=== PATIENT | female | born 1945 ===

== ENCOUNTER 2020-04-01 11:57 | Outpatient (REF) | payer MEDICARE, MEDICAID, SELFPAY ==
--- NOTE | 2020-04-01 12:18 | XR_ITS ---
EXAMINATION: XR CHEST CLINICAL INFORMATION: Weight loss, hypertension. COMPARISON: None TECHNIQUE: 2 views of the chest were obtained. FINDINGS: The lungs are well-expanded and clear. There are small calcified granulomas in the right lower lobe. The heart size and pulmonary vascularity is normal. There is mild spondylosis dorsal spine. No lytic process seen. XR/XR chest 2V IMPRESSION: Unremarkable chest exam.
[2020-04-01 12:47] LABS: MANUAL DIFF FLAG NO
[2020-04-01 12:53] LABS: Basophils Percent Auto 0.4 % (0-2); Eosinophils Absolute Auto 0.1 X10*3/uL (0.0-0.4); Eosinophils Percent Auto 1.6 % (0-4); Hematocrit 34.5 % (37-47); Hemoglobin 11.2 g/dl (12.0-16.0); Imm Gran Abs Auto 0.02 X10*3/uL (0.00-0.03); Imm Gran Pct Auto 0.3 % (0.0-0.4); Lymphocytes Absolute Auto 2.3 X10*3/uL (1.2-4.9); Lymphocytes Percent Auto 30.9 % (20-40); Mean Corpuscular HGB Conc 32.5 g/dl (31.0-35.0); Mean Corpuscular Hemoglobin 32.1 pg (27.0-33.0); Mean Corpuscular Volume 98.9 fL (80-98); Mean Platelet Volume 11.5 fL (9.4-12.3); Monocytes Absolute Auto 0.5 X10*3/uL (0.1-1.2); Monocytes Percent Auto 7.3 % (2-11); Neutrophils Absolute Auto 4.4 X10*3/uL (2.0-8.3); Neutrophils Percent Auto 59.5 % (45-73); Platelet Count 185 X10*3/uL (160-400); Red Blood Count 3.49 X10*6/uL (4.20-5.50); Red Cell Distribution Width 12.7 % (11.0-16.0); White Blood Count 7.4 X10*3/uL (4.8-10.8)
[2020-04-01 13:11] LABS: Estimated Average Glucose 103 mg/dL; Hemoglobin A1c % 5.2 %
[2020-04-01 14:15] LABS: Alanine Aminotransferase 16 U/L (0-31); Albumin Level 4.2 g/dL (3.5-5.0); Alkaline Phosphatase 74 U/L (39-117); Anion Gap 14 (12-20); Aspartate Amino Transferase 24 U/L (5-31); Bilirubin Total 0.6 mg/dL (0.0-1.0); Blood Urea Nitrogen 46 mg/dL (9-16); C Reactive Protein 0.47 mg/dL (< or = 0.50); Carbon Dioxide 28 mmol/L (22-29); Chloride 100 mmol/L (96-108); Estimated Glomerular Filt Rate 25; Glucose Random 99 mg/dL (60-115); Lipase 62 U/L (8-78); Potassium 3.5 mmol/l (3.3-5.1); Sodium 138 mmol/L (135-145); Total Protein 7.3 g/dL (6.5-8.0)
[2020-04-01 14:36] LABS: Free T4 (Free Thyroxine) 1.11 ng/dL (0.71-1.85); Thyroid Stimulating Hormone 1.34 uIU/mL (0.32-4.0)
[2020-04-01 14:53] LABS: Vitamin B12 423 pg/mL (200-900)
== END 2020-04-01 11:58 | disposition home or self-care (01) ==
LOC: HO.LAB 11:57
PROVIDERS: PCP Internal Medicine; Visit Provider Internal Medicine
DX: R63.4 Abnormal weight loss (principal); I10 Essential (primary) hypertension
CPT/HCPCS: 36415; 71046; 80053; 82607; 83036; 83690; 84439; 84443; 85025; 86140

== ENCOUNTER 2020-07-15 13:36 | Outpatient (REF) | payer MEDICARE, MEDICAID, SELFPAY ==
--- NOTE | ~2020-07-15 | MM_ITS ---
EXAMINATION: MM SCREENING DIGITAL BREAST TOMOSYNTHESIS, BILATERAL CLINICAL INFORMATION: Screening. Asymptomatic. The lifetime risk of breast cancer based on the Tyrer-Cuzick Model is 4.9%. COMPARISON: Mammography: January 24, 2018 and studies dating back to July 04, 2013 TECHNIQUE: Digital breast tomosynthesis is performed in both the craniocaudal and mediolateral oblique views along with computer-aided detection (CAD). Synthesized 2D images are generated from the tomosynthesis. FINDINGS: There are scattered areas of fibroglandular density (ACR BI-RADS breast composition Category b). There are no significant masses, abnormal calcifications, or other abnormalities. MM/MM tomosynthesis screening BI IMPRESSION: There are no significant changes from prior study. ASSESSMENT: BI-RADS 1: Negative RECOMMENDATION: Routine annual mammography screening. This patient's information was entered into a reminder system with a target due date for their next mammogram.
== END 2020-07-15 13:37 | disposition home or self-care (01) ==
LOC: HO.MAMMO 13:36
PROVIDERS: Visit Provider Internal Medicine
DX: Z12.31 Encounter for screening mammogram for malignant neoplasm of breast (principal)
CPT/HCPCS: 77063; 77067

== ENCOUNTER → 2020-08-13 10:02 | Outpatient (BNVA) | payer MEDICARE, MEDICAID, SELFPAY | PROVIDERS: PCP Internal Medicine; Visit Provider Advanced Practice Midwife | DX: Z01.419 Encounter for gynecological examination (general) (routine) without abnormal findings (principal); N95.0 Postmenopausal bleeding; N81.4 Uterovaginal prolapse, unspecified | CPT/HCPCS: 81003 ==

== ENCOUNTER 2020-10-15 14:44 | Outpatient (REF) | payer MEDICARE, MEDICAID, SELFPAY ==
--- NOTE | ~2020-10-15 | US_ITS ---
EXAMINATION: ULTRASOUND PELVIS AND TRANSVAGINAL. CLINICAL INFORMATION: Uterovaginal prolapse. COMPARISON: None TECHNIQUE: Transabdominal and transvaginal imaging of pelvis is performed. FINDINGS: The uterus is anteverted and anteflexed measuring 7.2 cm in length, 3.5 cm AP and 5.5 cm in transverse dimension. No focal lesion is seen. The right ovary is not visualized. The left ovary measures 2.9 x 1.4 x 2.0 cm and volume 4.2 mL. There is moderate amount of free fluid in the cul-de-sac. US/US pelvic and transvaginal IMPRESSION: Unremarkable uterus and left ovary. The right ovary is not visualized Moderate amount of free fluid in the cul-de-sac.
[2020-10-15 15:57] LABS: Glucose Urine UA NEG (NEG); Leukocyte Esterase Urine NEG (NEG); Nitrite Urine NEG (NEG); PH 5.5 (5.0-8.0); Specific Gravity - Urine 1.025 (1.005-1.025); Urine Blood NEG (NEG); Urine Ketones NEG (NEG); Urine Protein TRACE MG/DL (NEG-TRACE)
[2020-10-15 16:07] LABS: Appearance Urine HAZY; Color Urine YELLOW
== END 2020-10-15 14:45 | disposition home or self-care (01) ==
LOC: HO.US 14:44
PROVIDERS: Visit Provider Advanced Practice Midwife
DX: N81.4 Uterovaginal prolapse, unspecified (principal); R82.90 Unspecified abnormal findings in urine; N95.0 Postmenopausal bleeding
CPT/HCPCS: 76830; 76856; 81003

== ENCOUNTER 2020-10-23 10:23 | Outpatient (REF) | payer MEDICARE, MEDICAID, SELFPAY ==
[2020-10-23 11:27] LABS: MANUAL DIFF FLAG NO
[2020-10-23 11:42] LABS: Basophils Percent Auto 0.2 % (0-2); Eosinophils Absolute Auto 0.1 X10*3/uL (0.0-0.4); Eosinophils Percent Auto 1.3 % (0-4); Hematocrit 32.7 % (37-47); Hemoglobin 10.5 g/dl (12.0-16.0); Imm Gran Abs Auto 0.02 X10*3/uL (0.00-0.03); Imm Gran Pct Auto 0.2 % (0.0-0.4); Lymphocytes Absolute Auto 1.9 X10*3/uL (1.2-4.9); Lymphocytes Percent Auto 21.9 % (20-40); Mean Corpuscular HGB Conc 32.1 g/dl (31.0-35.0); Mean Corpuscular Hemoglobin 31.7 pg (27.0-33.0); Mean Corpuscular Volume 98.8 fL (80-98); Mean Platelet Volume 11.2 fL (9.4-12.3); Monocytes Absolute Auto 0.7 X10*3/uL (0.1-1.2); Monocytes Percent Auto 8.5 % (2-11); Neutrophils Absolute Auto 5.8 X10*3/uL (2.0-8.3); Neutrophils Percent Auto 67.9 % (45-73); Platelet Count 154 X10*3/uL (160-400); Red Blood Count 3.31 X10*6/uL (4.20-5.50); Red Cell Distribution Width 12.7 % (11.0-16.0); White Blood Count 8.6 X10*3/uL (4.8-10.8)
[2020-10-23 11:47] LABS: INTERNATIONAL NORM RATIO 1.1 (0.9-1.1); Prothrombin Time 13.3 SEC (10.8-13.0)
[2020-10-23 11:50] LABS: Partial Thromboplastin Time 30.6 SEC (24.1-38.0)
[2020-10-23 11:59] LABS: Estimated Average Glucose 100 mg/dL; Hemoglobin A1c % 5.1 %
[2020-10-23 12:04] LABS: Alanine Aminotransferase 16 U/L (0-31); Albumin Level 3.7 g/dL (3.5-5.0); Alkaline Phosphatase 75 U/L (39-117); Anion Gap 12 (12-20); Aspartate Amino Transferase 22 U/L (5-31); Blood Urea Nitrogen 29 mg/dL (9-16); C Reactive Protein 5.66 mg/dL (< or = 0.50); Calcium 9.3 mg/dL (8.4-10.2); Carbon Dioxide 27 mmol/L (22-29); Chloride 109 mmol/L (96-108); Cholesterol 161 mg/dL; Estimated Glomerular Filt Rate 50; Glucose Random 94 mg/dL (60-115); HDL Cholesterol 61 mg/dL; LDL Cholesterol Calculated 90 mg/dl; Lactate Dehydrogenase 178 U/L (122-220); Phosphorus 3.5 mg/dL (2.7-4.5); Potassium 4.7 mmol/L (3.3-5.1); Sodium 143 mmol/L (135-145); Total Protein 6.6 g/dL (6.5-8.0); Triglycerides 53 mg/dL
[2020-10-27 09:36] LABS: Calcium (PTHI) 9.1 mg/dL (8.6-10.4); PTHI 40 pg/mL (14-64)
== END 2020-10-23 10:24 | disposition home or self-care (01) ==
LOC: HO.LAB 10:23
PROVIDERS: PCP Internal Medicine; Visit Provider Internal Medicine
DX: I10 Essential (primary) hypertension (principal); E78.00 Pure hypercholesterolemia, unspecified; R73.03 Prediabetes
CPT/HCPCS: 36415; 80053; 80061; 83036; 83615; 83970; 84100; 85025; 85610; 85730; 86140

== ENCOUNTER → 2020-10-29 10:46 | Outpatient (BNVA) | payer MEDICARE, MEDICAID, SELFPAY | PROVIDERS: Visit Provider Advanced Practice Midwife | DX: Z71.2 Person consulting for explanation of examination or test findings (principal); R93.89 Abnormal findings on diagnostic imaging of other specified body structures | CPT/HCPCS: Q3014 ==

== ENCOUNTER 2021-08-19 12:03 | Outpatient (REF) | payer MEDICARE, MEDICAID, SELFPAY ==
--- NOTE | ~2021-08-19 | XR_ITS ---
EXAMINATION: XR CHEST CLINICAL INFORMATION: Fall. Left rib pain. COMPARISON: 04/01/2020 TECHNIQUE: PA and lateral views of the chest, 3 views of the left hemithorax FINDINGS: Normal symmetric lung volumes. No parenchymal consolidation. There are couple calcified granuloma within the right lower lung. No pleural effusion. No pneumothorax. Cardiomediastinal silhouette and pulmonary vascularity are within normal limits. Aorta is atherosclerotic. No acute osseous abnormalities, specifically no displaced rib fractures. XR/XR ribs LT 2V IMPRESSION: No acute pulmonary findings. Calcified granulomata, right lower lung. No displaced rib fractures.
--- NOTE | ~2021-08-19 | XR_ITS ---
EXAMINATION: XR CHEST CLINICAL INFORMATION: Fall. Left rib pain. COMPARISON: 04/01/2020 TECHNIQUE: PA and lateral views of the chest, 3 views of the left hemithorax FINDINGS: Normal symmetric lung volumes. No parenchymal consolidation. There are couple calcified granuloma within the right lower lung. No pleural effusion. No pneumothorax. Cardiomediastinal silhouette and pulmonary vascularity are within normal limits. Aorta is atherosclerotic. No acute osseous abnormalities, specifically no displaced rib fractures. XR/XR chest 2V IMPRESSION: No acute pulmonary findings. Calcified granulomata, right lower lung. No displaced rib fractures.
[2021-08-19 12:29] LABS: MANUAL DIFF FLAG NO
[2021-08-19 13:23] LABS: Basophils Percent Auto 0.1 % (0-2); Eosinophils Absolute Auto 0.1 X10*3/uL (0.0-0.4); Eosinophils Percent Auto 1.5 % (0-4); Hematocrit 33.4 % (37.0-47.0); Hemoglobin 10.5 g/dl (12.0-16.0); Imm Gran Abs Auto 0.04 X10*3/uL (0.00-0.03); Imm Gran Pct Auto 0.5 % (0.0-0.4); Lymphocytes Absolute Auto 1.5 X10*3/uL (1.2-4.9); Lymphocytes Percent Auto 18.3 % (20-40); Mean Corpuscular HGB Conc 31.4 g/dl (31.0-35.0); Mean Corpuscular Hemoglobin 30.9 pg (27.0-33.0); Mean Corpuscular Volume 98.2 fL (80.0-98.0); Mean Platelet Volume 10.9 fL (9.4-12.3); Monocytes Absolute Auto 0.6 X10*3/uL (0.1-1.2); Neutrophils Absolute Auto 5.7 x10*3/uL (2.0-8.3); Neutrophils Percent Auto 71.6 % (45-73); Platelet Count 194 X10*3/uL (160-400); Red Cell Distribution Width 13.2 % (11.0-16.0); White Blood Count 7.9 X10*3/uL (4.8-10.8)
[2021-08-19 13:29] LABS: Estimated Average Glucose 105 mg/dL; Hemoglobin A1c % 5.3 %
[2021-08-19 13:50] LABS: Alanine Aminotransferase 11 U/L (0-31); Albumin Level 3.7 g/dL (3.5-5.0); Alkaline Phosphatase 80 U/L (39-117); Anion Gap 13 (12-20); Aspartate Amino Transferase 22 U/L (5-31); Bilirubin Total 0.5 mg/dL (0.0-1.0); Blood Urea Nitrogen 40 mg/dL (9-16); C Reactive Protein 4.19 mg/dL (< or = 0.50); Calcium 9.2 mg/dL (8.4-10.2); Carbon Dioxide 24 mmol/L (22-29); Chloride 110 mmol/L (96-108); Cholesterol 189 mg/dL; Estimated Glomerular Filt Rate 33; Glucose Random 116 mg/dL (60-115); Potassium 3.9 mmol/L (3.3-5.1); Sodium 143 mmol/L (135-145); Total Protein 6.9 g/dL (6.5-8.0)
[2021-08-19 13:52] LABS: Appearance Urine HAZY; Color Urine YELLOW; Glucose Urine UA NEG (NEG); Leukocyte Esterase Urine 1+ (NEG); Nitrite Urine POS (NEG); Specific Gravity - Urine 1.025 (1.005-1.025); Urine Blood TRACE (NEG); Urine Ketones NEG (NEG); Urine Protein 2+ MG/DL (NEG-TRACE)
[2021-08-19 14:12] LABS: Creatinine Urine 117.72 mg/dL
[2021-08-19 14:15] LABS: Thyroid Stimulating Hormone 3.03 uIU/mL (0.32-4.0)
[2021-08-19 14:36] LABS: Squamous Epithelial Cell Urine 4+ /LPF
[2021-08-19 14:37] LABS: Bacteria Urine 4+ /LPF
== END 2021-08-19 12:04 | disposition home or self-care (01) ==
LOC: HO.LAB 12:03
PROVIDERS: PCP Internal Medicine; Visit Provider Internal Medicine
DX: R60.0 Localized edema (principal); I10 Essential (primary) hypertension; E11.9 Type 2 diabetes mellitus without complications; R07.81 Pleurodynia; W19.XXXD Unspecified fall, subsequent encounter
CPT/HCPCS: 36415; 71046; 71100; 80053; 81001; 81003; 82043; 82465; 83036; 84443; 85025; 86140

== ENCOUNTER 2021-11-22 14:39 | Emergency (ER) | payer MEDICARE, MEDICAID, SELFPAY ==
[2021-11-22 14:54] VITALS: BP 129/64; PULSE 83; RESP 18; TEMP 36.7; O2SAT 99; BMI 30.2
== END 2021-11-22 20:46 | disposition left against medical advice (07) ==
PROVIDERS: Emergency Provider Emergency Medicine; PCP Internal Medicine
DX: R21 Rash and other nonspecific skin eruption (principal); R11.2 Nausea with vomiting, unspecified
CPT/HCPCS: 99281

== ENCOUNTER 2021-11-23 20:00 | Inpatient (IN) | payer OTHER, SELFPAY ==
--- NOTE | ~2021-11-23 | US_ITS ---
EXAMINATION: US RETROPERITONEAL LIMITED (RENAL ONLY) CLINICAL INFORMATION: Acute kidney injury. Rule out obstruction. COMPARISON: CT 12/03/2019 TECHNIQUE: Real-time imaging of the kidneys. FINDINGS: RIGHT KIDNEY: 9.6 x 4.4 x 5.0 cm (SAG x AP x TRV). The kidney is normal in size, contour, and echogenicity. Renal cortical thickness is normal. No focal parenchymal lesions or hydronephrosis. Nonobstructing 3 mm echogenic, shadowing calculus in the right mid kidney. LEFT KIDNEY: 9.7 x 4.7 x 4.6 cm (SAG x AP x TRV). The kidney is normal in size, contour, and echogenicity. Renal cortical thickness is normal. No hydronephrosis. 2.3 cm anechoic cyst of the upper pole the right kidney. 3 mm echogenic nonobstructing mid renal calculus. US/US renal BI IMPRESSION: No hydronephrosis. Bilateral nonobstructing renal calculi.
[2021-11-23 20:10] VITALS: BP 108/52; PULSE 78; RESP 16; TEMP 36.2; O2SAT 98; BMI 27.1
[2021-11-23 22:16] LABS: COVID-19 Test Negative (Negative)
[2021-11-23 22:20] LABS: Alanine Aminotransferase 19 U/L (0-31); Albumin Level 4.1 g/dL (3.5-5.0); Alkaline Phosphatase 82 U/L (39-117); Anion Gap 19 (12-20); Aspartate Amino Transferase 29 U/L (5-31); Bilirubin Direct 0.3 mg/dL (0.0-0.5); Bilirubin Total 0.7 mg/dL (0.0-1.0); Blood Urea Nitrogen 59 mg/dL (9-16); Carbon Dioxide 26 mmol/L (22-29); Chloride 95 mmol/L (96-108); Creatinine Clr Calc Pharmacy 10.7; Estimated Glomerular Filt Rate 10; Glucose Random 120 mg/dL (60-115); Lipase 168 U/L (8-78); Potassium 4.5 mmol/L (3.3-5.1); Sodium 135 mmol/L (135-145); Total Protein 7.8 g/dL (6.5-8.0)
[2021-11-23 22:36] VITALS: BP 168/69; PULSE 66; RESP 16; TEMP 36.7; O2SAT 100
--- NOTE | 2021-11-23 23:06 | ED_ITS ---
HPI - Nausea/Vomiting/Diarrhea General Chief complaint: Nausea/Vomiting/Diarrhea Stated complaint: shingles, vomitting, dizziness Time Seen by Provider: 11/23/21 22:52 Source: patient Mode of arrival: ambulatory Limitations: no limitations History of Present Illness HPI Narrative: Patient comes to the emergency room complaining of nausea and vomiting. Patient states that yesterday she was diagnosed with shingles, she was started on valacyclovir. Patient states that since she has been taking the medication, she has been nauseous and vomiting, no abdominal pain other than the superficial pain in the abdomen from the shingles rash. Denies diarrhea, no fever or chills. Related Data Home Medications Medication Instructions Recorded Confirmed No Known Home Meds 08/13/20 08/13/20 Allergies Allergy/AdvReac Type Severity Reaction Status Date / Time penicillin V Allergy Unknown hives, Rash Verified 10/29/20 10:47 Penicillins [PENICILLINS] Allergy Unknown RASH Verified 10/29/20 10:47 Review of Systems Review of Systems: Constitutional : No Weight loss, No Fever, No Chills, No Night Sweats, No Fatigue, No Malaise ENT/Mouth : No Hearing loss, No Ear Pain, No Nasal Congestion, No Sinus Pain, No Hoarseness, No sore throat, No Rhinorrhea, No Swallowing Difficulty Eyes: No Eye Pain, No Swelling, No Redness, No Foreign Body, No Discharge, No Vision Changes Cardiovascular : No Chest Pain, No SOB, No Dyspnea on Exertion, No Orthopnea, No Edema, No Palpitations Respiratory : No Cough, No Sputum, No Wheezing, No Smoke Exposure, No Dyspnea Gastrointestinal : Complaining of nausea vomiting, No Diarrhea, No Constipa tion, No abdominal Pain, No Hematochezia, No Melena Genitourinary : no irregular bleeding, No Dysuria, No Urinary Frequency, No Hematuria, No Urinary Incontinence, No Urgency, No Flank Pain, No Urinary Flow Changes, No Hesitancy Musculoskeletal : No joint pain, No Myalgias, No Joint Swelling Skin : Shingles rash on the left side of the abdomen Neuro : No Weakness, No Numbness, No Paresthesias, No Loss of Consciousness, No Dizziness, No Headache Psych : No Anxiety/Panic, No Depression, No SI/HI/AH/VH, No Social Issues, Heme/Lymph: No Bruising, No Bleeding,No Lymphadenopathy Endocrine : No Polyuria, No Polydipsia, No Temperature Intolerance [facility] Past Medical History Medical History Abnormal urine odor Arthritis Diabetes mellitus HTN (hypertension) Uterine prolapse Surgical History History of loop electrical excision procedure (LEEP) Hx of appendectomy Family History Family History Sister Breast cancer Mother Vaginal cancer Social History Social History Alcohol intake: never Patient Tobacco Use Status: Never used Tobacco Use of substances other than those prescribed or required for medical reasons: No Advance Directives: No Advance Directives Information Provided: No Gender identity: Female Physical Exam 2 Vital Signs: Vital Signs: Last Vital Signs Temp 98.1 F 11/23/21 22:36 Pulse 66 11/23/21 22:36 Resp 16 11/23/21 22:36 BP 168/69 H 11/23/21 22:36 Pulse Ox 100 11/23/21 22:36 O2 Del Method 11/23/21 22:36 BMI result Body Mass Index 27.1 Const: Other: Appearance: Alert. Oriented X3. No acute distress. Well-appearing Eyes: Pupils equal, round and reactive to light. ENT: Pharynx normal. Neck: Normal inspection. Neck supple. No lymph nodes noted. No crepitus CVS: Normal heart rate and rhythm. Pulses normal. Normal S1 and S2 Respiratory: No respiratory distress. Breath sounds normal. No Wheezing. No rales Abdomen: Soft , patient has shingles rash on the left side of the abdomen, vesicles present Skin: Skin warm and dry. Normal skin color. Normal skin turgor. Extremities: No lower extremity edema. No Lacerations. No Rash Neuro: Oriented X 3. No motor deficit. No sensory deficit. Moving all extremities. No slurred speech. CN 2 through 12 grossly intact Psych: calm, cooperative, normal affect Course Course Course Narrative: Patient states that the reason she came to the emergency room is because she would like to have some nausea medication before she takes her valacyclovir. However, I discussed with the patient that her creatinine is quite elevated. This is likely secondary to valacyclovir and vomiting. We will give patient IV fluids, Zofran. Patient states that she does not want to stay in the hospital but she is willing to get IV treatment in the ED. I discussed the medication with pharmacy, valacyclovir can cause renal failure. Recommendations for patients with a GFR less than 20, which is a case of the patient, famciclovir 250 mg Q 24 hours Patient received 2 L of IV fluids, renal function improved from 4.46 to 3.65. However, this is a big jump in creatinine from patient's baseline. Patient grudgingly accepted to stay to be admitted. I discussed the patient with Dr. Child, patient being admitted. MDM - Nausea/Vomiting/Diarrhea Lab Data Result diagrams: 11/23/21 23:33 11/24/21 02:42 Labs: Lab Results 11/23/21 11/23/21 11/23/21 Range/Units 21:54 21:54 23:33 WBC 6.7 (4.8-10.8) X10*3/uL RBC 3.69 L (4.20-5.50) X10*6/uL Hgb 11.4 L (12.0-16.0) g/dl Hct 35.1 L (37.0-47.0) % MCV 95.1 (80.0-98.0) fL MCH 30.9 (27.0-33.0) pg MCHC 32.5 (31.0-35.0) g/dl RDW 12.8 (11.0-16.0) % Plt Count 145 L D (160-400) X10*3/uL MPV 10.7 (9.4-12.3) fL Immature Gran % (Auto) 0.1 (0.0-0.4) % Neut % (Auto) 59.7 (45-73) % Lymph % (Auto) 26.1 (20-40) % [place] % (Auto) 13.1 H (2-11) % Eos % (Auto) 0.9 (0-4) % Baso % (Auto) 0.1 (0-2) % Lymph # (Auto) 1.8 (1.2-4.9) X10*3/uL [place] # (Auto) 0.9 (0.1-1.2) X10*3/uL Eos # (Auto) 0.1 (0.0-0.4) X10*3/uL Baso # (Auto) 0.0 (0.0-0.2) X10*3/uL Abs Immat Gran (auto) 0.01 (0.00-0.03) X10*3/uL Absolute Neuts (auto) 4.0 (2.0-8.3) x10*3/uL Absolute Nucleated RBC 0.000 (0.0-0.012) X10*3/uL Nucleated RBC % (auto) 0.0 (0.0-0.2) /100WBC Sodium 135 (135-145) mmol/L Potassium 4.5 (3.3-5.1) mmol/L Chloride 95 L (96-108) mmol/L Carbon Dioxide 26 (22-29) mmol/L Anion Gap 19 (12-20) BUN 59 H (9-16) mg/dL Creatinine 4.46 H* (0.5-1.4) mg/dL Estim Creat Clear Calc 10.7 Estimated GFR 10 Random Glucose 120 H (60-115) mg/dL Calcium 9.0 (8.4-10.2) mg/dL Total Bilirubin 0.7 (0.0-1.0) mg/dL Direct Bilirubin 0.3 (0.0-0.5) mg/dL AST 29 (5-31) U/L ALT 19 (0-31) U/L Alkaline Phosphatase 82 (39-117) U/L Total Protein 7.8 (6.5-8.0) g/dL Albumin 4.1 (3.5-5.0) g/dL Lipase 168 H (8-78) U/L COVID-19 (JÚNIOR) Negative (Negative) COVID-19 Clin Com See Note 11/24/21 Range/Units 02:42 WBC (4.8-10.8) X10*3/uL RBC (4.20-5.50) X10*6/uL Hgb (12.0-16.0) g/dl Hct (37.0-47.0) % MCV (80.0-98.0) fL MCH (27.0-33.0) pg MCHC (31.0-35.0) g/dl RDW (11.0-16.0) % Plt Count (160-400) X10*3/uL MPV (9.4-12.3) fL Immature Gran % (Auto) (0.0-0.4) % Neut % (Auto) (45-73) % Lymph % (Auto) (20-40) % [place] % (Auto) (2-11) % Eos % (Auto) (0-4) % Baso % (Auto) (0-2) % Lymph # (Auto) (1.2-4.9) X10*3/uL [place] # (Auto) (0.1-1.2) X10*3/uL Eos # (Auto) (0.0-0.4) X10*3/uL Baso # (Auto) (0.0-0.2) X10*3/uL Abs Immat Gran (auto) (0.00-0.03) X10*3/uL Absolute Neuts (auto) (2.0-8.3) x10*3/uL Absolute Nucleated RBC (0.0-0.012) X10*3/uL Nucleated RBC % (auto) (0.0-0.2) /100WBC Sodium 136 (135-145) mmol/L Potassium 4.1 (3.3-5.1) mmol/L Chloride 102 (96-108) mmol/L Carbon Dioxide 23 (22-29) mmol/L Anion Gap 15 (12-20) BUN 57 H (9-16) mg/dL Creatinine 3.65 H (0.5-1.4) mg/dL Estim Creat Clear Calc 13.1 Estimated GFR 12 Random Glucose 90 (60-115) mg/dL Calcium 8.3 L D (8.4-10.2) mg/dL Total Bilirubin 0.6 (0.0-1.0) mg/dL Direct Bilirubin (0.0-0.5) mg/dL AST 21 (5-31) U/L ALT 13 (0-31) U/L Alkaline Phosphatase 68 (39-117) U/L Total Protein 6.4 L (6.5-8.0) g/dL Albumin 3.5 (3.5-5.0) g/dL Lipase (8-78) U/L COVID-19 (JÚNIOR) (Negative) COVID-19 Clin Com Discharge Plan Discharge Clinical Impression: Acute renal failure, Shingles Patient Disposition: Still a Patient Prescriptions: No Action No Known Home Meds
[2021-11-23] MEDS: 0.9 % Sodium Chloride 1,000 ML 999 ML IVCONT ×2 (23:35→23:59)
[2021-11-23] MEDS: ondansetron HCL 4 MG/2 ML VIAL IVPUSH (23:35)
[2021-11-23 23:43] LABS: Basophils Percent Auto 0.1 % (0-2); Eosinophils Absolute Auto 0.1 X10*3/uL (0.0-0.4); Eosinophils Percent Auto 0.9 % (0-4); Hematocrit 35.1 % (37.0-47.0); Hemoglobin 11.4 g/dl (12.0-16.0); Imm Gran Abs Auto 0.01 X10*3/uL (0.00-0.03); Imm Gran Pct Auto 0.1 % (0.0-0.4); Lymphocytes Absolute Auto 1.8 X10*3/uL (1.2-4.9); Lymphocytes Percent Auto 26.1 % (20-40); Mean Corpuscular HGB Conc 32.5 g/dl (31.0-35.0); Mean Corpuscular Hemoglobin 30.9 pg (27.0-33.0); Mean Corpuscular Volume 95.1 fL (80.0-98.0); Mean Platelet Volume 10.7 fL (9.4-12.3); Monocytes Absolute Auto 0.9 X10*3/uL (0.1-1.2); Monocytes Percent Auto 13.1 % (2-11); Neutrophils Percent Auto 59.7 % (45-73); Platelet Count 145 X10*3/uL (160-400); Red Blood Count 3.69 X10*6/uL (4.20-5.50); Red Cell Distribution Width 12.8 % (11.0-16.0); White Blood Count 6.7 X10*3/uL (4.8-10.8)
[2021-11-24 00:22] LABS: MANUAL DIFF FLAG NO
[2021-11-24 03:14] LABS: Alanine Aminotransferase 13 U/L (0-31); Albumin Level 3.5 g/dL (3.5-5.0); Alkaline Phosphatase 68 U/L (39-117); Anion Gap 15 (12-20); Aspartate Amino Transferase 21 U/L (5-31); Bilirubin Total 0.6 mg/dL (0.0-1.0); Blood Urea Nitrogen 57 mg/dL (9-16); Calcium 8.3 mg/dL (8.4-10.2); Carbon Dioxide 23 mmol/L (22-29); Chloride 102 mmol/L (96-108); Creatinine Clr Calc Pharmacy 13.1; Estimated Glomerular Filt Rate 12; Glucose Random 90 mg/dL (60-115); Potassium 4.1 mmol/L (3.3-5.1); Sodium 136 mmol/L (135-145); Total Protein 6.4 g/dL (6.5-8.0)
[2021-11-24 05:00] VITALS: BP 177/67; PULSE 68; RESP 18; O2SAT 98
--- NOTE | 2021-11-24 07:15 | PC.NURSE ---
Report received from ANNALISA Maldonado. Patient is resting on stretcher and reports comfort. Daughter at bedside. Patient is being admitted, has shingles, and is on precautions at this time. Respirations regular and even. Will continue to monitor.
[2021-11-24 07:24] VITALS: BP 158/74; PULSE 80; RESP 16; O2SAT 97
[2021-11-24 08:01] LABS: Appearance Urine HAZY; Color Urine YELLOW; Glucose Urine UA NEG (NEG); Leukocyte Esterase Urine 1+ (NEG); Nitrite Urine POS (NEG); UACC Culture Trigger YES; Urine Blood TRACE (NEG); Urine Ketones NEG (NEG); Urine Protein 1+ MG/DL (NEG-TRACE)
[2021-11-24 08:08] LABS: Bacteria Urine 4+ /LPF
[2021-11-24 08:09] LABS: Squamous Epithelial Cell Urine 1+ /LPF
[2021-11-24 08:11] LABS: RBC Urine 0 /HPF (0)
[2021-11-24 08:48] LABS: Hematocrit 33.8 % (37.0-47.0); Hemoglobin 11.2 g/dl (12.0-16.0); Mean Corpuscular HGB Conc 33.1 g/dl (31.0-35.0); Mean Corpuscular Hemoglobin 31.5 pg (27.0-33.0); Mean Corpuscular Volume 94.9 fL (80.0-98.0); Mean Platelet Volume 11.7 fL (9.4-12.3); Platelet Count 108 X10*3/uL (160-400); Red Blood Count 3.56 X10*6/uL (4.20-5.50); Red Cell Distribution Width 12.8 % (11.0-16.0)
[2021-11-24 08:55] VITALS: BP 199/82; PULSE 72; RESP 16; O2SAT 99
--- NOTE | 2021-11-24 08:58 | P.HPHOSP_ITS ---
History of Present Illness Date of Service: 11/24/21 Chief Complaint: Rash, nausea/vomiting This is a 76 year old Emirati speaking female (Daughter is bedside and pt prefers daughter to interpret) with a PMH of HTN, CAD (no stenting), DM (diet controlled), Arthritis who presents to the hospital with a several day history of intractable nausea and vomiting. She reports no diarrhea, no fevers, no chills. She reports that she was diagnosed with shingles the day before admission and was prescribed valacyclovir (per ED provider notes, pt does not know name of medicine). She reports taking only 1 dose but due to her persistent nausea/vomiting her daughter decided to bring her to the ED. Upon arrival to the ED, a typical shingles rash was noted on the mid abdomen going to the back. She was noted to have acute kidney injury with a serum creatnine of 4.46. She was given 2L IVF with some improvement in her SCr (3.65). A renal ultrasound has been ordered which shows non-obstructing stones bilaterally. She will now be admitted for further work up and treatment. Review of Systems Review of Systems: negative except HPI [facility] Medical History Abnormal urine odor Arthritis Diabetes mellitus HTN (hypertension) Uterine prolapse Family History Sister Breast cancer Mother Vaginal cancer Surgical History History of loop electrical excision procedure (LEEP) Hx of appendectomy Social History Alcohol intake: never Patient Tobacco Use Status: Never used Tobacco Use of substances other than those prescribed or required for medical reasons: No Advance Directives: No Advance Directives Information Provided: No Gender identity: Female Meds Allergies Allergy/AdvReac Type Severity Reaction Status Date / Time penicillin V Allergy Unknown hives, Rash Verified 10/29/20 10:47 Penicillins [PENICILLINS] Allergy Unknown RASH Verified 10/29/20 10:47 Home Medications Medication Instructions Recorded Confirmed Last Taken Type losartan 100 mg tablet 1 tab PO DAILY 11/24/21 11/24/21 11/23/21 History tramadol 50 mg tablet 1 tab PO QID 11/24/21 11/24/21 11/23/21 History Physical Exam Vital Signs and Narrative: Vital Signs: Last Vital Signs Temp 98.1 F 11/23/21 22:36 Pulse 80 11/24/21 07:24 Resp 16 11/24/21 07:24 BP 158/74 H 11/24/21 07:24 Pulse Ox 97 11/24/21 07:24 O2 Del Method 11/24/21 07:24 BMI result Body Mass Index 27.1 Const: Other: Constitutional - Awake and Alert, No apparent distress Eyes - PERRLA, EOMI Cardiovascular - S1S2, RRR, No edema Respiratory - Normal lung expansion, Normal respiratory effort, No respiratory distress, CTA bilaterally Gastrointestinal - NT / ND; +BS; No rebound or guarding - No CVA tenderness Extremities - no calf tenderness bilaterally, no swelling Musculoskeletal - Normal inspection, normal ROM Skin - mid abdominal rash with blistering, some lesions have crusted over Neurological - Alert & oriented x3, No focal deficit Psychological - Appropriate affect Results Labs CBC and Chem 7: 11/24/21 08:42 11/24/21 08:42 Labs: Laboratory Results - last 24 hr 11/23/21 11/23/21 11/23/21 21:54 21:54 23:33 MCV 95.1 MCH 30.9 MCHC 32.5 RDW 12.8 Plt Count 145 L D MPV 10.7 Immature Gran % (Auto) 0.1 Neut % (Auto) 59.7 Lymph % (Auto) 26.1 [place] % (Auto) 13.1 H Eos % (Auto) 0.9 Baso % (Auto) 0.1 Lymph # (Auto) 1.8 [place] # (Auto) 0.9 Eos # (Auto) 0.1 Baso # (Auto) 0.0 Abs Immat Gran (auto) 0.01 Absolute Neuts (auto) 4.0 Absolute Nucleated RBC 0.000 Nucleated RBC % (auto) 0.0 Anion Gap 19 Estim Creat Clear Calc 10.7 Estimated GFR 10 Random Glucose 120 H Calcium 9.0 Total Bilirubin 0.7 Direct Bilirubin 0.3 AST 29 ALT 19 Alkaline Phosphatase 82 Total Protein 7.8 Albumin 4.1 Lipase 168 H Urine Color Urine Appearance Urine pH Ur Specific [place] Urine Protein Urine Glucose (UA) Urine Ketones Urine Blood Urine Nitrite Ur Leukocyte Esterase Urine RBC Urine WBC Ur Squamous Epith Cells Urine Bacteria Granular Casts Urine Yeast COVID-19 (JÚNIOR) Negative COVID-19 Clin Com See Note 11/24/21 11/24/21 11/24/21 02:42 07:51 08:42 MCV 94.9 MCH 31.5 MCHC 33.1 RDW 12.8 Plt Count 108 L D MPV 11.7 Immature Gran % (Auto) Neut % (Auto) Lymph % (Auto) [place] % (Auto) Eos % (Auto) Baso % (Auto) Lymph # (Auto) [place] # (Auto) Eos # (Auto) Baso # (Auto) Abs Immat Gran (auto) Absolute Neuts (auto) Absolute Nucleated RBC 0.000 Nucleated RBC % (auto) 0.0 Anion Gap 15 Estim Creat Clear Calc 13.1 Estimated GFR 12 Random Glucose 90 Calcium 8.3 L D Total Bilirubin 0.6 Direct Bilirubin AST 21 ALT 13 Alkaline Phosphatase 68 Total Protein 6.4 L Albumin 3.5 Lipase Urine Color YELLOW Urine Appearance HAZY Urine pH 6.0 Ur Specific [place] 1.020 Urine Protein 1+ H Urine Glucose (UA) NEG Urine Ketones NEG Urine Blood TRACE Urine Nitrite POS H Ur Leukocyte Esterase 1+ H Urine RBC 0 Urine WBC 10-14 H Ur Squamous Epith Cells 1+ Urine Bacteria 4+ Granular Casts 1-4 Urine Yeast 1+ COVID-19 (JÚNIOR) COVID-19 Clin Com Assessment and Plan (1) Acute renal failure: Status: Acute (2) Shingles: Status: Acute Plan This is a 76 year old Emirati speaking female (Daughter is bedside and pt prefers daughter to interpret) with a PMH of HTN, CAD (no stenting), DM (diet controlled), Arthritis who presents with a several day history of nausea/vomiting and a recent diagnosis (less than 72 hours) of shingles. She will be admitted for further work up and treatment. 1. Acute Kidney Injury Likely pre-renal from intractable nausea and vomiting [place] improving with IVF, will continue IVF zak h/h 2. Acute Shingles onset, per history, less than 72 hours to d/w pharmacy re: dosing given her MARKY; possibly acyclovir 800mg TID airborne/contact precautions 3. Thrombocytopenia mild trend hold heparin inlight of dropping platelets -- will use mechanical device for DVT pptx 4. HTN uncontrolled on losartan 100mg at home -- will start norvasc 5mg as an alternative due to MARKY 5. DM diet controlled ADA diet ordered Full Code DVT pptx, mechanical due to thrombocytopenia Quality Stroke Does the patient have a stroke diagnosis?: No VTE Prior VTE?: No VTE Risk Level:: Medical - moderate - high VTE Device Contraindication: Treatment Not Indicated VTE Drug Contraindication: N/A - Med Ordered
[2021-11-24 09:11] LABS: Anion Gap 20 (12-20); Blood Urea Nitrogen 53 mg/dL (9-16); Calcium 8.6 mg/dL (8.4-10.2); Carbon Dioxide 17 mmol/L (22-29); Chloride 104 mmol/L (96-108); Creatinine Clr Calc Pharmacy 15.4; Estimated Glomerular Filt Rate 15; Glucose Random 85 mg/dL (60-115); Potassium 4.6 mmol/L (3.3-5.1); Sodium 136 mmol/L (135-145)
[2021-11-24] MEDS: Heparin Sodium,Porcine 5,000 UNIT/ML VIAL 5000 UNIT SUBCUT (09:41)
--- NOTE | 2021-11-24 10:18 | PC.NURSE ---
Patient resting comfortably on stretcher. Patient is alert and oriented. Respirations regular and even. Administered heparin as ordered. Daughter remains at bedside. Patient sat upright on edge of bed and independently ate breakfast. Will continue to monitor.
[2021-11-24] MEDS: amLODIPine Besylate 5 MG TABLET PO ×2 (10:29→20:09)
[2021-11-24] MEDS: Lactated Ringers 1,000 ML 100 ML IVCONT ×2 (11:59→22:07)
--- NOTE | 2021-11-24 12:00 | PC.NURSE ---
ivf started per order float nurse
[2021-11-24] MEDS: cefTRIAXone sodium 1 GM in 0.9 % Sodium Chloride 50 ML IV (13:21)
[2021-11-24 16:00] VITALS: BP 183/73; PULSE 83; RESP 16; TEMP 36.1; O2SAT 98
--- NOTE | 2021-11-24 16:37 | PC.NURSE ---
PATIENT WAS ASSISTED TO BEDSIDE COMMODE ,PATIENT VOID LARGE AMOUNT OF URINE .
[2021-11-24] MEDS: oxyCODONE HCl Immed Release 5 MG TABLET PO (17:12)
--- NOTE | 2021-11-24 18:38 | PC.NURSE ---
patient was assisted to bed side commode ,voided large amount ,patient refused supper .
[2021-11-24 19:31] VITALS: BP 191/99; PULSE 73; RESP 18; TEMP 36.2; O2SAT 100
--- NOTE | 2021-11-24 20:12 | PC.NURSE ---
bp 191/99, Dr Child notified, amlodipine 5 mg one time dose ordered and administered.
--- NOTE | 2021-11-24 22:36 | PC.NURSE ---
patient has shingles rash, dry, not weeping. contact precautions initiated.
[2021-11-24 23:57] VITALS: BP 197/110; PULSE 86; RESP 18; TEMP 37.1; O2SAT 96
[2021-11-25 04:30] VITALS: BP 182/88
[2021-11-25 06:55] LABS: Hematocrit 35.8 % (37.0-47.0); Hemoglobin 11.9 g/dl (12.0-16.0); Mean Corpuscular HGB Conc 33.2 g/dl (31.0-35.0); Mean Corpuscular Hemoglobin 31.2 pg (27.0-33.0); Platelet Count 152 X10*3/uL (160-400); Red Blood Count 3.81 X10*6/uL (4.20-5.50); Red Cell Distribution Width 12.5 % (11.0-16.0)
[2021-11-25 07:19] LABS: Anion Gap 13 (12-20); Blood Urea Nitrogen 33 mg/dL (9-16); Calcium 8.9 mg/dL (8.4-10.2); Carbon Dioxide 28 mmol/L (22-29); Chloride 101 mmol/L (96-108); Creatinine Clr Calc Pharmacy 31.7; Estimated Glomerular Filt Rate 34; Glucose Random 71 mg/dL (60-115); Potassium 3.9 mmol/L (3.3-5.1); Sodium 138 mmol/L (135-145)
[2021-11-25 07:22] VITALS: BP 210/88; PULSE 78; RESP 18; TEMP 37.2; O2SAT 99
[2021-11-25] MEDS: Lactated Ringers 1,000 ML 100 ML IVCONT (08:12)
[2021-11-25] MEDS: amLODIPine Besylate 5 MG TABLET PO ×2 (08:18→12:06)
--- NOTE | 2021-11-25 11:17 | HO.PM.IMPN ---
Subjective Subjective Date of Service: 11/25/21 Interval History: Complaining of decreased appetite, weakness, headache, denies pain at site of rash, no acute events overnight, no episodes of nausea vomiting or diarrhea. Review of Systems Review of Systems: Yes all other systems are reviewed and are negative Physical Exam Vital Signs: Vital Signs: Last Vital Signs Temp 98.9 F 11/25/21 07:22 Pulse 78 11/25/21 07:22 Resp 18 11/25/21 07:22 BP 210/88 H 11/25/21 07:22 Pulse Ox 99 11/25/21 07:22 O2 Del Method 11/25/21 07:22 BMI result Body Mass Index 27.1 Const: Other: Constitutional - A wake and Alert, No apparent distress Neck no JVD Cardi ovascular -? S1S2, RRR, No edema Res piratory - No resp iratory distress, CTA bilaterally Ga strointestinal -?l eft-sided abdomina l rash ending at m idline,hyperemic r ah with blistering , +BS, nontender, No rebound or gua rding Extremities - no calf tenderne ss bilaterally, no swelling Musculos keletal - Normal i nspection, normal ROM Skin - anterio r abdominal rash e nding at midline e xtending to back a s above Neurologic al -? Alert & orie nted x3, No focal deficit Psychologi yusef - Appropriate affect Objective Data Active Medications Acetaminophen (Acetaminophen 325 Mg Tablet) 650 mg PO Q6H PRN PRN Reason: Pain, Mild (Pain Scale 1-3) Acyclovir (Acyclovir 800 Mg Tablet) 800 mg PO TID [facility] Last Admin: 11/25/21 08:18 Dose: 800 mg Documented By: WILFREDO Amlodipine Besylate (Amlodipine Besylate 5 Mg Tablet) 5 mg PO DAILY [facility]; Protocol Last Admin: 11/25/21 08:18 Dose: 5 mg Documented By: WILFREDO Calamine (Calamine/Zinc Oxide Lotion 177 Ml Bottle) 1 appl TOPICAL QID PRN; Protocol PRN Reason: abdominal wall rash Ondansetron HCl (Ondansetron Hcl 4 Mg/2 Ml Vial) 4 mg IVPUSH Q8H PRN PRN Reason: Nausea and Vomiting Oxycodone HCl (Oxycodone Hcl Immed Release 5 Mg Tablet) 5 mg PO Q6H PRN PRN Reason: Pain, Severe (Pain Scale 7-10) Last Admin: 11/24/21 17:12 Dose: 5 mg Documented By: PRIYANKA Sodium Chloride (0.9 % Sodium Chloride Flush 3 Ml Syringe) 3 ml IVFLUSH QSHIFT [facility] Last Admin: 11/25/21 08:19 Dose: Not Given Documented By: WILFREDO Non-Admin Reason: IV Running Labs CBC & Chem 7: 11/25/21 06:03 11/25/21 06:03 Labs: Laboratory Results - last 24 hr 11/25/21 11/25/21 06:03 06:03 MCV 94.0 MCH 31.2 MCHC 33.2 RDW 12.5 Plt Count 152 L D MPV 11.0 Absolute Nucleated RBC 0.000 Nucleated RBC % (auto) 0.0 Anion Gap 13 Estim Creat Clear Calc 31.7 Estimated GFR 34 Random Glucose 71 Calcium 8.9 Microbiology Microbiology Results: Microbiology 11/24/21 Unknown Urine Culture - Final Urine clean catch - Urine dewitt top Assessment and Plan (1) Acute renal failure: Status: Acute (2) Shingles: Status: Acute Plan 76 year old French speaking female (Daughter is bedside and pt prefers daughter to interpret) with a PMH of HTN, CAD (no stenting), DM (diet controlled), Arthritis who presents with a several day history of nausea/vomiting and a recent diagnosis (less than 72 hours) of shingles. She will be admitted for further work up and treatment. 1. Acute Kidney Injury Creatinine improved significantly from 4.46-1.5 this morning Likely pre-renal from intractable nausea and vomiting Encourage by mouth fluid DC IV, losartan at hold, will resume since noted to have high blood pressure 2. Acute Shingles onset, per history, less than 72 hours, continue acyclovir 800 t.i.d., continue contact and droplet precaution Apply calamine lotion DC IV ceftriaxone 3. Thrombocytopenia mild, platelet count 152, no acute bleeding noted 4. HTN uncontrolled, will increase dose of Norvasc to 10 mg and follow BP blood pressure remains elevated will resume losartan 5. DM Blood sugars stable, diet controlled, continue ADA diet Full Code DVT pptx, mechanical due to thrombocytopenia Will need continued inpatient hospitalization due to acute kidney injury, headache and uncontrolled blood pressure. Quality Stroke Does the patient have a stroke diagnosis?: No VTE Prior VTE?: No VTE Risk Level:: Medical - moderate - high VTE Device Contraindication: Treatment Not Indicated VTE Drug Contraindication: N/A - Med Ordered
[2021-11-25 11:27] VITALS: BP 221/90; PULSE 78; RESP 19; TEMP 36.2; O2SAT 100
--- NOTE | 2021-11-25 13:35 | MHC.CM.PN ---
IMM addressed with daughterKrysten. IMM addendum completed. Form mailed to Krysten via certified mail; copy filed in chart. Pt's daughter, Krysten, reports patient lives with her sister, Sabrina and two grandchildren. 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 Krysten reports patient has HCP, copy requested. Pt is not Covid Vax'd. Daughter, Krysten, will transport. D/C Plan: Home resume services
[2021-11-25 16:26] VITALS: BP 172/74; PULSE 77; RESP 18; TEMP 36.6; O2SAT 100
[2021-11-25] MEDS: oxyCODONE HCl Immed Release 5 MG TABLET PO (17:20)
[2021-11-25 19:24] VITALS: BP 180/79; PULSE 68; RESP 18; TEMP 36.2; O2SAT 99
[2021-11-25 23:42] VITALS: BP 179/79; PULSE 72; RESP 18; TEMP 36.8; O2SAT 98
[2021-11-25] MEDS: 0.9 % Sodium Chloride Flush 3 ML SYRINGE IVFLUSH (23:48)
[2021-11-26 07:59] LABS: Glucose, Whole Blood 87 mg/dL (60-115)
[2021-11-26 10:08] VITALS: BP 139/68; PULSE 80; RESP 18; TEMP 36.1; O2SAT 99
[2021-11-26] MEDS: 0.9 % Sodium Chloride Flush 3 ML SYRINGE IVFLUSH (10:10)
[2021-11-26] MEDS: amLODIPine Besylate 10 MG TABLET PO (10:10)
[2021-11-26 11:03] LABS: Anion Gap 14 (12-20); Blood Urea Nitrogen 31 mg/dL (9-16); Calcium 8.9 mg/dL (8.4-10.2); Carbon Dioxide 27 mmol/L (22-29); Chloride 101 mmol/L (96-108); Creatinine Clr Calc Pharmacy 36.2; Estimated Glomerular Filt Rate 39; Glucose Random 105 mg/dL (60-115); Lipase 107 U/L (8-78); Potassium 4.4 mmol/L (3.3-5.1); Sodium 138 mmol/L (135-145)
[2021-11-26 11:40] LABS: Glucose, Whole Blood 101 mg/dL (60-115)
--- NOTE | 2021-11-26 12:47 | PM.DS ---
DS: Providers Provider Date of Service: 11/26/21 Date of admission: 11/24/21 08:55 Primary care physician: Unknown Physician DS: Diagnosis Discharge Diagnosis (1) Acute renal failure: Status: Acute (2) Shingles: Status: Acute DS: Summary Hospital Course Hospital Course: Chief Complaint: Rash, nausea/vomiting 76 year old [place]de[place] speaking female (Daughter is bedside and pt prefers daughter to interpret) with a PMH of HTN, CAD (no stenting), DM (diet controlled), Arthritis who presents to the hospital with a several day history of intractable nausea and vomiting. She reports no diarrhea, no fevers, no chills. She reports that she was diagnosed with shingles the day before admission and was prescribed valacyclovir (per ED provider notes, pt does not know name of medicine). She reports taking only 1 dose but due to her persistent nausea/vomiting her daughter decided to bring her to the ED. Upon arrival to the ED, a typical shingles rash was noted on the mid abdomen going to the back. She was noted to have acute kidney injury with a serum creatnine of 4.46. She was given 2L IVF with some improvement in her SCr (3.65). A renal ultrasound has been ordered which shows non-obstructing stones bilaterally. She will now be admitted for further work up and treatment. Hospital course 76 year old [place] speaking female (Daughter is bedside and pt prefers daughter to interpret) with a PMH of HTN, CAD (no stenting), DM (diet controlled), Arthritis who presents with a several day history of nausea/vomiting and a recent diagnosis (less than 72 hours) of shingles admitted with following issues. 1. Acute Kidney Injury, likely pre renal from intractable nausea and vomiting patient treated aggressively with IV fluid Creatinine normalized from 4.46-1.3, patient having no further bouts of nausea vomiting, she is now being discharged home with recommendation to resume her losartan and to drink plenty of fluids while taking acyclovir 2. Acute Shingles patient was given valcyclovir which she could not tolerate as outpatient due to nausea and vomiting, patient treated with acyclovir renally dose which she is tolerating well since renal function is improved she is being discharged home on acyclovir 800 mg 5 times per day for 4 more days she is recommended to use calamine lotion to the rash, patient has tramadol for pain control 3. Thrombocytopenia mild, platelet count 152, no acute bleeding noted, recommend outpatient CBC follow-up in next 1-2 week 4. HTN since losartan was on hold patient treated with Norvasc 10 mg, now renal function has improved therefore recommend to resume home medication 5. DM recommend to continue ADA diet Time Spent with Patient Time attestation: Total time spent providing and/or coordinating discharge services: Discharge coordination time: Greater than 30 minutes Quality: Safe Use of Opioids Does Pt have an Active Cancer Diagnosis on the Problem List?: No Quality: Stroke Does the patient have a stroke diagnosis?: No Physical Exam Vital Signs: Vital Signs: Last Vital Signs Temp 96.9 F 11/26/21 10:08 Pulse 80 11/26/21 10:08 Resp 18 11/26/21 10:08 BP 139/68 11/26/21 10:08 Pulse Ox 99 11/26/21 10:08 O2 Del Method 11/26/21 10:08 BMI result Body Mass Index 27.1 Const: Other: Constitutional - Awake and Alert, No?apparent distress Neck no JVD Cardiovascular -? S1S2,?RRR, No edema Respiratory - No respiratory distress,CTA bilaterally Gastrointestinal -?left-sided abdominal rash ending at midline,hyperemic rah with blistering?, +BS, non tender,?No rebound or guarding Extremities- no calf tenderness bilaterally, no?swelling Musculoskeletal - Normal inspection, normal ROM Skin - anterior abdominal rash ending at midline extending to back as above Neurological -? Alert & oriented x3, No focal deficit Psychological - Appropriate affect DS: Data Data Completed and Pending Labs on day of discharge: Laboratory Results - last 24 hr 11/26/21 11/26/21 11/26/21 07:46 10:35 11:27 Sodium 138 Potassium 4.4 Chloride 101 Carbon Dioxide 27 Anion Gap 14 BUN 31 H Creatinine 1.32 Estim Creat Clear Calc 36.2 Estimated GFR 39 POC Glucose 87 101 Random Glucose 105 Calcium 8.9 Lipase 107 H Discharge Plan Discharge Patient Disposition: Home, Self-Care Discharge Diagnosis: Acute renal failure Acute shingles Thrombocytopenia Referrals: Physician,Unknown J [Primary Care Provider] - 1 Week Discharge Medications: New acyclovir 800 mg tablet 800 mg PO 5XD Qty: 20 0RF Rx Instructions: Take for 4 more days Continued tramadol 50 mg tablet 1 tab PO QID losartan 100 mg tablet 1 tab PO DAILY Discharge Orders: Discharge Order (Routine); Ordered 11/26/21 Ordered By: Christine Ramey Diet: Diabetic diet Activity on Discharge: As tolerated Stand Alone Forms: Patient Portal Discharge page Care Plan Goals: Acute renal failure resolved/take acyclovir 1 tablet 5 times per day for 4 more days for herpes zoster,, continue blood pressure medication and diabetic diet use tramadol only as needed since it can also contribute to nausea and vomiting, apply calamine lotion to rash, drink plenty of fluids Health Concerns: Diabetes mellitus diet controlled Plan of Treatment: Follow-up with primary care physician in 1 week Assessment: As per discharge summary
[2021-11-26 13:03] LABS: Anion Gap 16 (12-20); Blood Urea Nitrogen 30 mg/dL (9-16); Carbon Dioxide 26 mmol/L (22-29); Chloride 101 mmol/L (96-108); Creatinine Clr Calc Pharmacy 35.4; Estimated Glomerular Filt Rate 38; Glucose Random 102 mg/dL (60-115); Potassium 4.1 mmol/L (3.3-5.1); Sodium 139 mmol/L (135-145)
--- NOTE | 2021-11-26 13:08 | MHC.CM.PN ---
DISCHARGE HOME WITH RESUMPTION OF [employer] FAMILY IS IN ROOM TO PROVIDE TRANSPORT HOME
== END 2021-11-26 15:30 | disposition home or self-care (01) | DRG 684 ==
LOC: HO.ED 11-24 03:41 → HO.EDOVER 11-24 09:14 → HO.S3 11-24 18:16
PROVIDERS: Admitting Provider Family Medicine; Emergency Provider Emergency Medicine; PCP Internal Medicine; Visit Provider Hospitalist
DX: N17.9 Acute kidney failure, unspecified (principal); E11.9 Type 2 diabetes mellitus without complications; D69.6 Thrombocytopenia, unspecified; R11.2 Nausea with vomiting, unspecified; T37.5X5A Adverse effect of antiviral drugs, initial encounter; I10 Essential (primary) hypertension; B02.9 Zoster without complications; I25.10 Atherosclerotic heart disease of native coronary artery without angina pectoris; M19.90 Unspecified osteoarthritis, unspecified site; Z20.822 Contact with and (suspected) exposure to COVID-19; Z88.0 Allergy status to penicillin; Z79.899 Other long term (current) drug therapy
CPT/HCPCS: 36415; 76775; 80048; 80053; 81001; 81003; 82248; 82947; 83690; 85025; 85027; 87086; 87635; 96361; 96374; 99285; J0696; J2405

== ENCOUNTER 2021-12-13 14:06 | Outpatient (REF) | payer OTHER, SELFPAY ==
[2021-12-13 16:07] LABS: Anion Gap 17 (12-20); Blood Urea Nitrogen 33 mg/dL (9-16); Calcium 8.7 mg/dL (8.4-10.2); Carbon Dioxide 22 mmol/L (22-29); Chloride 108 mmol/L (96-108); Estimated Glomerular Filt Rate 25; Glucose Random 173 mg/dL (60-115); Potassium 4.3 mmol/L (3.3-5.1); Sodium 143 mmol/L (135-145)
== END 2021-12-13 14:07 | disposition home or self-care (01) ==
LOC: HO.LAB 14:06
PROVIDERS: PCP Internal Medicine; Visit Provider Internal Medicine
DX: N17.9 Acute kidney failure, unspecified (principal)
CPT/HCPCS: 36415; 80048

== ENCOUNTER 2021-12-20 14:54 | Outpatient (REF) | payer OTHER, SELFPAY ==
[2021-12-20 15:30] LABS: Estimated Average Glucose 100 mg/dL; Hemoglobin A1c % 5.1 %
[2021-12-20 15:41] LABS: Anion Gap 15 (12-20); Blood Urea Nitrogen 27 mg/dL (9-16); Calcium 9.2 mg/dL (8.4-10.2); Carbon Dioxide 27 mmol/L (22-29); Chloride 106 mmol/L (96-108); Estimated Glomerular Filt Rate 24; Glucose Random 149 mg/dL (60-115); Potassium 4.5 mmol/L (3.3-5.1); Sodium 143 mmol/L (135-145)
== END 2021-12-20 14:55 | disposition home or self-care (01) ==
LOC: HO.LAB 14:54
PROVIDERS: PCP Internal Medicine; Visit Provider Internal Medicine
DX: I12.9 Hypertensive chronic kidney disease with stage 1 through stage 4 chronic kidney disease, or unspecified chronic kidney disease (principal); N18.9 Chronic kidney disease, unspecified; E11.22 Type 2 diabetes mellitus with diabetic chronic kidney disease
CPT/HCPCS: 36415; 80048; 83036

== ENCOUNTER 2021-12-21 14:01 | Outpatient (REF) | payer OTHER, SELFPAY ==
[2021-12-21 14:34] LABS: Appearance Urine Turbid; Color Urine Yellow; Glucose Urine UA Negative (Negative); Leukocyte Esterase Urine Moderate (2+) (Negative); Nitrite Urine Positive (Negative); PH 5.5 (5.0-8.0); Specific Gravity - Urine >= 1.030 (1.005-1.025); Urine Blood Trace (Negative); Urine Ketones Trace mg/dL (Negative); Urine Protein 100 (2+) mg/dL (Neg-Trace)
[2021-12-21 14:47] LABS: UACC Culture Trigger YES
[2021-12-21 14:49] LABS: Bacteria Urine 2+ (None Seen); Hyaline Casts Urine 0-2 /LPF (0-2); RBC Urine 0-2 /HPF (0-2); Squamous Epithelial Cell Urine >20 /HPF (0-2)
== END 2021-12-21 14:02 | disposition home or self-care (01) ==
LOC: HO.LNP 14:01
PROVIDERS: Visit Provider Internal Medicine
DX: I12.9 Hypertensive chronic kidney disease with stage 1 through stage 4 chronic kidney disease, or unspecified chronic kidney disease (principal); N18.9 Chronic kidney disease, unspecified; E11.22 Type 2 diabetes mellitus with diabetic chronic kidney disease
CPT/HCPCS: 81001; 87086

== ENCOUNTER 2022-08-19 08:57 | Outpatient (REF) | payer OTHER, SELFPAY ==
[2022-08-19 09:15] LABS: MANUAL DIFF FLAG NO
[2022-08-19 09:47] LABS: Basophils Percent Auto 0.4 % (0-2); Eosinophils Absolute Auto 0.1 X10*3/uL (0.0-0.4); Eosinophils Percent Auto 1.6 % (0-4); Hematocrit 32.8 % (37.0-47.0); Hemoglobin 10.5 g/dl (12.0-16.0); Imm Gran Abs Auto 0.01 X10*3/uL (0.00-0.03); Imm Gran Pct Auto 0.2 % (0.0-0.4); Lymphocytes Absolute Auto 1.6 X10*3/uL (1.2-4.9); Lymphocytes Percent Auto 28.1 % (20-40); Mean Corpuscular Hemoglobin 31.1 pg (27.0-33.0); Mean Platelet Volume 11.1 fL (9.4-12.3); Monocytes Absolute Auto 0.5 X10*3/uL (0.1-1.2); Monocytes Percent Auto 8.1 % (2-11); Neutrophils Absolute Auto 3.5 x10*3/uL (2.0-8.3); Neutrophils Percent Auto 61.6 % (45-73); Platelet Count 158 X10*3/uL (160-400); Red Blood Count 3.38 X10*6/uL (4.20-5.50); Red Cell Distribution Width 12.7 % (11.0-16.0); White Blood Count 5.7 X10*3/uL (4.8-10.8)
[2022-08-19 10:51] LABS: Uric Acid 5.9 mg/dL (2.4-5.7)
[2022-08-23 23:19] LABS: Prot Elec - Alpha1 0.3 g/dL (0.2-0.3); Prot Elec - Alpha2 0.9 g/dL (0.5-0.9); Prot Elec - Beta 1 0.4 g/dL (0.4-0.6); Prot Elec - Beta 2 0.5 g/dL (0.2-0.5); Prot Elec - Gamma 1.3 g/dL (0.8-1.7); Prot Elec - Total Protein 7.4 g/dL (6.1-8.1)
== END 2022-08-19 08:58 | disposition home or self-care (01) ==
LOC: HO.LAB 08:57
PROVIDERS: PCP Internal Medicine; Visit Provider Internal Medicine Hypertension Specialist
DX: N18.30 Chronic kidney disease, stage 3 unspecified (principal)
CPT/HCPCS: 36415; 84165; 84550; 85025

== ENCOUNTER 2022-08-22 15:34 | Outpatient (REF) | payer OTHER, SELFPAY ==
[2022-09-04 12:47] LABS: Anion Gap 11 (12-20); Blood Urea Nitrogen 34 mg/dL (9-16); Carbon Dioxide 28 mmol/L (22-29); Chloride 107 mmol/L (96-108); Estimated Glomerular Filt Rate 35; Potassium 4.4 mmol/L (3.3-5.1); Sodium 142 mmol/L (135-145)
== END 2022-08-22 15:35 | disposition home or self-care (01) ==
LOC: HO.LAB 15:34
PROVIDERS: PCP Internal Medicine; Visit Provider Internal Medicine Hypertension Specialist
DX: N18.30 Chronic kidney disease, stage 3 unspecified (principal)
CPT/HCPCS: 36415; 80051; 82310; 82565; 84520

== ENCOUNTER 2022-08-23 | Outpatient (REF) | payer OTHER, SELFPAY ==
[2022-08-23 13:59] LABS: Appearance Urine Turbid; Color Urine Yellow; Glucose Urine UA Negative (Negative); Leukocyte Esterase Urine Moderate (2+) (Negative); Nitrite Urine Positive (Negative); Specific Gravity - Urine 1.015 (1.005-1.025); UMIC TRIGGER UA YES; Urine Blood Negative (Negative); Urine Ketones Negative (Negative); Urine Protein 100 (2+) mg/dL (Neg-Trace)
[2022-08-23 14:02] LABS: Bacteria Urine 4+ (None Seen); Hyaline Casts Urine 0-2 /LPF (0-2); RBC Urine 0-2 /HPF (0-2); Squamous Epithelial Cell Urine >20 /HPF (0-2); WBC Urine >50 /HPF (0-5)
[2022-08-23 14:51] LABS: Creatinine Urine 66.68 mg/dL; Protein/Creatinine Ratio, Ur 0.94 (<0.2); Total Protein Urine Random 63 mg/dL (<12)
== END 2022-08-23 00:01 | disposition home or self-care (01) ==
LOC: HO.LNP
PROVIDERS: Visit Provider Internal Medicine Hypertension Specialist
DX: N18.32 Chronic kidney disease, stage 3b (principal)
CPT/HCPCS: 36415; 81001; 84156

== ENCOUNTER 2022-10-31 14:02 | Outpatient (REF) | payer OTHER, SELFPAY ==
--- NOTE | ~2022-10-31 | XR_ITS ---
EXAMINATION: XR CHEST CLINICAL INFORMATION: Weight loss, hypertension COMPARISON: 08/19/2021 TECHNIQUE: 2 views of the chest were obtained. FINDINGS: The lungs are well-inflated. There is no gross pneumothorax. Heart size is normal. Degenerative changes in the thoracic spine. No pleural effusion. No focal consolidation to suggest pneumonia. Mild rightward curvature of the thoracic spine. Surgical clips right upper quadrant. Stable right lower lung nodules are characteristic of calcified granulomata. XR/XR chest 2V IMPRESSION: No new focal consolidation to suggest pneumonia.
[2022-10-31 14:36] LABS: MANUAL DIFF FLAG NO
[2022-10-31 15:36] LABS: Basophils Percent Auto 0.5 % (0-2); Eosinophils Percent Auto 0.4 % (0-4); Hematocrit 31.2 % (37.0-47.0); Hemoglobin 10.3 g/dl (12.0-16.0); Imm Gran Abs Auto 0.01 X10*3/uL (0.00-0.03); Imm Gran Pct Auto 0.2 % (0.0-0.4); Lymphocytes Absolute Auto 1.5 X10*3/uL (1.2-4.9); Lymphocytes Percent Auto 26.6 % (20-40); Mean Platelet Volume 11.5 fL (9.4-12.3); Monocytes Absolute Auto 0.4 X10*3/uL (0.1-1.2); Monocytes Percent Auto 6.5 % (2-11); Neutrophils Absolute Auto 3.6 x10*3/uL (2.0-8.3); Neutrophils Percent Auto 65.8 % (45-73); Platelet Count 163 X10*3/uL (160-400); Red Blood Count 3.32 X10*6/uL (4.20-5.50); Red Cell Distribution Width 13.4 % (11.0-16.0); White Blood Count 5.5 X10*3/uL (4.8-10.8)
[2022-10-31 16:13] LABS: Alanine Aminotransferase 392 U/L (0-31); Albumin Level 3.8 g/dL (3.5-5.0); Alkaline Phosphatase 635 U/L (39-117); Anion Gap 13 (12-20); Aspartate Amino Transferase 340 U/L (5-31); Blood Urea Nitrogen 36 mg/dL (9-16); C Reactive Protein 1.05 mg/dL (< or = 0.50); Calcium 9.9 mg/dL (8.4-10.2); Carbon Dioxide 20 mmol/L (22-29); Chloride 112 mmol/L (96-108); Estimated Glomerular Filt Rate 28; Glucose Random 216 mg/dL (60-115); Iron 78 mcg/dL (30-160); Lipase 51 U/L (8-78); Percent Iron Saturation 42 % (15-50); Potassium 4.2 mmol/L (3.3-5.1); Sodium 141 mmol/L (135-145); Total Iron Binding Capacity 186 mcg/dL (228-428); Unsaturated Iron Binding 108 ug/dL
== END 2022-10-31 14:03 | disposition home or self-care (01) ==
LOC: HO.LAB 14:02
PROVIDERS: PCP Internal Medicine; Visit Provider Internal Medicine
DX: R63.4 Abnormal weight loss (principal); I12.9 Hypertensive chronic kidney disease with stage 1 through stage 4 chronic kidney disease, or unspecified chronic kidney disease; N18.9 Chronic kidney disease, unspecified; M85.80 Other specified disorders of bone density and structure, unspecified site
CPT/HCPCS: 36415; 71046; 80053; 83540; 83690; 85025; 86140

== ENCOUNTER 2022-11-03 10:16 | Outpatient (REF) | payer OTHER, SELFPAY ==
--- NOTE | ~2022-11-03 | US_ITS ---
EXAMINATION: US ABDOMEN COMPLETE CLINICAL INFORMATION: Elevated liver transaminase test, weight loss. COMPARISON: Renal ultrasound 11/24/2021 and 03/24/2014. CT abdomen and pelvis 12/03/2019. TECHNIQUE: Real-time imaging of the abdominal viscera. FINDINGS: PANCREAS: Atrophic with dilated duct up to 4 mm. Parenchymal calcifications. Possible cystic lesion in the tail measuring 0.9 x 1.0 x 0.7 cm. ABDOMINAL AORTA: The proximal, mid, and distal segments are normal in caliber. Atherosclerotic changes. INFERIOR VENA CAVA: Visualized portions are normal. LIVER: The liver is normal in size. The liver contour is normal. Parenchymal echogenicity is normal. No focal hepatic lesion. Dilated intrahepatic ducts. GALLBLADDER: Surgically absent. COMMON BILE DUCT: Dilated in caliber measuring 1.5 cm in diameter. RIGHT KIDNEY: No hydronephrosis. No renal calculi or focal parenchymal lesions. The kidney measures 10.1 cm in maximum dimension. LEFT KIDNEY: Upper pole cyst measures 2.3 x 2.2 x 2.0 cm. No hydronephrosis. The kidney measures 8.9 cm in maximum dimension. 3 mm upper pole nonobstructing calculus. 3 mm midpole nonobstructing calculus. 3 mm lower pole nonobstructing calculus. SPLEEN: The spleen measures 7.6 cm in maximum dimension. FREE FLUID: None. US/US abdomen complete IMPRESSION: Intrahepatic and extrahepatic biliary ductal dilatation. Advise correlation with biliary enzymes. Features suggestive of chronic pancreatitis. Pancreatic parenchymal calcifications. Dilatation and tortuosity of the main pancreatic duct. Possible cystic pancreatic lesion measuring 0.9 x 1.0 x 0.9 cm. The above findings should be further characterized with MRI/MRCP. Left renal cyst. No suspicious features. Nonobstructing left renal calculi. No hydronephrosis.
== END 2022-11-03 10:17 | disposition home or self-care (01) ==
LOC: HO.HMGCX 10:16
PROVIDERS: PCP Internal Medicine; Visit Provider Internal Medicine
DX: R74.01 Elevation of levels of liver transaminase levels (principal)
CPT/HCPCS: 76700

== ENCOUNTER 2022-11-05 20:07 | Inpatient (IN) | payer OTHER, SELFPAY ==
[2022-11-05 20:09] VITALS: BP 114/80; PULSE 73; RESP 18; TEMP 36.3; O2SAT 99; BMI 21.5
--- NOTE | 2022-11-05 20:11 | ED.GENADULT ---
HPI - General Adult General Chief complaint: Abdominal Pain Stated complaint: Vomiting Time Seen by Provider: 11/05/22 21:42 Related Data Home Medications Medication Instructions Recorded Confirmed losartan 100 mg tablet 1 tab PO DAILY 11/24/21 11/06/22 tramadol 50 mg tablet 1 tab PO QID 11/24/21 11/06/22 amlodipine 2.5 mg tablet 2.5 mg PO DAILY 11/06/22 11/06/22 Allergies Allergy/AdvReac Type Severity Reaction Status Date / Time penicillin V Allergy Unknown hives, Rash Verified 11/24/21 18:51 Penicillins [PENICILLINS] Allergy Unknown RASH Verified 11/24/21 18:51 [facility] Past Medical History Medical History Abnormal urine odor Arthritis Diabetes mellitus HTN (hypertension) Uterine prolapse Surgical History History of loop electrical excision procedure (LEEP) Hx of appendectomy Family History Family History Sister Breast cancer Mother Vaginal cancer Social History Social History Household Members: Family Housing: Apartment Do you presently have visiting nurse or other home services: Yes Alcohol intake: never Patient Tobacco Use Status: Never used Tobacco service: No Current occupational status: retired Gender identity: Female Physical Exam ED Vital Signs: BMI result Body Mass Index 21.5 Course Course Course Narrative: RME performed by Angie Rooney PA-C. Patient is a 77 year old assigned female at presenting to the emergency department with abdominal pain. Labs ordered. Patient placed back in the waiting room pending room availability and results. Patient admitted by Dr. Bloom who created, completed, and signed his own note - please refer to his note. Medications Administered Generic Name Dose Route Start Last Admin Trade Name Freq PRN Reason Stop Dose Admin Amlodipine Besylate 5 mg 11/08/22 09:00 11/08/22 08:59 Amlodipine Besylate 5 Mg Tablet PO 5 mg DAILY DELMA Administration Protocol Ceftriaxone Sodium 1 gm/ 50 mls @ 100 mls/hr 11/06/22 23:00 11/08/22 23:52 Sodium Chloride IV Infused Q24H DELMA Infusion Losartan Potassium 100 mg 11/08/22 09:15 11/08/22 10:10 Losartan Potassium 50 Mg Tablet PO 100 mg DAILY DELMA Administration Protocol Sodium Chloride 3 ml 11/06/22 08:00 11/08/22 20:24 0.9 % Sodium Chloride Flush 3 Ml Syringe IVFLUSH 3 ml QSHIFT DELMA Administration Tramadol HCl 50 mg 11/08/22 13:00 11/08/22 21:26 Tramadol Hcl 50 Mg Tablet PO 50 mg QID DELMA Administration Discontinued Medications Generic Name Dose Route Start Last Admin Trade Name Chika PRN Reason Stop Dose Admin Amlodipine Besylate 2.5 mg 11/06/22 09:00 11/07/22 09:21 Amlodipine Besylate 2.5 Mg Tablet PO 2.5 mg DAILY DELMA Administration Protocol Gadobutrol 7.5 ml 11/07/22 17:11 11/07/22 17:12 Gadobutrol 7.5 Ml Vial IVPUSH 11/07/22 17:12 6 ml ONCE ONE Administration Heparin Sodium (Porcine) 5,000 unit 11/06/22 01:00 11/07/22 01:25 Heparin Sodium,Porcine 5,000 Unit/Ml Vial SUBCUT Not Given Q8H DELMA Sodium Chloride 1,000 mls @ 999 mls/hr 11/05/22 21:49 11/06/22 00:01 Ns IV 11/05/22 22:49 Infused .Q1H1M ONE Infusion Sodium Chloride 1,000 mls @ 999 mls/hr 11/05/22 21:54 11/06/22 00:02 Ns IV 11/05/22 22:54 Infused .Q1H1M ONE Infusion Ceftriaxone Sodium 1 gm/ 50 mls @ 100 mls/hr 11/05/22 21:54 11/05/22 23:33 Sodium Chloride IV 11/05/22 22:23 Infused ONCE ONE Infusion Lactated Ringer's 1,000 mls @ 100 mls/hr 11/06/22 01:00 11/07/22 08:46 Lr IVCONT Infused .Q10H DELMA Infusion Medical Decision Making Lab Data 11/09/22 05:04 11/09/22 05:04 Labs: Lab Results 11/05/22 11/05/22 11/05/22 Range/Units 20:38 20:38 20:48 WBC 5.4 (4.8-10.8) X10*3/uL RBC 2.75 L (4.20-5.50) X10*6/uL Hgb 8.6 L (12.0-16.0) g/dl Hct 26.2 L (37.0-47.0) % MCV 95.3 (80.0-98.0) fL MCH 31.3 (27.0-33.0) pg MCHC 32.8 (31.0-35.0) g/dl RDW 13.6 (11.0-16.0) % Plt Count 167 (160-400) X10*3/uL MPV 11.0 (9.4-12.3) fL Immature Gran % (Auto) 0.2 (0.0-0.4) % Neut % (Auto) 55.6 (45-73) % Lymph % (Auto) 31.9 (20-40) % Ritchie % (Auto) 10.2 (2-11) % Eos % (Auto) 1.5 (0-4) % Baso % (Auto) 0.6 (0-2) % Lymph # (Auto) 1.7 (1.2-4.9) X10*3/uL Ritchie # (Auto) 0.6 (0.1-1.2) X10*3/uL Eos # (Auto) 0.1 (0.0-0.4) X10*3/uL Baso # (Auto) 0.0 (0.0-0.2) X10*3/uL Abs Immat Gran (auto) 0.01 (0.00-0.03) X10*3/uL Absolute Neuts (auto) 3.0 (2.0-8.3) x10*3/uL Absolute Nucleated RBC 0.000 (0.0-0.012) X10*3/uL Nucleated RBC % (auto) 0.0 (0.0-0.2) /100WBC Sodium 141 (135-145) mmol/L Potassium 4.2 (3.3-5.1) mmol/L Chloride 108 (96-108) mmol/L Carbon Dioxide 18 L (22-29) mmol/L Anion Gap 19 (12-20) BUN 51 H (9-16) mg/dL Creatinine 4.25 H* (0.5-1.4) mg/dL Estim Creat Clear Calc 10.3 Estimated GFR 10 Random Glucose 230 H (60-115) mg/dL Lactic Acid (0.5-2.0) mmol/L Calcium 8.9 D (8.4-10.2) mg/dL Magnesium 1.6 (1.6-2.6) mg/dL Total Bilirubin 1.2 H (0.0-1.0) mg/dL AST 143 H (5-31) U/L ALT 252 H (0-31) U/L Alkaline Phosphatase 633 H (39-117) U/L Total Protein 6.5 (6.5-8.0) g/dL Albumin 3.4 L (3.5-5.0) g/dL Urine Color Dark Yellow Urine Appearance Turbid Urine pH 5.5 (5.0-9.0) Ur Specific Peacham 1.020 (1.005-1.025) Urine Protein 100 (2+) H (Neg-Trace) mg/dL Urine Glucose (UA) Negative (Negative) mg/dL Urine Ketones Trace (Negative) mg/dL Urine Blood Trace H (Negative) Urine Nitrite Negative (Negative) Ur Leukocyte Esterase Large (3+) H (Negative) Urine RBC 0-2 (0-2) /HPF Urine WBC >50 H (0-5) /HPF Ur Squamous Epith Cells 11-20 (0-2) /HPF Urine Bacteria 4+ (None Seen) Hyaline Casts 0-2 (0-2) /LPF 11/05/22 Range/Units 22:10 WBC (4.8-10.8) X10*3/uL RBC (4.20-5.50) X10*6/uL Hgb (12.0-16.0) g/dl Hct (37.0-47.0) % MCV (80.0-98.0) fL MCH (27.0-33.0) pg MCHC (31.0-35.0) g/dl RDW (11.0-16.0) % Plt Count (160-400) X10*3/uL MPV (9.4-12.3) fL Immature Gran % (Auto) (0.0-0.4) % Neut % (Auto) (45-73) % Lymph % (Auto) (20-40) % Ritchie % (Auto) (2-11) % Eos % (Auto) (0-4) % Baso % (Auto) (0-2) % Lymph # (Auto) (1.2-4.9) X10*3/uL Ritchie # (Auto) (0.1-1.2) X10*3/uL Eos # (Auto) (0.0-0.4) X10*3/uL Baso # (Auto) (0.0-0.2) X10*3/uL Abs Immat Gran (auto) (0.00-0.03) X10*3/uL Absolute Neuts (auto) (2.0-8.3) x10*3/uL Absolute Nucleated RBC (0.0-0.012) X10*3/uL Nucleated RBC % (auto) (0.0-0.2) /100WBC Sodium (135-145) mmol/L Potassium (3.3-5.1) mmol/L Chloride (96-108) mmol/L Carbon Dioxide (22-29) mmol/L Anion Gap (12-20) BUN (9-16) mg/dL Creatinine (0.5-1.4) mg/dL Estim Creat Clear Calc Estimated GFR Random Glucose (60-115) mg/dL Lactic Acid 1.0 (0.5-2.0) mmol/L Calcium (8.4-10.2) mg/dL Magnesium (1.6-2.6) mg/dL Total Bilirubin (0.0-1.0) mg/dL AST (5-31) U/L ALT (0-31) U/L Alkaline Phosphatase (39-117) U/L Total Protein (6.5-8.0) g/dL Albumin (3.5-5.0) g/dL Urine Color Urine Appearance Urine pH (5.0-9.0) Ur Specific Peacham (1.005-1.025) Urine Protein (Neg-Trace) mg/dL Urine Glucose (UA) (Negative) mg/dL Urine Ketones (Negative) mg/dL Urine Blood (Negative) Urine Nitrite (Negative) Ur Leukocyte Esterase (Negative) Urine RBC (0-2) /HPF Urine WBC (0-5) /HPF Ur Squamous Epith Cells (0-2) /HPF Urine Bacteria (None Seen) Hyaline Casts (0-2) /LPF Discharge Plan Discharge Clinical Impression: Transaminitis, Acute on chronic kidney failure, Intractable vomiting, Dehydration Patient Disposition: Admitted As Inpatient Interventions: Admission Worksheet (ED) Last Done: 11/06/22 01:41 Discharge Date/Time: 11/06/22 02:09
--- NOTE | 2022-11-05 21:50 | ED.GENADULT ---
HPI - General Adult General Chief complaint: Abdominal Pain Stated complaint: Vomiting Time Seen by Provider: 11/05/22 21:42 Source: patient, family (Daughter) and translator and interpreter Mode of arrival: ambulatory Limitations: no limitations History of Present Illness HPI narrative: 77-year-old female with past medical history HTN, CAD, DM, came in for several days of intractable nausea and vomiting reports no diarrhea, no fever, no chills, patient usually complain of upper abdominal pain for the past 2-3 weeks, daughter also reported that patient has been losing weight gradually over the past 2 years. No recent travel, no sick contacts. Last bowel movement was yesterday and was normal, passing flatus, past surgical history significant for cholecystectomy. Related Data Home Medications Medication Instructions Recorded Confirmed losartan 100 mg tablet 1 tab PO DAILY 11/24/21 11/24/21 tramadol 50 mg tablet 1 tab PO QID 11/24/21 11/24/21 Previous Rx's Medication Instructions Recorded acyclovir 800 mg tablet 800 mg PO 5XD #20 tabs 11/26/21 Allergies Allergy/AdvReac Type Severity Reaction Status Date / Time penicillin V Allergy Unknown hives, Rash Verified 11/24/21 18:51 Penicillins [PENICILLINS] Allergy Unknown RASH Verified 11/24/21 18:51 Review of Systems Review of Systems: All other systems are reviewed and are negative Constitutional: Reports as per HPI and Reports no additional constitutional complaints Eyes: Reports as per HPI and Reports no additional eye complaints Reports system reviewed and no additional complaints, except as documented Cardiovascular: Reports as per HPI and Reports no additional cardiovascular complaints Respiratory: Reports as per HPI and Reports no additional respiratory complaints Gastrointestinal: Reports as per HPI and Reports no additional gastrointestinal complaints Genitourinary: Reports no additional female genitourinary complaints Musculoskeletal: Reports no additional musculoskeletal complaints Skin/Breast: Reports system reviewed and no additional complaints, except as docu Psychiatric: Reports no additional psychiatric complaints Endocrine: Reports no additional endocrine complaints Hematologic/Lymphatic: Reports no additional hematologic/lymphatic complaints Allergic/Immunologic: Reports no additional allergic/immunologic complaints Reports system reviewed and no additional complaints, except as documented and Reports Abnormal speech present [facility] Past Medical History Medical History Abnormal urine odor Arthritis Diabetes mellitus HTN (hypertension) Uterine prolapse Surgical History History of loop electrical excision procedure (LEEP) Hx of appendectomy Family History Family History Sister Breast cancer Mother Vaginal cancer Social History Social History Household Members: Family Housing: House Do you presently have visiting nurse or other home services: Yes ([employer]) Alcohol intake: never Patient Tobacco Use Status: Never used Tobacco Smoked in Last 30 Days: No Use of substances other than those prescribed or required for medical reasons: No Advance Directives: No Advance Directives Information Provided: No service: No Current occupational status: retired Gender identity: Female Physical Exam ED Vital Signs: Vital Signs - 24 hr 11/05/22 20:09 11/05/22 22:14 Temperature 97.3 F 98.5 F Pulse Rate 73 68 Respiratory Rate 18 16 Blood Pressure 114/80 157/47 H Pulse Oximetry 99 100 Oxygen Delivery Method Room Air Room Air BMI result Body Mass Index 21.5 Vital signs have been reviewed as appeared to be correct. Blood pressure normal. Heart rate normal. Respiration rate normal. Temperature normal. Oxygen saturation normal. Appearance: Alert. Oriented X3. No acute distress. Head: Normal external exam. Normocephalic. Atraumatic. No [place] signs noted. No raccoon eyes noted Eyes: PERRLA. EOMI. Conjunctiva and sclera normal. Eyelids normal. ENT: TM's Normal. Pharynx normal. Uvula midline. Dry mucous membranes. No trismus noted. No drooling noted. No muffled voice noted. Neck: Normal inspection. Neck supple. FROM. No adenopathy. Thyroid Normal. No meningeal signs. No neck mass noted. CVS: Normal heart rate and rhythm. Heart sound normal. No murmurs noted. Pulses normal throughout. Respiratory: No respiratory distress. Painless inspiration. Breath sounds normal. No wheezes/rales/rhonchi noted. Chest nontender. No accessory muscle usage noted or decreased air movement noted. Abdomen: Soft and nontender. Bowel sounds normal in all 4 quadrants. No distention noted. No organomegaly noted. No visible injury noted. Back: No CVA tenderness. Full range of motion noted. Skin: Skin warm and dry. Normal skin color. Normal skin turgor. No rashes/lesions/lacerations noted. Extremities: No lower extremity edema. Extremities exhibit normal range of motion. Extremities nontender. Neuro: Oriented X 3. Cranial nerve exam: II-XII are grossly intact No motor deficit. No sensory deficit. Reflexes normal. Course Course Course Narrative: Acute on chronic renal failure, dehydration, intractable vomiting, UTI with no SIRS. IV hydration, antibiotic. No septic shock or severe sepsis. Transaminitis with intra/extrahepatic biliary duct dilatation consider inpatient MRCP Medications Administered Discontinued Medications Generic Name Dose Route Start Last Admin Trade Name Freq PRN Reason Stop Dose Admin Sodium Chloride 1,000 mls @ 999 mls/hr 11/05/22 21:49 11/06/22 00:01 Ns IV 11/05/22 22:49 Infused .Q1H1M ONE Infusion Sodium Chloride 1,000 mls @ 999 mls/hr 11/05/22 21:54 11/06/22 00:02 Ns IV 11/05/22 22:54 Infused .Q1H1M ONE Infusion Ceftriaxone Sodium 1 gm/ 50 mls @ 100 mls/hr 11/05/22 21:54 11/05/22 23:33 Sodium Chloride IV 11/05/22 22:23 Infused ONCE ONE Infusion Medical Decision Making Differential Diagnosis Differential Diagnoses: The differential diagnosis associated with the presentation includes (Intractable vomiting, SBO, renal failure, electrolyte abnormalities, dehydration, UTI, anemia.) Admission/Observation Consideration of admission/observation: Escalation of care including admission/observation considered Consult Healthcare Provider Management of the patient was discussed with: Hospitalist (Dr. Ramachandran) Lab Data MDM Lab Attestation statement: I reviewed the patient's lab results. 11/05/22 20:38 11/05/22 20:38 Labs: Lab Results 11/05/22 11/05/22 11/05/22 Range/Units 20:38 20:38 20:48 WBC 5.4 (4.8-10.8) X10*3/uL RBC 2.75 L (4.20-5.50) X10*6/uL Hgb 8.6 L (12.0-16.0) g/dl Hct 26.2 L (37.0-47.0) % MCV 95.3 (80.0-98.0) fL MCH 31.3 (27.0-33.0) pg MCHC 32.8 (31.0-35.0) g/dl RDW 13.6 (11.0-16.0) % Plt Count 167 (160-400) X10*3/uL MPV 11.0 (9.4-12.3) fL Immature Gran % (Auto) 0.2 (0.0-0.4) % Neut % (Auto) 55.6 (45-73) % Lymph % (Auto) 31.9 (20-40) % [place] % (Auto) 10.2 (2-11) % Eos % (Auto) 1.5 (0-4) % Baso % (Auto) 0.6 (0-2) % Lymph # (Auto) 1.7 (1.2-4.9) X10*3/uL [place] # (Auto) 0.6 (0.1-1.2) X10*3/uL Eos # (Auto) 0.1 (0.0-0.4) X10*3/uL Baso # (Auto) 0.0 (0.0-0.2) X10*3/uL Abs Immat Gran (auto) 0.01 (0.00-0.03) X10*3/uL Absolute Neuts (auto) 3.0 (2.0-8.3) x10*3/uL Absolute Nucleated RBC 0.000 (0.0-0.012) X10*3/uL Nucleated RBC % (auto) 0.0 (0.0-0.2) /100WBC Sodium 141 (135-145) mmol/L Potassium 4.2 (3.3-5.1) mmol/L Chloride 108 (96-108) mmol/L Carbon Dioxide 18 L (22-29) mmol/L Anion Gap 19 (12-20) BUN 51 H (9-16) mg/dL Creatinine 4.25 H* (0.5-1.4) mg/dL Estim Creat Clear Calc 10.3 Estimated GFR 10 Random Glucose 230 H (60-115) mg/dL Lactic Acid (0.5-2.0) mmol/L Calcium 8.9 D (8.4-10.2) mg/dL Magnesium 1.6 (1.6-2.6) mg/dL Total Bilirubin 1.2 H (0.0-1.0) mg/dL AST 143 H (5-31) U/L ALT 252 H (0-31) U/L Alkaline Phosphatase 633 H (39-117) U/L Total Protein 6.5 (6.5-8.0) g/dL Albumin 3.4 L (3.5-5.0) g/dL Urine Color Dark Yellow Urine Appearance Turbid Urine pH 5.5 (5.0-9.0) Ur Specific [place] 1.020 (1.005-1.025) Urine Protein 100 (2+) H (Neg-Trace) mg/dL Urine Glucose (UA) Negative (Negative) mg/dL Urine Ketones Trace (Negative) mg/dL Urine Blood Trace H (Negative) Urine Nitrite Negative (Negative) Ur Leukocyte Esterase Large (3+) H (Negative) Urine RBC 0-2 (0-2) /HPF Urine WBC >50 H (0-5) /HPF Ur Squamous Epith Cells 11-20 (0-2) /HPF Urine Bacteria 4+ (None Seen) Hyaline Casts 0-2 (0-2) /LPF 11/05/22 Range/Units 22:10 WBC (4.8-10.8) X10*3/uL RBC (4.20-5.50) X10*6/uL Hgb (12.0-16.0) g/dl Hct (37.0-47.0) % MCV (80.0-98.0) fL MCH (27.0-33.0) pg MCHC (31.0-35.0) g/dl RDW (11.0-16.0) % Plt Count (160-400) X10*3/uL MPV (9.4-12.3) fL Immature Gran % (Auto) (0.0-0.4) % Neut % (Auto) (45-73) % Lymph % (Auto) (20-40) % [place] % (Auto) (2-11) % Eos % (Auto) (0-4) % Baso % (Auto) (0-2) % Lymph # (Auto) (1.2-4.9) X10*3/uL [place] # (Auto) (0.1-1.2) X10*3/uL Eos # (Auto) (0.0-0.4) X10*3/uL Baso # (Auto) (0.0-0.2) X10*3/uL Abs Immat Gran (auto) (0.00-0.03) X10*3/uL Absolute Neuts (auto) (2.0-8.3) x10*3/uL Absolute Nucleated RBC (0.0-0.012) X10*3/uL Nucleated RBC % (auto) (0.0-0.2) /100WBC Sodium (135-145) mmol/L Potassium (3.3-5.1) mmol/L Chloride (96-108) mmol/L Carbon Dioxide (22-29) mmol/L Anion Gap (12-20) BUN (9-16) mg/dL Creatinine (0.5-1.4) mg/dL Estim Creat Clear Calc Estimated GFR Random Glucose (60-115) mg/dL Lactic Acid 1.0 (0.5-2.0) mmol/L Calcium (8.4-10.2) mg/dL Magnesium (1.6-2.6) mg/dL Total Bilirubin (0.0-1.0) mg/dL AST (5-31) U/L ALT (0-31) U/L Alkaline Phosphatase (39-117) U/L Total Protein (6.5-8.0) g/dL Albumin (3.5-5.0) g/dL Urine Color Urine Appearance Urine pH (5.0-9.0) Ur Specific [place] (1.005-1.025) Urine Protein (Neg-Trace) mg/dL Urine Glucose (UA) (Negative) mg/dL Urine Ketones (Negative) mg/dL Urine Blood (Negative) Urine Nitrite (Negative) Ur Leukocyte Esterase (Negative) Urine RBC (0-2) /HPF Urine WBC (0-5) /HPF Ur Squamous Epith Cells (0-2) /HPF Urine Bacteria (None Seen) Hyaline Casts (0-2) /LPF Independent Interpretation I performed an independent interpretation of an: CT Scan (Abdomen and pelvis: No acute intra-abdominal pathology.) Radiology Impression Discussion of test interpretation with radiology: I have reviewed the radiologist's reading. Discharge Plan Discharge Clinical Impression: Transaminitis, Acute on chronic kidney failure, Intractable vomiting, Dehydration Patient Disposition: Admitted As Inpatient Prescriptions: No Action tramadol 50 mg tablet 1 tab PO QID losartan 100 mg tablet 1 tab PO DAILY acyclovir 800 mg tablet 800 mg PO 5XD Qty: 20 0RF Rx Instructions: Take for 4 more days
[2022-11-05 22:14] VITALS: BP 157/47; PULSE 68; RESP 16; TEMP 36.9; O2SAT 100
--- NOTE | 2022-11-06 00:58 | PM.IMHP ---
History of Present Illness Date of Service: 11/06/22 Chief Complaint: Nausea vomiting 77-year-old female with past medical history of hypertension brought in by her daughter for nausea vomiting decreased p.o. intake and weakness. Patient has also been complaining to her daughter about epigastric abdominal pain but otherwise she denies any chest pain, no shortness of breath, no cough, currently has no abdominal pain, reports urinary frequency otherwise no dysuria or urgency, no lower extremity edema. Daughter states that patient has had on of nausea vomiting for the past 2 years but the past 2 days has had constant nonstop vomiting that concerned her as well as poor oral intake and weakness. On arrival to the ED patient found to be hemodynamically stable with no significant abnormal vitals Labs are significant for WBC count of 5.4, hemoglobin of 8.6, hematocrit 26.2 which is lower than her baseline of around 10.5, creatinine of 4.25 from a recent drop of 1.77 about 4 days ago, AST of 143, ALT of 252 which have improved from recent blood draw on 10/31, UA positive for leukocyte Estrace, WBC, and bacteria Patient started on IV fluids, IV antibiotics and will be admitted for further management Review of Systems Review of Systems: Yes all other systems are reviewed and are negative [facility] Medical History Abnormal urine odor Arthritis Diabetes mellitus HTN (hypertension) Uterine prolapse Family History Sister Breast cancer Mother Vaginal cancer Surgical History History of loop electrical excision procedure (LEEP) Hx of appendectomy Social History Household Members: Family Housing: House Do you presently have visiting nurse or other home services: Yes ([employer]) Alcohol intake: never Patient Tobacco Use Status: Never used Tobacco Smoked in Last 30 Days: No Use of substances other than those prescribed or required for medical reasons: No Advance Directives: No Advance Directives Information Provided: No service: No Current occupational status: retired Gender identity: Female Meds Allergies Allergy/AdvReac Type Severity Reaction Status Date / Time penicillin V Allergy Unknown hives, Rash Verified 11/24/21 18:51 Penicillins [PENICILLINS] Allergy Unknown RASH Verified 11/24/21 18:51 Home Medications Medication Instructions Recorded Confirmed Last Taken Type losartan 100 mg tablet 1 tab PO DAILY 11/24/21 11/06/22 11/05/22 History tramadol 50 mg tablet 1 tab PO QID 11/24/21 11/06/22 11/05/22 History Physical Exam Vital Signs and Narrative: Vital Signs: Last Vital Signs Temp 98.5 F 11/05/22 22:14 Pulse 68 11/05/22 22:14 Resp 16 11/05/22 22:14 BP 157/47 H 11/05/22 22:14 Pulse Ox 100 11/05/22 22:14 O2 Del Method Room Air 11/05/22 22:14 BMI result Body Mass Index 21.5 Const: Other: Cachectic appearing General: cooperative and no acute distress Orientation/consciousness: patient oriented x3 Eyes: General: appearance normal, both eyes and all related structures Pupils: Equal, round and reactive pupils present Resp: Effort & Inspection: normal respiratory effort Auscultation: clear to auscultation bilaterally Cardio: Rate: regular rate Rhythm: regular rhythm GI: Other: Abdomen is soft nontender, no rebound or guarding, no right upper quadrant abdominal tenderness Palpation (GI): Soft to palpation Auscultation: normal bowel sounds Skin: General skin exam: no rashes or lesions noted Neuro: General: patient oriented x3 Cranial nerves: Yes Equal, round and reactive pupils present Cognition (Neuro): normal cognition Extrem: General: Yes normal to inspection and Yes no pedal edema Results Labs 11/05/22 20:38 11/05/22 20:38 Labs: Laboratory Results - last 24 hr 11/05/22 11/05/22 11/05/22 20:38 20:38 20:48 MCV 95.3 MCH 31.3 MCHC 32.8 RDW 13.6 Plt Count 167 MPV 11.0 Immature Gran % (Auto) 0.2 Neut % (Auto) 55.6 Lymph % (Auto) 31.9 [place] % (Auto) 10.2 Eos % (Auto) 1.5 Baso % (Auto) 0.6 Lymph # (Auto) 1.7 [place] # (Auto) 0.6 Eos # (Auto) 0.1 Baso # (Auto) 0.0 Abs Immat Gran (auto) 0.01 Absolute Neuts (auto) 3.0 Absolute Nucleated RBC 0.000 Nucleated RBC % (auto) 0.0 Anion Gap 19 Estim Creat Clear Calc 10.3 Estimated GFR 10 Random Glucose 230 H Lactic Acid Calcium 8.9 D Magnesium 1.6 Total Bilirubin 1.2 H AST 143 H ALT 252 H Alkaline Phosphatase 633 H Total Protein 6.5 Albumin 3.4 L Urine Color Dark Yellow Urine Appearance Turbid Urine pH 5.[address] [place] 1.020 Urine Protein 100 (2+) H Urine Glucose (UA) Negative Urine Ketones Trace Urine Blood Trace H Urine Nitrite Negative Ur Leukocyte Esterase Large (3+) H Urine RBC 0-2 Urine WBC >50 H Ur Squamous Epith Cells 11-20 Urine Bacteria 4+ Hyaline Casts 0-2 11/05/22 22:10 MCV MCH MCHC RDW Plt Count MPV Immature Gran % (Auto) Neut % (Auto) Lymph % (Auto) [place] % (Auto) Eos % (Auto) Baso % (Auto) Lymph # (Auto) [place] # (Auto) Eos # (Auto) Baso # (Auto) Abs Immat Gran (auto) Absolute Neuts (auto) Absolute Nucleated RBC Nucleated RBC % (auto) Anion Gap Estim Creat Clear Calc Estimated GFR Random Glucose Lactic Acid 1.0 Calcium Magnesium Total Bilirubin AST ALT Alkaline Phosphatase Total Protein Albumin Urine Color Urine Appearance Urine pH Ur Specific [place] Urine Protein Urine Glucose (UA) Urine Ketones Urine Blood Urine Nitrite Ur Leukocyte Esterase Urine RBC Urine WBC Ur Squamous Epith Cells Urine Bacteria Hyaline Casts Imaging Radiologist's Impressions: Impressions Abdomen/Pelvis CT 11/05/22 22:49 IMPRESSION: 1. Small focus of gas in the urinary bladder, which could be due to recent catheterization. In the proper clinical setting, this could also be secondary to cystitis. 2. Intrahepatic and extrahepatic biliary ductal dilatation, which may be physiologic in the setting of prior cholecystectomy. Correlation with LFTs is recommended. 3. No acute bowel abnormality. Colonic diverticulosis without diverticulitis. Assessment and Plan (1) Acute on chronic kidney failure: Status: Acute (2) Transaminitis: Status: Acute (3) Nausea & vomiting: Status: Acute (4) Acute UTI: Status: Acute (5) Acute on chronic anemia: Status: Acute Plan This is a 77-year-old female past medical history of hypertension brought in by her daughter for weakness, nausea vomiting # acute on chronic kidney failure -likely secondary to dehydration, due to the vomiting - treat with IV fluids - follow BMP # transaminitis - improving - unclear etiology patient has a history of cholecystectomy - abdominal pelvic CT shows intrahepatic and extrahepatic biliary ductal dilatation which may be physiological but given her elevated LFTs will obtain abdominal pelvic ultrasound - no right upper quadrant abdominal tenderness - follow LFTs # acute UTI - positive UA, will treat with IV antibiotics, follow cultures # nausea vomiting -possibly secondary to gastritis versus MARKY - antiemetics - IV fluids # acute on chronic anemia - hemoglobin dropped from 10.3-8 today - no evidence of GI bleed -will obtain stool occult, ferritin, folic acid and B12 levels - follow CBC # hypertension - elevated - resume antihypertensive DVT prophylaxis: Heparin subQ Given patient's need for management of acute kidney failure patient will require minimum 2 nights inpatient hospital stay for further management and monitoring Time Spent With Patient Time: Total time managing care of this patient today ____ minutes. Quality Stroke Does the patient have a stroke diagnosis?: No VTE Prior VTE?: No VTE Risk Level:: Medical - moderate - high VTE Device Contraindication: Treatment Not Indicated VTE Drug Contraindication: N/A - Med Ordered
[2022-11-06 02:07] LABS: Ferritin 974 ng/mL (10-250)
[2022-11-06 02:20] LABS: Folate 8.9 ng/mL (> or = 4.0); Vitamin B12 648 pg/mL (200-900)
[2022-11-06 02:36] VITALS: BMI 22.0
[2022-11-06 03:18] VITALS: BP 164/58; PULSE 85; RESP 14; TEMP 36.2; O2SAT 97
[2022-11-06 07:15] LABS: MANUAL DIFF FLAG NO
[2022-11-06 07:26] LABS: Basophils Percent Auto 0.4 % (0-2); Eosinophils Absolute Auto 0.1 X10*3/uL (0.0-0.4); Eosinophils Percent Auto 1.4 % (0-4); Hematocrit 26.1 % (37.0-47.0); Hemoglobin 8.5 g/dl (12.0-16.0); Imm Gran Abs Auto 0.01 X10*3/uL (0.00-0.03); Imm Gran Pct Auto 0.2 % (0.0-0.4); Lymphocytes Absolute Auto 1.4 X10*3/uL (1.2-4.9); Lymphocytes Percent Auto 27.7 % (20-40); Mean Corpuscular HGB Conc 32.6 g/dl (31.0-35.0); Mean Corpuscular Hemoglobin 31.6 pg (27.0-33.0); Mean Platelet Volume 12.1 fL (9.4-12.3); Monocytes Absolute Auto 0.5 X10*3/uL (0.1-1.2); Monocytes Percent Auto 10.1 % (2-11); Neutrophils Absolute Auto 3.1 x10*3/uL (2.0-8.3); Neutrophils Percent Auto 60.2 % (45-73); Platelet Count 151 X10*3/uL (160-400); Red Blood Count 2.69 X10*6/uL (4.20-5.50); Red Cell Distribution Width 13.2 % (11.0-16.0); White Blood Count 5.2 X10*3/uL (4.8-10.8)
--- NOTE | 2022-11-06 07:27 | PHA.MEDREC ---
Pharmacy Consult ? Medication Reconciliation Pharmacy has reviewed the medication reconciliation done by RN. Added amlodipine as patient has very recent claim and blood pressure is high at baseline.
[2022-11-06 07:31] VITALS: BP 164/70; PULSE 76; RESP 16; TEMP 36.6; O2SAT 98
[2022-11-06 08:02] LABS: Anion Gap 14 (12-20); Blood Urea Nitrogen 43 mg/dL (9-16); Calcium 8.4 mg/dL (8.4-10.2); Carbon Dioxide 17 mmol/L (22-29); Chloride 113 mmol/L (96-108); Creatinine Clr Calc Pharmacy 15.1; Estimated Glomerular Filt Rate 16; Glucose Random 149 mg/dL (60-115); Potassium 3.4 mmol/L (3.3-5.1); Sodium 141 mmol/L (135-145)
[2022-11-06 08:06] LABS: Alanine Aminotransferase 257 U/L (0-31); Albumin Level 3.3 g/dL (3.5-5.0); Alkaline Phosphatase 641 U/L (39-117); Aspartate Amino Transferase 220 U/L (5-31); Bilirubin Direct 0.9 mg/dL (0.0-0.5); Bilirubin Total 1.7 mg/dL (0.0-1.0); Total Protein 6.1 g/dL (6.5-8.0)
--- NOTE | 2022-11-06 10:20 | HO.PM.IMPN ---
Subjective Subjective Date of Service: 11/06/22 Interval History: Nausea vomiting,marky,uti Review of Systems Patient says nausea vomiting seems to be improving Abdominal pain also improving, denies any right upper quadrant pain Physical Exam Vital Signs: Vital Signs: Last Vital Signs Temp 97.8 F 11/06/22 07:31 Pulse 76 11/06/22 07:31 Resp 16 11/06/22 07:31 BP 164/70 H 11/06/22 07:31 Pulse Ox 98 11/06/22 07:31 O2 Del Method Room Air 11/06/22 07:31 BMI result Body Mass Index 22.0 Appearance: Alert.? Oriented X3.? not in distress.? cvs: rrr, [id number] . res: clear to auscultation ,no rhonchii or wheezing abd: no rebound or guarding ,nt, bs present. ext pulses present , no cyanosis. neuro: axo3 , nonfocal. Objective Data Active Medications Amlodipine Besylate (Amlodipine Besylate 2.5 Mg Tablet) 2.5 mg PO DAILY [facility]; Protocol Last Admin: 11/06/22 08:48 Dose: 2.5 mg Documented By: MERCY Docusate Sodium (Docusate Sodium 100 Mg Capsule) 100 mg PO DAILY PRN PRN Reason: Constipation Heparin Sodium (Porcine) (Heparin Sodium,Porcine 5,000 Unit/Ml Vial) 5,000 unit SUBCUT Q8H [facility] Last Admin: 11/06/22 08:48 Dose: 5,000 unit Documented By: MERCY Lactated Ringer's (Lr) 1,000 mls @ 100 mls/hr IVCONT .Q10H [facility] Last Admin: 11/06/22 02:43 Dose: 100 mls/hr Documented By: HASMUKH Ceftriaxone Sodium 1 gm/ (Sodium Chloride) 50 mls @ 100 mls/hr IV Q24H [facility] Ondansetron HCl (Ondansetron Hcl 4 Mg/2 Ml Vial) 4 mg IVPUSH Q8H PRN PRN Reason: Nausea and Vomiting Sodium Chloride (0.9 % Sodium Chloride Flush 3 Ml Syringe) 3 ml IVFLUSH QSHIFT [facility] Last Admin: 11/06/22 09:55 Dose: Not Given Documented By: MERCY Non-Admin Reason: IV Running Labs 11/06/22 06:02 11/06/22 06:02 Labs: Laboratory Results - last 24 hr 11/05/22 11/05/22 11/05/22 20:38 20:38 20:48 MCV 95.3 MCH 31.3 MCHC 32.8 RDW 13.6 Plt Count 167 MPV 11.0 Immature Gran % (Auto) 0.2 Neut % (Auto) 55.6 Lymph % (Auto) 31.9 [place] % (Auto) 10.2 Eos % (Auto) 1.5 Baso % (Auto) 0.6 Lymph # (Auto) 1.7 [place] # (Auto) 0.6 Eos # (Auto) 0.1 Baso # (Auto) 0.0 Abs Immat Gran (auto) 0.01 Absolute Neuts (auto) 3.0 Absolute Nucleated RBC 0.000 Nucleated RBC % (auto) 0.0 Anion Gap 19 Estim Creat Clear Calc 10.3 Estimated GFR 10 Random Glucose 230 H Lactic Acid Calcium 8.9 D Magnesium 1.6 Ferritin Total Bilirubin 1.2 H Direct Bilirubin AST 143 H ALT 252 H Alkaline Phosphatase 633 H Total Protein 6.5 Albumin 3.4 L Vitamin B12 Folate Urine Color Dark Yellow Urine Appearance Turbid Urine pH 5.5 Ur Specific [place] 1.020 Urine Protein 100 (2+) H Urine Glucose (UA) Negative Urine Ketones Trace Urine Blood Trace H Urine Nitrite Negative Ur Leukocyte Esterase Large (3+) H Urine RBC 0-2 Urine WBC >50 H Ur Squamous Epith Cells 11-20 Urine Bacteria 4+ Hyaline Casts 0-2 11/05/22 11/06/22 11/06/22 22:10 01:26 01:26 MCV MCH MCHC RDW Plt Count MPV Immature Gran % (Auto) Neut % (Auto) Lymph % (Auto) [place] % (Auto) Eos % (Auto) Baso % (Auto) Lymph # (Auto) [place] # (Auto) Eos # (Auto) Baso # (Auto) Abs Immat Gran (auto) Absolute Neuts (auto) Absolute Nucleated RBC Nucleated RBC % (auto) Anion Gap Estim Creat Clear Calc Estimated GFR Random Glucose Lactic Acid 1.0 Calcium Magnesium Ferritin 974 H Total Bilirubin 1.7 H Direct Bilirubin 0.9 H AST 220 H ALT 257 H Alkaline Phosphatase 641 H Total Protein 6.1 L Albumin 3.3 L Vitamin B12 648 Folate 8.9 Urine Color Urine Appearance Urine pH Ur Specific [place] Urine Protein Urine Glucose (UA) Urine Ketones Urine Blood Urine Nitrite Ur Leukocyte Esterase Urine RBC Urine WBC Ur Squamous Epith Cells Urine Bacteria Hyaline Casts 11/06/22 11/06/22 06:02 06:02 MCV 97.0 MCH 31.6 MCHC 32.6 RDW 13.2 Plt Count 151 L MPV 12.1 Immature Gran % (Auto) 0.2 Neut % (Auto) 60.2 Lymph % (Auto) 27.7 [place] % (Auto) 10.1 Eos % (Auto) 1.4 Baso % (Auto) 0.4 Lymph # (Auto) 1.4 [place] # (Auto) 0.5 Eos # (Auto) 0.1 Baso # (Auto) 0.0 Abs Immat Gran (auto) 0.01 Absolute Neuts (auto) 3.1 Absolute Nucleated RBC 0.000 Nucleated RBC % (auto) 0.0 Anion Gap 14 Estim Creat Clear Calc 15.1 Estimated GFR 16 Random Glucose 149 H Lactic Acid Calcium 8.4 Magnesium Ferritin Total Bilirubin Direct Bilirubin AST ALT Alkaline Phosphatase Total Protein Albumin Vitamin B12 Folate Urine Color Urine Appearance Urine pH Ur Specific [place] Urine Protein Urine Glucose (UA) Urine Ketones Urine Blood Urine Nitrite Ur Leukocyte Esterase Urine RBC Urine WBC Ur Squamous Epith Cells Urine Bacteria Hyaline Casts Assessment and Plan (1) Acute on chronic anemia: Status: Acute (2) Acute UTI: Status: Acute (3) Nausea & vomiting: Status: Acute (4) Transaminitis: Status: Acute (5) Acute on chronic kidney failure: Status: Acute Plan ?77-year-old female past medical history of hypertension brought in by her daughter for weakness, nausea vomiting acute on chronic kidney failure-likely secondary to dehydration, due to the vomiting improving,her cr flacutates alll over the place (around 1.5---3) - treat with IV fluids, follow BMP transaminitis- slightly trending up - unclear etiology patient has a history of cholecystectomy - abdominal pelvic CT shows intrahepatic and extrahepatic biliary ductal dilatation which may be physiological but given her elevated LFTs will obtain abdominal pelvic ultrasound - no right upper quadrant abdominal tenderness - follow LFTs,added heaptitis profile. Gi eval. acute UTI- positive UA, will treat with IV antibiotics, follow cultures nausea vomiting-possibly secondary to gastritis versus MARKY - antiemetics, IV fluids acute on chronic anemia( macrocytic) - hemoglobin dropped from 10.3-8.6-8.5. - no evidence of GI bleed Iron profile, folic acid and B12 levels reviewed-pattern seems aocd. fobt, moniter h/h hypertension - elevated added back amlodipine ,Hold KAT/ARB due to marky DVT prophylaxis:? Heparin subQ Given patient's need for management of acute kidney failure patient will require minimum 2 nights inpatient hospital stay for further management and monitoring Time Spent With Patient Time: Total time managing care of this patient today ____ minutes. Quality Stroke Does the patient have a stroke diagnosis?: No VTE Prior VTE?: No VTE Risk Level:: Medical - moderate - high VTE Device Contraindication: Treatment Not Indicated VTE Drug Contraindication: N/A - Med Ordered
[2022-11-06 15:26] VITALS: BP 163/63; PULSE 64; RESP 18; TEMP 36.8; O2SAT 100
--- NOTE | 2022-11-06 16:24 | MHC.CM.PN ---
11/06 IMM PT LIVES WITH SISTER AND HAS DAILY [employer]NAGER [employer] SERVICES (D[employer]). DCP [facility] FAM TO TRANSPORT
[2022-11-06 19:43] VITALS: BP 130/70; PULSE 66; RESP 20; TEMP 35.9; O2SAT 100
[2022-11-06 20:00] VITALS: BP 130/70; PULSE 68; RESP 20; TEMP 35.9; O2SAT 98
[2022-11-07 03:34] VITALS: BP 145/67; PULSE 67; RESP 18; TEMP 36.5; O2SAT 100
[2022-11-07 03:55] LABS: HBS Num1 0.18 mIU/mL (0-7.99); HBc Num1 0.11 S/CO (0.00-0.79); HBsAGNum1 0.35 S/CO (0.00-0.99); Hepatitis A Antibody IgM 0.29 Index (0-0.79); Hepatitis B Core Antibody Nonreactive (Nonreactive); Hepatitis B Surface Antigen Negative (Negative); ~HepC Num1 0.11 S/CO (0.00-0.79); ~Hepatitis A Antibody IgM Nonreactive (Nonreactive); ~Hepatitis B Surface Antibody NONREACTIVE (Nonreactive); ~Hepatitis C Antibody Nonreactive (Nonreactive)
[2022-11-07 07:56] VITALS: BP 126/68; PULSE 60; RESP 16; TEMP 36.6; O2SAT 96
--- NOTE | 2022-11-07 09:57 | MHC.CM.PN ---
PER MD, PT WILL NOT BE DISCHARGED TODAY DCP REMAINS [facility] WITH RESUMPTION OF [employer]ATH[employer]ER
--- NOTE | 2022-11-07 12:33 | HO.PM.IMPN ---
Subjective Subjective Date of Service: 11/07/22 Interval History: elevated Lft's,uti Review of Systems seems nausea/vomiting improved denies abd pain Physical Exam Vital Signs: Vital Signs: Last Vital Signs Temp 97.8 F 11/07/22 07:56 Pulse 60 11/07/22 07:56 Resp 16 11/07/22 07:56 BP 126/68 11/07/22 07:56 Pulse Ox 96 11/07/22 07:56 O2 Del Method Room Air 11/07/22 07:56 BMI result Body Mass Index 22.0 Appearance: Alert.? Oriented X3.? not in distress.? cvs: rrr, [id number] . res: clear to auscultation ,no rhonchii or wheezing abd: no rebound or guarding ,nt, bs present. ext pulses present , no cyanosis. neuro: axo3 , nonfocal. Objective Data Active Medications Amlodipine Besylate (Amlodipine Besylate 2.5 Mg Tablet) 2.5 mg PO DAILY [facility]; Protocol Last Admin: 11/07/22 09:21 Dose: 2.5 mg Documented By: MICHAEL Docusate Sodium (Docusate Sodium 100 Mg Capsule) 100 mg PO DAILY PRN PRN Reason: Constipation Ceftriaxone Sodium 1 gm/ (Sodium Chloride) 50 mls @ 100 mls/hr IV Q24H [facility] Last Infusion: 11/06/22 22:51 Dose: 0 mls/hr Documented By: SHUBHAM Ondansetron HCl (Ondansetron Hcl 4 Mg/2 Ml Vial) 4 mg IVPUSH Q8H PRN PRN Reason: Nausea and Vomiting Sodium Chloride (0.9 % Sodium Chloride Flush 3 Ml Syringe) 3 ml IVFLUSH QSHIFT [facility] Last Admin: 11/07/22 07:09 Dose: Not Given Documented By: MICHAEL Non-Admin Reason: IV Running Labs 11/07/22 09:34 11/07/22 07:36 Labs: Laboratory Results - last 24 hr 11/06/22 11/06/22 11/07/22 01:26 13:30 07:36 Anion Gap 14 Estim Creat Clear Calc 33.1 Estimated GFR 39 Random Glucose 145 H Calcium 8.6 Total Bilirubin 2.7 H Direct Bilirubin 1.6 H AST 324 H ALT 303 H Alkaline Phosphatase 691 H Total Protein 5.9 L Albumin 3.0 L Stool Occult Blood NEGATIVE Hepatitis A IgM Ab Nonreactive Hep Bs Antigen Negative Hep Bs Antibody NONREACTIVE Hep B Core Total Ab Nonreactive Hepatitis C Ab (EIA) Nonreactive Microbiology Microbiology Results: Microbiology 11/05/22 22:35 Blood Culture - Preliminary Blood - Venous No growth after 24 hours. 11/05/22 22:35 Blood Culture - Preliminary Blood - Venous No growth after 24 hours. 11/05/22 Unknown Urine Culture - Final Urine clean catch - Urine dewitt top Assessment and Plan (1) Acute UTI: Status: Acute (2) Transaminitis: Status: Acute (3) Pancreatic lesion: Status: Acute Plan 77-year-old female past medical history of hypertension brought in by her daughter for weakness, nausea vomiting ?acute on chronic kidney failure-likely secondary to dehydration, due to the vomiting improving,her cr flacutates alll over the place (around 1.5---3) - treat with IV fluids, follow BMP ?transaminitis- trending up - unclear etiology patient has a history of cholecystectomy - abdominal pelvic CT shows intrahepatic and extrahepatic biliary ductal dilatation which may be physiological but given her elevated LFTs will obtain abdominal pelvic ultrasound - no right upper quadrant abdominal tenderness hepatitis profile negative, ct abd-intrahepatic/extrahepatic duct dilation ,pancreatic lesion on us d/w Gi -added mri,moniter lft's ?acute UTI- positive UA, will treat with IV antibiotics, follow cultures ?nausea vomiting-possibly secondary to gastritis versus MARKY - antiemetics, IV fluids ?acute on chronic anemia( macrocytic) - hemoglobin dropped from 10.3-8.6-8.5-10.1 - no evidence of GI bleed Iron profile, folic acid and B12 levels reviewed-pattern seems aocd. fobt, moniter h/h hypertension - elevated added back amlodipine ,Hold KAT/ARB due to marky DVT prophylaxis:? Heparin subQ Given patient's need, uti -need iv antibiotics ,cultures pending, elevated lfts and pancreatic lesion- monitoring lft's monitering and workup Time Spent With Patient Time: Total time managing care of this patient today ____ minutes. Quality Stroke Does the patient have a stroke diagnosis?: No VTE Prior VTE?: No VTE Risk Level:: Medical - moderate - high VTE Device Contraindication: Treatment Not Indicated VTE Drug Contraindication: N/A - Med Ordered
[2022-11-07 15:49] VITALS: PULSE 72; RESP 18; TEMP 36.6; O2SAT 100
[2022-11-07 16:02] VITALS: BP 172/68; PULSE 72; RESP 18; TEMP 36.6; O2SAT 100
--- NOTE | 2022-11-07 19:41 | PM.EVENT ---
Event Note Date of Service: 11/07/22 Event Note: GI Consult-Full note dictated History via patient with her daughter, Sandip, as maintenance service supervisor, and from the EMR. Imp: Elevated LFT's with component of possible biliary obstruction. Diff dx: CBD stone, Ampullary tumor, Pancreatic tumor, Biliary tumor. Primary liver disease seems less likely. Rec: Await reading of MRCP. Potential ERCP later in the week. F/U labs for the AM. D/W patient and her daughter in detail and they are comfortable with this plan.Thanks. Time Spent With Patient Time: Total time managing care of this patient today ____ minutes.
[2022-11-07 19:48] VITALS: PULSE 70; RESP 18; TEMP 36.4; O2SAT 100
[2022-11-08] VITALS (7 sets, daily range): BP systolic 130–178; BP diastolic 60–82; PULSE 66–74; RESP 16–19; TEMP 36.1–36.4; O2SAT 95–100
--- NOTE | 2022-11-08 09:04 | HO.PM.IMPN ---
Subjective Subjective Date of Service: 11/08/22 Interval History: Follow-up on abdominal pain. Interval history: Reports no pain. LFTs are still rising Physical Exam Vital Signs: Vital Signs: Last Vital Signs Temp 97 F 11/08/22 07:02 Pulse 66 11/08/22 07:02 Resp 16 11/08/22 07:02 BP 158/82 H 11/08/22 07:02 Pulse Ox 100 11/08/22 07:02 O2 Del Method Room Air 11/08/22 07:02 BMI result Body Mass Index 22.0 Objective Data Active Medications Amlodipine Besylate (Amlodipine Besylate 5 Mg Tablet) 5 mg PO DAILY [facility]; Protocol Last Admin: 11/08/22 08:59 Dose: 5 mg Documented By: MICHAEL Docusate Sodium (Docusate Sodium 100 Mg Capsule) 100 mg PO DAILY PRN PRN Reason: Constipation Ceftriaxone Sodium 1 gm/ (Sodium Chloride) 50 mls @ 100 mls/hr IV Q24H [facility] Last Infusion: 11/08/22 00:03 Dose: 0 mls/hr Documented By: CRUZ Ondansetron HCl (Ondansetron Hcl 4 Mg/2 Ml Vial) 4 mg IVPUSH Q8H PRN PRN Reason: Nausea and Vomiting Sodium Chloride (0.9 % Sodium Chloride Flush 3 Ml Syringe) 3 ml IVFLUSH QSHIFT [facility] Last Admin: 11/08/22 08:59 Dose: 3 ml Documented By: MICHAEL Labs 11/08/22 05:35 11/08/22 05:35 Labs: Laboratory Results - last 24 hr 11/08/22 11/08/22 11/08/22 05:35 05:35 05:35 MCV 93.5 MCH 31.6 MCHC 33.9 RDW 13.6 Plt Count 164 MPV 10.9 Absolute Nucleated RBC 0.020 H Nucleated RBC % (auto) 0.4 H PT 13.3 H INR 1.2 H Anion Gap 15 Estim Creat Clear Calc 40.1 Estimated GFR 49 Random Glucose 126 H Calcium 8.3 L Total Bilirubin 4.3 H Direct Bilirubin 2.8 H AST 436 H ALT 363 H Alkaline Phosphatase 684 H Total Protein 5.8 L Albumin 3.0 L Microbiology Microbiology Results: Microbiology 11/05/22 22:35 Blood Culture - Preliminary Blood - Venous No growth after 48 hours. 11/05/22 22:35 Blood Culture - Preliminary Blood - Venous No growth after 48 hours. Assessment and Plan (1) Acute UTI: Status: Acute (2) Transaminitis: Status: Acute (3) Pancreatic lesion: Status: Acute Plan 77-year-old female past medical history of hypertension brought in by her daughter for weakness, nausea vomiting and noted to have obstructive jaundice pattern, MARKY Abd pain, n/v elevated LFTs, jaundice, cocern of obstuctive, LFTS trending up, N/V, pain resolved.. MRCP result pending, might need ERCP depending on MRCP finding MARKY--pre renal in nature, resolved with IVF UTI--negative culture, treat no more baljit 3 days w/ Abx A, will treat with IV antibiotics, follow cultures Mild acute on chronic anemia--stable H/H hypertension--on Losaratan and Norvasc at home, Losartan has been on hold d/t renal failure--restart DVT prophylaxis:?compression device d/t anemia need for inpt: Abd pain, obstructive jaundice and might need ERCP Time Spent With Patient Time: Total time managing care of this patient today ____ minutes. Quality Stroke Does the patient have a stroke diagnosis?: No VTE Prior VTE?: No VTE Risk Level:: Medical - moderate - high VTE Device Contraindication: Treatment Not Indicated VTE Drug Contraindication: N/A - Med Ordered
--- NOTE | 2022-11-08 15:52 | PM.EVENT ---
Event Note Date of Service: 11/08/22 Event Note: GI-Course noted re: results of the MRI and the rising LFT's most c/w obstructive jaundice due to pancreatic head lesion. Will plan for an ERCP on 11/10, and will check a CA 19-9 along with a F/U CBC to make sure she doesn't need a transfusion before the procedure. I will advance her diet for today and tomorrow, and then make her NPO after 11/10 for the procedure. Thanks. Time Spent With Patient Time: Total time managing care of this patient today ____ minutes.
--- NOTE | 2022-11-08 16:00 | MHC.SHP ---
Pre-Procedural Eval Section A Date of Service: 11/10/22 The patient is an INPATIENT: Yes The History & Physical has been completed within 30 days and I have reviewed it.: Yes Section B Chief Complaint: MARKY, UTI Allergies: Allergies Allergy/AdvReac Type Severity Reaction Status Date / Time penicillin V Allergy Unknown hives, Rash Verified 11/24/21 18:51 Penicillins [PENICILLINS] Allergy Unknown RASH Verified 11/24/21 18:51 Plan I have reviewed the history and physical and performed a pertinent physical examination on my patient. No changes have occurred unless specified. Time Spent With Patient Time: Total time managing care of this patient today ____ minutes.
[2022-11-09 04:00] VITALS: BP 156/72; PULSE 65; RESP 16; TEMP 36.3; O2SAT 100
[2022-11-09 07:04] VITALS: BP 152/70; PULSE 66; RESP 16; TEMP 36; O2SAT 100
--- NOTE | 2022-11-09 08:24 | HO.PM.IMPN ---
Subjective Subjective Date of Service: 11/09/22 Interval History: Follow-up on abdominal pain. Interval history: reports no pain, MRCP showed cystic mass Physical Exam Vital Signs: Vital Signs: Last Vital Signs Temp 96.8 F 11/09/22 07:04 Pulse 66 11/09/22 07:04 Resp 16 11/09/22 07:04 BP 152/70 H 11/09/22 07:04 Pulse Ox 100 11/09/22 07:04 O2 Del Method Room Air 11/09/22 07:04 BMI result Body Mass Index 22.0 Const: Other: General: AO X 3, no acute distress Resp: CTA bilateral CVS: S1,S2,RRR GI: +BS, NT, no distention Skin: No rash Neuro: motor grossly intact Psych: appropriate affect Objective Data Active Medications Amlodipine Besylate (Amlodipine Besylate 5 Mg Tablet) 5 mg PO DAILY [facility]; Protocol Last Admin: 11/08/22 08:59 Dose: 5 mg Documented By: MICHAEL Docusate Sodium (Docusate Sodium 100 Mg Capsule) 100 mg PO DAILY PRN PRN Reason: Constipation Ceftriaxone Sodium 1 gm/ (Sodium Chloride) 50 mls @ 100 mls/hr IV Q24H [facility] Last Infusion: 11/08/22 23:52 Dose: 0 mls/hr Documented By: VIOLET Losartan Potassium (Losartan Potassium 50 Mg Tablet) 100 mg PO DAILY [facility]; Protocol Last Admin: 11/08/22 10:10 Dose: 100 mg Documented By: MICHAEL Ondansetron HCl (Ondansetron Hcl 4 Mg/2 Ml Vial) 4 mg IVPUSH Q8H PRN PRN Reason: Nausea and Vomiting Sodium Chloride (0.9 % Sodium Chloride Flush 3 Ml Syringe) 3 ml IVFLUSH QSHIFT [facility] Last Admin: 11/08/22 20:24 Dose: 3 ml Documented By: VIOLET Tramadol HCl (Tramadol Hcl 50 Mg Tablet) 50 mg PO QID [facility] Last Admin: 11/08/22 21:26 Dose: 50 mg Documented By: VIOLET Labs 11/09/22 05:04 11/09/22 05:04 Labs: Laboratory Results - last 24 hr 11/09/22 11/09/22 05:04 05:04 MCV 95.6 MCH 31.1 MCHC 32.5 RDW 13.9 Plt Count 151 L MPV 11.3 Immature Gran % (Auto) 0.3 Neut % (Auto) 57.8 Lymph % (Auto) 27.5 [place] % (Auto) 12.8 H Eos % (Auto) 1.3 Baso % (Auto) 0.3 Lymph # (Auto) 1.6 [place] # (Auto) 0.8 Eos # (Auto) 0.1 Baso # (Auto) 0.0 Abs Immat Gran (auto) 0.02 Absolute Neuts (auto) 3.4 Absolute Nucleated RBC 0.000 Nucleated RBC % (auto) 0.0 Anion Gap 15 Estim Creat Clear Calc 25.2 Estimated GFR 29 Fasting Glucose 138 H Calcium 8.9 D Total Bilirubin 5.0 H Direct Bilirubin 3.5 H AST 432 H ALT 409 H Alkaline Phosphatase 677 H Total Protein 6.2 L Albumin 3.2 L Assessment and Plan (1) Acute UTI: Status: Acute (2) Transaminitis: Status: Acute (3) Pancreatic lesion: Status: Acute Plan 77-year-old female past medical history of hypertension brought in by her daughter for weakness, nausea vomiting and noted to have obstructive jaundice pattern, MARKY Abd pain, n/v elevated LFTs, jaundice, 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 MARKY--pre renal in nature, resolved with IVF UTI--negative culture, treat no more baljit 3 days w/ Abx A, will treat with IV antibiotics, follow cultures Mild acute on chronic anemia--stable H/H hypertension--on Losaratan and Norvasc at home, Losartan has been on hold d/t, but restarted 11/08 DVT prophylaxis:?compression device d/t anemia need for inpt: Abd pain, obstructive jaundice, pancreatic mass and need ro ERCP. Will discuss with daughter Time Spent With Patient Time: Total time managing care of this patient today ____ minutes. Quality Stroke Does the patient have a stroke diagnosis?: No VTE Prior VTE?: No VTE Risk Level:: Medical - moderate - high VTE Device Contraindication: Treatment Not Indicated VTE Drug Contraindication: N/A - Med Ordered
--- NOTE | 2022-11-09 11:42 | MHC.CM.PN ---
EMR REVIEWED AND PER MD ROUNDS, PT NOT MEDICALLY CLEARED FOR DC ( BIOPSY, ECRP 11/10, PANCREATIC MASS/JAUNDICE) CM WILL CONTINUE TO FOLLOW FOR DC NEEDS/PLAN.
[2022-11-09 15:27] VITALS: BP 138/80; PULSE 88; RESP 16; TEMP 36.3; O2SAT 100
--- NOTE | 2022-11-09 18:46 | PM.EVENT ---
Event Note Date of Service: 11/09/22 Event Note: Course noted. Daughter Krysten is present at the bedside. Results of MRI and the continued rising LFT's D/W the patient and her daughter, Krysten. Krysten was able to interpret. Patient eating a little. Denies pain nor vomiting. 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 The plan is to proceed with an ERCP on 11/10 in the afternoon for an attempt at biliary stent placement and to obtain biopsies or brushings. Reviewed procedure in detail re: risks of bleeding, cholangitis, pancreatitis, and perforation. Consent obtained from patient and her daughter. They are comfortable with this plan. Thanks Time Spent With Patient Time: Total time managing care of this patient today ____ minutes.
[2022-11-09 19:33] VITALS: BP 137/83; PULSE 72; RESP 16; TEMP 36.5; O2SAT 99
[2022-11-10] VITALS (10 sets, daily range): BP systolic 148–182; BP diastolic 54–79; PULSE 68–83; RESP 16–18; TEMP 36–36.8; O2SAT 98–100
[2022-11-10 06:03] LABS: Hemoglobin 8.6 g/dl (12.0-16.0); Mean Corpuscular HGB Conc 33.1 g/dl (31.0-35.0); Mean Corpuscular Hemoglobin 31.4 pg (27.0-33.0); Mean Corpuscular Volume 94.9 fL (80.0-98.0); Mean Platelet Volume 11.4 fL (9.4-12.3); Platelet Count 145 X10*3/uL (160-400); Red Blood Count 2.74 X10*6/uL (4.20-5.50); Red Cell Distribution Width 13.6 % (11.0-16.0); White Blood Count 5.5 X10*3/uL (4.8-10.8)
[2022-11-10 06:35] LABS: Alanine Aminotransferase 412 U/L (0-31); Albumin Level 3.1 g/dL (3.5-5.0); Alkaline Phosphatase 715 U/L (39-117); Aspartate Amino Transferase 400 U/L (5-31); Bilirubin Direct 4.2 mg/dL (0.0-0.5); Bilirubin Total 5.6 mg/dL (0.0-1.0); Total Protein 5.8 g/dL (6.5-8.0)
[2022-11-10 06:42] LABS: Blood Urea Nitrogen 27 mg/dL (9-16); Calcium 8.9 mg/dL (8.4-10.2); Carbon Dioxide 24 mmol/L (22-29); Chloride 107 mmol/L (96-108); Estimated Glomerular Filt Rate 26; Glucose Random 182 mg/dL (60-115); Potassium 3.9 mmol/L (3.3-5.1); Sodium 138 mmol/L (135-145)
[2022-11-10 06:48] LABS: Anion Gap 11 (12-20)
--- NOTE | 2022-11-10 08:10 | HO.PM.IMPN ---
Subjective Subjective Date of Service: 11/10/22 Interval History: Follow-up on abdominal pain. Interval history: has nausea, no pain Physical Exam Vital Signs: Vital Signs: Last Vital Signs Temp 98.2 F 11/10/22 07:17 Pulse 72 11/10/22 07:17 Resp 16 11/10/22 07:17 BP 176/79 H 11/10/22 07:35 Pulse Ox 99 11/10/22 07:17 O2 Del Method Room Air 11/10/22 07:17 BMI result Body Mass Index 22.0 Const: Other: General: AO X 3, no acute distress Resp: CTA bilateral CVS: S1,S2,RRR GI: +BS, NT, no distention Skin: No rash Neuro: motor grossly intact Psych: appropriate affect Objective Data Active Medications Amlodipine Besylate (Amlodipine Besylate 5 Mg Tablet) 5 mg PO DAILY [facility]; Protocol Last Admin: 11/09/22 09:12 Dose: 5 mg Documented By: MAYTE Docusate Sodium (Docusate Sodium 100 Mg Capsule) 100 mg PO DAILY PRN PRN Reason: Constipation Ceftriaxone Sodium 1 gm/ (Sodium Chloride) 50 mls @ 100 mls/hr IV Q24H [facility] Last Infusion: 11/10/22 00:04 Dose: 0 mls/hr Documented By: VIOLET Indomethacin (Indomethacin 50 Mg Supp.Rect) 100 mg MS ONCE ONE Stop: 11/10/22 15:01 Losartan Potassium (Losartan Potassium 50 Mg Tablet) 100 mg PO DAILY [facility]; Protocol Last Admin: 11/09/22 09:11 Dose: 100 mg Documented By: MAYTE Ondansetron HCl (Ondansetron Hcl 4 Mg/2 Ml Vial) 4 mg IVPUSH Q8H PRN PRN Reason: Nausea and Vomiting Sodium Chloride (0.9 % Sodium Chloride Flush 3 Ml Syringe) 3 ml IVFLUSH QSHIFT [facility] Last Admin: 11/09/22 22:15 Dose: 3 ml Documented By: VIOLET Tramadol HCl (Tramadol Hcl 50 Mg Tablet) 50 mg PO QID [facility] Last Admin: 11/09/22 22:12 Dose: 50 mg Documented By: VIOLET Labs 11/10/22 05:21 11/10/22 05:21 Labs: Laboratory Results - last 24 hr 11/10/22 11/10/22 11/10/22 05:21 05:21 05:21 MCV 94.9 MCH 31.4 MCHC 33.1 RDW 13.6 Plt Count 145 L MPV 11.4 Absolute Nucleated RBC 0.000 Nucleated RBC % (auto) 0.0 Anion Gap 11 L Estim Creat Clear Calc 23.0 Estimated GFR 26 Random Glucose 182 H Calcium 8.9 Total Bilirubin 5.6 H Direct Bilirubin 4.2 H AST 400 H ALT 412 H Alkaline Phosphatase 715 H Total Protein 5.8 L Albumin 3.1 L Assessment and Plan (1) Acute UTI: Status: Acute (2) Transaminitis: Status: Acute (3) Pancreatic lesion: Status: Acute Plan 77-year-old female past medical history of hypertension brought in by her daughter for weakness, nausea vomiting and noted to have obstructive jaundice pattern, MARKY Abd pain, n/v elevated LFTs, jaundice, 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 MARKY--pre renal in nature, resolved with IVF UTI--negative culture, treated with ceftrixone Mild acute on chronic anemia--stable H/H hypertension--on Losaratan and Norvasc at home, Losartan has been on hold d/t, but restarted 11/08 DVT prophylaxis:?compression device d/t anemia need for inpt: Abd pain, obstructive jaundice, pancreatic mass and need ro ERCP. discussed with daughter in person Time Spent With Patient Time: Total time managing care of this patient today ____ minutes. Quality Stroke Does the patient have a stroke diagnosis?: No VTE Prior VTE?: No VTE Risk Level:: Medical - moderate - high VTE Device Contraindication: Treatment Not Indicated VTE Drug Contraindication: N/A - Med Ordered
--- NOTE | 2022-11-10 14:54 | PC.NURSE ---
per report from floor pt a&ox3. Pt confused to date. Ox in the hospital . could not name [facility]. Pt concerned and adamant that she wanted purse. communication occured with church warden. Purse and daughter brought to preop. Dtr. Jean-Paulmisty Cathi [phone] will sign consents for pt. Dtr states she will keep purse with her and wait with it in her room.
--- NOTE | 2022-11-10 15:16 | PC.NURSE ---
Purse taken from floor room per patient request/concerns for its safety.. Given to daughter Rosanna, who will hold it in waiting room. Patient alert and oriented to self & time only, short term memory very poor, repeats self & requires reorientation to procedure & situation often. DTR attests to history of dementia. DTR signed consent forms at bedside with providers.
--- NOTE | 2022-11-10 15:50 | HO.ANESPROP2 ---
HPI - Anesthesia Eval Consult details Narrative: 77 F for ercp LBBB, unchanged from prior EKG in 2019 [facility] Active Problems Active Problems: All Active Problems (Updated 11/07/22 @ 13:02 by Jaiden Muller MD) Pancreatic lesion (Acute) Acute on chronic anemia (Acute) Acute UTI (Acute) Nausea & vomiting (Acute) Transaminitis (Acute) Acute on chronic kidney failure (Acute) Intractable vomiting (Acute) Dehydration (Acute) Shingles (Acute) Increased endometrial stripe thickness (Acute) Encounter to discuss test results (Acute) Abnormal urine odor (Acute) Uterine prolapse (Acute) Postmenopausal bleeding (Acute) Encounter for annual routine gynecological examination (Acute) Past Medical History Medical History Abnormal urine odor Arthritis Diabetes mellitus HTN (hypertension) Uterine prolapse Family History Family History Sister Breast cancer Mother Vaginal cancer Family history of problems with anesthesia: No Surgical History Surgical History History of loop electrical excision procedure (LEEP) Hx of appendectomy History of Problems with Anesthesia: No Social History Social History Household Members: Family Housing: Apartment Do you presently have visiting nurse or other home services: Yes Alcohol intake: never Patient Tobacco Use Status: Never used Tobacco service: No Current occupational status: retired Gender identity: Female Meds Allergies Allergy/AdvReac Type Severity Reaction Status Date / Time penicillin V Allergy Unknown hives, Rash Verified 11/24/21 18:51 Penicillins [PENICILLINS] Allergy Unknown RASH Verified 11/24/21 18:51 Active Medications: Current Medications Amlodipine Besylate (Amlodipine Besylate 10 Mg Tablet) 10 mg PO DAILY DELMA; Protocol Last Admin: 11/10/22 09:11 Dose: 10 mg Docusate Sodium (Docusate Sodium 100 Mg Capsule) 100 mg PO DAILY PRN PRN Reason: Constipation Ceftriaxone Sodium 1 gm/ (Sodium Chloride) 50 mls @ 100 mls/hr IV Q24H DELMA Last Infusion: 11/10/22 00:04 Dose: Infused Losartan Potassium (Losartan Potassium 50 Mg Tablet) 100 mg PO DAILY DELMA; Protocol Last Admin: 11/10/22 09:11 Dose: 100 mg Ondansetron HCl (Ondansetron Hcl 4 Mg/2 Ml Vial) 4 mg IVPUSH Q8H PRN PRN Reason: Nausea and Vomiting Sodium Chloride (0.9 % Sodium Chloride Flush 3 Ml Syringe) 3 ml IVFLUSH QSHIFT [facility] Last Admin: 11/10/22 15:46 Dose: Not Given Tramadol HCl (Tramadol Hcl 50 Mg Tablet) 50 mg PO QID [facility] Last Admin: 11/10/22 14:01 Dose: Not Given Home Medications Medication Instructions Recorded Confirmed Last Taken Type losartan 100 mg tablet 1 tab PO DAILY 11/24/21 11/06/22 11/05/22 History tramadol 50 mg tablet 1 tab PO QID 11/24/21 11/06/22 11/05/22 History amlodipine 2.5 mg tablet 2.5 mg PO DAILY 11/06/22 11/06/22 Unknown History Exam Exam Date and Time: November 10, 2022 1550 Height,Weight and Vital Signs: Height 5 ft 5 in Weight 132 lb 4.438 oz Last Vital Signs Temp 97.8 F 11/10/22 13:56 Pulse 78 11/10/22 13:56 Resp 18 11/10/22 13:56 BP 152/66 H 11/10/22 13:56 Pulse Ox 100 11/10/22 13:56 O2 Del Method Room Air 11/10/22 13:56 Pertinent Lab Results Pertinent Lab Results: Laboratory Tests 11/05/22 11/05/22 11/05/22 20:38 20:38 20:48 WBC 5.4 RBC 2.75 L Hgb 8.6 L Hct 26.2 L MCV 95.3 MCH 31.3 MCHC 32.8 RDW 13.6 Plt Count 167 MPV 11.0 Immature Gran % (Auto) 0.2 Neut % (Auto) 55.6 Lymph % (Auto) 31.9 Lee % (Auto) 10.2 Eos % (Auto) 1.5 Baso % (Auto) 0.6 Lymph # (Auto) 1.7 Lee # (Auto) 0.6 Eos # (Auto) 0.1 Baso # (Auto) 0.0 Abs Immat Gran (auto) 0.01 Absolute Neuts (auto) 3.0 Absolute Nucleated RBC 0.000 Nucleated RBC % (auto) 0.0 PT INR Sodium 141 Potassium 4.2 Chloride 108 Carbon Dioxide 18 L Anion Gap 19 BUN 51 H Creatinine 4.25 H* Estim Creat Clear Calc 10.3 Estimated GFR 10 POC Glucose Random Glucose 230 H Fasting Glucose Lactic Acid Calcium 8.9 D Magnesium 1.6 Ferritin Total Bilirubin 1.2 H Direct Bilirubin AST 143 H ALT 252 H Alkaline Phosphatase 633 H Total Protein 6.5 Albumin 3.4 L Vitamin B12 Folate Urine Color Dark Yellow Urine Appearance Turbid Urine pH 5.5 Ur Specific [place] 1.020 Urine Protein 100 (2+) H Urine Glucose (UA) Negative Urine Ketones Trace Urine Blood Trace H Urine Nitrite Negative Ur Leukocyte Esterase Large (3+) H Urine RBC 0-2 Urine WBC >50 H Ur Squamous Epith Cells 11-20 Urine Bacteria 4+ Hyaline Casts 0-2 Stool Occult Blood Hepatitis A IgM Ab Hep Bs Antigen Hep Bs Antibody Hep B Core Total Ab Hepatitis C Ab (EIA) 11/05/22 11/06/22 11/06/22 22:10 01:26 01:26 WBC RBC Hgb Hct MCV MCH MCHC RDW Plt Count MPV Immature Gran % (Auto) Neut % (Auto) Lymph % (Auto) Lee % (Auto) Eos % (Auto) Baso % (Auto) Lymph # (Auto) Lee # (Auto) Eos # (Auto) Baso # (Auto) Abs Immat Gran (auto) Absolute Neuts (auto) Absolute Nucleated RBC Nucleated RBC % (auto) PT INR Sodium Potassium Chloride Carbon Dioxide Anion Gap BUN Creatinine Estim Creat Clear Calc Estimated GFR POC Glucose Random Glucose Fasting Glucose Lactic Acid 1.0 Calcium Magnesium Ferritin 974 H Total Bilirubin 1.7 H Direct Bilirubin 0.9 H AST 220 H ALT 257 H Alkaline Phosphatase 641 H Total Protein 6.1 L Albumin 3.3 L Vitamin B12 648 Folate 8.9 Urine Color Urine Appearance Urine pH Ur Specific [place] Urine Protein Urine Glucose (UA) Urine Ketones Urine Blood Urine Nitrite Ur Leukocyte Esterase Urine RBC Urine WBC Ur Squamous Epith Cells Urine Bacteria Hyaline Casts Stool Occult Blood Hepatitis A IgM Ab Hep Bs Antigen Hep Bs Antibody Hep B Core Total Ab Hepatitis C Ab (EIA) 11/06/22 11/06/22 11/06/22 01:26 06:02 06:02 WBC 5.2 RBC 2.69 L Hgb 8.5 L Hct 26.1 L MCV 97.0 MCH 31.6 MCHC 32.6 RDW 13.2 Plt Count 151 L MPV 12.1 Immature Gran % (Auto) 0.2 Neut % (Auto) 60.2 Lymph % (Auto) 27.7 Lee % (Auto) 10.1 Eos % (Auto) 1.4 Baso % (Auto) 0.4 Lymph # (Auto) 1.4 Lee # (Auto) 0.5 Eos # (Auto) 0.1 Baso # (Auto) 0.0 Abs Immat Gran (auto) 0.01 Absolute Neuts (auto) 3.1 Absolute Nucleated RBC 0.000 Nucleated RBC % (auto) 0.0 PT INR Sodium 141 Potassium 3.4 Chloride 113 H Carbon Dioxide 17 L Anion Gap 14 BUN 43 H Creatinine 2.88 H Estim Creat Clear Calc 15.1 Estimated GFR 16 POC Glucose Random Glucose 149 H Fasting Glucose Lactic Acid Calcium 8.4 Magnesium Ferritin Total Bilirubin Direct Bilirubin AST ALT Alkaline Phosphatase Total Protein Albumin Vitamin B12 Folate Urine Color Urine Appearance Urine pH Ur Specific [place] Urine Protein Urine Glucose (UA) Urine Ketones Urine Blood Urine Nitrite Ur Leukocyte Esterase Urine RBC Urine WBC Ur Squamous Epith Cells Urine Bacteria Hyaline Casts Stool Occult Blood Hepatitis A IgM Ab Nonreactive Hep Bs Antigen Negative Hep Bs Antibody NONREACTIVE Hep B Core Total Ab Nonreactive Hepatitis C Ab (EIA) Nonreactive 11/06/22 11/07/22 11/07/22 13:30 07:36 09:34 WBC RBC Hgb 10.1 L Hct 29.6 L MCV MCH MCHC RDW Plt Count MPV Immature Gran % (Auto) Neut % (Auto) Lymph % (Auto) Lee % (Auto) Eos % (Auto) Baso % (Auto) Lymph # (Auto) Lee # (Auto) Eos # (Auto) Baso # (Auto) Abs Immat Gran (auto) Absolute Neuts (auto) Absolute Nucleated RBC Nucleated RBC % (auto) PT INR Sodium 143 Potassium 3.4 Chloride 111 H Carbon Dioxide 21 L Anion Gap 14 BUN 29 H Creatinine 1.32 Estim Creat Clear Calc 33.1 Estimated GFR 39 POC Glucose Random Glucose 145 H Fasting Glucose Lactic Acid Calcium 8.6 Magnesium Ferritin Total Bilirubin 2.7 H Direct Bilirubin 1.6 H AST 324 H ALT 303 H Alkaline Phosphatase 691 H Total Protein 5.9 L Albumin 3.0 L Vitamin B12 Folate Urine Color Urine Appearance Urine pH Ur Specific [place] Urine Protein Urine Glucose (UA) Urine Ketones Urine Blood Urine Nitrite Ur Leukocyte Esterase Urine RBC Urine WBC Ur Squamous Epith Cells Urine Bacteria Hyaline Casts Stool Occult Blood NEGATIVE Hepatitis A IgM Ab Hep Bs Antigen Hep Bs Antibody Hep B Core Total Ab Hepatitis C Ab (EIA) 11/08/22 11/08/22 11/08/22 05:35 05:35 05:35 WBC 5.1 RBC 2.75 L Hgb 8.7 L Hct 25.7 L MCV 93.5 MCH 31.6 MCHC 33.9 RDW 13.6 Plt Count 164 MPV 10.9 Immature Gran % (Auto) Neut % (Auto) Lymph % (Auto) Lee % (Auto) Eos % (Auto) Baso % (Auto) Lymph # (Auto) Lee # (Auto) Eos # (Auto) Baso # (Auto) Abs Immat Gran (auto) Absolute Neuts (auto) Absolute Nucleated RBC 0.020 H Nucleated RBC % (auto) 0.4 H PT 13.3 H INR 1.2 H Sodium 140 Potassium 3.3 Chloride 109 H Carbon Dioxide 19 L Anion Gap 15 BUN 25 H Creatinine 1.09 Estim Creat Clear Calc 40.1 Estimated GFR 49 POC Glucose Random Glucose 126 H Fasting Glucose Lactic Acid Calcium 8.3 L Magnesium Ferritin Total Bilirubin 4.3 H Direct Bilirubin 2.8 H AST 436 H ALT 363 H Alkaline Phosphatase 684 H Total Protein 5.8 L Albumin 3.0 L Vitamin B12 Folate Urine Color Urine Appearance Urine pH Ur Specific [place] Urine Protein Urine Glucose (UA) Urine Ketones Urine Blood Urine Nitrite Ur Leukocyte Esterase Urine RBC Urine WBC Ur Squamous Epith Cells Urine Bacteria Hyaline Casts Stool Occult Blood Hepatitis A IgM Ab Hep Bs Antigen Hep Bs Antibody Hep B Core Total Ab Hepatitis C Ab (EIA) 11/09/22 11/09/22 11/10/22 05:04 05:04 05:21 WBC 6.0 5.5 RBC 2.96 L 2.74 L Hgb 9.2 L 8.6 L Hct 28.3 L 26.0 L MCV 95.6 94.9 MCH 31.1 31.4 MCHC 32.5 33.1 RDW 13.9 13.6 Plt Count 151 L 145 L MPV 11.3 11.4 Immature Gran % (Auto) 0.3 Neut % (Auto) 57.8 Lymph % (Auto) 27.5 Lee % (Auto) 12.8 H Eos % (Auto) 1.3 Baso % (Auto) 0.3 Lymph # (Auto) 1.6 Lee # (Auto) 0.8 Eos # (Auto) 0.1 Baso # (Auto) 0.0 Abs Immat Gran (auto) 0.02 Absolute Neuts (auto) 3.4 Absolute Nucleated RBC 0.000 0.000 Nucleated RBC % (auto) 0.0 0.0 PT INR Sodium 138 Potassium 3.2 L Chloride 107 Carbon Dioxide 19 L Anion Gap 15 BUN 27 H Creatinine 1.73 H Estim Creat Clear Calc 25.2 Estimated GFR 29 POC Glucose Random Glucose Fasting Glucose 138 H Lactic Acid Calcium 8.9 D Magnesium Ferritin Total Bilirubin 5.0 H Direct Bilirubin 3.5 H AST 432 H ALT 409 H Alkaline Phosphatase 677 H Total Protein 6.2 L Albumin 3.2 L Vitamin B12 Folate Urine Color Urine Appearance Urine pH Ur Specific [place] Urine Protein Urine Glucose (UA) Urine Ketones Urine Blood Urine Nitrite Ur Leukocyte Esterase Urine RBC Urine WBC Ur Squamous Epith Cells Urine Bacteria Hyaline Casts Stool Occult Blood Hepatitis A IgM Ab Hep Bs Antigen Hep Bs Antibody Hep B Core Total Ab Hepatitis C Ab (EIA) 11/10/22 11/10/22 11/10/22 05:21 05:21 14:20 WBC RBC Hgb Hct MCV MCH MCHC RDW Plt Count MPV Immature Gran % (Auto) Neut % (Auto) Lymph % (Auto) Lee % (Auto) Eos % (Auto) Baso % (Auto) Lymph # (Auto) Lee # (Auto) Eos # (Auto) Baso # (Auto) Abs Immat Gran (auto) Absolute Neuts (auto) Absolute Nucleated RBC Nucleated RBC % (auto) PT INR Sodium 138 Potassium 3.9 D Chloride 107 Carbon Dioxide 24 Anion Gap 11 L BUN 27 H Creatinine 1.90 H Estim Creat Clear Calc 23.0 Estimated GFR 26 POC Glucose 137 H Random Glucose 182 H Fasting Glucose Lactic Acid Calcium 8.9 Magnesium Ferritin Total Bilirubin 5.6 H Direct Bilirubin 4.2 H AST 400 H ALT 412 H Alkaline Phosphatase 715 H Total Protein 5.8 L Albumin 3.1 L Vitamin B12 Folate Urine Color Urine Appearance Urine pH Ur Specific [place] Urine Protein Urine Glucose (UA) Urine Ketones Urine Blood Urine Nitrite Ur Leukocyte Esterase Urine RBC Urine WBC Ur Squamous Epith Cells Urine Bacteria Hyaline Casts Stool Occult Blood Hepatitis A IgM Ab Hep Bs Antigen Hep Bs Antibody Hep B Core Total Ab Hepatitis C Ab (EIA) Airway Mallampati Class: II TM Dist: >3cm Neck ROM: Full Loose/Missing/Broken Teeth: Yes Assessment and Plan Assessment Anesthesia Assessment: Anesthesia Plan Discussed and Chart Reviewed Final Anesthetic Review Family History of Problems with Anesthesia: No History of Problems with Anesthesia: No NPO: Yes ASA Class: III Final Preanesthetic Review: No Changes in Pt Med Stat, Meds/Allgs Chart Reviewed, Consent Obtained/Reviewed and Anes Risks/Benef Reviewed Patient Risk: Intermediate Procedure Risk: Low Anesthetic Plan Anesthetic Plan: GA Disposition: Standard PACU
--- NOTE | 2022-11-10 18:06 | PM.OP ---
Brief Operative Note Date of Service: 11/10/22 Pre-op diagnosis: Obstructive jaundice, Pancreatic head mass Post-op diagnosis: other (Same) Procedure: ERCP with sphincterotomy Surgeon: Quique Melara Anesthesia: GETA Was an [employer] used for this Procedure?: No Estimated blood loss (mL): 0 Pathology: none sent Condition: stable Disposition: PACU
--- NOTE | 2022-11-10 18:08 | PM.EVENT ---
Event Note Date of Service: 11/10/22 Event Note: [id number] note dictated Findings: 1. Erosive duodenitis into the 2nd/3rd portions of the duodenum 2. Somewhat bulging, edematous, and friable major ampulla, but without discrete mass 3. Papillary orifice visualized, but no bile seen. This was cannulated with straight and angled guide wires but unable to advance into either the CBD nor PD. I did not inject contrast. 4. Performed an approx 8mm sphincterotomy with the triple lumen sphincterotome, but still unable to advance the wire into either CBD nor PD Imp: Obstruction of the CBD and PD by pancreatic head mass. Plan: Observe overnight and advance diet in AM if stable. Recheck labs in AM. Start oral PPI and continue as an outpatient. Avoid all aspirin, other blood thinners, and NSAIDs for at least 1 week. If stable in AM may then be able to discharge and then arrange for outpatient referral to [facility] or other tertiary center for another attempt at ERCP. I did review the case with Dr. Hunter Kumar at [facility] GI and he will arrange for an outpatient ERCP next week, assuming she is stable and goes home tomorrow. I did review all of this in detail with the patient's family and they are agreeable with this plan as well. 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 Thanks. Time Spent With Patient Time: Total time managing care of this patient today ____ minutes.
[2022-11-11 04:00] VITALS: BP 146/67; PULSE 71; RESP 16; TEMP 36.5; O2SAT 99
[2022-11-11 05:36] LABS: MANUAL DIFF FLAG NO
[2022-11-11 05:41] LABS: Hematocrit 24.8 % (37.0-47.0); Hemoglobin 8.4 g/dl (12.0-16.0); Imm Gran Abs Auto 0.02 X10*3/uL (0.00-0.03); Imm Gran Pct Auto 0.4 % (0.0-0.4); Lymphocytes Absolute Auto 0.6 X10*3/uL (1.2-4.9); Mean Corpuscular HGB Conc 33.9 g/dl (31.0-35.0); Mean Corpuscular Hemoglobin 31.7 pg (27.0-33.0); Mean Corpuscular Volume 93.6 fL (80.0-98.0); Mean Platelet Volume 11.7 fL (9.4-12.3); Monocytes Absolute Auto 0.2 X10*3/uL (0.1-1.2); Monocytes Percent Auto 4.4 % (2-11); Neutrophils Absolute Auto 4.2 x10*3/uL (2.0-8.3); Neutrophils Percent Auto 84.2 % (45-73); Platelet Count 146 X10*3/uL (160-400); Red Blood Count 2.65 X10*6/uL (4.20-5.50); Red Cell Distribution Width 13.8 % (11.0-16.0)
[2022-11-11 06:05] LABS: Alanine Aminotransferase 353 U/L (0-31); Alkaline Phosphatase 640 U/L (39-117); Anion Gap 15 (12-20); Aspartate Amino Transferase 267 U/L (5-31); Bilirubin Direct 2.9 mg/dL (0.0-0.5); Blood Urea Nitrogen 29 mg/dL (9-16); Calcium 8.8 mg/dL (8.4-10.2); Carbon Dioxide 20 mmol/L (22-29); Chloride 108 mmol/L (96-108); Creatinine Clr Calc Pharmacy 26.2; Estimated Glomerular Filt Rate 30; Glucose Fasting 160 mg/dL (60-99); Potassium 3.5 mmol/L (3.3-5.1); Sodium 139 mmol/L (135-145); Total Protein 5.6 g/dL (6.5-8.0)
[2022-11-11 08:00] VITALS: BP 158/69; PULSE 74; RESP 16; TEMP 36.7; O2SAT 100
--- NOTE | 2022-11-11 08:13 | P.DS_ITS ---
DS: Providers Provider Date of Service: 11/11/22 Date of admission: 11/06/22 00:52 Primary care physician: Mor Marin MD Consults: 11/07/22 09:41 Consult to Gastroenterology Routine Consulting Provider: [facility] G[facility]ology [facility] Reason for consultation: Elevated liver function , pancreatic lesion Has provider been notified: No DS: Diagnosis Discharge Diagnosis (1) Acute UTI: Status: Acute (2) Transaminitis: Status: Acute (3) Pancreatic lesion: Status: Acute DS: Summary Hospital Course Hospital Course: [facility] Complaint: Nausea vomiting 77-year-old female with past medical history of hypertension brought in by her daughter for nausea vomiting decreased p.o. intake and weakness.? Patient has also been complaining to her daughter about epigastric abdominal pain but otherwise she denies any chest pain, no shortness of breath, no cough, currently has no abdominal pain, reports urinary frequency otherwise no dysuria or urgency, no lower extremity edema.? Daughter states that patient has had on of nausea vomiting for the past 2 years but the past 2 days has had constant nonstop vomiting that concerned her as well as poor oral intake and weakness.? On arrival to the ED patient found to be hemodynamically stable with no significant abnormal vitals Labs are significant for WBC count of 5.4, hemoglobin of 8.6, hematocrit 26.2 which is lower than her baseline of around 10.5, creatinine of 4.25 from a recent drop of 1.77 about 4 days ago, AST of 143, ALT of 252 which have improved from recent blood draw on 10/31, UA positive for leukocyte Estrace, WBC, and bacteria Patient started on IV fluids, IV antibiotics and will be admitted for further management Hospital course: Patient presented with n/v, decrease PO intake, weakness and abdominal pain. Work up in ED reveaed anemia Hemoglobin of 8.6, hematocrit of 26, renal failure with creatinine of 4.25, LFTS were elevated with as above. CT of of abdomen and pelvis showed Intrahepatic and extrahepatic biliary ductal dilatation,? 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 She underwent ERCP on 11/10/[address] Melara with the following finding and recommendation: Findings: 1. Erosive duodenitis into the 2nd/3rd portions of the duodenum 2. Somewhat bulging, edematous, and friable major ampulla, but without discrete mass 3. Papillary orifice visualized, but no bile seen. This was cannulated with straight and angled guide wires but unable to advance into either the CBD nor P D. I did not inject contrast. 4. Performed an approx 8mm sphincterotomy with the triple lumen sphincterotome, but still unable to advance the wire into either CBD nor PD Imp: Obstruction of the CBD and PD by pancreatic head mass. Plan: Start Oral PPI. Avoid all aspirin, other blood thinners, and NSAIDs for at least 1 week. If stable in AM may then be able to discharge and then arrange for outpatient referral to [facility] or other tertiary center for another attempt at ERCP. I did review the case with Dr. Hunter Kumar at [facility] GI and he will arrange for an outpatient ERCP next week, assuming she is stable and goes home tomorrow. I did review all of this in detail with the patient's family and they are agreeable with this plan as well. 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 MARKY--pre renal in nature, she presented with Creatine of 4.25 on 11/29, then improved to 1.09 on 11/08 but then deanna back up to 1.69 on 11/10 and now down to 1.67. She has CKD probaby 3 with variable Creatine level over time but baseline around 1.6. Holding Losartan as maybe contributing to worsening renal failure UTI--negative culture, treated with ceftrixone x 5 days. Mild acute on chronic anemia--she has baseline chronic anemia, She presented with hemoglobin of 8.6 and is presently 8.4, she probably has chronic gi bleeding from duodenitis as seen on ERCP, starting PPI hypertension--on Losartan and Norvasc at home. Stoping Losartan due to renal failure, increased Norvasc to 10 mg daily Time Spent with Patient Time attestation: Total time managing care of this patient today ____ minutes. Discharge coordination time: Greater than 30 minutes Quality: Safe Use of Opioids Does Pt have an Active Cancer Diagnosis on the Problem List?: No Quality: Stroke Does the patient have a stroke diagnosis?: No Physical Exam Vital Signs: Vital Signs: Last Vital Signs Temp 98.1 F 11/11/22 08:00 Pulse 74 11/11/22 08:00 Resp 16 11/11/22 08:00 BP 158/69 H 11/11/22 08:00 Pulse Ox 100 11/11/22 08:00 O2 Del Method Room Air 11/11/22 08:00 O2 Flow Rate 4 11/10/22 17:56 BMI result Body Mass Index 22.0 Const: Other: General: AO X 3, no acute distress Resp: CTA bilateral CVS: S1,S2,RRR GI: +BS, NT, no distention Skin: No rash Neuro: motor grossly intact Psych: appropriate affect DS: Data Data Completed and Pending Labs on day of discharge: Laboratory Results - last 24 hr 11/10/22 11/11/22 11/11/22 14:20 05:04 05:04 WBC 5.0 RBC 2.65 L Hgb 8.4 L Hct 24.8 L MCV 93.6 MCH 31.7 MCHC 33.9 RDW 13.8 Plt Count 146 L MPV 11.7 Immature Gran % (Auto) 0.4 Neut % (Auto) 84.2 H Lymph % (Auto) 11.0 L [place] % (Auto) 4.4 Eos % (Auto) 0.0 Baso % (Auto) 0.0 Lymph # (Auto) 0.6 L [place] # (Auto) 0.2 Eos # (Auto) 0.0 Baso # (Auto) 0.0 Abs Immat Gran (auto) 0.02 Absolute Neuts (auto) 4.2 Absolute Nucleated RBC 0.000 Nucleated RBC % (auto) 0.0 Sodium 139 Potassium 3.5 Chloride 108 Carbon Dioxide 20 L Anion Gap 15 BUN 29 H Creatinine 1.67 H Estim Creat Clear Calc 26.2 Estimated GFR 30 POC Glucose 137 H Fasting Glucose 160 H Calcium 8.8 Total Bilirubin 4.0 H Direct Bilirubin 2.9 H AST 267 H ALT 353 H Alkaline Phosphatase 640 H Total Protein 5.6 L Albumin 3.0 L Discharge Plan Discharge Anticipated Discharge Date/Time: 11/11/22 08:10 Patient Disposition: Home, Self-Care Discharge Diagnosis: pancreatic mass, duodenitis, anemia, abd pain, n/v Referrals: Mor Marin MD [Primary Care Provider] - 1 Week Discharge Medications: Continued tramadol 50 mg tablet 1 tab PO QID losartan 100 mg tablet 1 tab PO DAILY amlodipine 2.5 mg tablet 2.5 mg PO DAILY Diet: Advance to usual diet Activity on Discharge: As tolerated Stand Alone Forms: Patient Portal Discharge page Care Plan Goals: Full work up for pancreatic mass, recovery from anemia Health Concerns: pancreatic mass Plan of Treatment: Will need to follow up with GI at [facility] for reattempt at ERCP Assessment: as above
[2022-11-11 08:59] LABS: Carbohydrate Antigen 19-9 481 U/mL (<34)
--- NOTE | 2022-11-11 09:46 | HO.POSTANES ---
Post Anesthesia Evaluation Post Anesthesia Evaluation Date of Service: 11/11/22 Vital Signs: Vital Signs Temp Pulse Resp BP Pulse Ox O2 Del Method 11/11/22 08:00 98.1 F 74 16 158/69 H 100 Room Air 11/11/22 04:00 97.7 F 71 16 146/67 H 99 Room Air Anesthesia: General Endotracheal-GETA Mental Status: Awake Pain Control: Satisfactory Nausea/Vomiting: None Hydration: Adequate Anesthesia-Related Issues: No Anes. Related Issues
--- NOTE | 2022-11-11 11:07 | MHC.CM.PN ---
DP: [facility] DELIVERED PT HAS BEEN MEDICALLY CLEARED FOR DC HOME, NO SERVICES. DAUGHTER WILL TRANSPORT HOME.
[2022-11-11 11:14] VITALS: BP 121/56; PULSE 63
== END 2022-11-11 12:19 | disposition home or self-care (01) | DRG 445 ==
LOC: HO.ED 11-06 00:28 → HO.EDOVER 11-06 01:01 → HO.S3 11-06 01:11
PROVIDERS: Internal Medicine; Admitting Provider Internal Medicine; Emergency Provider Emergency Medicine; PCP Internal Medicine; Visit Provider Internal Medicine
PROC: 0F798ZZ Dilation of Common Bile Duct, Via Natural or Artificial Opening Endoscopic (ICD-10-PCS; CPT 43260; principal; 2022-11-10 15:00)
DX: K83.1 Obstruction of bile duct (principal); N17.9 Acute kidney failure, unspecified; N39.0 Urinary tract infection, site not specified; E86.0 Dehydration; K86.9 Disease of pancreas, unspecified; I25.10 Atherosclerotic heart disease of native coronary artery without angina pectoris; K29.80 Duodenitis without bleeding; E11.9 Type 2 diabetes mellitus without complications; D53.9 Nutritional anemia, unspecified; Z88.0 Allergy status to penicillin; Z79.899 Other long term (current) drug therapy
CPT/HCPCS: 36415; 74176; 74183; 80048; 80053; 80076; 81001; 81003; 82272; 82607; 82728; 82746; 82947; 83605; 83735; 85014; 85018; 85025; 85027; 85610; 86301; 86704; 86706; 86709; 86803; 87040; 87086; 87340; 93005; 99285; A9585; C1769; J0696; J1100; J1610; J1643; J2405; J3010; Q9967

== ENCOUNTER → 2022-11-06 00:52 | Outpatient (BNV) | payer OTHER, SELFPAY | PROVIDERS: Admitting Provider Internal Medicine; Emergency Provider Emergency Medicine; PCP Internal Medicine; Visit Provider Internal Medicine | DX: N39.0 Urinary tract infection, site not specified (principal); R74.01 Elevation of levels of liver transaminase levels; K86.9 Disease of pancreas, unspecified | CPT/HCPCS: 99223; 99232; 99239; 99499 ==

== ENCOUNTER 2022-11-22 11:37 | Outpatient (REF) | payer OTHER, SELFPAY ==
[2022-11-22 13:06] LABS: MANUAL DIFF FLAG NO
[2022-11-22 13:11] LABS: Basophils Percent Auto 0.3 % (0-2); Eosinophils Percent Auto 0.3 % (0-4); Hematocrit 26.7 % (37.0-47.0); Hemoglobin 8.4 g/dl (12.0-16.0); Imm Gran Abs Auto 0.03 X10*3/uL (0.00-0.03); Imm Gran Pct Auto 0.5 % (0.0-0.4); Immature Retic Fraction 7.2 % (3.0-15.9); Lymphocytes Absolute Auto 1.6 X10*3/uL (1.2-4.9); Lymphocytes Percent Auto 25.2 % (20-40); Mean Corpuscular HGB Conc 31.5 g/dl (31.0-35.0); Mean Corpuscular Hemoglobin 31.5 pg (27.0-33.0); Mean Platelet Volume 11.8 fL (9.4-12.3); Monocytes Absolute Auto 0.4 X10*3/uL (0.1-1.2); Monocytes Percent Auto 5.5 % (2-11); Neutrophils Absolute Auto 4.4 x10*3/uL (2.0-8.3); Neutrophils Percent Auto 68.2 % (45-73); Platelet Count 185 X10*3/uL (160-400); Red Blood Count 2.67 X10*6/uL (4.20-5.50); Red Cell Distribution Width 14.8 % (11.0-16.0); Retic HGB Equivalent 36.4 pg (30.0-35.0); Reticulocyte Percent 1.2 % (0.5-1.8); Reticulocytes Absolute 0.033 X10*6/uL (0.026-0.095); White Blood Count 6.4 X10*3/uL (4.8-10.8)
[2022-11-22 13:39] LABS: Estimated Average Glucose 120 mg/dL; Hemoglobin A1c % 5.8 %
[2022-11-22 18:26] LABS: Alanine Aminotransferase 109 U/L (0-31); Albumin Level 3.1 g/dL (3.5-5.0); Alkaline Phosphatase 538 U/L (39-117); Anion Gap 15 (12-20); Aspartate Amino Transferase 32 U/L (5-31); Bilirubin Total 2.7 mg/dL (0.0-1.0); Blood Urea Nitrogen 20 mg/dL (9-16); Calcium 8.7 mg/dL (8.4-10.2); Carbon Dioxide 22 mmol/L (22-29); Chloride 106 mmol/L (96-108); Estimated Glomerular Filt Rate 44; Glucose Random 283 mg/dL (60-115); Iron 68 mcg/dL (30-160); Percent Iron Saturation 46 % (15-50); Potassium 3.6 mmol/L (3.3-5.1); Sodium 139 mmol/L (135-145); Total Iron Binding Capacity 148 mcg/dL (228-428); Total Protein 6.3 g/dL (6.5-8.0); Unsaturated Iron Binding 80 ug/dL
== END 2022-11-22 11:38 | disposition home or self-care (01) ==
LOC: HO.10HDL 11:37
PROVIDERS: Visit Provider Internal Medicine
DX: D64.9 Anemia, unspecified (principal); I10 Essential (primary) hypertension; E11.9 Type 2 diabetes mellitus without complications; M19.90 Unspecified osteoarthritis, unspecified site; R79.89 Other specified abnormal findings of blood chemistry
CPT/HCPCS: 36415; 80053; 83036; 83540; 85025; 85045

== ENCOUNTER 2022-11-23 17:20 | Outpatient (REF) | payer OTHER, SELFPAY | END 2022-11-23 17:21 | disposition home or self-care (01) | LOC: HO.LAB 17:20 | PROVIDERS: PCP Internal Medicine; Visit Provider Internal Medicine | DX: Z13.89 Encounter for screening for other disorder (principal) ==

== ENCOUNTER 2022-11-24 09:42 | Outpatient (REF) | payer OTHER, SELFPAY | END 2022-11-24 09:43 | disposition home or self-care (01) | LOC: HO.MDS 09:42 | PROVIDERS: Visit Provider Internal Medicine | DX: D64.9 Anemia, unspecified (principal); N18.9 Chronic kidney disease, unspecified | CPT/HCPCS: 36430; 86850; 86900; 86901; 86923; P9016 ==

== ENCOUNTER 2022-11-29 10:36 | Outpatient (REF) | payer OTHER, SELFPAY ==
[2022-11-29 13:19] LABS: MANUAL DIFF FLAG NO
[2022-11-29 13:27] LABS: Basophils Percent Auto 0.6 % (0-2); Eosinophils Absolute Auto 0.1 X10*3/uL (0.0-0.4); Eosinophils Percent Auto 1.1 % (0-4); Hematocrit 36.4 % (37.0-47.0); Hemoglobin 11.9 g/dl (12.0-16.0); Imm Gran Abs Auto 0.01 X10*3/uL (0.00-0.03); Imm Gran Pct Auto 0.2 % (0.0-0.4); Lymphocytes Absolute Auto 2.5 X10*3/uL (1.2-4.9); Lymphocytes Percent Auto 37.5 % (20-40); Mean Corpuscular HGB Conc 32.7 g/dl (31.0-35.0); Mean Corpuscular Hemoglobin 31.1 pg (27.0-33.0); Mean Platelet Volume 11.7 fL (9.4-12.3); Monocytes Absolute Auto 0.6 X10*3/uL (0.1-1.2); Monocytes Percent Auto 9.3 % (2-11); Neutrophils Absolute Auto 3.4 x10*3/uL (2.0-8.3); Neutrophils Percent Auto 51.3 % (45-73); Platelet Count 161 X10*3/uL (160-400); Red Blood Count 3.83 X10*6/uL (4.20-5.50); Red Cell Distribution Width 15.4 % (11.0-16.0); White Blood Count 6.5 X10*3/uL (4.8-10.8)
[2022-11-29 14:09] LABS: Alanine Aminotransferase 39 U/L (0-31); Albumin Level 3.4 g/dL (3.5-5.0); Alkaline Phosphatase 383 U/L (39-117); Anion Gap 11 (12-20); Aspartate Amino Transferase 29 U/L (5-31); Bilirubin Total 2.5 mg/dL (0.0-1.0); Blood Urea Nitrogen 22 mg/dL (9-16); Calcium 8.8 mg/dL (8.4-10.2); Carbon Dioxide 27 mmol/L (22-29); Chloride 105 mmol/L (96-108); Estimated Glomerular Filt Rate 31; Glucose Random 141 mg/dL (60-115); Potassium 3.8 mmol/L (3.3-5.1); Sodium 139 mmol/L (135-145); Total Protein 6.7 g/dL (6.5-8.0)
[2022-12-01 09:28] LABS: Carbohydrate Antigen 19-9 525 U/mL (<34)
== END 2022-11-29 10:37 | disposition home or self-care (01) ==
LOC: HO.10HDL 10:36
PROVIDERS: Visit Provider Internal Medicine Medical Oncology
DX: C25.9 Malignant neoplasm of pancreas, unspecified (principal)
CPT/HCPCS: 36415; 80053; 85025; 86301

== ENCOUNTER 2022-12-26 14:45 | Inpatient (IN) | payer OTHER, SELFPAY ==
--- NOTE | ~2022-12-26 | US_ITS ---
EXAMINATION: US VENOUS ULTRASOUND WITH DOPPLER LOWER EXTREMITY, BILATERAL CLINICAL INFORMATION: Bilateral lower extremity COMPARISON: None available. TECHNIQUE: Ultrasound of the deep veins is performed from the hip to the calf with compression sonography and color and pulse Doppler assessment. Spectral analysis with color-flow imaging is performed. FINDINGS: RIGHT: There is normal venous compression and respiratory variation and augmented flow. The visualized common femoral vein, superficial femoral vein, profunda femoral vein, popliteal vein, and the trifurcation region shows no evidence of deep venous thrombosis. There is no significant popliteal fossa cyst. LEFT: There is normal venous compression and respiratory variation and augmented flow. The visualized common femoral vein, superficial femoral vein, profunda femoral vein, popliteal vein, and the trifurcation region shows no evidence of deep venous thrombosis. There is no significant popliteal fossa cyst. If the patient's symptoms persist, followup ultrasound in 5 days 7 days might be of value to exclude proximal propagation from a non-visualized calf vein. US/US venous duplex LE BI IMPRESSION: No DVT demonstrated in either lower extremity.
--- NOTE | ~2022-12-26 | XR_ITS ---
EXAMINATION: XR CHEST CLINICAL INFORMATION: Lower extremity edema. COMPARISON: 10/31/2022 chest radiographs. TECHNIQUE: 2 views of the chest were obtained. FINDINGS: Small calcified granulomas overlie the right anterior chest without interval change. The lungs are clear. There are no pleural effusions. The heart and mediastinal structures are unremarkable. XR/XR chest 2V IMPRESSION: No acute cardiopulmonary process.
--- NOTE | ~2022-12-26 | US_ITS ---
EXAMINATION: Renal ultrasound and renal Doppler exam CLINICAL INFORMATION: Hypertension COMPARISON: Previous MR of the abdomen and CT of the abdomen and pelvis November 2022 and abdominal ultrasound October 2022 TECHNIQUE: Doppler color and grayscale evaluation of the kidneys and renal vasculature including waveform spectral analysis FINDINGS: The kidneys are normal in contour and symmetric in size. The right kidney measures 9.1 x 4.6 x 4.4 cm and the left kidney measures 8.5 x 4.6 x 4.4 cm. No renal stone, mass or hydronephrosis. Renal cortical thickness and echogenicity is normal. There is a 2 cm simple cyst in the upper pole of the left kidney. No imaging follow-up recommended. Peak systolic velocity in the mid abdominal aorta is elevated measuring 115 cm/s and cannot be used to calculate renal artery to aorta ratio. Renal Doppler exam is significantly limited due to patient body habitus and bowel gas. The right and left renal arteries are not well visualized. Right renal artery peak systolic velocities are normal measuring 40 to 67 cm/s. Resistive indices in the interlobar renal arteries in the right kidney are elevated measuring 0.8-0.9. The right renal vein is patent. Left renal artery peak systolic velocities are normal measuring 17 2 47 cm/s. Resistive indices of the interlobar renal arteries in the left kidney are elevated measuring 0.8-0.9. The left renal vein is patent. US/US renal doppler IMPRESSION: Limited exam for evaluation of renal artery stenosis. The right and left renal arteries are not well visualized. Increased resistive indices in the interlobar renal arteries bilaterally. The kidneys are morphologically normal.
[2022-12-26 16:05] VITALS: BP 168/63; PULSE 61; RESP 18; TEMP 36; O2SAT 100; BMI 26.4
--- NOTE | 2022-12-26 16:11 | ED_ITS ---
HPI - General Adult General Chief complaint: Extremity Injury, Lower Stated complaint: swollen feet Time Seen by Provider: 12/26/22 18:37 Source: patient Limitations: no limitations History of Present Illness HPI narrative: 77-year-old female presents with lower extremity edema. Symptoms have been progressively getting worse over 2 weeks. Associated with difficulty walking getting up the stairs. She has pain and discomfort but is [id number] adjust worse with ambulation. She denies any chest pain or shortness of breath. She has had lower extremity edema in the past but never this bad. Her primary care provider recently cut her losartan in half to 50 mg daily from 100 mg. Patient denies any orthopnea, PND, MOBLEY. Related Data Home Medications Medication Instructions Recorded Confirmed tramadol 50 mg tablet 1 tab PO QID 11/24/21 11/06/22 amlodipine 2.5 mg tablet 2.5 mg PO DAILY 11/06/22 11/06/22 Previous Rx's Medication Instructions Recorded amlodipine 10 mg tablet 10 mg PO DAILY #10 tabs 11/11/22 metoprolol succinate 25 mg 25 mg PO DAILY #30 tabs 11/11/22 tablet,extended release 24 hr omeprazole 20 mg capsule,delayed 20 mg PO DAILY@0630 #30 caps 11/11/22 release Allergies Allergy/AdvReac Type Severity Reaction Status Date / Time penicillin V Allergy Unknown hives, Rash Verified 12/26/22 16:04 Penicillins [PENICILLINS] Allergy Unknown RASH Verified 11/24/21 18:51 Review of Systems Review of Systems: CONSTITUTIONAL: Denies weight loss, fever and chills. HEENT: Denies changes in vision and hearing. RESPIRATORY: Denies SOB and cough. CV: Denies palpitations no CP. GI: Denies abdominal pain, nausea, vomiting and diarrhea. : Denies dysuria and urinary frequency. MSK: Denies myalgia and joint pain. SKIN: Denies rash and pruritus. NEUROLOGICAL: Denies headache and syncope. PSYCHIATRIC: Denies recent changes in mood. Denies anxiety and depression. All other ROS are negative unless in HPI PMFSH Past Medical History Medical History Abnormal urine odor Arthritis Diabetes mellitus HTN (hypertension) Uterine prolapse Surgical History History of loop electrical excision procedure (LEEP) Hx of appendectomy Family History Family History Sister Breast cancer Mother Vaginal cancer Social History Social History Household Members: Family Housing: Apartment Do you presently have visiting nurse or other home services: Yes Alcohol intake: current Alcohol intake frequency: holidays/special occasions only Patient Tobacco Use Status: Never used Tobacco Smoked in Last 30 Days: No Use of substances other than those prescribed or required for medical reasons: No Advance Directives: No Advance Directives Information Provided: Yes service: No Current occupational status: retired Gender identity: Female Physical Exam ED Vital Signs: Vital Signs - 24 hr 12/26/22 16:05 12/26/22 18:00 Temperature 96.8 F 97.9 F Pulse Rate 61 63 Respiratory Rate 18 17 Blood Pressure 168/63 H 176/69 H Pulse Oximetry 100 100 Oxygen Delivery Method Room Air Room Air BMI result Body Mass Index 26.4 GEN: Well developed, no acute distress, alert, oriented HEENT: Normocephalic, atraumatic, normal external ears, nose appears normal, no oropharyngeal edema or exudates Eyes: Normal to appearance Neck: Supple, no lymphadenopathy Respiratory: Talks in complete sentences, no respiratory distress, clear to auscultation bilaterally Cardiovascular: Regular rate and rhythm, no murmurs rubs or gallops Abdomen: Soft, nontender, nondistended, no guarding, no rebound Back: No CVA tenderness Extremities: No clubbing cyanosis 3+ bipedal edema Neurologic: No focal neurologic deficits, cranial nerves 2-12 intact, strength is 5/5 bilaterally Skin: No rash Course Course Course Narrative: This is an RME: Additional HPI, ROS, PE not included below will be deferred to primary provider. This is a 77-year-old female, with a past medical history of pancreatic lesion, diabetes, hypertension, and ?kidney issues presenting to the emergency departm ent with increased bilateral lower leg swelling x2 weeks. She was recently decreased her losartan from 100 mg to 50 mg. lower extremities with 4+ pitting edema bilaterally. Patient has no shortness of breath or chest pain. Mildly hypertensive at 168/63, appears to be in no acute distress. Plan: Labs, EKG, chest x-ray Reevaluation(s) Reevaluation #1: the workup is complete. Patient has acute kidney injury and lower extremity edema. She has no DVT. Given the need to diurese the patient as well as monitor kidney function, patient will be admitted to the hospital. I discussed results with the patient as well as the hospitalist. Time: 20:47 Medical Decision Making Medical Decision Making MDM Narrative: 77-year-old female presents with by pedal lower extremity edema. She has 3+ bipedal edema. She has no pulmonary crackles or complaints of left heart rate CHF. I reviewed her records for an echocardiogram which I was unable to obtain any. Will get an EKG, sets renal function, consider Lasix and possible Melvin. Differential diagnosis includes CHF, peripheral vascular disease, salt indiscretion, DVT. Differential Diagnosis Differential Diagnoses: The differential diagnosis associated with the presentation includes ( See above) Admission/Observation Consideration of admission/observation: Escalation of care including admission/observation considered Lab Data MDM Lab Attestation statement: I reviewed the patient's lab results. 12/26/22 17:14 12/26/22 17:14 Labs: Lab Results 12/26/22 12/26/22 12/26/22 Range/Units 17:14 17:14 17:14 WBC 7.0 (4.8-10.8) X10*3/uL RBC 3.21 L (4.20-5.50) X10*6/uL Hgb 10.0 L (12.0-16.0) g/dl Hct 29.6 L (37.0-47.0) % MCV 92.2 (80.0-98.0) fL MCH 31.2 (27.0-33.0) pg MCHC 33.8 (31.0-35.0) g/dl RDW 14.9 (11.0-16.0) % Plt Count 133 L (160-400) X10*3/uL MPV 10.9 (9.4-12.3) fL Immature Gran % (Auto) 0.3 (0.0-0.4) % Neut % (Auto) 54.0 (45-73) % Lymph % (Auto) 37.7 (20-40) % [place] % (Auto) 6.6 (2-11) % Eos % (Auto) 1.0 (0-4) % Baso % (Auto) 0.4 (0-2) % Lymph # (Auto) 2.6 (1.2-4.9) X10*3/uL [place] # (Auto) 0.5 (0.1-1.2) X10*3/uL Eos # (Auto) 0.1 (0.0-0.4) X10*3/uL Baso # (Auto) 0.0 (0.0-0.2) X10*3/uL Abs Immat Gran (auto) 0.02 (0.00-0.03) X10*3/uL Absolute Neuts (auto) 3.8 (2.0-8.3) x10*3/uL Absolute Nucleated RBC 0.000 (0.0-0.012) X10*3/uL Nucleated RBC % (auto) 0.0 (0.0-0.2) /100WBC Sodium 138 (135-145) mmol/L Potassium 3.5 (3.3-5.1) mmol/L Chloride 112 H (96-108) mmol/L Carbon Dioxide 17 L (22-29) mmol/L Anion Gap 13 (12-20) BUN 36 H (9-16) mg/dL Creatinine 2.34 H (0.5-1.4) mg/dL Estim Creat Clear Calc 17.0 Estimated GFR 20 Random Glucose 192 H (60-115) mg/dL Calcium 7.9 L D (8.4-10.2) mg/dL Total Bilirubin 1.2 H (0.0-1.0) mg/dL Direct Bilirubin 0.7 H (0.0-0.5) mg/dL AST 26 (5-31) U/L ALT 22 (0-31) U/L Alkaline Phosphatase 139 H (39-117) U/L B-Natriuretic Peptide 626 H (<100) pg/mL Total Protein 5.6 L (6.5-8.0) g/dL Albumin 2.7 L (3.5-5.0) g/dL acute on chronic kidney disease Independent Interpretation I performed an independent interpretation of an: EKG ( sinus bradycardia heart rate 59, left bundle-branch block no significant changes from November 10, 2022), Plain X-Ray ( chest: No acute cardiopulmonary disease) and Ultrasound ( duplex lower extremity; no DVT) Radiology Impression Discussion of test interpretation with radiology: I have reviewed the radiologist's reading. Radiologist Impression: US/US venous duplex LE BI IMPRESSION: No DVT demonstrated in either lower extremity. Dictated By: Abelardo Wells MD Signed By: <Electronically signed by Abelardo Wells MD in OV> 12/26/222014 Independent Historian Clinical information obtained from an independent historian. History obtained from or confirmed by: Other ( family) Prescription Management I considered prescription management with: Other ( diuretics) Chronic Conditions Patient?s care impacted by: Hypertension Discharge Plan Discharge Clinical Impression: Lower extremity edema, MARKY (acute kidney injury) Patient Disposition: Admitted As Inpatient Prescriptions: No Action tramadol 50 mg tablet 1 tab PO QID amlodipine 2.5 mg tablet 2.5 mg PO DAILY amlodipine 10 mg Tablet 10 mg PO DAILY Qty: 10 0RF Protocol: Hold for SBP< HOLD for SBP < : 90 omeprazole 20 mg Capsule,Delayed Release(Dr/Ec) 20 mg PO DAILY@0630 Qty: 30 0RF metoprolol succinate 25 mg Tablet Extended Release 24 Hr 25 mg PO DAILY Qty: 30 0RF Protocol: Hold for SBP/HR < HOLD for SBP < : 90 HOLD for HR < : 60
--- NOTE | 2022-12-26 16:14 | ECG_ITS ---
Test Reason : edema Blood Pressure : / mmHG Vent. Rate : 059 BPM Atrial Rate : 059 BPM P-R Int : 142 ms QRS Dur : 154 ms QT Int : 498 ms P-R-T Axes : 047 007 180 degrees QTc Int : 493 ms Sinus bradycardia Left bundle branch block Abnormal ECG When compared with ECG of 10-NOV-2022 08:33, Heart rate has decreased Referred By: Dawn Duque Electronically Signed By:DAVE DAVID
[2022-12-26 17:17] LABS: MANUAL DIFF FLAG NO
[2022-12-26 17:19] LABS: Basophils Percent Auto 0.4 % (0-2); Eosinophils Absolute Auto 0.1 X10*3/uL (0.0-0.4); Hematocrit 29.6 % (37.0-47.0); Imm Gran Abs Auto 0.02 X10*3/uL (0.00-0.03); Imm Gran Pct Auto 0.3 % (0.0-0.4); Lymphocytes Absolute Auto 2.6 X10*3/uL (1.2-4.9); Lymphocytes Percent Auto 37.7 % (20-40); Mean Corpuscular HGB Conc 33.8 g/dl (31.0-35.0); Mean Corpuscular Hemoglobin 31.2 pg (27.0-33.0); Mean Corpuscular Volume 92.2 fL (80.0-98.0); Mean Platelet Volume 10.9 fL (9.4-12.3); Monocytes Absolute Auto 0.5 X10*3/uL (0.1-1.2); Monocytes Percent Auto 6.6 % (2-11); Neutrophils Absolute Auto 3.8 x10*3/uL (2.0-8.3); Platelet Count 133 X10*3/uL (160-400); Red Blood Count 3.21 X10*6/uL (4.20-5.50); Red Cell Distribution Width 14.9 % (11.0-16.0)
[2022-12-26 18:00] VITALS: BP 176/69; PULSE 63; RESP 17; TEMP 36.6; O2SAT 100
[2022-12-26 18:03] LABS: Alanine Aminotransferase 22 U/L (0-31); Albumin Level 2.7 g/dL (3.5-5.0); Alkaline Phosphatase 139 U/L (39-117); Anion Gap 13 (12-20); Aspartate Amino Transferase 26 U/L (5-31); B Type Natriuretic Peptide 626 pg/mL (<100); Bilirubin Direct 0.7 mg/dL (0.0-0.5); Bilirubin Total 1.2 mg/dL (0.0-1.0); Blood Urea Nitrogen 36 mg/dL (9-16); Calcium 7.9 mg/dL (8.4-10.2); Carbon Dioxide 17 mmol/L (22-29); Chloride 112 mmol/L (96-108); Estimated Glomerular Filt Rate 20; Glucose Random 192 mg/dL (60-115); Potassium 3.5 mmol/L (3.3-5.1); Sodium 138 mmol/L (135-145); Total Protein 5.6 g/dL (6.5-8.0)
--- NOTE | 2022-12-26 18:32 | PC.NURSE ---
this RN assumed care of patient at 1815. Pt has 4+ pitting edema in bilateral legs. Pts daughter reports pt not taking her HCTZ due to it dropping her blood pressure. This RN attempted IV, no success. ANNALISA Mcclain attempting IV at this time
[2022-12-26] MEDS: Furosemide 40 MG/4 ML VIAL IVPUSH (20:58)
--- NOTE | 2022-12-26 21:02 | PHA.MEDREC ---
Addendum entered by Humaira Ram RPh 12/28/22 14:24: Re: eyedrops per patient and daughter, brimonidine, ketorolac, and timolol eye drops are only used in left eye. orders adjusted to reflect proper home med dosing. Original Note: Pharmacy Consult ? Medication Reconciliation Pharmacy has completed the medication reconciliation. Patient's daughter reported medications. Reported patient no longer on amlopdipine, metoprolol, and dronabinol. Patient's daughter had both eye drops with her. Any Raygoza, PharmD
[2022-12-26 21:08] VITALS: BP 183/116; PULSE 60; RESP 13; TEMP 36.7; O2SAT 100
[2022-12-26 21:41] VITALS: BP 172/92; PULSE 75; RESP 15; TEMP 36.6; O2SAT 99
--- NOTE | 2022-12-26 23:17 | PC.NURSE ---
this RN and ANNALISA Mcclain both were unable to obtain IV access without ultrasound guidance. Dr. Mcneil attempted ultrasound guided IV with no success as well. NOIM Cosby attempted IV access with ultrasound, also with no success. Dr. Ramachandran aware, request for MD Mcneil to put central line in
[2022-12-27] VITALS (9 sets, daily range): BP systolic 146–194; BP diastolic 68–97; PULSE 60–97; RESP 15–20; TEMP 35.8–36.8; O2SAT 98–100
[2022-12-27] MEDS: Heparin Sodium,Porcine 5,000 UNIT/ML VIAL 5000 UNIT SUBCUT ×3 (00:42→23:27)
[2022-12-27 04:32] LABS: Appearance Urine Clear; Color Urine Straw; Glucose Urine UA Negative (Negative); Leukocyte Esterase Urine Negative (Negative); Nitrite Urine Negative (Negative); Urine Blood Negative (Negative); Urine Ketones Negative (Negative); Urine Protein Negative (Neg-Trace)
[2022-12-27 05:43] LABS: Alanine Aminotransferase 18 U/L (0-31); Albumin Level 2.6 g/dL (3.5-5.0); Alkaline Phosphatase 123 U/L (39-117); Anion Gap 13 (12-20); Aspartate Amino Transferase 23 U/L (5-31); Bilirubin Total 1.2 mg/dL (0.0-1.0); Blood Urea Nitrogen 36 mg/dL (9-16); Calcium 7.9 mg/dL (8.4-10.2); Carbon Dioxide 17 mmol/L (22-29); Chloride 113 mmol/L (96-108); Estimated Glomerular Filt Rate 26; Glucose Random 161 mg/dL (60-115); Potassium 3.5 mmol/L (3.3-5.1); Sodium 139 mmol/L (135-145); Total Protein 5.2 g/dL (6.5-8.0)
--- NOTE | 2022-12-27 06:28 | PM.IMHP ---
History of Present Illness Date of Service: 12/26/22 Chief Complaint: Leg swelling 77-year-old female with past medical history of recently diagnosed pancreatic cancer, HTN, diabetes, comes into the hospital brought in by her daughter for lower extremity edema. Lower extremity edema for past 2 weeks, non resolving, daughter states that 1 of her doctors gave her Lasix recently, and has been given her Lasix for the past 2 days with no improvement. Patient denies any shortness of breath, no orthopnea, no PND, has been eating and drinking well. No fever or chills, no cough, no sputum production, no urinary symptoms On arrival to the ED patient hemodynamically stable with no significant abnormal vitals Labs are significant for WBC count of 7.0, hemoglobin of 10.0, creatinine of 2.34 which is higher than her usual 1.6, she has a BNP of 626 with no previous for comparison, albumin of 2.6, UA negative, no increased proteins, alk-phos of 123, Venous duplex bilaterally negative and no evidence of DVT Patient received IV Lasix and will be admitted for further management Review of Systems Review of Systems: Yes all other systems are reviewed and are negative [facility] Medical History (Updated 12/27/22 @ 06:31 by Erwin Ramachandran MD) Abnormal urine odor Arthritis Diabetes mellitus HTN (hypertension) Pancreatic lesion Uterine prolapse Family History Sister Breast cancer Mother Vaginal cancer Surgical History History of loop electrical excision procedure (LEEP) Hx of appendectomy Social History Household Members: Family Housing: Apartment Do you presently have visiting nurse or other home services: Yes Alcohol intake: current Alcohol intake frequency: holidays/special occasions only Patient Tobacco Use Status: Never used Tobacco Smoked in Last 30 Days: No Use of substances other than those prescribed or required for medical reasons: No Advance Directives: No Advance Directives Information Provided: Yes Nutrition Risks: No Nutritional Risk service: No Current occupational status: retired Gender identity: Female Meds Allergies Allergy/AdvReac Type Severity Reaction Status Date / Time penicillin V Allergy Unknown hives, Rash Verified 12/26/22 16:04 Penicillins [PENICILLINS] Allergy Unknown RASH Verified 11/24/21 18:51 Active Medications: Current Medications Acetaminophen (Acetaminophen 325 Mg Tablet) 650 mg PO Q6H PRN PRN Reason: Pain, Mild (Pain Scale 1-3) Docusate Sodium (Docusate Sodium 100 Mg Capsule) 100 mg PO BID DELMA Heparin Sodium (Porcine) (Heparin Sodium,Porcine 5,000 Unit/Ml Vial) 5,000 unit SUBCUT Q12H DELMA Last Admin: 12/27/22 00:42 Dose: 5,000 unit Ondansetron HCl (Ondansetron Hcl 4 Mg/2 Ml Vial) 4 mg IVPUSH Q8H PRN PRN Reason: Nausea and Vomiting Home Medications Medication Instructions Recorded Confirmed Last Taken Type tramadol 50 mg tablet 1 tab PO QID PRN Pain 11/24/21 12/26/22 11/05/22 History brimonidine 0.2 %-timolol 0.5 % 1 drp ophthalmic (eye) BID 12/26/22 12/26/22 12/26/22 History eye drops ketorolac 0.5 % eye drops 1 drp ophthalmic (eye) TID 12/26/22 12/26/22 12/26/22 History losartan 100 mg tablet 100 mg PO DAILY 12/26/22 12/26/22 12/26/22 History pantoprazole 40 mg tablet,delayed 40 mg PO BID 12/26/22 12/26/22 12/26/22 History release Physical Exam Vital Signs and Narrative: Vital Signs: Last Vital Signs Temp 98.3 F 12/27/22 02:43 Pulse 67 12/27/22 02:43 Resp 15 12/27/22 02:43 BP 185/68 H 12/27/22 02:43 Pulse Ox 100 12/27/22 02:43 O2 Del Method Room Air 12/27/22 02:43 BMI result Body Mass Index 26.4 Const: General: cooperative and no acute distress Orientation/consciousness: patient oriented x3 Eyes: General: appearance normal, both eyes and all related structures Resp: Other: Lungs sound clear, no crackles Effort & Inspection: normal respiratory effort Auscultation: clear to auscultation bilaterally Cardio: Rate: regular rate Rhythm: regular rhythm GI: Palpation (GI): Soft to palpation Auscultation: normal bowel sounds Skin: General skin exam: no rashes or lesions noted Neuro: General: patient oriented x3 Cognition (Neuro): normal cognition Extrem: Other: 3+ pitting edema bilaterally General: Yes normal to inspection Results Labs 12/26/22 17:14 12/27/22 05:22 Labs: Laboratory Results - last 24 hr 12/26/22 12/26/22 12/26/22 17:14 17:14 17:14 MCV 92.2 MCH 31.2 MCHC 33.8 RDW 14.9 Plt Count 133 L MPV 10.9 Immature Gran % (Auto) 0.3 Neut % (Auto) 54.0 Lymph % (Auto) 37.7 [place] % (Auto) 6.6 Eos % (Auto) 1.0 Baso % (Auto) 0.4 Lymph # (Auto) 2.6 [place] # (Auto) 0.5 Eos # (Auto) 0.1 Baso # (Auto) 0.0 Abs Immat Gran (auto) 0.02 Absolute Neuts (auto) 3.8 Absolute Nucleated RBC 0.000 Nucleated RBC % (auto) 0.0 Anion Gap 13 Estim Creat Clear Calc 17.0 Estimated GFR 20 Random Glucose 192 H Calcium 7.9 L D Total Bilirubin 1.2 H Direct Bilirubin 0.7 H AST 26 ALT 22 Alkaline Phosphatase 139 H B-Natriuretic Peptide 626 H Total Protein 5.6 L Albumin 2.7 L Urine Color Urine Appearance Urine pH Ur Specific [place] Urine Protein Urine Glucose (UA) Urine Ketones Urine Blood Urine Nitrite Ur Leukocyte Esterase 12/27/22 12/27/22 04:27 05:22 MCV MCH MCHC RDW Plt Count MPV Immature Gran % (Auto) Neut % (Auto) Lymph % (Auto) [place] % (Auto) Eos % (Auto) Baso % (Auto) Lymph # (Auto) [place] # (Auto) Eos # (Auto) Baso # (Auto) Abs Immat Gran (auto) Absolute Neuts (auto) Absolute Nucleated RBC Nucleated RBC % (auto) Anion Gap 13 Estim Creat Clear Calc 21.0 Estimated GFR 26 Random Glucose 161 H Calcium 7.9 L Total Bilirubin 1.2 H Direct Bilirubin AST 23 ALT 18 Alkaline Phosphatase 123 H B-Natriuretic Peptide Total Protein 5.2 L Albumin 2.6 L Urine Color Straw Urine Appearance Clear Urine pH 6.0 Ur Specific [place] 1.010 Urine Protein Negative Urine Glucose (UA) Negative Urine Ketones Negative Urine Blood Negative Urine Nitrite Negative Ur Leukocyte Esterase Negative Imaging Radiologist's Impressions: Impressions Chest X-Ray 12/26/22 16:54 IMPRESSION: No acute cardiopulmonary process. Venous Duplex 12/26/22 19:38 IMPRESSION: No DVT demonstrated in either lower extremity. Assessment and Plan (1) Lower extremity edema: Status: Acute (2) MARKY (acute kidney injury): Status: Acute (3) Elevated brain natriuretic peptide (BNP) level: Status: Acute Plan 77-year-old female with past medical history of hypertension, diabetes, comes into the hospital lower extremity edema found to have MARKY # lower extremity edema - concerning for CHF given the elevated BNP - has no documented history of CHF, no orthopnea or PND - at this time will treat her with Lasix IV - echocardiogram - cardiology consulted - follow BMP # MARKY - possibly cardiorenal - no evidence of nephrotic syndrome, no protein in the urine - follow BMP after starting Lasix - nephrology consulted # hypertension - continue home antihypertensive DVT prophylaxis: Lovenox Given patient's need for IV Lasix as well as management of MARKY patient require minimum 2 nights inpatient hospital stay for further management and monitoring Time Spent With Patient Time: Total time managing care of this patient today ____ minutes. Quality Stroke Does the patient have a stroke diagnosis?: No VTE Prior VTE?: No VTE Risk Level:: Medical - moderate - high VTE Device Contraindication: Treatment Not Indicated VTE Drug Contraindication: N/A - Med Ordered
--- NOTE | 2022-12-27 07:00 | CA_ITS ---
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 The visually estimated ejection fraction is between 30-35%. - Wall motion abnormalities noted, probably related to LBBB. - No obvious valvular pathology seen on this study. Findings Left Ventricle Normal left ventricular cavity size. The left ventricular systolic function is moderately decreased. The visually estimated ejection fraction is between 30-35%. There is paradoxical septal motion consistent with a left bundle branch block. Evidence suggests grade I (mild) diastolic dysfunction. Wall Motion Rest Echo Findings The basal inferoseptal segment is hypokinetic. The basal inferior, mid inferior, apical septum, and mid inferoseptal segments are akinetic. Right Ventricle Normal right ventricular cavity size and systolic function. Atria Both atria are normal in size. Aortic Valve There is mild calcification of the aortic valve. There is no aortic valve stenosis. There is trace (trivial) aortic valve regurgitation. Mitral Valve The mitral valve appears normal. There is mild mitral valve regurgitation. There is no mitral valve stenosis. Pulmonic Valve The pulmonic valve is likely normal. Tricuspid Valve Normal tricuspid valve structure. There is trace tricuspid valve regurgitation. There is no evidence of pulmonary hypertension. Great Vessels The asc aorta is normal in size. Venous The inferior vena cava is normal in size and collapses greater than 50% with inspiration. Pericardium/Pleural There is a trivial pericardial effusion. Prior Study Comparison Changes noted compared to prior study dated: 11/09/2016. LVEF lower than previously reported. Recommendations, Care & Conclusions No obvious valvular pathology seen on this study. Measurements 2D Linear Measurements IVSd: 1.00 0.6-0.9/0.6-1.0 cm LVIDd: 4.10 3.9-5.3/4.2-5.9 cm LVIDd Index: 2.59 2.4-3.2/2.2-3.1 cm/m2 LVIDs: 3.50 2.0-3.6 cm LVPWd: 0.80 0.7-1.1 cm LA Diam: 2.60 2.7-3.8/3.0-4.0 cm LAIDs Index: 1.65 1.5-2.3 cm/m2 LV Mass: 141.92 67-162/88-224 g LV Mass Index: 89.82 43-95/49-115 g/m2 LVOT Diam: 1.90 3.0+(-)1.3 cm 2D Systolic Function EF 4C: 39.30 >55% Mitral Valve MV VTI: 0.25 MV Pk Sina: 1.19 MV Mn Sina: 0.65 MV Pk Grad: 6.00 MV Mn Grad: 2.00 MV Pk E: 0.42 MV PK A: 1.05 MV Decel Time: 123.00 E/A: 0.40 E'Lateral: 3.15 E'Medial: 2.18 E/E' Med: 19.30 E/E' Lat: 13.30 PHT: 36.00 MVA PHT: 6.11 MVA Continuity: 2.16 Decel Coamo: 3.41 Aortic Valve AoV Pk Sina: 1.22 AoV Mn Sina: 0.71 AoV VTI: 0.24 AoV Pk Grad: 6.00 Aov Mn Grad: 2.00 KADEN Cont.VTI: 2.23 LVOT LVOT Pk Sina: 1.07 LVOT Mn Sina: 0.57 LVOT VTI: 0.19 LVOT Pk Grad: 5.00 LVOT Mn Grad: 2.00 LVOT Diam: 1.90 LVOT Area: 2.84 Diastolic Function MV Pk E: 0.42 MV Pk A: 1.05 E/A: 0.40 E'Medial: 2.18 E/E' Med: 19.30 E' Laterial: 3.15 E/E' Lat: 13.30 Right Ventricle TAPSE (mm): 22.40 TVS' Sina: 9.36 Tricuspid Valve TR Pk Sina: 2.19 TR Pk Grad: 19.00 RA Press: 3.00 RVSP: 22.00 Great Vessels Aorta Sinus of Valsalva: 2.70 2.0-3.[address] [place]: 1.70 1.7-3.4 cm Ao Asc: 2.80 2.1-3.4 cm Updated in Other Vendor System with Status of Final Tomas Cerna MD electronically signed on 12/27/2022 4:00:32 PM with status of Final
--- NOTE | 2022-12-27 07:16 | PC.NURSE ---
Assumed care of patient at 0700. Resting quietly in bed with daughter at bed side. Pt observed ambulating to bathroom with daughters assistance. Awaiting bed assignment on IMC.
[2022-12-27] MEDS: Losartan Potassium 50 MG TABLET 100 MG PO (08:26)
[2022-12-27] MEDS: traMADoL HCL 50 MG TABLET PO (08:38)
--- NOTE | 2022-12-27 08:42 | PC.NURSE ---
pt refused colace, daughter reports pt moving bowels appropriately. A & O. Respirations even/unlabored. LSCA. +4 pitting edema in BLE w/ taut skin, painful to touch. c/o 11/14 chronic generalized pain, administered tramadol per order, effect pending.
--- NOTE | 2022-12-27 09:39 | PM.CNCAR ---
History of Present Illness History of Present Illness Date of Service: 12/27/22 Chief complaint: MARKY, CHF Narrative: This is a cardiology consultation regarding possible diff congestive heart failure. Patient has been having lower extremity swelling for the last couple of weeks and that led to the hospitalization. Denies any history of shortness of breath or chest pains or any other cardiac symptoms. In the past, she has been seen in our clinic but not in more than 5 years. Last appointment seems to be on 2018 or so. At that time, she carried a diagnosis of nonischemic cardiomyopathy and also chronic left bundle-branch block. She has not been seen in the clinic since then. Per documentation as well as discussion with daughter, it seems that the new diagnosis of pancreatic cancer but apparently patient does not know all the details. Review of Systems Review of Systems: Yes all other systems are reviewed and are negative Constitutional: Constitutional: Reports as per HPI and Reports no additional constitutional complaints Eyes: Eyes: Reports as per HPI and Denies no additional eye complaints ENT: Denies system reviewed and no additional complaints, except as documented and Reports as per HPI Cardiovascular: Cardiovascular: Reports as per HPI, Reports no additional cardiovascular complaints, Denies acrocyanosis, Denies cool extremities, Denies chest pain, Reports leg edema, Denies lightheadedness, Denies palpitations and Denies dyspnea Respiratory: Respiratory: Reports as per HPI, Denies no additional respiratory complaints and Denies dyspnea Gastrointestinal: Gastrointestinal: Reports as per HPI and Denies no additional gastrointestinal complaints Genitourinary: Genitourinary: Reports as per HPI Musculoskeletal: Musculoskeletal: Reports no additional musculoskeletal complaints and Reports as per HPI Integumentary/Breasts: Skin/Breast: Reports system reviewed and no additional complaints, except as docu Neurologic: Reports system reviewed and no additional complaints, except as documented and Reports as per HPI Psychiatric: Psychiatric: Reports no additional psychiatric complaints and Reports as per HPI Endocrine: Endocrine: Reports no additional endocrine complaints, Reports as per HPI and Denies palpitations Hematologic/Lymphatic: Hematologic/Lymphatic: Reports no additional hematologic/lymphatic complaints and Reports as per HPI Allergic/Immunologic: Allergic/Immunologic: Reports no additional allergic/immunologic complaints and Reports as per HPI [facility] Past Medical History Medical History (Updated 12/27/22 @ 09:42 by Tomas Cerna MD) Abnormal urine odor Arthritis Diabetes mellitus HTN (hypertension) Left bundle branch block Nonischemic cardiomyopathy Pancreatic lesion Uterine prolapse Family History Family History Sister Breast cancer Mother Vaginal cancer Surgical History Surgical History History of loop electrical excision procedure (LEEP) Hx of appendectomy Social History Social History Household Members: Family Housing: Apartment Do you presently have visiting nurse or other home services: Yes Alcohol intake: current Alcohol intake frequency: holidays/special occasions only Patient Tobacco Use Status: Never used Tobacco Smoked in Last 30 Days: No Use of substances other than those prescribed or required for medical reasons: No Advance Directives: No Advance Directives Information Provided: Yes Nutrition Risks: No Nutritional Risk service: No Current occupational status: retired Gender identity: Female Meds Allergies Allergy/AdvReac Type Severity Reaction Status Date / Time penicillin V Allergy Unknown hives, Rash Verified 12/26/22 16:04 Penicillins [PENICILLINS] Allergy Unknown RASH Verified 11/24/21 18:51 Active Medications: Current Medications Acetaminophen (Acetaminophen 325 Mg Tablet) 650 mg PO Q6H PRN PRN Reason: Pain, Mild (Pain Scale 1-3) Brimonidine Tartrate (Brimonidine Tartrate 0.2% Oph 5 Ml Bottle) 1 drop EYE-BOTH BID [facility] Docusate Sodium (Docusate Sodium 100 Mg Capsule) 100 mg PO BID [facility] Last Admin: 12/27/22 08:28 Dose: Not Given Heparin Sodium (Porcine) (Heparin Sodium,Porcine 5,000 Unit/Ml Vial) 5,000 unit SUBCUT Q12H [facility] Last Admin: 12/27/22 00:42 Dose: 5,000 unit Ketorolac Tromethamine (Ketorolac Tromethamine 0.5% Op 5 Ml Drops) 1 drop EYE-BOTH TID [facility] Losartan Potassium (Losartan Potassium 50 Mg Tablet) 100 mg PO DAILY [facility]; Protocol Last Admin: 12/27/22 08:26 Dose: 100 mg Omeprazole (Omeprazole 20 Mg Capsule.Dr) 20 mg PO BID@0630,1630 [facility] Ondansetron HCl (Ondansetron Hcl 4 Mg/2 Ml Vial) 4 mg IVPUSH Q8H PRN PRN Reason: Nausea and Vomiting Timolol Maleate (Timolol Maleate 0.5 % Oph Nere[place] 5 Ml Drbtl) 1 drop EYE-BOTH BID [facility] Tramadol HCl (Tramadol Hcl 50 Mg Tablet) 50 mg PO QID PRN PRN Reason: Pain, Severe (Pain Scale 7-10) Last Admin: 12/27/22 08:38 Dose: 50 mg Home Medications Medication Instructions Recorded Confirmed Last Taken Type tramadol 50 mg tablet 1 tab PO QID PRN Pain 11/24/21 12/26/22 11/05/22 History brimonidine 0.2 %-timolol 0.5 % 1 drp ophthalmic (eye) BID 12/26/22 12/26/22 12/26/22 History eye drops ketorolac 0.5 % eye drops 1 drp ophthalmic (eye) TID 12/26/22 12/26/22 12/26/22 History losartan 100 mg tablet 100 mg PO DAILY 12/26/22 12/26/22 12/26/22 History pantoprazole 40 mg tablet,delayed 40 mg PO BID 12/26/22 12/26/22 12/26/22 History release Physical Exam Vital Signs: Vital Signs: Last Vital Signs Temp 96.4 F L 12/27/22 08:39 Pulse 63 12/27/22 08:39 Resp 18 12/27/22 08:39 BP 170/97 H 12/27/22 08:39 Pulse Ox 100 12/27/22 08:39 O2 Del Method Room Air 12/27/22 08:39 BMI result Body Mass Index 26.4 Const: General: comfortable and no acute distress Orientation/consciousness: patient oriented x3 HEENT: Other: Unremarkable Head: Yes normal to inspection Neck: Neck: Yes normal visual inspection Chest: Chest palpation & inspection: normal inspection of the chest Resp: Auscultation: clear to auscultation bilaterally Cardio: Palpation: normal PMI Heart sounds: S1 normal heart sound present, S2 normal heart sound present, no gallops, no murmurs and no rubs GI: Palpation (GI): Soft to palpation Back/Spine/Pelvis: Other: unremarkable Skin: General skin exam: no rashes or lesions noted Neuro: General: patient oriented x3 Extrem: Other: 2+ swelling. General: Yes normal to inspection Psych: Mental Status: mental status grossly normal Objective Labs and Meds 12/26/22 17:14 12/27/22 05:22 Lab results: Laboratory Results - last 24 hr 12/26/22 12/26/22 12/26/22 17:14 17:14 17:14 WBC 7.0 RBC 3.21 L Hgb 10.0 L Hct 29.6 L MCV 92.2 MCH 31.2 MCHC 33.8 RDW 14.9 Plt Count 133 L MPV 10.9 Immature Gran % (Auto) 0.3 Neut % (Auto) 54.0 Lymph % (Auto) 37.7 [place] % (Auto) 6.6 Eos % (Auto) 1.0 Baso % (Auto) 0.4 Lymph # (Auto) 2.6 [place] # (Auto) 0.5 Eos # (Auto) 0.1 Baso # (Auto) 0.0 Abs Immat Gran (auto) 0.02 Absolute Neuts (auto) 3.8 Absolute Nucleated RBC 0.000 Nucleated RBC % (auto) 0.0 Sodium 138 Potassium 3.5 Chloride 112 H Carbon Dioxide 17 L Anion Gap 13 BUN 36 H Creatinine 2.34 H Estim Creat Clear Calc 17.0 Estimated GFR 20 Random Glucose 192 H Calcium 7.9 L D Total Bilirubin 1.2 H Direct Bilirubin 0.7 H AST 26 ALT 22 Alkaline Phosphatase 139 H B-Natriuretic Peptide 626 H Total Protein 5.6 L Albumin 2.7 L Urine Color Urine Appearance Urine pH Ur Specific [place] Urine Protein Urine Glucose (UA) Urine Ketones Urine Blood Urine Nitrite Ur Leukocyte Esterase 12/27/22 12/27/22 04:27 05:22 WBC RBC Hgb Hct MCV MCH MCHC RDW Plt Count MPV Immature Gran % (Auto) Neut % (Auto) Lymph % (Auto) [place] % (Auto) Eos % (Auto) Baso % (Auto) Lymph # (Auto) [place] # (Auto) Eos # (Auto) Baso # (Auto) Abs Immat Gran (auto) Absolute Neuts (auto) Absolute Nucleated RBC Nucleated RBC % (auto) Sodium 139 Potassium 3.5 Chloride 113 H Carbon Dioxide 17 L Anion Gap 13 BUN 36 H Creatinine 1.89 H Estim Creat Clear Calc 21.0 Estimated GFR 26 Random Glucose 161 H Calcium 7.9 L Total Bilirubin 1.2 H Direct Bilirubin AST 23 ALT 18 Alkaline Phosphatase 123 H B-Natriuretic Peptide Total Protein 5.2 L Albumin 2.6 L Urine Color Straw Urine Appearance Clear Urine pH 6.0 Ur Specific [place] 1.010 Urine Protein Negative Urine Glucose (UA) Negative Urine Ketones Negative Urine Blood Negative Urine Nitrite Negative Ur Leukocyte Esterase Negative ECG Interpretation: EKG with sinus bradycardia 59/Min; left bundle-branch block pattern. This is chronic. Imaging Radiologist's impression: Impressions Chest X-Ray 12/26/22 16:54 IMPRESSION: No acute cardiopulmonary process. Venous Duplex 12/26/22 19:38 IMPRESSION: No DVT demonstrated in either lower extremity. Assessment and Plan (1) Acute congestive heart failure: Status: Acute (2) Left bundle branch block: Status: Acute (3) Nonischemic cardiomyopathy: Status: Acute Plan Peripheral edema could be multifactorial. Congestive heart failures possibility. However, she also has a low albumin that could play some role. Ultrasound does not show any DVT. Chest x-ray without any acute process. Okay to try empiric diuretics but she already has elevated creatinine. Her last ejection fraction is from several years ago, 40-45%. Can repeat echocardiogram. Her blood pressure seems quite high. She is on losartan 100 mg daily but according daughter, it might have been cut back by her PCP recently. Her creatinine is a bit up and down. Possibly try amlodipine but she already has leg swelling. She also has based on bradycardia and beta-blockers may not be ideal either. Overall, difficult situation. We will follow with you. Time Spent With Patient Time: Total time managing care of this patient today ____ minutes. Procedures Date of Service Date of Service: 12/27/22
--- NOTE | 2022-12-27 09:40 | PC.NURSE ---
eye drops not administered ,daughter reports that she will administer on her own bc she does them at home.
--- NOTE | 2022-12-27 10:13 | PM.EVENT ---
Event Note Date of Service: 12/27/22 Event Note: 77-year-old female with past medical history of hypertension, diabetes, comes into the hospital lower extremity edema found to have MARKY HFrEF, possible exacerabation no hx of CHF +3 pitting LE edema bilat, neg DVT will continue IV lasix BID for now cardiology following>echo daily weights strict intake and output MARKY possibly cardiorenal no evidence of nephrotic syndrome, no protein in the urine follow BMP after starting Lasix nephrology consulted>stop losartan, start Hydralazine, check renal us for ana rosa hypertension, uncontrolled losartan stopped hydralazine 25mg TID for now DVT prophylaxis:? Lovenox Attending Dr. Lafleur Full code Given patient's need for IV Lasix as well as management of MARKY patient require minimum 2 nights inpatient hospital stay for further management and monitoring Time Spent With Patient Time: Total time managing care of this patient today ____ minutes.
--- NOTE | 2022-12-27 10:16 | MHC.CM.PN ---
Patient is here with Pancreatic CA; CM spoke with Daughter/HCP/Krysten @ [phone] and addressed IMM with her (original will be mailed certified letter to Krysten and a copy will be placed on the chart). Patient lives alone in a duplex/apartment but her Daughter is her [employer] WAREHOU[employer] MANAGER(36 hours/week)and is with her most of the time.Patient uses a cane,Home/resume said services is the goal and CM has initiated and will follow for dc planning. PCP is Dr. Marin.
--- NOTE | 2022-12-27 10:28 | PC.NURSE ---
renal ultrasound ordered, pt to remain NPO for next 6 hours
--- NOTE | 2022-12-27 10:45 | PM.CNNEP ---
History of Present Illness Reason for Consult Consult date: 12/28/22 Reason for consult: MARKY Chief Complaint Chief complaint: MARKY, CHF History of Present Illness Narrative: 77-year-old female with past medical history of recently diagnosed pancreatic cancer, HTN, diabetes, comes into the hospital brought in by her daughter for lower extremity edema.? Lower extremity edema for past 2 weeks, non resolving, daughter states that 1 of her doctors gave her Lasix recently, and has been given her Lasix for the past 2 days with no improvement.? Patient denies any shortness of breath, no orthopnea, no PND, has been eating and drinking well.? No fever or chills, no cough, no sputum production, no urinary symptoms Review of Systems Review of Systems No headache. No nausea vomiting. No abdominal pain. No shortness of breath. No cough. No dysuria urgency or hematuria. Has edema. No rash. [facility] Past Medical History Medical History (Updated 12/28/22 @ 10:45 by Tomas Cerna MD) Abnormal urine odor Arthritis Diabetes mellitus HTN (hypertension) Left bundle branch block Nonischemic cardiomyopathy Pancreatic lesion Uterine prolapse Family History Family History Sister Breast cancer Mother Vaginal cancer Surgical History Surgical History History of loop electrical excision procedure (LEEP) Hx of appendectomy Social History Social History Household Members: Family Housing: Apartment Do you presently have visiting nurse or other home services: No Alcohol intake: current Alcohol intake frequency: holidays/special occasions only Patient Tobacco Use Status: Never used Tobacco service: No Current occupational status: retired Gender identity: Female Meds Allergies Allergy/AdvReac Type Severity Reaction Status Date / Time penicillin V Allergy Unknown hives, Rash Verified 12/26/22 16:04 Penicillins [PENICILLINS] Allergy Unknown RASH Verified 11/24/21 18:51 Active Medications: Current Medications Acetaminophen (Acetaminophen 325 Mg Tablet) 650 mg PO Q6H PRN PRN Reason: Pain, Mild (Pain Scale 1-3) Brimonidine Tartrate (Brimonidine Tartrate 0.2% Oph 5 Ml Bottle) 1 drop EYE-BOTH BID [facility] Last Admin: 12/27/22 09:40 Dose: Not Given Docusate Sodium (Docusate Sodium 100 Mg Capsule) 100 mg PO BID [facility] Last Admin: 12/27/22 08:28 Dose: Not Given Heparin Sodium (Porcine) (Heparin Sodium,Porcine 5,000 Unit/Ml Vial) 5,000 unit SUBCUT Q12H [facility] Last Admin: 12/27/22 00:42 Dose: 5,000 unit Hydralazine HCl (Hydralazine Hcl 25 Mg Tablet) 25 mg PO TID [facility]; Protocol Ketorolac Tromethamine (Ketorolac Tromethamine 0.5% Op 5 Ml Drops) 1 drop EYE-BOTH TID [facility] Last Admin: 12/27/22 09:40 Dose: Not Given Omeprazole (Omeprazole 20 Mg Capsule.Dr) 20 mg PO BID@0630,1630 [facility] Ondansetron HCl (Ondansetron Hcl 4 Mg/2 Ml Vial) 4 mg IVPUSH Q8H PRN PRN Reason: Nausea and Vomiting Timolol Maleate (Timolol Maleate 0.5 % Oph Nere[place] 5 Ml Drbtl) 1 drop EYE-BOTH BID [facility] Last Admin: 12/27/22 09:40 Dose: Not Given Tramadol HCl (Tramadol Hcl 50 Mg Tablet) 50 mg PO QID PRN PRN Reason: Pain, Severe (Pain Scale 7-10) Last Admin: 12/27/22 08:38 Dose: 50 mg Home Medications Medication Instructions Recorded Confirmed Last Taken Type tramadol 50 mg tablet 1 tab PO QID PRN Pain 11/24/21 12/26/22 11/05/22 History brimonidine 0.2 %-timolol 0.5 % 1 drp ophthalmic (eye) BID 12/26/22 12/26/22 12/26/22 History eye drops ketorolac 0.5 % eye drops 1 drp ophthalmic (eye) TID 12/26/22 12/26/22 12/26/22 History losartan 100 mg tablet 100 mg PO DAILY 12/26/22 12/26/22 12/26/22 History pantoprazole 40 mg tablet,delayed 40 mg PO BID 12/26/22 12/26/22 12/26/22 History release Physical Exam Vital Signs: Last Vital Signs Temp 96.4 F L 12/27/22 08:39 Pulse 63 12/27/22 08:39 Resp 18 12/27/22 08:39 BP 170/97 H 12/27/22 08:39 Pulse Ox 100 12/27/22 08:39 O2 Del Method Room Air 12/27/22 08:39 BMI result Body Mass Index 26.4 Comfortable Neck is supple Lung: Air entry equal Heart: S1,S2, normal. No rub Abd: Soft. BS + NS : Alert.No asterexis Ext: edema + Results Lab Results 12/26/22 17:14 12/27/22 05:22 Lab results: Chemistry 12/26/22 12/27/22 17:14 05:22 Sodium 138 139 Potassium 3.5 3.5 Carbon Dioxide 17 L 17 L BUN 36 H 36 H Creatinine 2.34 H 1.89 H Calcium 7.9 L D 7.9 L Hematology 12/26/22 17:14 WBC 7.0 Hgb 10.0 L Plt Count 133 L Urinalysis 12/27/22 04:27 Urine Color Straw Urine Appearance Clear Urine pH 6.0 Ur Specific [place] 1.010 Urine Protein Negative Urine Glucose (UA) Negative Urine Ketones Negative Urine Blood Negative Urine Nitrite Negative Ur Leukocyte Esterase Negative Assessment and Plan (1) MARKY (acute kidney injury): Status: Acute Plan Marky superimposed on CKD. Marky due to hypoperfusion. Resistant hypertension. Plan Optimize blood pressure. Add hydralazine 25 mg t.i.d. or q.i.d. and titrate dose. Check renal Doppler for possible BAILEY. Continue with current dose of Lasix. Keep on low-sodium diet. Discussed with team. Time Spent With Patient Time: Total time managing care of this patient today ____ minutes. Procedures Date of Service Date of Service: 12/28/22
[2022-12-27] MEDS: hydrALAZINE HCl 25 MG TABLET PO ×3 (14:15→21:15)
[2022-12-27] MEDS: Ketorolac Tromethamine 0.5% Op 5 ML DROPS 1 DROP EYE-BOTH ×2 (17:03→21:29)
[2022-12-27] MEDS: Omeprazole 20 MG CAPSULE.DR PO (17:04)
--- NOTE | 2022-12-27 17:21 | PC.NURSE ---
report recieved from ED RN, pt up to floor. BPs consistently high, see vitals. hosptialist notified, medication admin per JUL. Pt is asymptomatic, offering no complaints. Pt saying she wants to leave AMA because she feels better, hospitalist notified and up to bedside to speak with pt and family member. Safety precautions remain in place. Call aguilar within reach. Camera in room for safety.
[2022-12-27] MEDS: timoloL maleate 0.5 % Oph Sol 5 ML DRBTL 1 DROP EYE-BOTH (21:17)
[2022-12-27] MEDS: Brimonidine Tartrate 0.2% Oph 5 ML BOTTLE 1 DROP EYE-BOTH (21:18)
[2022-12-28 03:45] VITALS: BP 160/71; PULSE 63; RESP 20; TEMP 36.1; O2SAT 100
[2022-12-28] MEDS: Omeprazole 20 MG CAPSULE.DR PO ×2 (06:17→15:53)
[2022-12-28 07:29] VITALS: BP 160/60; PULSE 62; RESP 18; TEMP 36; O2SAT 100
[2022-12-28 07:34] LABS: Anion Gap 12 (12-20); Blood Urea Nitrogen 31 mg/dL (9-16); Calcium 7.7 mg/dL (8.4-10.2); Carbon Dioxide 22 mmol/L (22-29); Chloride 110 mmol/L (96-108); Creatinine Clr Calc Pharmacy 26.4; Estimated Glomerular Filt Rate 34; Glucose Random 125 mg/dL (60-115); Potassium 3.7 mmol/L (3.3-5.1); Sodium 140 mmol/L (135-145)
[2022-12-28 07:41] LABS: B Type Natriuretic Peptide 1058 pg/mL (<100)
[2022-12-28] MEDS: Ketorolac Tromethamine 0.5% Op 5 ML DROPS 1 DROP EYE-BOTH (08:12)
[2022-12-28] MEDS: hydrALAZINE HCl 25 MG TABLET PO (08:12)
[2022-12-28] MEDS: Furosemide 40 MG/4 ML VIAL IVPUSH ×2 (08:12→17:51)
[2022-12-28] MEDS: Docusate Sodium 100 MG CAPSULE PO (08:12)
[2022-12-28] MEDS: timoloL maleate 0.5 % Oph Sol 5 ML DRBTL 1 DROP EYE-BOTH (08:12)
[2022-12-28] MEDS: traMADoL HCL 50 MG TABLET PO ×2 (08:12→14:16)
[2022-12-28] MEDS: Brimonidine Tartrate 0.2% Oph 5 ML BOTTLE 1 DROP EYE-BOTH (08:12)
--- NOTE | 2022-12-28 09:38 | P.PNIM_ITS ---
Subjective Subjective Date of Service: 12/28/22 Interval History: Follow-up CHF No shortness of breath, cough, chest pain Still with some lower extremity edema Out of bed ambulating Physical Exam Vital Signs: Vital Signs: Last Vital Signs Temp 96.8 F 12/28/22 07:29 Pulse 62 12/28/22 07:29 Resp 18 12/28/22 07:29 BP 160/60 H 12/28/22 07:29 Pulse Ox 100 12/28/22 07:29 O2 Del Method Room Air 12/28/22 07:29 BMI result Body Mass Index 26.4 Appearing in no acute distress lung sounds are clear to auscultation heart regular rate rhythm, clear S1, S2 positive bowel sounds, abdomen is soft, nontender neuro patient is alert x3, no focal deficits +2 pitting LE edema Objective Data Active Medications Acetaminophen (Acetaminophen 325 Mg Tablet) 650 mg PO Q6H PRN PRN Reason: Pain, Mild (Pain Scale 1-3) Brimonidine Tartrate (Brimonidine Tartrate 0.2% Oph 5 Ml Bottle) 1 drop EYE-ORION TH BID COUNTS INCLUDE 234 BEDS AT THE [facility] Last Admin: 12/28/22 08:12 Dose: 1 drop Documented By: MICHAEL Docusate Sodium (Docusate Sodium 100 Mg Capsule) 100 mg PO BID COUNTS INCLUDE 234 BEDS AT THE [facility] Last Admin: 12/28/22 08:12 Dose: 100 mg Documented By: MICHAEL Furosemide (Furosemide 40 Mg/4 Ml Vial) 40 mg IVPUSH BID@0900,1800 COUNTS INCLUDE 234 BEDS AT THE [facility]; Protocol Last Admin: 12/28/22 08:12 Dose: 40 mg Documented By: MICHAEL Heparin Sodium (Porcine) (Heparin Sodium,Porcine 5,000 Unit/Ml Vial) 5,000 unit SUBCUT Q12H COUNTS INCLUDE 234 BEDS AT THE [facility] Last Admin: 12/27/22 23:27 Dose: 5,000 unit Documented By: TUMASY Hydralazine HCl (Hydralazine Hcl 25 Mg Tablet) 25 mg PO QID COUNTS INCLUDE 234 BEDS AT THE [facility]; Protocol Last Admin: 12/28/22 08:12 Dose: 25 mg Documented By: MICHAEL Ketorolac Tromethamine (Ketorolac Tromethamine 0.5% Op 5 Ml Drops) 1 drop EYE- BOTH TID COUNTS INCLUDE 234 BEDS AT THE [facility] Last Admin: 12/28/22 08:12 Dose: 1 drop Documented By: MICHAEL Omeprazole (Omeprazole 20 Mg Capsule.) 20 mg PO BID@0630,1630 COUNTS INCLUDE 234 BEDS AT THE [facility] Last Admin: 12/28/22 06:17 Dose: 20 mg Documented By: DONNA Ondansetron HCl (Ondansetron Hcl 4 Mg/2 Ml Vial) 4 mg IVPUSH Q8H PRN PRN Reason: Nausea and Vomiting Timolol Maleate (Timolol Maleate 0.5 % Oph Nereida 5 Ml Drbtl) 1 drop EYE-BOTH BID COUNTS INCLUDE 234 BEDS AT THE [facility] Last Admin: 12/28/22 08:12 Dose: 1 drop Documented By: MICHAEL Tramadol HCl (Tramadol Hcl 50 Mg Tablet) 50 mg PO QID PRN PRN Reason: Pain, Severe (Pain Scale 7-10) Last Admin: 12/28/22 08:12 Dose: 50 mg Documented By: MICHAEL Labs 12/26/22 17:14 12/28/22 06:46 Labs: Laboratory Results - last 24 hr 12/28/22 12/28/22 06:46 06:46 Anion Gap 12 Estim Creat Clear Calc 26.4 Estimated GFR 34 Random Glucose 125 H Calcium 7.7 L B-Natriuretic Peptide 1058 H Assessment and Plan (1) Nonischemic cardiomyopathy: Status: Acute Plan 77-year-old female with past medical history of hypertension, diabetes, comes into the hospital lower extremity edema found to have MARKY HFrEF, possible exacerabation no hx of CHF +3 pitting LE edema bilat, neg DVT will continue IV lasix BID for now Echocardiogram with EF of 30-35% cardiology following daily weights strict intake and output MARKY Creatinine trending down possibly cardiorenal no evidence of nephrotic syndrome, no protein in the urine follow BMP after starting Lasix nephrology consulted>stop losartan, start Hydralazine, check renal us for ana rosa hypertension, uncontrolled losartan stopped hydralazine 25mg q.i.d. for now DVT prophylaxis:? Jareth Attending Dr. Lafleur Full code Continue hospitalization for treatment of acute congestive heart failure requiring IV diuretics Time Spent With Patient Time: Total time managing care of this patient today ____ minutes. Quality Stroke Does the patient have a stroke diagnosis?: No VTE Prior VTE?: No VTE Risk Level:: Medical - moderate - high VTE Device Contraindication: Treatment Not Indicated VTE Drug Contraindication: N/A - Med Ordered
--- NOTE | 2022-12-28 10:09 | P.PNCA_ITS ---
Subjective Subjective Date of Service: 12/28/22 Interval history: She states she feels just about the same as before. No new issues. She is lying down flat. Denies any shortness of breath. Leg swelling is still present. Review of Systems Review of Systems Yes all other systems are reviewed and are negative Constitutional: Reports as per HPI and Reports no additional constitutional complaints Eyes: Reports as per HPI and Denies no additional eye complaints Denies system reviewed and no additional complaints, except as documented and Reports as per HPI Cardiovascular: Reports as per HPI, Reports no additional cardiovascular complaints, Denies acrocyanosis, Denies cool extremities, Denies chest pain, Reports leg edema, Denies lightheadedness, Denies palpitations and Denies dyspnea Respiratory: Reports as per HPI, Denies no additional respiratory complaints and Denies dyspnea Gastrointestinal: Reports as per HPI and Denies no additional gastrointestinal complaints Musculoskeletal: Reports no additional musculoskeletal complaints and Reports as per HPI Skin/Breast: Reports system reviewed and no additional complaints, except as docu Reports system reviewed and no additional complaints, except as documented and Reports as per HPI Psychiatric: Reports no additional psychiatric complaints and Reports as per HPI Endocrine: Reports no additional endocrine complaints, Reports as per HPI and Denies palpitations Hematologic/Lymphatic: Reports no additional hematologic/lymphatic complaints and Reports as per HPI Allergic/Immunologic: Reports no additional allergic/immunologic complaints and Reports as per HPI Physical Exam Vital Signs: Last Vital Signs Temp 96.8 F 12/28/22 07:29 Pulse 62 12/28/22 07:29 Resp 18 12/28/22 07:29 BP 160/60 H 12/28/22 07:29 Pulse Ox 100 12/28/22 07:29 O2 Del Method Room Air 12/28/22 07:29 BMI result Body Mass Index 26.4 Const General: comfortable and no acute distress Orientation/consciousness: patient oriented x3 HEENT Other: Unremarkable Head: Yes normal to inspection Neck Neck: Yes normal visual inspection Chest Chest palpation & inspection: normal inspection of the chest Resp Auscultation: clear to auscultation bilaterally Cardio Palpation: normal PMI Heart sounds: S1 normal heart sound present, S2 normal heart sound present, no gallops, no murmurs and no rubs GI Palpation (GI): Soft to palpation Back/Spine/Pelvis Other: unremarkable Skin General skin exam: no rashes or lesions noted Neuro General: patient oriented x3 Extrem Other: 2+ swelling. General: Yes normal to inspection Psych Mental Status: mental status grossly normal Objective Labs and Meds 12/26/22 17:14 12/28/22 06:46 Lab results: Laboratory Results - last 24 hr 12/28/22 12/28/22 06:46 06:46 Sodium 140 Potassium 3.7 Chloride 110 H Carbon Dioxide 22 Anion Gap 12 BUN 31 H Creatinine 1.51 H Estim Creat Clear Calc 26.4 Estimated GFR 34 Random Glucose 125 H Calcium 7.7 L B-Natriuretic Peptide 1058 H Progress Note: A&P Assessment and plan (1) Acute on chronic systolic (congestive) heart failure: Status: Acute (2) Left bundle branch block: Status: Acute (3) Nonischemic cardiomyopathy: Status: Acute Plan Echocardiogram yesterday with LVEF of 30-35%. Wall motion abnormalities related to left bundle-branch block pattern. No significant valvular issues. LVEF slightly less than before. Her lower extremity more could be multifactorial and could be related to hypoalbuminemia. Cardiac dysfunction as above could also play a role but this has been mostly chronic. Has less likely the issue. No clear evidence of DVT either. Chest x-ray is not showing any acute process. Diuretics as tolerated is okay but not too much. Otherwise, small dose of Coreg which should also help the hypertension. As the heart rate is on the lower side, cannot give too much. Blood pressure management. Possibly hydralazine as she has renal dysfunction preventing ad equate dose of ARB and she also has lower extremity edema which could be an issue with amlodipine. Discussed with Rosa Anaya. Discussed with daughter at the bedside. Peripheral edema could be multifactorial. Congestive heart failures possibility. However, she also has a low albumin that could play some role. Ultrasound does not show any DVT. Chest x-ray without any acute process. Okay to try empiric diuretics but she already has elevated creatinine. Time Spent With Patient Time: Total time managing care of this patient today ____ minutes. Progress Note: Quality Stroke Does the patient have a stroke diagnosis?: No Procedures Date of Service Date of Service: 12/28/22
--- NOTE | 2022-12-28 10:52 | PM.PNNEP ---
Subjective Subjective Date of Service: 12/29/22 Interval history: Events noted. Blood pressure is better but still suboptimal. Creatinine is trending down. Physical Exam Vital Signs: Vital Signs: Last Vital Signs Temp 96.8 F 12/28/22 07:29 Pulse 62 12/28/22 07:29 Resp 18 12/28/22 07:29 BP 160/60 H 12/28/22 07:29 Pulse Ox 100 12/28/22 07:29 O2 Del Method Room Air 12/28/22 07:29 BMI result Body Mass Index 26.4 Comfortable Neck is supple Lung: Air entry equal Heart: S1,S2, normal. No rub Abd: Soft. BS + NS : Alert.No asterexis Ext: 2+ edema Objective Data Labs 12/26/22 17:14 12/28/22 06:46 Labs: Laboratory Results - last 24 hr 12/28/22 12/28/22 06:46 06:46 Sodium 140 Potassium 3.7 Chloride 110 H Carbon Dioxide 22 Anion Gap 12 BUN 31 H Creatinine 1.51 H Estim Creat Clear Calc 26.4 Estimated GFR 34 Random Glucose 125 H Calcium 7.7 L B-Natriuretic Peptide 1058 H Procedures Date of Service Date of Service: 12/29/22 Assessment & Plan Assessment and plan (1) MARKY (acute kidney injury): Status: Acute Plan MARKY superimposed on CKD. Restrict hypertension. Blood pressure is better controlled. We will increase hydralazine to 50 mg t.i.d. or q.i.d.. Agree with Coreg. We will hold off on KAT inhibitors and ARB Continue with current dose of Lasix and keep her on low-sodium diet Await renal Doppler. Okay to DC home in the next 24-48 hours Time Spent With Patient Time: Total time managing care of this patient today ____ minutes. Progress Note: Quality Stroke Does the patient have a stroke diagnosis?: No
[2022-12-28 10:58] VITALS: BP 140/60; PULSE 57; RESP 20; TEMP 36.2; O2SAT 100
[2022-12-28] MEDS: Heparin Sodium,Porcine 5,000 UNIT/ML VIAL 5000 UNIT SUBCUT ×2 (11:25→22:27)
[2022-12-28] MEDS: hydrALAZINE HCl 50 MG TABLET PO ×3 (11:25→20:57)
[2022-12-28 15:49] VITALS: BP 140/66; PULSE 59; RESP 18; TEMP 36.2; O2SAT 99
[2022-12-28 19:23] VITALS: BP 161/70; PULSE 61; RESP 18; TEMP 36.7; O2SAT 100
[2022-12-28] MEDS: carvediloL 3.125 MG TABLET PO (20:57)
[2022-12-28] MEDS: Brimonidine Tartrate 0.2% Oph 5 ML BOTTLE 1 DROP EYE-LEFT (20:58)
[2022-12-28] MEDS: Ketorolac Tromethamine 0.5% Op 5 ML DROPS 1 DROP EYE-LEFT (20:58)
[2022-12-28] MEDS: timoloL maleate 0.5 % Oph Sol 5 ML DRBTL 1 DROP EYE-LEFT (20:59)
[2022-12-29] VITALS: BP 174/73; PULSE 57; RESP 20; TEMP 36.1; O2SAT 100
[2022-12-29 04:00] VITALS: BP 168/68; PULSE 60; RESP 20; TEMP 36.1; O2SAT 99
[2022-12-29] MEDS: Omeprazole 20 MG CAPSULE.DR PO ×2 (06:00→16:34)
[2022-12-29 08:00] VITALS: BP 196/92; PULSE 73; RESP 18; TEMP 36.6; O2SAT 98
[2022-12-29] MEDS: carvediloL 3.125 MG TABLET PO (08:17)
[2022-12-29] MEDS: hydrALAZINE HCl 50 MG TABLET PO ×4 (08:17→21:53)
[2022-12-29] MEDS: Furosemide 40 MG/4 ML VIAL IVPUSH (09:51)
--- NOTE | 2022-12-29 10:15 | P.PNNP_ITS ---
Subjective Subjective Date of Service: 12/29/22 Interval history: Events noted. Blood pressure is better but still suboptimal. Creatinine is trending down. Physical Exam 2 Vital Signs: Vital Signs: Last Vital Signs Temp 97.8 F 12/29/22 08:00 Pulse 73 12/29/22 08:00 Resp 18 12/29/22 08:00 BP 196/92 H 12/29/22 08:00 Pulse Ox 98 12/29/22 08:00 O2 Del Method Room Air 12/29/22 08:00 BMI result Body Mass Index 26.4 Const: General: comfortable Eyes: General: appearance normal, both eyes and all related structures Resp: Auscultation: clear to auscultation bilaterally Skin: General skin exam: no rashes or lesions noted Extrem: Other: 2+ swelling. Objective Data Labs 12/26/22 17:14 12/28/22 06:46 Procedures Date of Service Date of Service: 12/29/22 Assessment & Plan Assessment and plan (1) MARKY (acute kidney injury): Status: Acute Plan MARKY superimposed on CKD. Restrict hypertension. Keep hydralazine 50 mg We will hold off on KAT inhibitors and ARB Continue with current dose of Lasix and keep her on low-sodium diet renal Doppler - report is not useful Okay to DC home in the next 24-48 hours Time Spent With Patient Time: Total time managing care of this patient today ____ minutes. Progress Note: Quality Stroke Does the patient have a stroke diagnosis?: No
[2022-12-29 11:35] VITALS: BP 137/65; PULSE 58; RESP 16; TEMP 36.5; O2SAT 98
[2022-12-29] MEDS: traMADoL HCL 50 MG TABLET PO (13:03)
[2022-12-29] MEDS: Ketorolac Tromethamine 0.5% Op 5 ML DROPS 1 DROP EYE-LEFT ×3 (13:05→21:53)
[2022-12-29] MEDS: Heparin Sodium,Porcine 5,000 UNIT/ML VIAL 5000 UNIT SUBCUT ×2 (13:05→21:52)
[2022-12-29] MEDS: Brimonidine Tartrate 0.2% Oph 5 ML BOTTLE 1 DROP EYE-LEFT (13:05)
[2022-12-29] MEDS: timoloL maleate 0.5 % Oph Sol 5 ML DRBTL 1 DROP EYE-LEFT ×2 (13:05→21:53)
[2022-12-29 15:42] VITALS: BP 138/71; PULSE 58; RESP 18; TEMP 36.6; O2SAT 99
--- NOTE | 2022-12-29 15:42 | HO.PM.IMPN ---
Subjective Subjective Date of Service: 12/29/22 Interval History: seen and examined this morning follow up for MARKY, CHF still with leg edema, no sob bp elevated this morning Review of Systems Review of Systems: Yes all other systems are reviewed and are negative Constitutional Constitutional: Denies chills and Denies fever(s) Cardiovascular Cardiovascular: Denies chest pain and Denies dyspnea Respiratory Respiratory: Denies dyspnea Physical Exam Vital Signs: Vital Signs: Last Vital Signs Temp 97.7 F 12/29/22 11:35 Pulse 58 12/29/22 11:35 Resp 16 12/29/22 11:35 BP 137/65 12/29/22 11:35 Pulse Ox 98 12/29/22 11:35 O2 Del Method Room Air 12/29/22 11:35 BMI result Body Mass Index 26.4 Const: General: cooperative, comfortable, no acute distress, alert and awake Nutritional Appearance: average body habitus Resp: Effort & Inspection: normal respiratory effort, able to speak in complete sentences, no respiratory distress and no use of accessory muscles Cardio: Rate: regular rate GI: Inspection: No distended Palpation (GI): Soft to palpation and nontender Neuro: Other: grossly nonfocal Extrem: Other: 2-3+ pitting edema b/l LE Objective Data Active Medications Acetaminophen (Acetaminophen 325 Mg Tablet) 650 mg PO Q6H PRN PRN Reason: Pain, Mild (Pain Scale 1-3) Brimonidine Tartrate (Brimonidine Tartrate 0.2% Oph 5 Ml Bottle) 1 drop EYE-LEFT BID [facility] Last Admin: 12/29/22 13:05 Dose: 1 drop Documented By: NEGRO Carvedilol (Carvedilol 3.125 Mg Tablet) 3.125 mg PO BID [facility]; Protocol Last Admin: 12/29/22 08:17 Dose: 3.125 mg Documented By: NEGRO Furosemide (Furosemide 40 Mg Tablet) 40 mg PO BID@0900,1800 [facility]; Protocol Heparin Sodium (Porcine) (Heparin Sodium,Porcine 5,000 Unit/Ml Vial) 5,000 unit SUBCUT Q12H [facility] Last Admin: 12/29/22 13:05 Dose: 5,000 unit Documented By: NEGRO Hydralazine HCl (Hydralazine Hcl 50 Mg Tablet) 50 mg PO QID [facility]; Protocol Last Admin: 12/29/22 13:20 Dose: 50 mg Documented By: NEGRO Ketorolac Tromethamine (Ketorolac Tromethamine 0.5% Op 5 Ml Drops) 1 drop EYE-LEFT TID [facility] Last Admin: 12/29/22 13:05 Dose: 1 drop Documented By: NEGRO Omeprazole (Omeprazole 20 Mg Capsule.) 20 mg PO BID@0630,1630 [facility] Last Admin: 12/29/22 06:00 Dose: 20 mg Documented By: PREET Ondansetron HCl (Ondansetron Hcl 4 Mg/2 Ml Vial) 4 mg IVPUSH Q8H PRN PRN Reason: Nausea and Vomiting Timolol Maleate (Timolol Maleate 0.5 % Oph Nereida 5 Ml Drbtl) 1 drop EYE-LEFT BID [facility] Last Admin: 12/29/22 13:05 Dose: 1 drop Documented By: NEGRO Tramadol HCl (Tramadol Hcl 50 Mg Tablet) 50 mg PO QID PRN PRN Reason: Pain, Severe (Pain Scale 7-10) Last Admin: 12/29/22 13:03 Dose: 50 mg Documented By: NEGRO Labs 12/26/22 17:14 12/28/22 06:46 Assessment and Plan (1) Acute on chronic systolic (congestive) heart failure: Status: Acute Plan 77-year-old female with past medical history of hypertension, diabetes, comes into the hospital lower extremity edema found to have MARKY lower extremity edema possibly component of acute HFrEF echo EF 30-35% h/o CM but not on diuretics at baseline neg DVT initially treated with IV lasix, no respiratory issues, no hypoxia will transition to PO lasix albumin low, could also be contributing to leg edema cardiology following daily weights, strict intake and output MARKY Creatinine trending down, near baseline possibly cardiorenal no evidence of nephrotic syndrome follow BMP after starting Lasix nephrology consulted>stop losartan, start Hydralazine renal us for ana rosa, exam limited hypertension, uncontrolled bp still elevated this am losartan stopped continue coreg hydralazine increased to 50 qid DVT prophylaxis:? heparin Attending Dr. Lafleur Full code Continue hospitalization for treatment of acute congestive heart failure requiring IV diuretics, titration of blood pressure medication Time Spent With Patient Time: Total time managing care of this patient today ____ minutes. Quality Stroke Does the patient have a stroke diagnosis?: No VTE Prior VTE?: No VTE Risk Level:: Medical - moderate - high VTE Device Contraindication: Treatment Not Indicated VTE Drug Contraindication: N/A - Med Ordered
[2022-12-29] MEDS: Furosemide 40 MG TABLET PO (16:34)
[2022-12-29 19:43] VITALS: BP 163/68; PULSE 63; RESP 12; TEMP 36.4; O2SAT 99
[2022-12-30] VITALS: BP 140/65; PULSE 62; RESP 20; TEMP 36.1; O2SAT 99
[2022-12-30 02:51] VITALS: BP 188/74; PULSE 64; RESP 20; TEMP 36.1; O2SAT 100
[2022-12-30 03:29] VITALS: BP 162/77
[2022-12-30] MEDS: Omeprazole 20 MG CAPSULE.DR PO (06:17)
[2022-12-30 07:55] VITALS: BP 190/77; PULSE 65; RESP 16; TEMP 36.9; O2SAT 99
[2022-12-30] MEDS: carvediloL 3.125 MG TABLET PO (08:45)
[2022-12-30] MEDS: Ketorolac Tromethamine 0.5% Op 5 ML DROPS 1 DROP EYE-LEFT (08:45)
[2022-12-30] MEDS: Furosemide 40 MG TABLET PO (08:45)
[2022-12-30] MEDS: hydrALAZINE HCl 50 MG TABLET PO ×2 (08:45→12:02)
[2022-12-30] MEDS: timoloL maleate 0.5 % Oph Sol 5 ML DRBTL 1 DROP EYE-LEFT (08:46)
[2022-12-30 11:10] VITALS: BP 111/83; PULSE 76; RESP 16; TEMP 36.3; O2SAT 99
[2022-12-30] MEDS: Heparin Sodium,Porcine 5,000 UNIT/ML VIAL 5000 UNIT SUBCUT (12:03)
--- NOTE | 2022-12-30 12:21 | P.DS_ITS ---
DS: Providers Provider Date of Service: 12/30/22 Date of admission: 12/26/22 21:58 Date of discharge: 12/30/22 Primary care physician: Mor Marin MD Consults: 12/26/22 22:01 Consult to Cardiology Routine Consulting Provider: [facility] [facility] Cardiovascular Services Reason for consultation: volume overload, elevated bnp, CHF? Consult to Nephrology Routine Consulting Provider: [facility] Reason for consultation: marky Attending physician on discharge: Leobardo Lafleur Discharging clinician: Kirsty Leblanc DS: Diagnosis Discharge Diagnosis (1) Acute on chronic systolic (congestive) heart failure: Status: Acute (2) MARKY (acute kidney injury): Status: Acute (3) Elevated blood pressure reading: Status: Acute DS: Summary Hospital Course Hospital Course: From H&P on day of admission 77-year-old female with past medical history of recently diagnosed pancreatic cancer, HTN, diabetes, comes into the hospital brought in by her daughter for lower extremity edema.? Lower extremity edema for past 2 weeks, non resolving, daughter states that 1 of her doctors gave her Lasix recently, and has been given her Lasix for the past 2 days with no improvement.? Patient denies any shortness of breath, no orthopnea, no PND, has been eating and drinking well.? No fever or chills, no cough, no sputum production, no urinary symptoms On arrival to the ED patient hemodynamically stable with no significant abnormal vitals Labs are significant for WBC count of 7.0, hemoglobin of 10.0, creatinine of 2.34 which is higher than her usual 1.6, she has a BNP of 626 with no previous for comparison, albumin of 2.6, UA negative, no increased proteins, alk-phos of 123, Venous duplex bilaterally negative and no evidence of DVT Patient received IV Lasix and will be admitted for further management lower extremity edema. possible component of acute HFrEF. echo EF 30-35% h/o CM but not on diuretics at baseline. ultrasound negative for DVT. She was seen by cardiology who agreed with trial of IV lasix. She was initially treated with IV lasix with some output. She has had no respiratory issues, no hypoxia and was ultimately transitioned to PO lasix. Cardiology felt that leg edema was likely multifactorial from low albumin as well. Recommend teds stockings, keep legs elevated and increasing protein intake. MARKY Creatinine was initially 2.34. Possible component of cardiorenal syndrome as kidney function improved with diuresis. Creatinine trending down, now near baseline at 1.5. She was seen by nephrology. She had renal us for BAILEY, but exam was limited. hypertension, uncontrolled losartan stopped per nephrology rec. started on coreg and hydralazine with improvement in blood pressure will need outpatient follow up with nephrology and PCP for close monitoring Time Spent with Patient Time attestation: Total time managing care of this patient today ____ minutes. Discharge coordination time: Greater than 30 minutes Quality: Safe Use of Opioids Does Pt have an Active Cancer Diagnosis on the Problem List?: No Quality: Stroke Does the patient have a stroke diagnosis?: No Physical Exam Vital Signs: Vital Signs: Last Vital Signs Temp 97.3 F 12/30/22 11:10 Pulse 76 12/30/22 11:10 Resp 16 12/30/22 11:10 BP 111/83 12/30/22 11:10 Pulse Ox 99 12/30/22 11:10 O2 Del Method Room Air 12/30/22 11:10 BMI result Body Mass Index 26.4 Const: General: cooperative, comfortable, no acute distress, alert and awake Nutritional Appearance: average body habitus Resp: Effort & Inspection: normal respiratory effort, able to speak in complete sentences, no respiratory distress and no use of accessory muscles Cardio: Rate: regular rate GI: Inspection: No distended Palpation (GI): Soft to palpation and nontender Neuro: Other: grossly nonfocal Extrem: Other: 2-3+ pitting edema b/l LE DS: Data Data Completed and Pending Completed studies during hospitalization [Text1]: Procedures Dilation of Common Bile Duct, Via Natural or Artificial Opening Endoscopic (11/06/22) Discharge Plan Discharge Anticipated Discharge Date/Time: 12/30/22 12:34 Patient Disposition: Home Health Service Discharge Diagnosis: leg edema uncontrolled blood pressure Referrals: Mor Marin MD [Primary Care Provider] - 1 Week Oswaldo Hicks MD [Physician] - 1 Week Discharge Medications: New carvedilol 3.125 mg Tablet 3.125 mg PO BID 30 Days Qty: 60 0RF Protocol: Hold for SBP/HR < HOLD for SBP < : 90 HOLD for HR < : 60 furosemide 40 mg Tablet 40 mg PO BID@0900,1800 30 Days Qty: 60 0RF Protocol: Hold for SBP< HOLD for SBP < : 90 hydralazine 50 mg tablet 50 mg PO BID@0830,1430 30 Days Qty: 60 0RF hydralazine 100 mg tablet 100 mg PO BEDTIME 30 Days Qty: 30 0RF (DME) T.E.D. Knee [id number] Misc See Rx Instructions .Route Qty: 24 0RF Rx Instructions: As directed Continued tramadol 50 mg tablet 1 tab PO QID PRN (Reason: Pain) ketorolac 0.5 % drops 1 drp ophthalmic (eye) TID pantoprazole 40 mg tablet,delayed release (DR/EC) 40 mg PO BID brimonidine-timolol 0.2-0.5 % Drops 1 drp OPHTHALMIC (EYE) BID Discontinued losartan 100 mg tablet 100 mg PO DAILY Discharge Orders: Discharge Order (Routine); Ordered 12/30/22 Ordered By: Kirsty Leblanc Activity on Discharge: As tolerated Stand Alone Forms: Patient Portal Discharge page Care Plan Goals: see below Health Concerns: leg swelling uncontrolled blood pressure CHF Plan of Treatment: Stop taking losartan Start taking Lasix as prescribed, coreg and hydralazine as prescribed keep legs elevated when able; follow low salt diet; monitor weight daily; increase protein intake call to schedule follow up appointment with kidney doctor for close blood pressure monitoring and monitoring of kidney function Assessment: see discharge summary
--- NOTE | 2022-12-30 12:57 | W.MHC.F2F ---
Service Date Service Date: 12/30/22 Encounter Date of encounter: 12/30/22 Reasons for Services Signs and symptoms assessed: elevated blood pressure, needs long term for blood pressure monitoring, multiple new medications lower extremity edema/CHF education Reason for long term: medication management and teach disease management MD Overseeing Care: Mor Marin Homebound: Leaving the home is medically contraindicated at this time without the asist of a device and/or another person due th the listed conditions above and below. Reason homebound: weakness related to hospital stay Certification: Based on the above findings, I certify that this patient is confined to the home and needs intermittent long term care, physical therapy and/or speech therapy, or continues to need occupational therapy. The patient is under my care, and I have initiated the establishment of the plan of care. The patient will be followed by a physician who will periodically review the plan of care. Time Spent With Patient Time: Total time managing care of this patient today ____ minutes.
--- NOTE | 2022-12-30 14:41 | MHC.CM.PN ---
Addendum entered by Aislinn Bailey 12/30/22 14:47: Second IMM given 12/30. Original Note: Pt is medically cleared for D/C home with new [facility] and resumption of previous [employer] services. Pts daughter/[employer] Dilly to pick pt up and transport her home.
== END 2022-12-30 14:57 | disposition home health service (06) | DRG 291 ==
LOC: HO.ED 20:47 → HO.EDOVER 22:08 → HO.IMC 12-27 11:05
PROVIDERS: Nurse Practitioner Acute Care; Physician Assistant Medical; Admitting Provider Internal Medicine; Emergency Provider Emergency Medicine; PCP Internal Medicine; Visit Provider Physician Assistant Medical
DX: I13.0 Hypertensive heart and chronic kidney disease with heart failure and stage 1 through stage 4 chronic kidney disease, or unspecified chronic kidney disease (principal); I50.23 Acute on chronic systolic (congestive) heart failure; N17.9 Acute kidney failure, unspecified; C25.9 Malignant neoplasm of pancreas, unspecified; N18.9 Chronic kidney disease, unspecified; I42.8 Other cardiomyopathies; I44.7 Left bundle-branch block, unspecified; E11.9 Type 2 diabetes mellitus without complications; Z79.899 Other long term (current) drug therapy
CPT/HCPCS: 36415; 71046; 80048; 80053; 80076; 81003; 83880; 85025; 93005; 93306; 93970; 93975; 99285; J1643; J1940; Q9957

== ENCOUNTER 2022-12-26 21:58 | Outpatient (BNV) | payer OTHER, SELFPAY | END 2022-12-27 07:00 | PROVIDERS: Admitting Provider Internal Medicine; Emergency Provider Emergency Medicine; Visit Provider Internal Medicine | DX: I34.0 Nonrheumatic mitral (valve) insufficiency (principal) | CPT/HCPCS: 93306 ==

== ENCOUNTER → 2022-12-26 21:58 | Outpatient (BNV) | payer OTHER, SELFPAY | PROVIDERS: Admitting Provider Internal Medicine; Emergency Provider Emergency Medicine; Visit Provider Internal Medicine | DX: I50.23 Acute on chronic systolic (congestive) heart failure (principal); I44.7 Left bundle-branch block, unspecified; I42.8 Other cardiomyopathies | CPT/HCPCS: 99222; 99232 ==

== ENCOUNTER → 2022-12-26 21:58 | Outpatient (BNV) | payer OTHER, SELFPAY | PROVIDERS: Admitting Provider Internal Medicine; Emergency Provider Emergency Medicine; Visit Provider Internal Medicine | DX: I50.23 Acute on chronic systolic (congestive) heart failure (principal); N17.9 Acute kidney failure, unspecified; R03.0 Elevated blood-pressure reading, without diagnosis of hypertension | CPT/HCPCS: 99223; 99232; 99239; 99499 ==

== ENCOUNTER 2023-01-05 16:24 | Outpatient (REF) | payer OTHER, SELFPAY ==
[2023-01-05 16:44] LABS: MANUAL DIFF FLAG NO
[2023-01-05 18:12] LABS: Basophils Percent Auto 0.5 % (0-2); Eosinophils Absolute Auto 0.1 X10*3/uL (0.0-0.4); Eosinophils Percent Auto 1.2 % (0-4); Hematocrit 30.4 % (37.0-47.0); Hemoglobin 9.9 g/dl (12.0-16.0); Imm Gran Abs Auto 0.02 X10*3/uL (0.00-0.03); Imm Gran Pct Auto 0.3 % (0.0-0.4); Lymphocytes Absolute Auto 2.1 X10*3/uL (1.2-4.9); Lymphocytes Percent Auto 31.8 % (20-40); Mean Corpuscular HGB Conc 32.6 g/dl (31.0-35.0); Mean Corpuscular Hemoglobin 30.7 pg (27.0-33.0); Mean Corpuscular Volume 94.4 fL (80.0-98.0); Mean Platelet Volume 11.9 fL (9.4-12.3); Monocytes Absolute Auto 0.6 X10*3/uL (0.1-1.2); Monocytes Percent Auto 8.7 % (2-11); Neutrophils Absolute Auto 3.7 x10*3/uL (2.0-8.3); Neutrophils Percent Auto 57.5 % (45-73); Platelet Count 154 X10*3/uL (160-400); Red Blood Count 3.22 X10*6/uL (4.20-5.50); Red Cell Distribution Width 14.7 % (11.0-16.0); White Blood Count 6.4 X10*3/uL (4.8-10.8)
[2023-01-05 18:21] LABS: Alanine Aminotransferase 27 U/L (0-31); Albumin Level 2.9 g/dL (3.5-5.0); Alkaline Phosphatase 118 U/L (39-117); Anion Gap 14 (12-20); Aspartate Amino Transferase 31 U/L (5-31); Blood Urea Nitrogen 41 mg/dL (9-16); Calcium 8.3 mg/dL (8.4-10.2); Carbon Dioxide 18 mmol/L (22-29); Chloride 107 mmol/L (96-108); Estimated Glomerular Filt Rate 20; Glucose Random 234 mg/dL (60-115); Lipase 6 U/L (8-78); Potassium 3.5 mmol/L (3.3-5.1); Sodium 135 mmol/L (135-145); Total Protein 5.9 g/dL (6.5-8.0)
== END 2023-01-05 16:25 | disposition home or self-care (01) ==
LOC: HO.LAB 16:24
PROVIDERS: PCP Internal Medicine; Visit Provider Internal Medicine
DX: I50.9 Heart failure, unspecified (principal); R60.0 Localized edema; N18.9 Chronic kidney disease, unspecified; I42.9 Cardiomyopathy, unspecified
CPT/HCPCS: 36415; 80053; 83690; 85025

== ENCOUNTER 2023-01-23 11:07 | Outpatient (REF) | payer OTHER, SELFPAY ==
[2023-01-23 12:06] LABS: MANUAL DIFF FLAG NO
[2023-01-23 12:47] LABS: Basophils Percent Auto 0.1 % (0-2); Eosinophils Percent Auto 0.3 % (0-4); Hematocrit 30.2 % (37.0-47.0); Hemoglobin 9.8 g/dl (12.0-16.0); Imm Gran Abs Auto 0.03 X10*3/uL (0.00-0.03); Imm Gran Pct Auto 0.4 % (0.0-0.4); Lymphocytes Absolute Auto 1.6 X10*3/uL (1.2-4.9); Lymphocytes Percent Auto 22.2 % (20-40); Mean Corpuscular HGB Conc 32.5 g/dl (31.0-35.0); Mean Corpuscular Hemoglobin 31.7 pg (27.0-33.0); Mean Corpuscular Volume 97.7 fL (80.0-98.0); Mean Platelet Volume 11.1 fL (9.4-12.3); Monocytes Absolute Auto 0.4 X10*3/uL (0.1-1.2); Monocytes Percent Auto 4.7 % (2-11); Neutrophils Absolute Auto 5.4 x10*3/uL (2.0-8.3); Neutrophils Percent Auto 72.3 % (45-73); Platelet Count 160 X10*3/uL (160-400); Red Blood Count 3.09 X10*6/uL (4.20-5.50); Red Cell Distribution Width 14.6 % (11.0-16.0); White Blood Count 7.4 X10*3/uL (4.8-10.8)
[2023-01-23 13:57] LABS: Alanine Aminotransferase 19 U/L (0-31); Albumin Level 2.8 g/dL (3.5-5.0); Alkaline Phosphatase 110 U/L (39-117); Anion Gap 12 (12-20); Aspartate Amino Transferase 25 U/L (5-31); Bilirubin Total 0.9 mg/dL (0.0-1.0); Blood Urea Nitrogen 42 mg/dL (9-16); Calcium 8.2 mg/dL (8.4-10.2); Carbon Dioxide 22 mmol/L (22-29); Chloride 109 mmol/L (96-108); Estimated Glomerular Filt Rate 19; Glucose Random 172 mg/dL (60-115); Potassium 3.5 mmol/L (3.3-5.1); Sodium 139 mmol/L (135-145); Total Protein 5.8 g/dL (6.5-8.0)
== END 2023-01-23 11:08 | disposition home or self-care (01) ==
LOC: HO.LAB 11:07
PROVIDERS: PCP Internal Medicine; Visit Provider Internal Medicine
DX: D64.9 Anemia, unspecified (principal); N18.9 Chronic kidney disease, unspecified; I50.9 Heart failure, unspecified; C80.1 Malignant (primary) neoplasm, unspecified
CPT/HCPCS: 36415; 80053; 85025; 99212

== ENCOUNTER 2023-01-23 11:07 | Outpatient (AMB) | payer OTHER, SELFPAY ==
[2023-01-23 11:10] VITALS: BP 108/60; PULSE 82; BMI 23.0
--- NOTE | 2023-01-23 11:10 | MHC.OFFVIS ---
Intake Vital Signs 01/23/23 11:10 Height 5 ft 5 in Weight 138 lb 0.15 oz BMI 23.0 BP 108/60 Blood Pressure Location Lt brachial Position Sitting Pulse 82 Intake Visit Reasons: [facility] Discharge 12/30/22/ Confirmed Intake Note: [facility] D/C Jewel Gauger Required: No Accompanied by: Daughter Allergies penicillin V Allergy (Unknown, Verified 01/23/23 11:13) hives, Rash Penicillins [PENICILLINS] Allergy (Unknown, Verified 01/23/23 11:13) RASH Medication List - Last Reconciled 01/23/23 by Tomas Cerna MD carvedilol 3.125 mg See Protocol PO BID wilber.stocking,knee,reg,smal (T.E.D. Knee Jzabsu-S-Anlhnyg [facility] [place]) As directed hydralazine 50 mg PO BID@0830,1430 30 days hydralazine 100 mg PO BEDTIME 30 days pantoprazole 40 mg PO BID tramadol 1 tab PO QID PRN HPI HPI Comments History of Present Illness Details Idalia returns for follow-up. She was last seen in the clinic in 2018 or so. She has cardiomyopathy and left bundle-branch block but we have not seen her in many years. Recently admitted to the hospital for question of congestive heart failure. However, not entirely clear that time if it is all cardiac as she also had low albumin and that could also lead to leg swelling. Overall, she is doing okay. No symptoms like shortness of breath but she does not do much on either at baseline. She can lie down flat according to daughter and no orthopnea type symptoms. Leg swelling also gets better whenever she does leg elevation. No angina. Per daughter, she is going to an oncologist in [facility] and plan is to start chemotherapy and then potentially go for pancreas surgery as there is a diagnosis of pancreatic cancer. We need to actually review all those records. Daughter acts as the translator and interpreter and signed the appropriate forms. [facility] Medical History (Updated 01/23/23 @ 11:47 by Tomas Cerna MD) Nonischemic cardiomyopathy Left bundle branch block Pancreatic lesion Abnormal urine odor Uterine prolapse Arthritis HTN (hypertension) Diabetes mellitus Surgical History Hx of appendectomy History of loop electrical excision procedure (LEEP) Family History Sister Breast cancer Mother Vaginal cancer Social History Household Members: Family Housing: Apartment Do you presently have visiting nurse or other home services: No Alcohol intake: current Alcohol intake frequency: holidays/special occasions only Patient Tobacco Use Status: Never used Tobacco service: No Current occupational status: retired Gender identity: Female Review of Systems Const Denies weakness ENT Denies dizziness Card Denies chest pain, Denies chest pain with activity, Denies syncope, Denies rapid heart rate, Denies pedal edema, Denies edema, Denies leg edema, Denies lightheadedness, Denies palpitations, Denies dyspnea, Denies dyspnea on exertion and Denies orthopnea Resp Denies cough, Denies dyspnea and Denies dyspnea on exertion GI Denies hematochezia and Denies change in stool character Musc Denies abnormal gait, Denies muscle cramps, Denies muscle weakness, Denies numbness, Denies radiating pain into limb and Denies tingling Neuro Denies abnormal gait, Denies dizziness, Denies syncope, Denies numbness, Denies tingling and Denies weakness Endo Denies palpitations Physical Exam Vital Signs: Last Vital Signs Pulse 82 01/23/23 11:10 BP 108/60 01/23/23 11:10 BMI result Body Mass Index 23.0 Const General: comfortable and no acute distress Orientation/consciousness: patient oriented x3 HEENT Other: Unremarkable Head: Yes normal to inspection Neck Neck: Yes normal visual inspection Chest Chest palpation & inspection: normal inspection of the chest Resp Auscultation: clear to auscultation bilaterally Cardio Palpation: normal PMI Heart sounds: S1 normal heart sound present, S2 normal heart sound present, no gallops, no murmurs and no rubs GI Palpation (GI): Soft to palpation Back/Spine/Pelvis Other: unremarkable Skin General skin exam: no rashes or lesions noted Neuro General: patient oriented x3 Extrem Other: 2 + edema General: Yes normal to inspection Psych Mental Status: mental status grossly normal Assessment & Plan Assessment & Plan (1) Nonischemic cardiomyopathy: Code(s): I42.8 - Other cardiomyopathies (2) Left bundle branch block: Code(s): I44.7 - Left bundle-branch block, unspecified (3) Pancreatic lesion: Code(s): K86.9 - Disease of pancreas, unspecified Plan Labs reviewed. Last BUN is 41. Creatinine is 2.4. BNP levels are 626 and 1058. Albumin level is 2.9. Has been lower than that to 2.6. Echocardiogram with LVEF of 30-35%. Wall motion abnormalities related to bundle branch block. She has undergone cardiac catheterization 2012 and that showed minimal irregularities nothing obstructive. Overall, suspect the leg swelling is multifactorial and not entirely cardiac. Could be from combination of cardiac dysfunction as well as hypoalbuminemia, malignancy. Off diuretics due to renal dysfunction. She may remain on carvedilol. Continue hydralazine for the blood pressure. Amlodipine could worsen leg swelling and hence she is not on it. Due to renal dysfunction, no KAT inhibitors or ARB or Entresto. Will contact [facility]ry Arroyo for oncology records. If she needs any major pancreatic surgery, we can potentially consider stress test but if she definitely needs surgery we may have to accept the risk and proceed anyway. Discussed with daughter who came for appointment. Medications: Changed From carvedilol 3.125 mg See Protocol PO BID 30 days 60 tabs 0RF To carvedilol 3.125 mg See Protocol PO BID Coding Level of Care Code Est Pt Level 4 (01370) Diagnoses Nonischemic cardiomyopathy I42.8 Left bundle branch block I44.7 Pancreatic lesion K86.9
== END 2023-01-23 11:29 | disposition home or self-care (01) ==
PROVIDERS: PCP Internal Medicine; Visit Provider Internal Medicine
DX: I42.8 Other cardiomyopathies (principal); I44.7 Left bundle-branch block, unspecified; K86.9 Disease of pancreas, unspecified
CPT/HCPCS: 99214

== ENCOUNTER 2023-01-31 16:07 | Outpatient (AMB) | payer OTHER, SELFPAY ==
[2023-01-31 16:07] VITALS: BP 120/60; PULSE 92; TEMP 36.6; O2SAT 99; BMI 23.5
--- NOTE | 2023-01-31 16:07 | AM.OFFWIN_ITS ---
Intake Vital Signs 01/31/23 16:07 Height 5 ft 5 in Weight 141 lb BMI 23.5 BP 120/60 Blood Pressure Location Rt brachial Position Sitting Pulse 92 Pulse Source Pulse Oximeter Temp 97.9 F Temp Source Temporal Artery Scan Pulse Oximetry (%) 99 Intake Visit Reasons: EP, weak, poor appetite Intake Note: pt is here for c/o weak, poor appetite Patient Tobacco Use Status: Never used Tobacco Allergies penicillin V Allergy (Unknown, Verified 02/01/23 08:13) hives, Rash Penicillins [PENICILLINS] Allergy (Unknown, Verified 02/01/23 08:13) RASH Medication List - Last Reconciled 02/01/23 by Chico Apple MD carvedilol 3.125 mg See Protocol PO BID wilber.stocking,knee,reg,smal (T.E.D. Knee Wcvkrx-B-Vhtutke misc) As directed hydralazine 50 mg PO BID@0830,1430 30 days hydralazine 100 mg PO BEDTIME 30 days pantoprazole 40 mg PO BID tramadol 1 tab PO QID PRN Do you need a note to return to daycare/school/sports/work: Yes HPI EP, weak, poor appetite HPI Details 77-year-old presents to the office for a sick visit. She is accompanied by her daughter who is providing the history. Daughter reports patient has decreased her intake of food. She is feeling very tired. Her chronic medical conditions include anemia and renal failure. She has swelling in her feet. No cough or shortness of breath. No fevers or chills. [facility] Medical History (Updated 02/01/23 @ 08:18 by Chico Apple MD) Nonischemic cardiomyopathy Left bundle branch block Pancreatic lesion Abnormal urine odor Uterine prolapse Arthritis HTN (hypertension) Diabetes mellitus Surgical History Hx of appendectomy History of loop electrical excision procedure (LEEP) Family History Sister Breast cancer Mother Vaginal cancer Social History Household Members: Family Housing: Apartment Do you presently have visiting nurse or other home services: No Alcohol intake: current Alcohol intake frequency: holidays/special occasions only Patient Tobacco Use Status: Never used Tobacco service: No Current occupational status: retired Gender identity: Female Physical Exam Vital Signs: Last Vital Signs Temp 97.9 F 01/31/23 16:07 Pulse 92 01/31/23 16:07 BP 120/60 01/31/23 16:07 Pulse Ox 99 01/31/23 16:07 BMI result Body Mass Index 23.5 Const General: cooperative and healthy appearing Nutritional Appearance: well nourished Orientation/consciousness: patient oriented x3 Limitations: no limitations HEENT Head: Yes normal to inspection Eyes General: appearance normal, both eyes and all related structures Neck Neck: Yes normal visual inspection Chest Chest palpation & inspection: normal palpation of entire chest wall Resp Effort & Inspection: normal respiratory effort Neuro General: patient oriented x3 Extrem Other: 2+ pitting edema in the lower extremity. Assessment & Plan Assessment & Plan (1) Fatigue: Code(s): R53.83 - Other fatigue Qualifiers: Fatigue type: chronic, unspecified Qualified Code(s): R53.82 - Chronic fatigue, unspecified Plan: I encouraged the daughter to take her to the emergency room for IV hydration and blood work. Past medical history reviewed. Patient has baseline anemia and worsening renal function. Daughter requested a COVID test before she left for the ED. I agreed. Will call with results. Orders: Orders SARS-CoV2/FLU/RSV 01/31/23 R43.9 - Unspecified disturbances of smell and taste Coding Level of Care Code Est Pt Level 3 (22927) Diagnoses Chronic fatigue R53.82 Fatigue type: chronic, unspecified
== END 2023-01-31 16:40 | disposition home or self-care (01) ==
PROVIDERS: PCP Internal Medicine; Visit Provider Internal Medicine
DX: R53.82 Chronic fatigue, unspecified (principal)
CPT/HCPCS: 99213

== ENCOUNTER 2023-01-31 16:36 | Outpatient (REF) | payer OTHER, SELFPAY ==
[2023-02-01 12:21] LABS: Influenza A PCR NEGATIVE (Negative); Influenza B PCR NEGATIVE (Negative); Resp Syncy Virus RNA Qual PCR NEGATIVE (Negative); SARS COV2 PCR INHOUSE NEGATIVE (Negative)
== END 2023-01-31 16:37 | disposition home or self-care (01) ==
LOC: HO.LAB 16:36
PROVIDERS: Visit Provider Internal Medicine
DX: Z20.822 Contact with and (suspected) exposure to COVID-19 (principal); R43.9 Unspecified disturbances of smell and taste
CPT/HCPCS: 0241U

== ENCOUNTER 2023-02-01 15:01 | Inpatient (IN) | payer OTHER, SELFPAY ==
--- NOTE | ~2023-02-01 | CT_ITS ---
EXAMINATION: CT ABDOMEN AND PELVIS WITHOUT CONTRAST CLINICAL INFORMATION: Abdominal pain, nausea vomiting and diarrhea COMPARISON: Previous MRI of the abdomen and pelvis November 2022 TECHNIQUE: Multidetector volumetric imaging was performed from the superior aspect of the liver through the pubic symphysis. Sagittal and coronal reformatted images were obtained on the technologist's workstation. This CT examination was performed using dose optimization techniques as appropriate, variously including the following: *Automated exposure control *Adjustment of mA and/or kV according to patient size (this includes techniques or standardized protocols for targeted exams where dose is matched to indication/reason for exam; i.e. extremities or head) *Use of iterative reconstruction technique DLP: 542 mGy-cm FINDINGS: LUNG BASES: See chest CT from the same day LIVER, GALLBLADDER, AND BILIARY TREE: New Wallstent in the common bile duct. Pneumobilia in the left lobe of the liver. Biliary duct dilatation. No focal liver lesion. Gallbladder has been removed. PANCREAS: Mass in the head of the pancreas. This measures 3 cm and may be increased in size from Dilated main pancreatic duct measuring up to 7 mm. This may be increased as well. New moderate amount of ascites. SPLEEN: Unremarkable. ADRENAL GLANDS: Unremarkable. KIDNEYS AND URETERS: Small left renal stone. Left renal cyst. No imaging follow-up recommended. BLADDER: Not optimally distended. GASTROINTESTINAL TRACT: Diverticulosis of the colon. The small and large bowel are otherwise unremarkable. The appendix is unremarkable. ABDOMINAL WALL: No significant hernia is appreciated. Anasarca. LYMPH NODES: Increasing small bowel mesentery lymphadenopathy. Largest lymph node measures 9 mm axial[. Fat stranding and small bowel mesentery. VASCULAR: Unremarkable. PELVIC VISCERA: Unremarkable. OSSEOUS STRUCTURES: Degenerative changes spine. CT/CT abdomen pelvis wo IV con IMPRESSION: New Wallstent in the distal common bile duct. Interval decrease in biliary duct dilatation. 3 cm mass in the head of the pancreas and dilatation of the main pancreatic duct increased compared to November 2022 exam. Increasing small bowel mesentery lymphadenopathy. New moderate amount of ascites. Fleischner guidelines were followed.
--- NOTE | ~2023-02-01 | CT_ITS ---
EXAMINATION: CT CHEST WITHOUT CONTRAST CLINICAL INFORMATION: Cough COMPARISON: Previous chest CTA June 2012 and chest x-ray most recent from earlier the same day TECHNIQUE: Multidetector volumetric CT imaging of the chest was done. Axial MIP volume rendering provided. Sagittal and coronal reformatted images were obtained. This CT examination was performed using dose optimization techniques as appropriate, variously including the following: *Automated exposure control *Adjustment of mA and/or kV according to patient size (this includes techniques or standardized protocols for targeted exams where dose is matched to indication/reason for exam; i.e. extremities or head) *Use of iterative reconstruction technique DLP: 178 mGy-cm FINDINGS: LUNGS: Calcified right middle lobe pulmonary nodules suggestive of calcified granulomas. No suspicious pulmonary nodule. Dependent atelectasis at the lung bases. MEDIASTINUM: Small calcified mediastinal lymph nodes. No enlarged lymph nodes. Normal heart size. No pericardial effusion. Mild coronary artery calcification. Size thoracic aorta. CORONARY ARTERY CALCIFICATION: None visualized on this study. PLEURA: Trace bilateral pleural effusions, left greater than right. AXILLA: No lymphadenopathy. UPPER ABDOMEN: See abdominal and pelvic CT report from the same day. OSSEOUS STRUCTURES: Old bilateral rib fractures. CT/CT chest wo IV con IMPRESSION: Evidence of old granulomatous disease. Trace bilateral pleural effusions. Fleischner guidelines were followed.
--- NOTE | ~2023-02-01 | XR_ITS ---
EXAMINATION: XR CHEST CLINICAL INFORMATION: Cough. COMPARISON: 12/26/2022. TECHNIQUE: 2 views of the chest were obtained. FINDINGS: The cardiomediastinal silhouette is stable. Calcific granulomata are again seen right lower lung field. The lungs are otherwise clear. The bony structures are osteopenic. The soft tissues are unremarkable. XR/XR chest 2V IMPRESSION: No active cardiopulmonary disease.
--- NOTE | 2023-02-01 15:17 | ED_ITS ---
HPI - General Adult General Chief complaint: General Medical Stated complaint: weak, v/d, dehydrated, multiple comp Time Seen by Provider: 02/01/23 17:03 History of Present Illness HPI narrative: Patient is a 77-year-old female who presents emergency department with her granddaughter for evaluation of multiple symptoms including nausea vomiting and diarrhea with abdominal pain which has been reportedly chronic for many years. Granddaughter reports a recent diagnosis of pancreatic cancer in November of 2022, she has not yet undergone treatment she has an appointment through [facility] with their oncology department and is awaiting port placement to begin chemotherapy and radiation. In addition she has been experiencing URI symptoms with productive cough for the past week with minimal improvement. She endorses increased lower extremity edema, per her granddaughter the Lasix was stopped a few weeks ago due to her renal function by her primary care provider. Denies chest pain, shortness of breath, difficulty breathing, orthopnea. Related Data Home Medications Medication Instructions Recorded Confirmed tramadol 50 mg tablet 1 tab PO QID PRN Pain 11/24/21 02/01/23 carvedilol 3.125 mg tablet 3.125 mg PO BID 01/23/23 02/01/23 Previous Rx's Medication Instructions Recorded wilber.stocking,knee,reg,smal #24 ea 12/30/22 (T.E.D. Knee Siafjz-T-Dwuorta misc) hydralazine 100 mg tablet 100 mg PO BEDTIME 30 days #30 tabs 12/30/22 hydralazine 50 mg tablet 50 mg PO BID@0830,1430 30 days #60 12/30/22 tabs Allergies Allergy/AdvReac Type Severity Reaction Status Date / Time penicillin V Allergy Unknown hives, Rash Verified 02/01/23 15:18 Penicillins [PENICILLINS] Allergy Unknown RASH Verified 02/01/23 15:18 Review of Systems 2 Review of Systems: Yes all other systems are reviewed and are negative PMFSH Past Medical History Attestation statement: The following information was validated with the patient. Source: old records reviewed Medical History Nonischemic cardiomyopathy Left bundle branch block Pancreatic lesion Abnormal urine odor Uterine prolapse Arthritis HTN (hypertension) Diabetes mellitus Surgical History Hx of appendectomy History of loop electrical excision procedure (LEEP) Family History Family History Sister Breast cancer Mother Vaginal cancer Social History Social History Household Members: Family Housing: Apartment Do you presently have visiting nurse or other home services: No Alcohol intake: never Patient Tobacco Use Status: Never used Tobacco Smoked in Last 30 Days: No Use of substances other than those prescribed or required for medical reasons: No Advance Directives: No Advance Directives Information Provided: No service: No Current occupational status: retired Gender identity: Female Physical Exam ED Vital Signs: Vital Signs - 24 hr 02/01/23 15:19 02/01/23 20:00 Temperature 98 F 98.1 F Pulse Rate 77 65 Respiratory Rate 18 15 Blood Pressure 117/91 H 161/58 H Pulse Oximetry 98 99 Oxygen Delivery Method Room Air Room Air BMI result Body Mass Index 26.3 Appearance: Alert.?Oriented to person, place and time. No acute distress.?Normal affect. Eyes: Pupils equal, round and reactive to light.? ENT: Pharynx normal.?? Neck: Normal inspection.? Neck supple.?? CVS: Heart sounds normal. Normal heart rate and rhythm.? Pulses normal.?? Respiratory: No respiratory distress.? Lung sounds clear to auscultation bilaterally?? Abdomen: Soft with mild diffuse tenderness. No rigidity. No guarding. Normoactive bowel sounds. No pulsatile mass.?? Skin: Skin warm and dry.? Normal skin color.? Extremities: 3+ bilateral lower extremity pitting edema. Doppler signal DP/PT pulse bilaterally. No calf ttp? Neuro: Moves all extremities spontaneously. Sensation intact bilaterally. No focal neuro deficits. Ambulates with normal steady gait. Course Course Course Narrative: RME: 77-year-old female with a past medical history of dementia, pancreatic CA (not currently being tx), nonischemic cardiomyopathy, LBBB, HTN, diabetes, uterine prolapse, presenting to the ED complaining of nausea, vomiting, diarrhea, chronic abdominal pain, decreased PO intake, anorexia, weakness, cough, & LE edema. tested negative on home COVID yesterday. Daughter states was recently discharged from our facility on 12/30/22 for CHF & MARKY. denies CP/SOB +b/l LE pitting edema, lungs CTA, abdomen soft nontender EKG, labs, UA, Viral testing, CXR Full HPI, ROS and PE to be performed by primary ED provider. Reevaluation(s) Reevaluation #1: Received call from lab regarding critical troponin of 231.2, none prior available for review, currently without chest pain or difficulty breathing, EKG without acute ischemic abnormalities, likely secondary to abnormal renal function as opposed to ACS, will consult Cardiology. Plan to obtain delta troponin for further evaluation. CBC is without leukocytosis, thrombocytopenia and normocytic anemia with H&H of 8.4/26.1 in comparison to 9.8/30.2 10 days ago; no reports of active bleeding, will obtain occult stool sample for evaluation. BMP of 480, chest x-ray without evidence of pulmonary congestion. Bilateral lower extremity edema as per cardiology evaluation in the past thought to be multifactorial as opposed to solely cardiogenic in the setting of decreased mobility, malignancy, hypoalbuminemia, and abnormal renal function. Time: 17:59 Reevaluation #2: Delta troponin is flat, I spoke with cardiology; Dr. Wong who agrees, given no clinical symptoms or signs of ischemia, do not suspect ACS at this time, elevated troponin and BNP may be in relation to cardiomyopathy and reduced renal clearance. For +pitting edema to the bilateral lower extremities, at this time feel that diuresis would be min most appropriate, will treat with furosemide [address] of the chest revealing trace bilateral pleural effusions no evidence of consolidation/pneumonia. CT of the abdomen and pelvis revealing decreased biliary duct dilation mass in the head of the pancreas which is increased since November of 2022, in new moderate amount of ascites, further supportive of CHF. Reviewed this case with hospitalist service, accepted for admission to medicine service by Dr. Ramachandran. Patient and family agreeable with plan of care. Time: 20:40 Medications Administered Generic Name Dose Route Start Last Admin Trade Name Freq PRN Reason Stop Dose Admin Heparin Sodium (Porcine) 5,000 unit 02/01/23 22:00 02/01/23 22:14 Heparin Sodium,Porcine 5,000 Unit/Ml Vial SUBCUT 5,000 unit Q12H DELMA Administration Ceftriaxone Sodium 1 gm/ 50 mls @ 100 mls/hr 02/01/23 22:00 02/01/23 22:14 Sodium Chloride IV 100 mls/hr Q24H DELMA Administration Sodium Chloride 3 ml 02/02/23 00:00 02/01/23 22:17 0.9 % Sodium Chloride Flush 3 Ml Syringe IVFLUSH 3 ml QSHIFT DELMA Administration Discontinued Medications Generic Name Dose Route Start Last Admin Trade Name Freq PRN Reason Stop Dose Admin Furosemide 60 mg 02/01/23 20:45 02/01/23 21:20 Furosemide 100 Mg/10 Ml Vial IVPUSH 02/01/23 20:46 60 mg ONCE ONE Administration Protocol Medical Decision Making Medical Decision Making MDM Narrative: Patient is a 77-year-old female with past medical history of dementia, pancreatic cancer not yet receiving treatment, nonischemic cardiomyopathy, LBBB, hypertension, diabetes, uterine prolapse, anemia presenting to emergency department for evaluation of multiple complaints including abdominal symptoms with chronic pain, N/V/D, decreased p.o. intake, weakness, anorexia. Upon review of her chart she was seen at the walk-in clinic associated with this hospital yesterday, at that time patient and her daughter were advised to come to the emergency department, she had COVID-19/influenza/RSV testing which were negative. She had recent admission to this hospital 01/01/2023-12/30/2022; lower extremity edema with possible acute HFrEF with most recent EF 30-35% transitioned to oral Lasix advised compression stockings an outpatient follow-up with Cardiology, MARKY with improvement during admission discontinuation of losartan and initiation of hydralazine in addition to Coreg. Will obtain CBC to evaluate for leukocytosis/ anemia, CMP and lipase to evaluate for abnormal electrolytes /abnormal renal function/ abnormal hepatic/biliary function, EKG and troponin to evaluate for ischemia/ACS. Chest x-ray to evaluate for consolidation/ infiltrate/ mass/ pulmonary congestion CT AP and Urinalysis. Differential Diagnosis Differential Diagnoses: The differential diagnosis associated with the presentation includes (Viral syndrome, adult failure to thrive, CHF exacerbation, ACS, gastroenteritis, GERD, appendicitis, diverticulitis, bowel obstruction, colitis.) Admission/Observation Consideration of admission/observation: Escalation of care including admission/observation considered (I considered admission to the hospital upon initial examination, see course narrative for further detail) Consult Healthcare Provider Management of the patient was discussed with: Hospitalist and [employer] Lab Data MDM Lab Attestation statement: I reviewed the patient's lab results. (See course narrative for further detail) 02/01/23 17:18 02/01/23 18:47 Labs: Lab Results 02/01/23 02/01/23 02/01/23 Range/Units 17:18 17:49 18:47 WBC 6.4 (4.8-10.8) X10*3/uL RBC 2.71 L (4.20-5.50) X10*6/uL Hgb 8.4 L (12.0-16.0) g/dl Hct 26.1 L (37.0-47.0) % MCV 96.3 (80.0-98.0) fL MCH 31.0 (27.0-33.0) pg MCHC 32.2 (31.0-35.0) g/dl RDW 14.5 (11.0-16.0) % Plt Count 118 L D (160-400) X10*3/uL MPV 10.8 (9.4-12.3) fL Immature Gran % (Auto) 0.3 (0.0-0.4) % Neut % (Auto) 74.4 H (45-73) % Lymph % (Auto) 19.7 L (20-40) % [place] % (Auto) 5.2 (2-11) % Eos % (Auto) 0.2 (0-4) % Baso % (Auto) 0.2 (0-2) % Lymph # (Auto) 1.3 (1.2-4.9) X10*3/uL [place] # (Auto) 0.3 (0.1-1.2) X10*3/uL Eos # (Auto) 0.0 (0.0-0.4) X10*3/uL Baso # (Auto) 0.0 (0.0-0.2) X10*3/uL Abs Immat Gran (auto) 0.02 (0.00-0.03) X10*3/uL Absolute Neuts (auto) 4.7 (2.0-8.3) x10*3/uL Absolute Nucleated RBC 0.000 (0.0-0.012) X10*3/uL Nucleated RBC % (auto) 0.0 (0.0-0.2) /100WBC PT 11.7 (11.1-13.3) SEC INR 1.0 (0.9-1.1) Sodium 138 (135-145) mmol/L Potassium 3.6 (3.3-5.1) mmol/L Chloride 110 H (96-108) mmol/L Carbon Dioxide 18 L (22-29) mmol/L Anion Gap 14 (12-20) BUN 44 H (9-16) mg/dL Creatinine 2.50 H (0.5-1.4) mg/dL Estim Creat Clear Calc 16.5 Estimated GFR 19 Random Glucose 150 H (60-115) mg/dL Calcium 8.0 L (8.4-10.2) mg/dL Magnesium 1.6 (1.6-2.6) mg/dL Total Bilirubin 0.7 (0.0-1.0) mg/dL Direct Bilirubin 0.3 (0.0-0.5) mg/dL AST 38 H (5-31) U/L ALT 23 (0-31) U/L Alkaline Phosphatase 121 H (39-117) U/L Troponin I High Sens 231.2 H* (<3.5-17.0) ng/L B-Natriuretic Peptide 480 H (<100) pg/mL Total Protein 5.6 L (6.5-8.0) g/dL Albumin 2.5 L (3.5-5.0) g/dL Lipase < 4 L (8-78) U/L COVID-19 (JÚNIOR) Negative (Negative) COVID-19 Clin Com See Note 02/01/23 Range/Units 19:54 WBC (4.8-10.8) X10*3/uL RBC (4.20-5.50) X10*6/uL Hgb (12.0-16.0) g/dl Hct (37.0-47.0) % MCV (80.0-98.0) fL MCH (27.0-33.0) pg MCHC (31.0-35.0) g/dl RDW (11.0-16.0) % Plt Count (160-400) X10*3/uL MPV (9.4-12.3) fL Immature Gran % (Auto) (0.0-0.4) % Neut % (Auto) (45-73) % Lymph % (Auto) (20-40) % [place] % (Auto) (2-11) % Eos % (Auto) (0-4) % Baso % (Auto) (0-2) % Lymph # (Auto) (1.2-4.9) X10*3/uL [place] # (Auto) (0.1-1.2) X10*3/uL Eos # (Auto) (0.0-0.4) X10*3/uL Baso # (Auto) (0.0-0.2) X10*3/uL Abs Immat Gran (auto) (0.00-0.03) X10*3/uL Absolute Neuts (auto) (2.0-8.3) x10*3/uL Absolute Nucleated RBC (0.0-0.012) X10*3/uL Nucleated RBC % (auto) (0.0-0.2) /100WBC PT (11.1-13.3) SEC INR (0.9-1.1) Sodium (135-145) mmol/L Potassium (3.3-5.1) mmol/L Chloride (96-108) mmol/L Carbon Dioxide (22-29) mmol/L Anion Gap (12-20) BUN (9-16) mg/dL Creatinine (0.5-1.4) mg/dL Estim Creat Clear Calc Estimated GFR Random Glucose (60-115) mg/dL Calcium (8.4-10.2) mg/dL Magnesium (1.6-2.6) mg/dL Total Bilirubin (0.0-1.0) mg/dL Direct Bilirubin (0.0-0.5) mg/dL AST (5-31) U/L ALT (0-31) U/L Alkaline Phosphatase (39-117) U/L Troponin I High Sens 228.0 H* (<3.5-17.0) ng/L B-Natriuretic Peptide (<100) pg/mL Total Protein (6.5-8.0) g/dL Albumin (3.5-5.0) g/dL Lipase (8-78) U/L COVID-19 (JÚNIOR) (Negative) COVID-19 Clin Com Independent Interpretation I performed an independent interpretation of an: EKG and Plain X-Ray (I personally interpreted chest x-ray and agree with radiologist impression, no evidence of consolidation, pulmonary congestion) Interpretation: Rate: 61 Rhythm:? Normal sinus rhythm with known left bundle-branch block Normal P waves.? Normal DAVID.?? Normal QRS complex.?? qTC: prolonged 507 prior studies:? December 2022, no significant change The study has been interpreted contemporaneously by me. Radiology Impression Discussion of test interpretation with radiology: I have reviewed the radiologist's reading. Radiologist Impression: XR/XR chest 2V IMPRESSION: No active cardiopulmonary disease. CT/CT abdomen pelvis wo IV con IMPRESSION: New Wall[place] in the distal common bile duct. Interval decrease in biliary duct dilatation. 3 cm mass in the head of the pancreas and dilatation of the main pancreatic duct increased compared to November 2022 exam. Increasing small bowel mesentery lymphadenopathy. New moderate amount of ascites. CT/CT chest wo IV con IMPRESSION: Evidence of old granulomatous disease. Trace bilateral pleural effusions. Independent Historian Clinical information obtained from an independent historian. History obtained from or confirmed by: Other (Daughter present at bedside confirms history) External Record Review External record reviewed: Inpatient record (As per narrative above) and Outpatient record (As per narrative above) Discharge Plan Discharge Clinical Impression: Acute kidney injury, CHF exacerbation, Pancreatic cancer Patient Disposition: Admitted As Inpatient
[2023-02-01 15:19] VITALS: BP 117/91; PULSE 77; RESP 18; TEMP 36.6; O2SAT 98; BMI 26.3
--- NOTE | 2023-02-01 15:19 | ECG_ITS ---
Test Reason : Weakness Blood Pressure : / mmHG Vent. Rate : 061 BPM Atrial Rate : 061 BPM P-R Int : 148 ms QRS Dur : 152 ms QT Int : 504 ms P-R-T Axes : 091 017 179 degrees QTc Int : 507 ms Normal sinus rhythm Left bundle branch block Abnormal ECG When compared with ECG of 26-DEC-2022 17:08, No significant change was found Referred By: Linh Harrington Electronically Signed By:DAVE DAVID
[2023-02-01 17:24] LABS: MANUAL DIFF FLAG NO
[2023-02-01 17:25] LABS: Basophils Percent Auto 0.2 % (0-2); Eosinophils Percent Auto 0.2 % (0-4); Hematocrit 26.1 % (37.0-47.0); Hemoglobin 8.4 g/dl (12.0-16.0); Imm Gran Abs Auto 0.02 X10*3/uL (0.00-0.03); Imm Gran Pct Auto 0.3 % (0.0-0.4); Lymphocytes Absolute Auto 1.3 X10*3/uL (1.2-4.9); Lymphocytes Percent Auto 19.7 % (20-40); Mean Corpuscular HGB Conc 32.2 g/dl (31.0-35.0); Mean Corpuscular Volume 96.3 fL (80.0-98.0); Mean Platelet Volume 10.8 fL (9.4-12.3); Monocytes Absolute Auto 0.3 X10*3/uL (0.1-1.2); Monocytes Percent Auto 5.2 % (2-11); Neutrophils Absolute Auto 4.7 x10*3/uL (2.0-8.3); Neutrophils Percent Auto 74.4 % (45-73); Platelet Count 118 X10*3/uL (160-400); Red Blood Count 2.71 X10*6/uL (4.20-5.50); Red Cell Distribution Width 14.5 % (11.0-16.0); White Blood Count 6.4 X10*3/uL (4.8-10.8)
[2023-02-01 17:38] LABS: COVID-19 Test Negative (Negative); IDNOW Serial# BCCEAD1C
[2023-02-01 17:46] LABS: B Type Natriuretic Peptide 480 pg/mL (<100)
[2023-02-01 17:49] LABS: Troponin-I High Sensitivity 231.2 ng/L (<3.5-17.0)
[2023-02-01 18:00] LABS: Prothrombin Time 11.7 SEC (11.1-13.3)
[2023-02-01 19:12] LABS: Alanine Aminotransferase 23 U/L (0-31); Albumin Level 2.5 g/dL (3.5-5.0); Alkaline Phosphatase 121 U/L (39-117); Anion Gap 14 (12-20); Aspartate Amino Transferase 38 U/L (5-31); Bilirubin Direct 0.3 mg/dL (0.0-0.5); Bilirubin Total 0.7 mg/dL (0.0-1.0); Blood Urea Nitrogen 44 mg/dL (9-16); Carbon Dioxide 18 mmol/L (22-29); Chloride 110 mmol/L (96-108); Creatinine Clr Calc Pharmacy 16.5; Estimated Glomerular Filt Rate 19; Glucose Random 150 mg/dL (60-115); Lipase < 4 U/L (8-78); Magnesium 1.6 mg/dL (1.6-2.6); Potassium 3.6 mmol/L (3.3-5.1); Sodium 138 mmol/L (135-145); Total Protein 5.6 g/dL (6.5-8.0)
--- NOTE | 2023-02-01 19:54 | MHC.EDTECH ---
t/w assumed care of pt at 1900. attempted to draw second troponin unsuccessfully. pt asked for no more straight sticks. pt requested nurse draw lab from IV. [facility] notified.
[2023-02-01 20:00] VITALS: BP 161/58; PULSE 65; RESP 15; TEMP 36.7; O2SAT 99
--- NOTE | 2023-02-01 20:02 | MHC.EDTECH ---
t/w assumed care of pt at 1900. orthostatic vital signs ordered at 1520. order not completed. no report from previous tech. will complete order if indicated by rn or provider as necessary at this time.
[2023-02-01] MEDS: Furosemide 100 MG/10 ML VIAL 60 MG IVPUSH (21:20)
[2023-02-01] MEDS: cefTRIAXone sodium 1 GM in 0.9 % Sodium Chloride 50 ML IV (22:14)
[2023-02-01] MEDS: Heparin Sodium,Porcine 5,000 UNIT/ML VIAL 5000 UNIT SUBCUT (22:14)
--- NOTE | 2023-02-01 22:15 | PHA.MEDREC ---
Pharmacy Consult ? Medication Reconciliation Pharmacy has completed the medication reconciliation. Spoke with patients daughter. She reports she has not been giving the night hydralazine due to low blood pressues therefore I left unconfirmed. She reports she does not always give the night of cavedilol but sometimes does. Report lasix was stopped. Any Raygoza, PharmD
[2023-02-01] MEDS: 0.9 % Sodium Chloride Flush 3 ML SYRINGE IVFLUSH (22:17)
--- OUTSIDE RECORDS SUMMARY | 2023-02-01 23:42 | XMS_ITS | Patient Health Record ---
Author Name Unknown Organization Quique Yates III, MD Address [address] [place] [address] [address] [place] [address] Care Team Providers Care Adon Name Role Phone Mor Marin MD Primary Care Provider Quique Casarez Unavailable [phone] ALLERGIES Allergen (clinical drug ingredient) Drug/Non Drug Allergy documented on EMR Reaction Allergy Type Onset Date Status Penicillin Unknown Drug Allergy Active RESULTS Component Value Reference Range Notes Complete Blood Count Auto Di ff Reviewed date:11/30/2022 08:52:08 AM Interpretation: Performing Lab:[facility], [address] [place] [phone] Notes/Report: White Blood Count 6.5 4.8-10.8 X10*3/uL Red Blood Count 3.83 4.20-5.50 X10*6/uL Hemoglobin 11.9 12.0-16.0 g/dl Hematocrit 36.4 37.0-47.0 % Mean Corpuscular Volume 95.0 80.0-98.0 fL Mean Corpuscular Hemoglobin 31.1 27.0-33.0 pg Mean Corpuscular HGB Conc 32.7 31.0-35.0 g/dl Red Cell Distribution Width 15.4 11.0-16.0 % Platelet Count 161 160-400 X10*3/uL Mean Platelet Volume 11.7 9.4-12.3 fL Neutrophils Percent Auto 51.3 45-73 % Imm Gran Pct Auto 0.2 0.0-0.4 % Lymphocytes Percent Auto 37.5 20-40 % Monocytes Percent Auto 9.3 2-11 % Eosinophils Percent Auto 1.1 0-4 % Basophils Percent Auto 0.6 0-2 % NRBC Pct Auto 0.0 0.0-0.2 /100WBC Neutrophils Absolute Auto 3.4 2.0-8.3 x10*3/u L Imm Gran Abs Auto 0.01 0.00-0.03 X10*3/uL Lymphocytes Absolute Auto 2.5 1.2-4.9 X10*3/u L Monocytes Absolute Auto 0.6 0.1-1.2 X10*3/uL Eosinophils Absolute Auto 0.1 0.0-0.4 X10*3/u L Basophils Absolute Auto 0.0 0.0-0.2 X10*3/uL NRBC Abs Auto 0.000 0.0-0.012 X10*3/uL Comprehensive Met. Panel Reviewed date:11/30/2022 08:52:08 AM Interpretation: Performing Lab:[address] [address] Notes/Report: Sodium 139 135-145 mmol/L Potassium 3.8 3.3-5.1 mmol/L Chloride 105 96-108 mmol/L Carbon Dioxide 27 22-29 mmol/L Anion Gap 11 12-20 Blood Urea Nitrogen 22 9-16 mg/dL Creatinine 1.62 0.5-1.4 mg/dL Estimated Glomerular Filt Rate 31 NOTE: For -Palestinian individuals, multiply the result by 1.210. Chronic Kidney Disease: Estimated GFR < 60 mL/min/1.73m2 Severe Kidney Disease: Estimated GFR < 15 mL/min/1.73m2 Glucose Random 141 60-115 mg/dL Calcium 8.8 8.4-10.2 mg/dL Bilirubin Total 2.5 0.0-1.0 mg/dL Aspartate Amino Transferase 29 5-31 U/L Alanine Aminotransferase 39 0-31 U/L Total Protein 6.7 6.5-8.0 g/dL Albumin Level 3.4 3.5-5.0 g/dL Alkaline Phosphatase 383 39-117 U/L Carbohydrate Antigen 19-9 Reviewed date:01/02/2023 05:37:12 AM Interpretation: Performing Lab:[address] [address] Notes/Report: Carbohydrate Antigen 19-9 525 <34 U/mL The CA19-9 result may be increased on average 14% - 20%, relative to results previously obtained with this method due to a recent calibrator adjustment made in July 2022 by the reagent vacuum drier tender. In the low range for this assay (< 34 U/mL), this increase may be greater than 20%. Serially monitored results should always be used in conjunction with other diagnostic procedures, including clinical evaluation. This test was performed using the Siemens chemiluminescent method. Values obtained from different assay methods cannot be used interchangeably. CA 19-9 levels, regardless of value, should not be interpreted as absolute evidence of the presence or absence of disease. THIS TEST WAS PERFORMED AT: [facility] [employer] [address] [place] [phone] FREDO MAYS MD REASON FOR REFERRAL Reason pancreatic mass ? op erable Diagnosis 1 Adenocarcinoma of pa ncreas (C25.9) Referral Organization Quique Yates III, MD Referring Provider First Name Quique Referring Provider Last Name Yates Referring Provider Speciality Internal edicine Referred Provider Specialty Surgical Onc ology General Notes Lexie Jc CMA 12/07 09:37:10 AM EDT > [facility] does not take pt insurance she will be referred to an inplan provider Referral Priority Routine Reason adenocarcinoma of th e pancreas Diagnosis 1 Adenocarcinoma of pa ncreas (C25.9) Referral Organization Quique Yates III, MD Referring Provider First Name Quique Referring Provider Last Name Yates Referring Provider Speciality Internal edicine Referred Provider Specialty Medical Onco logy General Notes Lexie Jc CMA 12/07 01:49:57 PM EDT > Spoke to Christianne at the [facility] was told to fax all information to her at [phone] Varner review to see who needs to see her first Medical oncology or sugical oncology . All records faxed today to Babita Faust Suzanne CMA 12/27/2022 09:35:59 AM EDT > Christianne from [facility] called they do not take patient insurance . There will be a large out of pocket cost for the patient when I spoke to grand dtr about this she wanted pt to be referred to inplan provider. Referral Priority Routine Reason adenocarcinoma of th e pancreas Diagnosis 1 Adenocarcinoma of pa ncreas (C25.9) Referral Organization Quique Yates III, MD Referring Provider First Name Quique Referring Provider Last Name Yates Referring Provider Speciality Internal edicine Referred Provider [facility] Referred Provider Specialty Oncology General Notes Lexie Jc CMA 12/07 09:46:31 AM EDT > ref/demo/progress note/labs /path/x rays faxed to new pt coordinator at [facility] at [phone] phone # [phone], Lexie Jc CMA 12/28/2022 01:47:30 PM EDT > Pt wants to go to [facility] oncology dept so I called [facility] and cancelled this referral Referral Priority Routine Reason adenocarcinoma of pa ncreas Diagnosis 1 Adenocarcinoma of pa ncreas (C25.9) Referral Organization Quique Yates III, MD Referring Provider First Name Quique Referring Provider Last Name Milan Referring Provider Speciality Internal edicine Referred Provider Garry esteves, on cology dept Referred Provider Specialty Medical Onco logy General Notes Lexie Jc CMA 12/07 01:40:53 PM EDT > Called [facility] oncology dept spoke to Nazia She stated the patient needed to be registered first with the hospital (which I did for the patient ) then she asked for the ref/demo/progress note/x-rays/pathology/labs faxd to [facility] oncology dept attn: Nazia this was done and pt grand dtr left message that the referral was done , Lexie Jc [facility] 01/03/2023 09:50:39 AM EDT > called [facility] oncology spoke to Lisa pt has appt with Dr Ramsay on 01/11/2023 at 11am Referral Priority Routine Referral Appointment Date 01/11/2023 MEDICATIONS Medication SIG (Take, Route, Frequency, Duration) Notes Start Date End Date Status Losartan Potassium 100 MG TAKE 1 TABLET BY MOUTH EVERY DAY Oral Active amLODIPine Besylate 10 MG TAKE 1 TABLET BY MOUTH DAILY Oral Active droNABinol 2.5 MG as directed Orally T wice a day for 30 days 11/30/2022 06/28/2023 Active Furosemide 20 MG TAKE 1 TABLET BY KATYA TH EVERY DAY FOR 10 DAYS for 10 Active traMADol HCl 50 MG TAKE 1 TABLET BY KATYA TH FOUR TIMES DAILY Oral Active SOCIAL HISTORY Tobacco Use: Social History Observation Description Date Details (start date - stop date) Never Smoker NA - NA Sex Assigned At : Social History Observation Description Sex Assigned At Female Tobacco Use/Smoking Question Answer Notes Patient is a nonsmoker Additional Findings: Tobacco Non-User Aggressive non-smoker Alcohol Screen Question Answer Notes Did you have a drink containing alcohol in the p ast year? No Points 0 Interpretation Negative PROBLEMS Problem Type ICD Code Onset Dates Problem Status W/U Status Risk SNOMED Code Notes Problem Diabetes mellitus (E11.9) Active confirmed Diabetes mellitus (70021621) Her diabetes has improved recently with her weight loss. She will continue on current medication. Problem Arthritis (M19.90) Active confirmed Arthritis (4911711) Continues to have myeloproliferative symptoms and shoulders. Hips and knees. Problem HTN (hypertension) (I10) Active confirmed Hypertension (52372417) Her blood pressure today is 130/60. Her blood pressure has been much better with a 25 pound weight loss. She may soon be able to stop her blood pressure medication. Problem Uterine prolapse (N81.4) Active confirmed Uterine prolapse (27682220) Problem Adenocarcinoma of pancreas (C25.9) Active confirmed [id number] She recently experienced painless jaundice and required a stent to be placed in the ampulla. Her alkaline phosphatase and liver function tests are now improving. The pruritus from the jaundice is resolving. She has no appetite and has lost 25 pounds. She recently was hospitalized because of protracted vomiting. She is an excellent candidate for appetite stimulation with dronabinol. She has a prescription for ondansetron for nausea. The disease will be staged with a PET CT scan and a CA-19-9. If necessary, a surgical opinion will be obtained. An antineoplastic therapy will depend upon staging. Encounters Encounter Location Date Provider Diagnosis Quique Yates III, MD [address] [place] [address] [place] [address] 11/29/2022 Quique Yates Adenocarcinoma of pancreas C25.9 ; Diabetes mellitus E11.9 ; Arthritis M19.90 and HTN (hypertension) I10 Quique Yates III, MD [address] [place] [address] [place] [address] 11/28/2022 Quique Yates III, MD [address] [place] [address] [place] [address] 11/29/2022 Quique Yates III, MD [address] [place] [address] [place] [address] 12/07/2022 Quique Yates III, MD [address] [place] [address] [place] [address] 12/07/2022 Quique Yates III, MD [address] [place] [address] [place] [address] 12/26/2022 Quique Yates III, MD [address] [place] [address] [place] [address] 12/26/2022 Quique Yates III, MD [address] [place] [address] [place] [address] 12/26/2022 Quique Yates III, MD [address] [place] [address] [place] [address] 12/27/2022 Quique Yates III, MD [address] [place] [address] [place] [address] 12/27/2022 Quique Yates III, MD [address] [place] [address] [place] [address] 12/28/2022 Quique Yates III, MD [address] [place] [address] [place] [address] 12/30/2022 Quique Yates ASSESSMENTS Encounter Date Diagnosis Assessment Notes Treatment Notes Treatment Clinical Notes 11/29/2022 Diabetes mellitus (ICD-10 - E11.9) Her diabetes has improved recently with her weight loss. She will continue on current medication. 11/29/2022 Adenocarcinoma of pancreas (ICD-10 - C25.9) She recently experienced painless jaundice and required a stent to be placed in the ampulla. Her alkaline phosphatase and liver function tests are now improving. The pruritus from the jaundice is resolving. She has no appetite and has lost 25 pounds. She recently was hospitalized because of protracted vomiting. She is an excellent candidate for appetite stimulation with dronabinol. She has a prescription for ondansetron for nausea. The disease will be staged with a PET CT scan and a CA-19-9. If necessary, a surgical opinion will be obtained. An antineoplastic therapy will depend upon staging. 11/29/2022 Arthritis (ICD-10 - M19.90) Continues to have myeloproliferative symptoms and shoulders. Hips and knees. 11/29/2022 HTN (hypertension) (ICD-10 - I10) Her blood pressure today is 130/60. Her blood pressure has been much better with a 25 pound weight loss. She may soon be able to stop her blood pressure medication. PLAN OF TREATMENT Pending Test Test Name Order Date PROFILE, RANDOM (COMPREHENSIVE METABOLIC ) 11/29/2022 CBC w DIFF 11/29/2022 CARBOHYDRATE ANTIGEN 19-9 (CA 19-9) 11/[address] SKULL TO THIGHS 11/29/2022 Insurance Providers Payer Name Payer Address Payer Phone Subscriber Number Group Number Insured Name Patient Relationship to Insured Coverage Start Date Coverage End Date [facility] [address] [address] [place], [place] [id number] ERVIN AGUILA Self - patient is the insured MEDICAL (GENERAL) HISTORY Medical History History ICD Code Diabetes mellitus E11.9 Arthritis M19.90 HTN (hypertension) I10 Uterine prolapse N81.4 Weight loss Penicillin allergy Carcinoma of the pancreas MARKY November 06, 2022, [facility] Nonobstructing renal calculi Surgical History Surgery Date(Month/Year) LEEP Appendectomy Hospitalization History Reason Date(Month/Year) Dehydration. On stop, nausea , vomiting, epigastric pain, pancreatic cancer 11/06/2002
--- OUTSIDE RECORDS SUMMARY | 2023-02-01 23:42 | XMS_ITS | Patient Health Record ---
Author Name Unknown Organization 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 Name Role Phone Mor Marin MD Primary Care Provider UnavailArmando Patterson Jr Unavailable [phone] Quique Melara Unavailable [phone] ALLERGIES Allergen (clinical drug ingredient) Drug/Non Drug Allergy documented on EMR Reaction Allergy Type Onset Date Status Penicillin Unknown Drug Allergy Active RESULTS Component Value Reference Range Notes Prothrombin Time INR Reviewed date:11/08/2022 01:33:17 PM Interpretation: Performing Lab:[facility], [address] [place] [address] Notes/Report: Prothrombin Time 13.3 10.0-13.1 SEC INTERNATIONAL NORM RATIO 1.2 0.9-1.1 INTERNATIONAL NORMALIZED RATIO (INR) REFERENCE RANGES Reference Range For patients not on anticoagulant therapy: 0.9 - 1.1 INR ranges for oral anticoagulant therapy: For prevention and treatment of venous thrombosis and pulmonary embolism: 2.0 - 3.0 For acute myocardial infarction with aspirin therapy: 2.0 - 3.0 For acute myocardial infarction without aspirin therapy: 3.0 - 4.0 For patients with mechanical prosthetic heart valves: 2.5 - 3.5 Complete Blood Count Auto Di ff Reviewed date:11/09/2022 01:51:17 PM Interpretation: Performing Lab:[address] [address] Notes/Report: White Blood Count 6.0 4.8-10.8 X10*3/uL Red Blood Count 2.96 4.20-5.50 X10*6/uL Hemoglobin 9.2 12.0-16.0 g/dl Hematocrit 28.3 37.0-47.0 % Mean Corpuscular Volume 95.6 80.0-98.0 fL Mean Corpuscular Hemoglobin 31.1 27.0-33.0 pg Mean Corpuscular HGB Conc 32.5 31.0-35.0 g/dl Red Cell Distribution Width 13.9 11.0-16.0 % Platelet Count 151 160-400 X10*3/uL Mean Platelet Volume 11.3 9.4-12.3 fL Neutrophils Percent Auto 57.8 45-73 % Imm Gran Pct Auto 0.3 0.0-0.4 % Lymphocytes Percent Auto 27.5 20-40 % Monocytes Percent Auto 12.8 2-11 % Eosinophils Percent Auto 1.3 0-4 % Basophils Percent Auto 0.3 0-2 % NRBC Pct Auto 0.0 0.0-0.2 /100WBC Neutrophils Absolute Auto 3.4 2.0-8.3 x10*3/u L Imm Gran Abs Auto 0.02 0.00-0.03 X10*3/uL Lymphocytes Absolute Auto 1.6 1.2-4.9 X10*3/u L Monocytes Absolute Auto 0.8 0.1-1.2 X10*3/uL Eosinophils Absolute Auto 0.1 0.0-0.4 X10*3/u L Basophils Absolute Auto 0.0 0.0-0.2 X10*3/uL NRBC Abs Auto 0.000 0.0-0.012 X10*3/uL Carbohydrate Antigen 19-9 Reviewed date:11/11/2022 09:59:15 PM Interpretation: Performing Lab:[facility], [address] [place] [phone] Notes/Report: Carbohydrate Antigen 19-9 481 <34 U/mL The CA19-9 result may be increased on average 14% - 20%, relative to results previously obtained with this method due to a recent calibrator adjustment made in July 2022 by the reagent hospital pharmacist. In the low range for this assay [...] of disease. THIS TEST WAS PERFORMED AT: [facility] [employer] [address] [place] [phone] FREDO MAYS MD FL guidance in OR Reviewed date:11/12/2022 01:28:47 PM Interpretation: Performing Lab: Notes/Report: [address] [address] Fluoroscopy Report Signed Patient: Ervin Anaya I MR#: [id number] : 1945 Acct:[id number] Age/Sex: 77 / F ADM Date: 11/06/22 Loc: .S3 357-[address]: Rakan Andrew MD Ordering Physician: Quique Melara Date of Service: 11/10/22 Procedure(s): FL guidance in OR Accession Number(s): [id number] cc: Quique Melara EXAMINATION: XR FLUOROSCOPY WITH IMAGES CLINICAL INFORMATION: ERCP. COMPARISON: None available. TECHNIQUE: Fluoroscopy Supervised By: Kelton. Fluoroscopy Time: 73.6 seconds. Cumulative Dose: 16.57 mGy. DAP: This information is not provided on the dose data sheet. Images: 1. FL/FL guidance in OR FINDINGS AND IMPRESSION: This report is provided to document use of fluoroscopic imaging equipment during performance of ERCP. No diagnostic images obtained. Dictated By: Celestino Solo MD Signed By: <Electronically signed by Celestino Solo MD in OV> 11/12/22 0831 DD/ 52 TD/TT: Ratoprinter: PD Complete Blood Count Auto Di ff Reviewed date:11/11/2022 09:56:38 PM Interpretation: Performing Lab:[facility], [address] [place] [phone] Notes/Report: White Blood Count 5.0 4.8-10.8 X10*3/uL Red Blood Count 2.65 4.20-5.50 X10*6/uL Hemoglobin 8.4 12.0-16.0 g/dl Hematocrit 24.8 37.0-47.0 % Mean Corpuscular Volume 93.6 80.0-98.0 fL Mean Corpuscular Hemoglobin 31.7 27.0-33.0 pg Mean Corpuscular HGB Conc 33.9 31.0-35.0 g/dl Red Cell Distribution Width 13.8 11.0-16.0 % Platelet Count 146 160-400 X10*3/uL Mean Platelet Volume 11.7 9.4-12.3 fL Neutrophils Percent Auto 84.2 45-73 % Imm Gran Pct Auto 0.4 0.0-0.4 % Lymphocytes Percent Auto 11.0 20-40 % Monocytes Percent Auto 4.4 2-11 % Eosinophils Percent Auto 0.0 0-4 % Basophils Percent Auto 0.0 0-2 % NRBC Pct Auto 0.0 0.0-0.2 /100WBC Neutrophils Absolute Auto 4.2 2.0-8.3 x10*3/u L Imm Gran Abs Auto 0.02 0.00-0.03 X10*3/uL Lymphocytes Absolute Auto 0.6 1.2-4.9 X10*3/u L Monocytes Absolute Auto 0.2 0.1-1.2 X10*3/uL Eosinophils Absolute Auto 0.0 0.0-0.4 X10*3/u L Basophils Absolute Auto 0.0 0.0-0.2 X10*3/uL NRBC Abs Auto 0.000 0.0-0.012 X10*3/uL Liver Panel Reviewed date:11/11/2022 09:59:33 PM Interpretation: Performing Lab:[address] [address] Notes/Report: Bilirubin Total 4.0 0.0-1.0 mg/dL Bilirubin Direct 2.9 0.0-0.5 mg/dL Aspartate Amino Transferase 267 5-31 U/L Alanine Aminotransferase 353 0-31 U/L Total Protein 5.6 6.5-8.0 g/dL Albumin Level 3.0 3.5-5.0 g/dL Alkaline Phosphatase 640 39-117 U/L Basic Metabolic Panel Fastin g Reviewed date:11/11/2022 09:56:10 PM Interpretation: Performing Lab:[address] [address] Notes/Report: Sodium 139 135-145 mmol/L Potassium 3.5 3.3-5.1 mmol/L Chloride 108 96-108 mmol/L Carbon Dioxide 20 22-29 mmol/L Anion Gap 15 12-20 Blood Urea Nitrogen 29 9-16 mg/dL Creatinine 1.67 0.5-1.4 mg/dL Creatinine [facility] 26.2 Provided height and weight: 165.1 cm, 60 kg. eGFR (calculated from the MDRD study equation) and eCrCl (calculated from the Cockcroft-Gault equation) are based on different parameters and may not yield comparable results. If eCrCl result is absurd, please check patient's height/weight. Estimated Glomerular Filt Rate 30 NOTE: For -Monegasque individuals, multiply the result by 1.210. Chronic Kidney Disease: Estimated GFR < 60 mL/min/1.73m2 Severe Kidney Disease: Estimated GFR < 15 mL/min/1.73m2 Glucose Fasting 160 60-99 mg/dL A fasting glucose of 126 mg/dl or greater on more than one occasion is considered diagnostic of diabetes. Calcium 8.8 8.4-10.2 mg/dL REASON FOR REFERRAL No Information SOCIAL HISTORY Sex Assigned At : Social History Observation Description Sex Assigned At Unknown PROBLEMS Problem Type ICD Code Onset Dates Problem Status W/U Status Risk SNOMED Code Notes Problem Obstructive jaundice (K83.1) Active confirmed Obstructive jaundice (78301988) Encounters Encounter Location Date Provider Diagnosis [facility] Inpatient [address] [place] [phone] 11/10/2022 Quique Melara [facility] [address] [place] [phone] 11/08/2022 Armando Olmedo Jr [facility] [address] [place] [address] 11/19/2022 Armando Olmedo Jr PLAN OF TREATMENT No Information Insurance Providers Payer Name Payer Address Payer Phone Subscriber Number Group Number Insured Name Patient Relationship to Insured Coverage Start Date Coverage End Date [facility] [address] [address] [place] [address] [id number] ERVIN AGUILA Self - patient is the insured MEDICAL (GENERAL) HISTORY Medical History History ICD Code colonoscopy 04-05-2006 colonic lipoma hypertension diabetes mellitus arthritis Surgical History Surgery Date(Month/Year) gallbladder surgery
[2023-02-01 23:52] VITALS: BP 165/60; PULSE 60; RESP 12; O2SAT 99
[2023-02-02 00:49] LABS: Appearance Urine Cloudy; Color Urine Yellow; Glucose Urine UA Negative (Negative); Leukocyte Esterase Urine Moderate (2+) (Negative); Nitrite Urine Negative (Negative); UMIC TRIGGER UACC YES; Urine Blood Negative (Negative); Urine Ketones Negative (Negative); Urine Protein Negative (Neg-Trace)
[2023-02-02 00:54] LABS: Bacteria Urine 4+ (None Seen); Hyaline Casts Urine 0-2 /LPF (0-2); RBC Urine 0-2 /HPF (0-2); UACC Culture Trigger YES; WBC Urine 21-50 /HPF (0-5)
[2023-02-02 05:07] LABS: MANUAL DIFF FLAG NO
[2023-02-02 05:09] LABS: Basophils Percent Auto 0.3 % (0-2); Eosinophils Absolute Auto 0.1 X10*3/uL (0.0-0.4); Eosinophils Percent Auto 0.9 % (0-4); Hematocrit 26.6 % (37.0-47.0); Hemoglobin 8.4 g/dl (12.0-16.0); Imm Gran Abs Auto 0.01 X10*3/uL (0.00-0.03); Imm Gran Pct Auto 0.2 % (0.0-0.4); Lymphocytes Absolute Auto 1.9 X10*3/uL (1.2-4.9); Lymphocytes Percent Auto 29.3 % (20-40); Mean Corpuscular HGB Conc 31.6 g/dl (31.0-35.0); Mean Corpuscular Hemoglobin 30.5 pg (27.0-33.0); Mean Corpuscular Volume 96.7 fL (80.0-98.0); Mean Platelet Volume 10.6 fL (9.4-12.3); Monocytes Absolute Auto 0.5 X10*3/uL (0.1-1.2); Neutrophils Absolute Auto 4.1 x10*3/uL (2.0-8.3); Neutrophils Percent Auto 62.3 % (45-73); Platelet Count 135 X10*3/uL (160-400); Red Blood Count 2.75 X10*6/uL (4.20-5.50); Red Cell Distribution Width 14.2 % (11.0-16.0); White Blood Count 6.6 X10*3/uL (4.8-10.8)
[2023-02-02 05:31] LABS: Alanine Aminotransferase 20 U/L (0-31); Albumin Level 2.4 g/dL (3.5-5.0); Alkaline Phosphatase 117 U/L (39-117); Anion Gap 13 (12-20); Aspartate Amino Transferase 31 U/L (5-31); Bilirubin Total 0.6 mg/dL (0.0-1.0); Blood Urea Nitrogen 45 mg/dL (9-16); Calcium 7.8 mg/dL (8.4-10.2); Carbon Dioxide 19 mmol/L (22-29); Chloride 111 mmol/L (96-108); Creatinine Clr Calc Pharmacy 17.1; Estimated Glomerular Filt Rate 19; Glucose Random 124 mg/dL (60-115); Potassium 3.4 mmol/L (3.3-5.1); Sodium 140 mmol/L (135-145); Total Protein 5.2 g/dL (6.5-8.0)
[2023-02-02 06:03] VITALS: PULSE 63; RESP 12
--- NOTE | 2023-02-02 06:38 | PM.IMHP ---
History of Present Illness Date of Service: 02/02/23 Chief Complaint: weakness Patient is Barbadian-speaking only, history is obtained on the help of her daughter at bedside. This is a patient with past medical history of recently diagnosed pancreatic cancer, pending treatment, nonischemic cardiomyopathy, LBBB, hypertension, diabetes, chronic anemia comes into the hospital brought in by her daughter for management of weakness. Patient reports that she is feeling so weak that she is unable to walk. This has been going on for the past several days. She also has loss of appetite. Daughter reports that she eats but not too well. Reports no chest pain or Abdominal pain, no current nausea or vomiting, had an episode of vomiting the day prior. Reports no fever or chills. Has no urinary symptoms. But has lower extremity edema. No Shortness of breath, no palpitations. no headache or change in vision. No weakness numbness or tingling on arrival to the ED patient hemodynamically stable no significant abnormal vitals Labs are significant for WBC count of 6.4, hemoglobin of 8.4, hematocrit 26.1, lower than her previous, no reported blood or melena. Labs also showed creatinine of 2.5 with a baseline around 1.5, troponin of 231 repeat 228, BNP of 480, albumin of 2.5, urine positive for leukocyte Estrace WBC and bacteria patient started on antibiotics and will be admitted for further management Review of Systems Review of Systems: Yes all other systems are reviewed and are negative [facility] Medical History Nonischemic cardiomyopathy Left bundle branch block Pancreatic lesion Abnormal urine odor Uterine prolapse Arthritis HTN (hypertension) Diabetes mellitus Family History Sister Breast cancer Mother Vaginal cancer Surgical History Hx of appendectomy History of loop electrical excision procedure (LEEP) Social History Household Members: Family Housing: Apartment Do you presently have visiting nurse or other home services: No Alcohol intake: never Patient Tobacco Use Status: Never used Tobacco Smoked in Last 30 Days: No Use of substances other than those prescribed or required for medical reasons: No Advance Directives: No Advance Directives Information Provided: No Nutrition Risks: No Nutritional Risk service: No Current occupational status: retired Gender identity: Female Meds Allergies Allergy/AdvReac Type Severity Reaction Status Date / Time penicillin V Allergy Unknown hives, Rash Verified 02/01/23 15:18 Penicillins [PENICILLINS] Allergy Unknown RASH Verified 02/01/23 15:18 Active Medications: Current Medications Acetaminophen (Acetaminophen 325 Mg Tablet) 650 mg PO Q6H PRN PRN Reason: Pain, Mild (Pain Scale 1-3) Furosemide (Furosemide 40 Mg/4 Ml Vial) 40 mg IVPUSH DAILY [facility]; Protocol Heparin Sodium (Porcine) (Heparin Sodium,Porcine 5,000 Unit/Ml Vial) 5,000 unit SUBCUT Q12H [facility] Last Admin: 02/01/23 22:14 Dose: 5,000 unit Ceftriaxone Sodium 1 gm/ (Sodium Chloride) 50 mls @ 100 mls/hr IV Q24H [facility] Last Admin: 02/01/23 22:14 Dose: 100 mls/hr Ondansetron HCl (Ondansetron Hcl 4 Mg/2 Ml Vial) 4 mg IVPUSH Q8H PRN PRN Reason: Nausea and Vomiting Sodium Chloride (0.9 % Sodium Chloride Flush 3 Ml Syringe) 3 ml IVFLUSH QSHIFT [facility] Last Admin: 02/01/23 22:17 Dose: 3 ml Home Medications Medication Instructions Recorded Confirmed Last Taken Type tramadol 50 mg tablet 1 tab PO QID PRN Pain 11/24/21 02/01/23 11/05/22 History carvedilol 3.125 mg tablet 3.125 mg PO BID 01/23/23 02/01/23 02/01/23 History Physical Exam Vital Signs and Narrative: Vital Signs: Last Vital Signs Temp 98.1 F 02/01/23 20:00 Pulse 63 02/02/23 06:03 Resp 12 02/02/23 06:03 BP 165/60 H 02/01/23 23:52 Pulse Ox 99 02/01/23 23:52 O2 Del Method Room Air 02/01/23 23:52 BMI result Body Mass Index 26.3 Const: General: cooperative and no acute distress Orientation/consciousness: patient oriented x3 Eyes: General: appearance normal, both eyes and all related structures Resp: Effort & Inspection: normal respiratory effort Auscultation: clear to auscultation bilaterally Cardio: Rate: regular rate Rhythm: regular rhythm GI: Palpation (GI): Soft to palpation Auscultation: normal bowel sounds Skin: General skin exam: no rashes or lesions noted Neuro: General: patient oriented x3 Cognition (Neuro): normal cognition Extrem: Other: 3+ edema bilaterally General: Yes normal to inspection Results Labs 02/02/23 05:01 02/02/23 05:01 Labs: Laboratory Results - last 24 hr 02/01/23 02/01/23 02/01/23 17:18 17:49 18:47 MCV 96.3 MCH 31.0 MCHC 32.2 RDW 14.5 Plt Count 118 L D MPV 10.8 Immature Gran % (Auto) 0.3 Neut % (Auto) 74.4 H Lymph % (Auto) 19.7 L [place] % (Auto) 5.2 Eos % (Auto) 0.2 Baso % (Auto) 0.2 Lymph # (Auto) 1.3 [place] # (Auto) 0.3 Eos # (Auto) 0.0 Baso # (Auto) 0.0 Abs Immat Gran (auto) 0.02 Absolute Neuts (auto) 4.7 Absolute Nucleated RBC 0.000 Nucleated RBC % (auto) 0.0 PT 11.7 INR 1.0 Anion Gap 14 Estim Creat Clear Calc 16.5 Estimated GFR 19 Random Glucose 150 H Calcium 8.0 L Magnesium 1.6 Total Bilirubin 0.7 Direct Bilirubin 0.3 AST 38 H ALT 23 Alkaline Phosphatase 121 H B-Natriuretic Peptide 480 H Total Protein 5.6 L Albumin 2.5 L Lipase < 4 L Urine Color Urine Appearance Urine pH Ur Specific [place] Urine Protein Urine Glucose (UA) Urine Ketones Urine Blood Urine Nitrite Ur Leukocyte Esterase Urine RBC Urine WBC Ur Squamous Epith Cells Urine Bacteria Hyaline Casts COVID-19 (JÚNIOR) Negative COVID-19 Clin Com See Note 02/02/23 02/02/23 00:42 05:01 MCV 96.7 MCH 30.5 MCHC 31.6 RDW 14.2 Plt Count 135 L MPV 10.6 Immature Gran % (Auto) 0.2 Neut % (Auto) 62.3 Lymph % (Auto) 29.3 [place] % (Auto) 7.0 Eos % (Auto) 0.9 Baso % (Auto) 0.3 Lymph # (Auto) 1.9 [place] # (Auto) 0.5 Eos # (Auto) 0.1 Baso # (Auto) 0.0 Abs Immat Gran (auto) 0.01 Absolute Neuts (auto) 4.1 Absolute Nucleated RBC 0.000 Nucleated RBC % (auto) 0.0 PT INR Anion Gap 13 Estim Creat Clear Calc 17.1 Estimated GFR 19 Random Glucose 124 H Calcium 7.8 L Magnesium Total Bilirubin 0.6 Direct Bilirubin AST 31 ALT 20 Alkaline Phosphatase 117 B-Natriuretic Peptide Total Protein 5.2 L Albumin 2.4 L Lipase Urine Color Yellow Urine Appearance Cloudy Urine pH 5.0 Ur Specific [place] 1.010 Urine Protein Negative Urine Glucose (UA) Negative Urine Ketones Negative Urine Blood Negative Urine Nitrite Negative Ur Leukocyte Esterase Moderate (2+) H Urine RBC 0-2 Urine WBC 21-50 H Ur Squamous Epith Cells 3-5 Urine Bacteria 4+ Hyaline Casts 0-2 COVID-19 (JÚNIOR) COVID-19 Clin Com Imaging Radiologist's Impressions: Impressions Chest X-Ray 02/01/23 15:30 IMPRESSION: No active cardiopulmonary disease. Abdomen/Pelvis CT 02/01/23 18:30 IMPRESSION: New Wallstent in the distal common bile duct. Interval decrease in biliary duct dilatation. 3 cm mass in the head of the pancreas and dilatation of the main pancreatic duct increased compared to November 2022 exam. Increasing small bowel mesentery lymphadenopathy. New moderate amount of ascites. Fleischner guidelines were followed. Chest CT 02/01/23 18:32 IMPRESSION: Evidence of old granulomatous disease. Trace bilateral pleural effusions. Fleischner guidelines were followed. Assessment and Plan (1) CHF exacerbation: Qualifiers: Heart failure type: systolic Qualified Code(s): I50.23 - Acute on chronic systolic (congestive) heart failure Status: Acute (2) Acute kidney injury superimposed on chronic kidney disease: Status: Acute (3) Acute UTI: Status: Acute (4) Pancreatic cancer: Qualifiers: Pancreatic malignancy location: unspecified Qualified Code(s): C25.9 - Malignant neoplasm of pancreas, unspecified Status: Acute (5) Generalized weakness: Status: Acute (6) Elevated troponin: Status: Acute Plan 37-year-old female past medical history of CHF with ejection fraction of 30- 35% CKD, pancreatic cancer comes into the hospital with severe found to have multiple abnormalities # acute CHF exacerbation - elevated BNP, lower extremity edema, likely a combination of hypoalbuminemia - has ejection fraction of 30-35% - will treat with Lasix - strict I&O, low-sodium diet, daily weight - cardiology consulted # acute on chronic kidney injury - likely secondary to CHF - will treat with Lasix - follow BMP # acute UTI - has symptoms of generalized weakness - will treat with IV antibiotics - follow cultures # elevated troponin - likely type 2 - cardiology does not feel that this is ACS - on telemetry # pancreatic cancer - follow-up outpatient # Diabetes - low-dose sliding scale - diabetic diet given patient's need for IV antibiotics, management of acute CHF patient require minimum 2 nights inpatient hospital stay for further management and monitoring DVT prophylaxis: Time Spent With Patient Time: Total time managing care of this patient today ____ minutes. Quality Stroke Does the patient have a stroke diagnosis?: No VTE Prior VTE?: No VTE Risk Level:: Medical - moderate - high VTE Device Contraindication: Treatment Not Indicated VTE Drug Contraindication: N/A - Med Ordered
[2023-02-02 07:26] VITALS: BP 162/70; PULSE 75; RESP 16; TEMP 36.2; O2SAT 100
--- NOTE | 2023-02-02 07:28 | PC.NURSE ---
Alert and oriented, oob ambulating to bathroom, denies pain ro discomfort. 2+ pitting edema to bilat lower extremtiies, 300output in purwick canister at this time. VSS. Patient aware plan is to be admitted upstairs.
[2023-02-02] MEDS: 0.9 % Sodium Chloride Flush 3 ML SYRINGE IVFLUSH ×2 (07:30→15:28)
[2023-02-02] MEDS: Furosemide 40 MG/4 ML VIAL IVPUSH (08:04)
[2023-02-02] MEDS: hydrALAZINE HCl 50 MG TABLET PO ×2 (09:15→15:28)
[2023-02-02] MEDS: Heparin Sodium,Porcine 5,000 UNIT/ML VIAL 5000 UNIT SUBCUT ×2 (09:15→19:53)
[2023-02-02] MEDS: carvediloL 3.125 MG TABLET PO ×2 (09:15→19:56)
--- NOTE | 2023-02-02 09:22 | PC.NURSE ---
Patient stating she does not want to be admitted upstairs, that she wants to go home. Per patients request called placed to daughter, daughter stating she is on her way to see her mother now.
--- NOTE | 2023-02-02 10:16 | PM.CNCAR ---
History of Present Illness History of Present Illness Date of Service: 02/02/23 Requesting physician: Erwin Ramachandran Consult reason: other (Elevated cardiac biomarkers) Chief complaint: MARKY, UTI, Weakness Narrative: I was consulted to see normal in cardiology consultation today for elevated cardiac biomarkers. Unclear as to why the biomarkers were drawn as patient came with generalized body aches and weakness. Patient does not have any cardiac symptoms. She has been unable to walk. Patient is not aware of a pancreatic cancer diagnosis. Patient elevated troponin in the upper 200 range which are flat. Patient has elevated BNP but better than a month ago. Patient denies any shortness of breath orthopnea or PND. Denies any leg edema. Denies any chest discomfort. EKG shows underlying left bundle-branch block. She has prior history of cardiomyopathy, left bundle-branch block, hypertension, diabetes, chronic anemia, chronic kidney disease and has mention pancreatic cancer the of which she is not aware. She also has weakness and frailty. Workup has revealed UTI Review of Systems Constitutional: Constitutional: Reports body ache(s), Reports fatigue, Reports lethargy and Reports weakness Eyes: Eyes: Reports no additional eye complaints Cardiovascular: Cardiovascular: Reports no additional cardiovascular complaints Respiratory: Respiratory: Reports no additional respiratory complaints Gastrointestinal: Gastrointestinal: Reports no additional gastrointestinal complaints Neurologic: Reports system reviewed and no additional complaints, except as documented and Reports weakness Psychiatric: Psychiatric: Reports no additional psychiatric complaints Endocrine: Endocrine: Reports fatigue Hematologic/Lymphatic: Hematologic/Lymphatic: Reports no additional hematologic/lymphatic complaints [facility] Past Medical History Medical History Nonischemic cardiomyopathy Left bundle branch block Pancreatic lesion Abnormal urine odor Uterine prolapse Arthritis HTN (hypertension) Diabetes mellitus Family History Family History Sister Breast cancer Mother Vaginal cancer Surgical History Surgical History Hx of appendectomy History of loop electrical excision procedure (LEEP) Social History Social History Household Members: Family Housing: Apartment Do you presently have visiting nurse or other home services: No Alcohol intake: never Patient Tobacco Use Status: Never used Tobacco Smoked in Last 30 Days: No Use of substances other than those prescribed or required for medical reasons: No Advance Directives: No Advance Directives Information Provided: No Nutrition Risks: No Nutritional Risk service: No Current occupational status: retired Gender identity: Female Meds Allergies Allergy/AdvReac Type Severity Reaction Status Date / Time penicillin V Allergy Unknown hives, Rash Verified 02/01/23 15:18 Penicillins [PENICILLINS] Allergy Unknown RASH Verified 02/01/23 15:18 Active Medications: Current Medications Acetaminophen (Acetaminophen 325 Mg Tablet) 650 mg PO Q6H PRN PRN Reason: Pain, Mild (Pain Scale 1-3) Carvedilol (Carvedilol 3.125 Mg Tablet) 3.125 mg PO BID [facility]; Protocol Last Admin: 02/02/23 09:15 Dose: 3.125 mg Furosemide (Furosemide 40 Mg/4 Ml Vial) 40 mg IVPUSH DAILY [facility]; Protocol Last Admin: 02/02/23 08:04 Dose: 40 mg Heparin Sodium (Porcine) (Heparin Sodium,Porcine 5,000 Unit/Ml Vial) 5,000 unit SUBCUT Q12H [facility] Last Admin: 02/02/23 09:15 Dose: 5,000 unit Hydralazine HCl (Hydralazine Hcl 50 Mg Tablet) 50 mg PO BID@0830,1430 [facility]; Protocol Last Admin: 02/02/23 09:15 Dose: 50 mg Ceftriaxone Sodium 1 gm/ (Sodium Chloride) 50 mls @ 100 mls/hr IV Q24H [facility] Last Admin: 02/01/23 22:14 Dose: 100 mls/hr Morphine Sulfate (Morphine Sulfate 2 Mg/Ml Cartridge) 2 mg IVPUSH Q2H PRN; Protocol PRN Reason: Pain, Severe (Pain Scale 7-10) Ondansetron HCl (Ondansetron Hcl 4 Mg/2 Ml Vial) 4 mg IVPUSH Q8H PRN PRN Reason: Nausea and Vomiting Sodium Chloride (0.9 % Sodium Chloride Flush 3 Ml Syringe) 3 ml IVFLUSH QSHIFT [facility] Last Admin: 02/02/23 07:30 Dose: 3 ml Home Medications Medication Instructions Recorded Confirmed Last Taken Type tramadol 50 mg tablet 1 tab PO QID PRN Pain 11/24/21 02/01/23 11/05/22 History carvedilol 3.125 mg tablet 3.125 mg PO BID 01/23/23 02/01/23 02/01/23 History Physical Exam Vital Signs: Vital Signs: Last Vital Signs Temp 97.1 F 02/02/23 07:26 Pulse 75 02/02/23 07:26 Resp 16 02/02/23 07:26 BP 162/70 H 02/02/23 07:26 Pulse Ox 100 02/02/23 07:26 O2 Del Method Room Air 02/01/23 23:52 BMI result Body Mass Index 26.3 Const: General: cooperative, comfortable, no acute distress, alert and awake Nutritional Appearance: underweight Orientation/consciousness: patient oriented x3 HEENT: Head: Yes normocephalic and Yes atraumatic Neck: Neck: Yes trachea midline and Yes supple Resp: Effort & Inspection: decreased respiratory effort Auscultation: clear to auscultation bilaterally Cardio: Jugular venous distension: no JVD Rate: regular rate Rhythm: regular rhythm Heart sounds: S1 normal heart sound present, S2 normal heart sound present, no click, no gallops and no murmurs GI: Auscultation: normal bowel sounds Skin: General skin exam: no rashes or lesions noted and ecchymosis Neuro: General: patient oriented x3 and no focal motor deficits Objective Labs and Meds 02/02/23 05:01 02/02/23 05:01 Lab results: Laboratory Results - last 24 hr 02/01/23 02/01/23 02/01/23 17:18 17:49 18:47 WBC 6.4 RBC 2.71 L Hgb 8.4 L Hct 26.1 L MCV 96.3 MCH 31.0 MCHC 32.2 RDW 14.5 Plt Count 118 L D MPV 10.8 Immature Gran % (Auto) 0.3 Neut % (Auto) 74.4 H Lymph % (Auto) 19.7 L [place] % (Auto) 5.2 Eos % (Auto) 0.2 Baso % (Auto) 0.2 Lymph # (Auto) 1.3 [place] # (Auto) 0.3 Eos # (Auto) 0.0 Baso # (Auto) 0.0 Abs Immat Gran (auto) 0.02 Absolute Neuts (auto) 4.7 Absolute Nucleated RBC 0.000 Nucleated RBC % (auto) 0.0 PT 11.7 INR 1.0 Sodium 138 Potassium 3.6 Chloride 110 H Carbon Dioxide 18 L Anion Gap 14 BUN 44 H Creatinine 2.50 H Estim Creat Clear Calc 16.5 Estimated GFR 19 Random Glucose 150 H Calcium 8.0 L Magnesium 1.6 Total Bilirubin 0.7 Direct Bilirubin 0.3 AST 38 H ALT 23 Alkaline Phosphatase 121 H Troponin I High Sens 231.2 H* B-Natriuretic Peptide 480 H Total Protein 5.6 L Albumin 2.5 L Lipase < 4 L Urine Color Urine Appearance Urine pH Ur Specific [place] Urine Protein Urine Glucose (UA) Urine Ketones Urine Blood Urine Nitrite Ur Leukocyte Esterase Urine RBC Urine WBC Ur Squamous Epith Cells Urine Bacteria Hyaline Casts COVID-19 (JÚNIOR) Negative COVID-19 Clin Com See Note 02/01/23 02/02/23 02/02/23 19:54 00:42 05:01 WBC 6.6 RBC 2.75 L Hgb 8.4 L Hct 26.6 L MCV 96.7 MCH 30.5 MCHC 31.6 RDW 14.2 Plt Count 135 L MPV 10.6 Immature Gran % (Auto) 0.2 Neut % (Auto) 62.3 Lymph % (Auto) 29.3 [place] % (Auto) 7.0 Eos % (Auto) 0.9 Baso % (Auto) 0.3 Lymph # (Auto) 1.9 [place] # (Auto) 0.5 Eos # (Auto) 0.1 Baso # (Auto) 0.0 Abs Immat Gran (auto) 0.01 Absolute Neuts (auto) 4.1 Absolute Nucleated RBC 0.000 Nucleated RBC % (auto) 0.0 PT INR Sodium 140 Potassium 3.4 Chloride 111 H Carbon Dioxide 19 L Anion Gap 13 BUN 45 H Creatinine 2.42 H Estim Creat Clear Calc 17.1 Estimated GFR 19 Random Glucose 124 H Calcium 7.8 L Magnesium Total Bilirubin 0.6 Direct Bilirubin AST 31 ALT 20 Alkaline Phosphatase 117 Troponin I High Sens 228.0 H* B-Natriuretic Peptide Total Protein 5.2 L Albumin 2.4 L Lipase Urine Color Yellow Urine Appearance Cloudy Urine pH 5.0 Ur Specific [place] 1.010 Urine Protein Negative Urine Glucose (UA) Negative Urine Ketones Negative Urine Blood Negative Urine Nitrite Negative Ur Leukocyte Esterase Moderate (2+) H Urine RBC 0-2 Urine WBC 21-50 H Ur Squamous Epith Cells 3-5 Urine Bacteria 4+ Hyaline Casts 0-2 COVID-19 (JÚNIOR) COVID-19 Clin Com Imaging Radiologist's impression: Impressions Chest X-Ray 02/01/23 15:30 IMPRESSION: No active cardiopulmonary disease. Abdomen/Pelvis CT 02/01/23 18:30 IMPRESSION: New Wallstent in the distal common bile duct. Interval decrease in biliary duct dilatation. 3 cm mass in the head of the pancreas and dilatation of the main pancreatic duct increased compared to November 2022 exam. Increasing small bowel mesentery lymphadenopathy. New moderate amount of ascites. Fleischner guidelines were followed. Chest CT 02/01/23 18:32 IMPRESSION: Evidence of old granulomatous disease. Trace bilateral pleural effusions. Fleischner guidelines were followed. Assessment and Plan (1) Elevated troponin: Status: Acute Elevated but flat troponin as well as elevated BNP which is improved compared to the past in a patient with significant cardiomyopathy, chronic anemia, chronic kidney disease. He she has no active cardiac symptoms or signs of any active cardiac issues at this point time. Elevated biomarkers most likely related to underlying cardiomyopathy in setting of chronic kidney disease and possibly reduce clearance due to acute kidney injury. Continue treatment of her cardiomyopathy with beta-blockers and afterload reduction. No further workup as inpatient as needed. Continue supportive care and treatment of UTI. Will sign of the case. Thank you for allowing me to partake in the care Time Spent With Patient Time: Total time managing care of this patient today ____ minutes. Procedures Date of Service Date of Service: 02/02/23
--- NOTE | 2023-02-02 10:35 | PM.EVENT ---
Event Note Date of Service: 02/02/23 Event Note: Day hospitalist update S: This history was taken in [place] from the patient. Does not know she has pancreatic CA. Denies any dyspnea or chest pain. Endorses leg edema. O: VS- T 97.1, BP 162/70, P 75, R 16, SaO2 100 on RA Gen: in no acute distress HEENT: sclera anicteric, moist mucus membranes Neck: supple Lungs: clear to auscultation bilaterally Heart: regular rate and rhythm, no murmurs Abd: soft, non-tender, non-distended Ext: 1+ bilateral leg pitting edema Skin: warm/well-perfused Neuro: alert and oriented x3, no focal findings Psych: appropriate affect Labs: SCr 2.42 A/P: d1 77yo F with chronic HFrEF, CKD4, pancreatic CA s/p CBD stent presenting with weakness admitted for UTI, MARKY/CKD, CHF exacerbation acute/chronic HFrEF - IV furosemide - continue carvedilol, hydralazine - trend BNP, monitor I/O + lytes MARKY/CKD4 - thought to be cardiorenal, montior SCr with diuresis troponin elevation - due to CKD + cardiomyopathy, not ACS UTI - follow UCx, on ceftriaxone d2 pancreatic CA - outpt oncology f/u DM2 - caroline-dose lispro VTE ppx - UFH dispo - PT consult In my clinical judgment, the patient requires continued inpatient hospitalization for the following reasons: IV ABX, diuresis Time Spent With Patient Time: Total time managing care of this patient today ____ minutes.
--- NOTE | 2023-02-02 10:37 | MHC.EDTECH ---
patient was walked to the bathroom by Von. Patient was week walking to the bathroom. We are using a bed side commode
--- NOTE | 2023-02-02 10:43 | PC.NURSE ---
oob to commode with assist. Patient with large BM, denies pain or discomfort. VSS.
--- NOTE | 2023-02-02 10:57 | PC.NURSE ---
Report given to accmusa FANG
[2023-02-02 11:31] VITALS: BMI 26.2
[2023-02-02 11:36] VITALS: BP 144/56; PULSE 58; RESP 18; TEMP 36.6; O2SAT 100
--- NOTE | 2023-02-02 13:03 | MHC.CM.PN ---
Patient has Dementia; CM spoke with Daughter/HCP/Krysten @ [phone] and addressed IMM with her (original will be mailed certified letter to [employer] and a copy has been placed on the chart). Patient lives alone in an apartment but her Daughter is her [employer] (36 hours/week) and she is with Patient most of the time.Patient uses a cane to assist with mobility. Per documentation, Patient is waiting to get her port at [facility] to begin Chemo & Radiation (Pancreatic CA). Patient is active with [facility] and her PCP is Dr. Mor Marin. Home/resume said services is the goal and CM has initiated and will follow for dc planning.
--- NOTE | 2023-02-02 13:18 | MHC.CM.PN ---
Daughter's new address is [address] [place] [address] in [place]; a task has been sent to Registration.
[2023-02-02 15:09] VITALS: BP 126/80; PULSE 80; RESP 20; TEMP 36.6; O2SAT 100
[2023-02-02] MEDS: Acetaminophen 325 MG TABLET 650 MG PO (17:27)
[2023-02-02 19:13] VITALS: BP 155/69; PULSE 71; RESP 20; TEMP 37.3; O2SAT 100
[2023-02-02 23:28] VITALS: BP 166/67; PULSE 71; RESP 18; TEMP 36.3; O2SAT 98
[2023-02-03 03:41] VITALS: BP 160/70; PULSE 80; RESP 18; TEMP 36.5; O2SAT 99
[2023-02-03 07:21] VITALS: BP 180/70; PULSE 76; RESP 20; TEMP 37.2; O2SAT 98
[2023-02-03 08:13] LABS: Anion Gap 17 (12-20); Blood Urea Nitrogen 45 mg/dL (9-16); Calcium 7.7 mg/dL (8.4-10.2); Carbon Dioxide 19 mmol/L (22-29); Chloride 109 mmol/L (96-108); Creatinine Clr Calc Pharmacy 17.8; Estimated Glomerular Filt Rate 20; Glucose Random 87 mg/dL (60-115); Magnesium 1.6 mg/dL (1.6-2.6); Potassium 3.5 mmol/L (3.3-5.1); Sodium 141 mmol/L (135-145)
[2023-02-03 08:14] LABS: B Type Natriuretic Peptide 358 pg/mL (<100)
[2023-02-03] MEDS: Heparin Sodium,Porcine 5,000 UNIT/ML VIAL 5000 UNIT SUBCUT ×2 (09:46→21:49)
[2023-02-03] MEDS: hydrALAZINE HCl 50 MG TABLET PO ×2 (09:47→16:53)
[2023-02-03] MEDS: carvediloL 3.125 MG TABLET PO ×2 (09:47→20:14)
[2023-02-03] MEDS: Furosemide 40 MG TABLET PO (09:47)
--- NOTE | 2023-02-03 10:34 | P.PNIM_ITS ---
Subjective Subjective Date of Service: 02/03/23 Interval History: This history was taken in Urdu from the patient. feels well no dyspnea has bilateral edema Review of Systems Review of Systems: Yes all other systems are reviewed and are negative Physical Exam 2 Vital Signs: Vital Signs: Last Vital Signs Temp 99.0 F 02/03/23 07:21 Pulse 76 02/03/23 07:21 Resp 20 02/03/23 07:21 BP 180/70 H 02/03/23 07:21 Pulse Ox 98 02/03/23 07:21 O2 Del Method Room Air 02/03/23 07:21 BMI result Body Mass Index 26.2 Gen: in no acute distress HEENT: sclera anicteric, moist mucus membranes Neck: supple Lungs: clear to auscultation bilaterally Heart: regular rate and rhythm, no murmurs Abd: soft, non-tender, non-distended Ext: 1+ bilateral leg pitting edema Skin: warm/well-perfused Neuro: alert and oriented x3, no focal findings Psych: appropriate affect Objective Data Active Medications Acetaminophen (Acetaminophen 325 Mg Tablet) 650 mg PO Q6H PRN PRN Reason: Pain, Mild (Pain Scale 1-3) Last Admin: 02/02/23 17:27 Dose: 650 mg Documented By: JOE Carvedilol (Carvedilol 3.125 Mg Tablet) 3.125 mg PO BID DELMA; Protocol Last Admin: 02/03/23 09:47 Dose: 3.125 mg Documented By: JOE Cefuroxime Axetil (Cefuroxime Axetil 500 Mg Tablet) 500 mg PO Q24H DELMA Furosemide (Furosemide 40 Mg/4 Ml Vial) 40 mg IVPUSH DAILY DELMA; Protocol Last Admin: 02/02/23 08:04 Dose: 40 mg Documented By: CARLOS Furosemide (Furosemide 40 Mg Tablet) 40 mg PO DAILY DELMA; Protocol Last Admin: 02/03/23 09:47 Dose: 40 mg Documented By: JOE Heparin Sodium (Porcine) (Heparin Sodium,Porcine 5,000 Unit/Ml Vial) 5,000 unit SUBCUT Q12H DELMA Last Admin: 02/03/23 09:46 Dose: 5,000 unit Documented By: JOE Hydralazine HCl (Hydralazine Hcl 50 Mg Tablet) 50 mg PO BID@0830,1430 [facility]; Protocol Last Admin: 02/03/23 09:47 Dose: 50 mg Documented By: JOE Ceftriaxone Sodium 1 gm/ (Sodium Chloride) 50 mls @ 100 mls/hr IV Q24H [facility] Last Infusion: 02/02/23 11:22 Dose: Infused Documented By: JOE Morphine Sulfate (Morphine Sulfate 2 Mg/Ml Cartridge) 2 mg IVPUSH Q2H PRN; Protocol PRN Reason: Pain, Severe (Pain Scale 7-10) Ondansetron HCl (Ondansetron Hcl 4 Mg/2 Ml Vial) 4 mg IVPUSH Q8H PRN PRN Reason: Nausea and Vomiting Sodium Chloride (0.9 % Sodium Chloride Flush 3 Ml Syringe) 3 ml IVFLUSH QSHIFT [facility] Last Admin: 02/03/23 09:47 Dose: Not Given Documented By: JOE Non-Admin Reason: No Access Labs 02/02/23 05:01 02/03/23 07:19 Labs: Laboratory Results - last 24 hr 02/03/23 07:19 Anion Gap 17 Estim Creat Clear Calc 17.8 Estimated GFR 20 Random Glucose 87 Calcium 7.7 L Magnesium 1.6 B-Natriuretic Peptide 358 H Assessment and Plan (1) Generalized weakness: Status: Acute Plan d2 77yo F with chronic HFrEF, CKD4, pancreatic CA s/p CBD stent presenting with weakness admitted for UTI, MARKY/CKD, CHF exacerbation acute/chronic HFrEF - change to PO furosemide [lost IV] - continue carvedilol, hydralazine - trend BNP, monitor I/O + lytes MARKY/CKD4 - thought to be cardiorenal, recheck BMP in AM troponin elevation - due to CKD + cardiomyopathy, not ACS UTI - follow UCx, on ceftriaxone->cefuroxime d2 pancreatic CA - outpt oncology f/u DM2 - caroline-dose lispro VTE ppx - UFH dispo - PT consulted; plan home with VNA + rolling walker, likely tomorrow if SCr continues to improve In my clinical judgment, the patient requires continued inpatient hospitalization for the following reasons: MARKY Time Spent With Patient Time: Total time managing care of this patient today __35__ minutes. Quality Stroke Does the patient have a stroke diagnosis?: No VTE Prior VTE?: No VTE Risk Level:: Medical - moderate - high VTE Device Contraindication: Treatment Not Indicated VTE Drug Contraindication: N/A - Med Ordered
--- NOTE | 2023-02-03 10:53 | MHC.CM.PN ---
EMR reviewed and per MD rounds, pt is not medically cleared for D/C home today due to continued treatment and monitoring of MARKY. Anticipating pt will likely D/C tomorrow. CM will continue to follow.
[2023-02-03 11:17] VITALS: BP 159/78; PULSE 65; RESP 20; TEMP 37.2; O2SAT 100
[2023-02-03 15:09] VITALS: BP 101/69; PULSE 87; RESP 20; TEMP 36.6; O2SAT 98
[2023-02-03 16:45] VITALS: BP 177/77
[2023-02-03 19:25] VITALS: BP 144/69; PULSE 84; RESP 20; TEMP 36.6; O2SAT 99
[2023-02-04] VITALS: BP 120/98; PULSE 74; RESP 14; TEMP 36.2; O2SAT 98
[2023-02-04 04:00] VITALS: BP 112/80; PULSE 78; RESP 14; TEMP 36.3; O2SAT 99
[2023-02-04 06:40] LABS: B Type Natriuretic Peptide 462 pg/mL (<100)
[2023-02-04 06:47] LABS: Anion Gap 16 (12-20); Blood Urea Nitrogen 46 mg/dL (9-16); Calcium 7.8 mg/dL (8.4-10.2); Carbon Dioxide 16 mmol/L (22-29); Chloride 110 mmol/L (96-108); Creatinine Clr Calc Pharmacy 18.6; Estimated Glomerular Filt Rate 22; Glucose Random 88 mg/dL (60-115); Magnesium 1.8 mg/dL (1.6-2.6); Potassium 4.2 mmol/L (3.3-5.1); Sodium 138 mmol/L (135-145)
[2023-02-04 08:00] VITALS: BP 186/88; PULSE 81; RESP 18; TEMP 36.4; O2SAT 100
[2023-02-04] MEDS: Furosemide 40 MG TABLET PO (08:45)
[2023-02-04] MEDS: hydrALAZINE HCl 50 MG TABLET PO (08:46)
[2023-02-04] MEDS: carvediloL 3.125 MG TABLET PO (08:46)
[2023-02-04] MEDS: Heparin Sodium,Porcine 5,000 UNIT/ML VIAL 5000 UNIT SUBCUT (08:46)
--- NOTE | 2023-02-04 10:44 | MHC.CM.PN ---
IMM 02/02/23 Patient is discharged to home today. [facility] will resume home services. 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 Patients dtr has been notified of the discharge today and agrees. She will provide transport home.
--- NOTE | 2023-02-04 11:00 | P.DS_ITS ---
DS: Providers Provider Date of Service: 02/04/23 Date of admission: 02/01/23 21:56 Date of discharge: 02/04/23 Primary care physician: Mor Marin MD Consults: 02/02/23 06:45 Consult to Cardiology Routine Consulting Provider: [facility] Cardiovascular Services Reason for consultation: CHF? Diouretic plan on dc Has provider been notified: No DS: Diagnosis Discharge Diagnosis (1) Acute kidney injury superimposed on chronic kidney disease: Status: Acute (2) Acute UTI: Status: Acute (3) Acute on chronic HFrEF (heart failure with reduced ejection fraction): Status: Acute DS: Summary Hospital Course Hospital Course: from admission history and physical by hospitalist Erwin Ramachandran MD, 02/02/23: Patient is Japanese-speaking only, history is obtained on the help of her daughter at bedside. This is a patient with past medical history of recently diagnosed pancreatic cancer, pending treatment, nonischemic cardiomyopathy, LBBB, hypertension, diabetes, chronic anemia comes into the hospital brought in by her daughter for management of weakness. Patient reports that she is feeling so weak that she is unable to walk. This has been going on for the past several days. She also has loss of appetite. Daughter reports that she eats but not too well. Reports no chest pain or Abdominal pain, no current nausea or vomiting, had an episode of vomiting the day prior. Reports no fever or chills. Has no urinary symptoms. But has lower extremity edema. No Shortness of breath, no palpitations. no headache or change in vision. No weakness numbness or tingling on arrival to the ED patient hemodynamically stable no significant abnormal vitals Labs are significant for WBC count of 6.4, hemoglobin of 8.4, hematocrit 26.1, lower than her previous, no reported blood or melena. Labs also showed creatinine of 2.5 with a baseline around 1.5, troponin of 231 repeat 228, BNP of 480, albumin of 2.5, urine positive for leukocyte Estrace WBC and bacteria patient started on antibiotics and will be admitted for further management Ms Anyaa is a 77yo F with chronic HFrEF [LVEF 30-35% 12/27/22 with WMAs due to LBBB], CKD4, and pancreatic CA s/p CBD stent who presented with weakness and was admitted to the [facility] for UTI, MARKY/CKD, and CHF exacerbation. Hospital course by problem: acute/chronic HFrEF - not hypoxic. thought to have cardiorenal syndrome. given IV, then PO furosemide; carvedilol and hydralazine continued. discharged on furosemide 40 mg/d MARKY/CKD4 - thought to be cardiorenal; creatinine improved with diuresis. repeat BMP in 1 week. troponin elevation - due to CKD + cardiomyopathy, not ACS UTI - urine culture contaminated. treated with IV ceftriaxone, then PO cefuroxime; discharged on cefuroxime for 5 days. pancreatic CA - outpt oncology follow-up She was discharged home with resumption of VNA services. Time Spent with Patient Time attestation: Total time managing care of this patient today ___40_ minutes. Discharge coordination time: Greater than 30 minutes Quality: Safe Use of Opioids Does Pt have an Active Cancer Diagnosis on the Problem List?: No Quality: Stroke Does the patient have a stroke diagnosis?: No Physical Exam Vital Signs: Vital Signs: Last Vital Signs Temp 97.5 F 02/04/23 08:00 Pulse 81 02/04/23 08:00 Resp 18 02/04/23 08:00 BP 186/88 H 02/04/23 08:00 Pulse Ox 100 02/04/23 08:00 O2 Del Method Room Air 02/04/23 08:00 BMI result Body Mass Index 26.2 Gen: in no acute distress HEENT: sclera anicteric, moist mucus membranes Neck: supple Lungs: clear to auscultation bilaterally Heart: regular rate and rhythm, no murmurs Abd: soft, non-tender, non-distended Ext: trace bilateral leg pitting edema Skin: warm/well-perfused Neuro: alert and oriented x3, no focal findings Psych: appropriate affect DS: Data Data Completed and Pending Completed studies during hospitalization [Text1]: Laboratory Results WBC 6.6 X10*3/uL (4.8-10.8) 02/02/23 05:01 RBC 2.75 X10*6/uL (4.20-5.50) L 02/02/23 05:01 Hgb 8.4 g/dl (12.0-16.0) L 02/02/23 05:01 Hct 26.6 % (37.0-47.0) L 02/02/23 05:01 MCV 96.7 fL (80.0-98.0) 02/02/23 05:01 MCH 30.5 pg (27.0-33.0) 02/02/23 05:01 MCHC 31.6 g/dl (31.0-35.0) 02/02/23 05:01 RDW 14.2 % (11.0-16.0) 02/02/23 05:01 Plt Count 135 X10*3/uL (160-400) L 02/02/23 05:01 MPV 10.6 fL (9.4-12.3) 02/02/23 05:01 Immature Gran % (Auto) 0.2 % (0.0-0.4) 02/02/23 05:01 Neut % (Auto) 62.3 % (45-73) 02/02/23 05:01 Lymph % (Auto) 29.3 % (20-40) 02/02/23 05:01 [place] % (Auto) 7.0 % (2-11) 02/02/23 05:01 Eos % (Auto) 0.9 % (0-4) 02/02/23 05:01 Baso % (Auto) 0.3 % (0-2) 02/02/23 05:01 Lymph # (Auto) 1.9 X10*3/uL (1.2-4.9) 02/02/23 05:01 Barry # (Auto) 0.5 X10*3/uL (0.1-1.2) 02/02/23 05:01 Eos # (Auto) 0.1 X10*3/uL (0.0-0.4) 02/02/23 05:01 Baso # (Auto) 0.0 X10*3/uL (0.0-0.2) 02/02/23 05:01 Abs Immat Gran (auto) 0.01 X10*3/uL (0.00-0.03) 02/02/23 05:01 Absolute Neuts (auto) 4.1 x10*3/uL (2.0-8.3) 02/02/23 05:01 Absolute Nucleated RBC 0.000 X10*3/uL (0.0-0.012) 02/02/23 05:01 Nucleated RBC % (auto) 0.0 /100WBC (0.0-0.2) 02/02/23 05:01 PT 11.7 SEC (11.1-13.3) 02/01/23 17:49 INR 1.0 (0.9-1.1) 02/01/23 17:49 Sodium 138 mmol/L (135-145) 02/04/23 06:10 Potassium 4.2 mmol/L (3.3-5.1) 02/04/23 06:10 Chloride 110 mmol/L (96-108) H 02/04/23 06:10 Carbon Dioxide 16 mmol/L (22-29) L 02/04/23 06:10 Anion Gap 16 (12-20) 02/04/23 06:10 BUN 46 mg/dL (9-16) H 02/04/23 06:10 Creatinine 2.21 mg/dL (0.5-1.4) H 02/04/23 06:10 Estim Creat Clear Calc 18.6 02/04/23 06:10 Estimated GFR 22 02/04/23 06:10 Random Glucose 88 mg/dL (60-115) 02/04/23 06:10 Calcium 7.8 mg/dL (8.4-10.2) L 02/04/23 06:10 Magnesium 1.8 mg/dL (1.6-2.6) 02/04/23 06:10 Total Bilirubin 0.6 mg/dL (0.0-1.0) 02/02/23 05:01 Direct Bilirubin 0.3 mg/dL (0.0-0.5) 02/01/23 18:47 AST 31 U/L (5-31) 02/02/23 05:01 ALT 20 U/L (0-31) 02/02/23 05:01 Alkaline Phosphatase 117 U/L (39-117) 02/02/23 05:01 Troponin I High Sens 228.0 ng/L (<3.5-17.0) H* 02/01/23 19:54 B-Natriuretic Peptide 462 pg/mL (<100) H 02/04/23 06:10 Total Protein 5.2 g/dL (6.5-8.0) L 02/02/23 05:01 Albumin 2.4 g/dL (3.5-5.0) L 02/02/23 05:01 Lipase < 4 U/L (8-78) L 02/01/23 18:47 Urine Color Yellow 02/02/23 00:42 Urine Appearance Cloudy 02/02/23 00:42 Urine pH 5.0 (5.0-9.0) 02/02/23 00:42 Ur Specific [place] 1.010 (1.005-1.025) 02/02/23 00:42 Urine Protein Negative mg/dL (Neg-Trace) 02/02/23 00:42 Urine Glucose (UA) Negative mg/dL (Negative) 02/02/23 00:42 Urine Ketones Negative mg/dL (Negative) 02/02/23 00:42 Urine Blood Negative (Negative) 02/02/23 00:42 Urine Nitrite Negative (Negative) 02/02/23 00:42 Ur Leukocyte Esterase Moderate (2+) (Negative) H 02/02/23 00:42 Urine RBC 0-2 /HPF (0-2) 02/02/23 00:42 Urine WBC 21-50 /HPF (0-5) H 02/02/23 00:42 Ur Squamous Epith Cells 3-5 /HPF (0-2) 02/02/23 00:42 Urine Bacteria 4+ (None Seen) 02/02/23 00:42 Hyaline Casts 0-2 /LPF (0-2) 02/02/23 00:42 COVID-19 (JÚNIOR) Negative (Negative) 02/01/23 17:18 COVID-19 Clin Com See Note 02/01/23 17:18 Impressions Chest X-Ray 02/01/23 15:30 IMPRESSION: No active cardiopulmonary disease. Abdomen/Pelvis CT 02/01/23 18:30 IMPRESSION: New Wallstent in the distal common bile duct. Interval decrease in biliary duct dilatation. 3 cm mass in the head of the pancreas and dilatation of the main pancreatic duct increased compared to November 2022 exam. Increasing small bowel mesentery lymphadenopathy. New moderate amount of ascites. Fleischner guidelines were followed. Chest CT 02/01/23 18:32 IMPRESSION: Evidence of old granulomatous disease. Trace bilateral pleural effusions. Fleischner guidelines were followed. Discharge Plan Discharge Anticipated Discharge Date/Time: 02/04/23 10:47 Patient Disposition: Home Health Service Discharge Diagnosis: acute/chronic kidney injury CHF exacerbation urinary tract infection Referrals: [facility] [Outside] - 1 Week Mor Marin MD [Primary Care Provider] - 1 Week Discharge Medications: New furosemide 40 mg Tablet 40 mg PO DAILY Qty: 30 0RF Protocol: Hold for SBP< HOLD for SBP < : 90 cefuroxime axetil 250 mg tablet 250 mg PO BID Qty: 10 0RF Continued tramadol 50 mg tablet 1 tab PO QID PRN (Reason: Pain) hydralazine 50 mg tablet 50 mg PO BID@0830,1430 30 Days Qty: 60 0RF hydralazine 100 mg tablet 100 mg PO BEDTIME 30 Days Qty: 30 0RF (DME) Shane Knee [id number] Misc See Rx Instructions .Route Qty: 24 0RF Rx Instructions: As directed carvedilol 3.125 mg tablet 3.125 mg PO BID Protocol: Hold for SBP/HR < HOLD for SBP < : 90 HOLD for HR < : 60 Discharge Orders: Discharge Order (Routine); Ordered 02/04/23 Ordered By: Andrew Dickey Diet: Low salt diet Activity on Discharge: As tolerated Stand Alone Forms: Patient Portal Discharge page Other Ambulatory Orders: Basic Metabolic Panel (Routine) Timeframe: 1 Week Facility: [facility] - Location: Laboratory Ordered By: Andrew Dickey Care Plan Goals: kidney health cardiac health Health Concerns: acute/chronic kidney injury CHF exacerbation urinary tract infection Plan of Treatment: resume VNA services take furosemide 40 mg daily low-sodium diet: less than 2000 mg of sodium daily. Weigh yourself daily and call your doctor if your weight goes up by more than 3 lb/day or 5 lb/week. repeat basic metabolic panel in 1 week take cefuroxime 250 mg twice daily for 5 days Please follow up with your primary care doctor within 1 week. Return to the hospital if you experience recurrent or worsening symptoms. Assessment: See Discharge Summary.
== END 2023-02-04 11:55 | disposition home health service (06) | DRG 291 ==
LOC: HO.ED 17:18 → HO.EDOVER 23:39 → HO.IMC 02-02 10:21
PROVIDERS: Nurse Practitioner Family; Physician Assistant; Admitting Provider Internal Medicine; Emergency Provider Emergency Medicine; PCP Internal Medicine; Visit Provider Family Medicine
DX: I13.0 Hypertensive heart and chronic kidney disease with heart failure and stage 1 through stage 4 chronic kidney disease, or unspecified chronic kidney disease (principal); I50.23 Acute on chronic systolic (congestive) heart failure; N18.4 Chronic kidney disease, stage 4 (severe); N17.9 Acute kidney failure, unspecified; C25.0 Malignant neoplasm of head of pancreas; I42.8 Other cardiomyopathies; E11.22 Type 2 diabetes mellitus with diabetic chronic kidney disease; D63.1 Anemia in chronic kidney disease; Z20.822 Contact with and (suspected) exposure to COVID-19; Z79.899 Other long term (current) drug therapy
CPT/HCPCS: 36415; 71046; 71250; 74176; 80048; 80053; 80076; 81001; 83690; 83735; 83880; 84484; 85025; 85610; 87086; 87635; 93005; 97162; 99285; J0696; J1643; J1940

== ENCOUNTER → 2023-02-01 21:56 | Outpatient (BNV) | payer OTHER, SELFPAY | PROVIDERS: Admitting Provider Internal Medicine; Emergency Provider Emergency Medicine; PCP Internal Medicine; Visit Provider Internal Medicine Cardiovascular Disease | DX: R77.8 Other specified abnormalities of plasma proteins (principal) | CPT/HCPCS: 99222 ==

== ENCOUNTER → 2023-02-01 21:56 | Outpatient (BNV) | payer OTHER, SELFPAY | PROVIDERS: Admitting Provider Internal Medicine; Emergency Provider Emergency Medicine; PCP Internal Medicine; Visit Provider Internal Medicine | DX: I50.23 Acute on chronic systolic (congestive) heart failure (principal); N17.9 Acute kidney failure, unspecified; N18.9 Chronic kidney disease, unspecified; N39.0 Urinary tract infection, site not specified | CPT/HCPCS: 99223; 99232; 99239; 99499 ==

== ENCOUNTER 2023-02-09 12:59 | Emergency (ER) | payer OTHER, SELFPAY ==
[2023-02-09 13:10] VITALS: BP 160/80; PULSE 86; O2SAT 99; BMI 24.0
[2023-02-09 13:14] VITALS: BP 147/73; PULSE 88; RESP 16; TEMP 36.7; O2SAT 97
--- NOTE | 2023-02-09 13:49 | PC.NURSE ---
a&ox3, vss, nsr w/ left bundle branch block on repair clerk. ekg performed. provider aware. 22gIV placed in forearm bilaterally. labs drawn and sent to lab. IVF hung and administered. per ems, pt's daughter's state that she came in today d/t increased weakness/difficulty walking, poor PO intake and anuria for the past week. pt herself denies this information and states that the only reason she is not able to ambulate adequately is d/t bilateral knee pain. pt primarily speaks frisian but knows wolof as well. used sample examiner to obtain information. pt now resting comfortably in no apparent distress. call aguilar placed within reach.
[2023-02-09 13:51] LABS: Alanine Aminotransferase 19 U/L (0-31); Albumin Level 2.6 g/dL (3.5-5.0); Alkaline Phosphatase 113 U/L (39-117); Anion Gap 15 (12-20); Aspartate Amino Transferase 35 U/L (5-31); Bilirubin Direct 0.3 mg/dL (0.0-0.5); Bilirubin Total 0.7 mg/dL (0.0-1.0); Blood Urea Nitrogen 44 mg/dL (9-16); Calcium 7.7 mg/dL (8.4-10.2); Carbon Dioxide 20 mmol/L (22-29); Chloride 105 mmol/L (96-108); Creatinine Clr Calc Pharmacy 19.6; Estimated Glomerular Filt Rate 23; Glucose Random 138 mg/dL (60-115); Sodium 137 mmol/L (135-145); Total Protein 5.5 g/dL (6.5-8.0)
--- NOTE | 2023-02-09 14:25 | ED.WEAKNESS ---
HPI - Weakness General Chief complaint: Weakness Stated complaint: weak d/t not eating x6 days per ems Time Seen by Provider: 02/09/23 14:08 Source: patient and family History of Present Illness HPI Narrative: This is 77 years old of female with the recently diagnosed pancreatic cancer pending treatment, history of nonischemic cardiomyopathy, left bundle-branch block, hypertension, diabetes, chronic renal failure she was brought in by the granddaughter because generalized weakness and difficult to ambulate. She was just discharged on February 04 from [facility]. There is no fever no vomiting no diarrhea Complaint: generalized weakness Onset (ago): day(s) (7) Duration: constant Location: generalized Migration: none Exacerbating factors: none Related Data Home Medications Medication Instructions Recorded Confirmed tramadol 50 mg tablet 1 tab PO QID PRN Pain 11/24/21 02/01/23 carvedilol 3.125 mg tablet 3.125 mg PO BID 01/23/23 02/01/23 Previous Rx's Medication Instructions Recorded wilber.stocking,knee,reg,smal #24 ea 12/30/22 (T.E.D. Knee [id number]-Nhuknhq misc) hydralazine 100 mg tablet 100 mg PO BEDTIME 30 days #30 tabs 12/30/22 hydralazine 50 mg tablet 50 mg PO BID@0830,1430 30 days #60 12/30/22 tabs cefuroxime axetil 250 mg tablet 250 mg PO BID #10 tabs 02/04/23 furosemide 40 mg tablet 40 mg PO DAILY #30 tabs 02/04/23 Allergies Allergy/AdvReac Type Severity Reaction Status Date / Time penicillin V Allergy Unknown hives, Rash Verified 02/09/23 13:10 Penicillins [PENICILLINS] Allergy Unknown RASH Verified 02/09/23 13:10 Review of Systems Constitutional: Constitutional: Reports no additional constitutional complaints ENT: Reports system reviewed and no additional complaints, except as documented Integumentary/Breasts: Skin/Breast: Reports system reviewed and no additional complaints, except as docu Endocrine: Endocrine: Reports no additional endocrine complaints PMFSH Past Medical History Medical History Acute kidney injury superimposed on chronic kidney disease Pancreatic cancer CHF exacerbation Acute kidney injury Acute UTI Nonischemic cardiomyopathy Left bundle branch block Pancreatic lesion Abnormal urine odor Uterine prolapse Arthritis HTN (hypertension) Diabetes mellitus Surgical History Hx of appendectomy History of loop electrical excision procedure (LEEP) Family History Family History Sister Breast cancer Mother Vaginal cancer Social History Social History Household Members: None Housing: Apartment Do you presently have visiting nurse or other home services: Yes Alcohol intake: never Patient Tobacco Use Status: Never used Tobacco Smoked in Last 30 Days: No Use of substances other than those prescribed or required for medical reasons: No Advance Directives: No Advance Directives Information Provided: Yes service: No Current occupational status: retired Gender identity: Female Physical Exam Vital Signs: Vital Signs: Last Vital Signs Temp 98.1 F 02/09/23 13:14 Pulse 88 02/09/23 13:14 Resp 16 02/09/23 13:14 BP 147/73 H 02/09/23 13:14 Pulse Ox 97 02/09/23 13:14 O2 Del Method Room Air 02/09/23 13:14 BMI result Body Mass Index 24.0 Const: General: cooperative Nutritional Appearance: average body habitus Orientation/consciousness: patient oriented x3 Limitations: no limitations HEENT: Head: Yes normal to inspection Ears: hearing grossly normal bilaterally General nose exam: Normal external nose present Face and sinus: Yes normal facial exam Mouth: Normal oral and palatal mucosa present Neck: Neck: Yes normal visual inspection Chest: Chest palpation & inspection: normal inspection of the chest Cardio: Jugular venous distension: no JVD Rate: regular rate Rhythm: regular rhythm GI: Inspection: Yes normal to inspection Palpation (GI): Soft to palpation, not firm, nontender and no guarding : General: Yes no CVA tenderness Back/Spine/Pelvis: Back: no CVA tenderness Skin: General skin exam: no rashes or lesions noted and elasticity normal Lesions: no lesions Rashes: no rashes Wounds: no wounds Neuro: General: patient oriented x3 Cranial nerves: Yes CN's II-XII intact bilaterally Course Reevaluation(s) Reevaluation #1: UA CLEAR, LABS OKAY, VITAL SIGNS STABLE, SEEN BY PT FAMILY REFUSES REHAB THEY WANT TO TAKE THE PATIENT HOME. I CONSULTED ALSO PENOLOGY PROFESSOR LEANDRO HUERTA ARRANGED Time: 16:11 Medications Administered Discontinued Medications Generic Name Dose Route Start Last Admin Trade Name Chika PRN Reason Stop Dose Admin Sodium Chloride 500 mls @ 500 mls/hr 02/09/23 13:30 02/09/23 14:46 Ns IV 02/09/23 14:29 Infused .Q1H DELMA Infusion Potassium Chloride 20 meq 02/09/23 14:14 02/09/23 14:32 Potassium Chloride Er 20 Meq Tab.Er.Prt PO 02/09/23 14:15 20 meq ONCE ONE Administration Medical Decision Making Medical Decision Making MDM Narrative: Patient is here which denies having weakness malaise we will get labs and reassess Differential Diagnosis Differential Diagnoses: The differential diagnosis associated with the presentation includes Dehydration/anemia/UTI Admission/Observation Consideration of admission/observation: Escalation of care including admission/observation considered Lab Data [facility] Lab Attestation statement: I reviewed the patient's lab results. 02/09/23 13:31 02/09/23 13:31 Labs: Lab Results 02/09/23 02/09/23 Range/Units 13:31 15:36 WBC 6.3 (4.8-10.8) X10*3/uL RBC 3.10 L (4.20-5.50) X10*6/uL Hgb 10.0 L (12.0-16.0) g/dl Hct 29.5 L (37.0-47.0) % MCV 95.2 (80.0-98.0) fL MCH 32.3 (27.0-33.0) pg MCHC 33.9 (31.0-35.0) g/dl RDW 14.9 (11.0-16.0) % Plt Count 189 D (160-400) X10*3/uL MPV 9.9 (9.4-12.3) fL Immature Gran % (Auto) 0.3 (0.0-0.4) % Neut % (Auto) 77.2 H (45-73) % Lymph % (Auto) 17.7 L (20-40) % [place] % (Auto) 4.3 (2-11) % Eos % (Auto) 0.3 (0-4) % Baso % (Auto) 0.2 (0-2) % Lymph # (Auto) 1.1 L (1.2-4.9) X10*3/uL [place] # (Auto) 0.3 (0.1-1.2) X10*3/uL Eos # (Auto) 0.0 (0.0-0.4) X10*3/uL Baso # (Auto) 0.0 (0.0-0.2) X10*3/uL Abs Immat Gran (auto) 0.02 (0.00-0.03) X10*3/uL Absolute Neuts (auto) 4.8 (2.0-8.3) x10*3/uL Absolute Nucleated RBC 0.000 (0.0-0.012) X10*3/uL Nucleated RBC % (auto) 0.0 (0.0-0.2) /100WBC Sodium 137 (135-145) mmol/L Potassium 3.0 L D (3.3-5.1) mmol/L Chloride 105 (96-108) mmol/L Carbon Dioxide 20 L (22-29) mmol/L Anion Gap 15 (12-20) BUN 44 H (9-16) mg/dL Creatinine 2.13 H (0.5-1.4) mg/dL Estim Creat Clear Calc 19.6 Estimated GFR 23 Random Glucose 138 H (60-115) mg/dL Calcium 7.7 L (8.4-10.2) mg/dL Total Bilirubin 0.7 (0.0-1.0) mg/dL Direct Bilirubin 0.3 (0.0-0.5) mg/dL AST 35 H (5-31) U/L ALT 19 (0-31) U/L Alkaline Phosphatase 113 (39-117) U/L Total Protein 5.5 L (6.5-8.0) g/dL Albumin 2.6 L (3.5-5.0) g/dL Urine Color Yellow Urine Appearance Clear Urine pH 5.5 (5.0-9.0) Ur Specific [place] 1.015 (1.005-1.025) Urine Protein Trace (Neg-Trace) mg/dL Urine Glucose (UA) Negative (Negative) mg/dL Urine Ketones Negative (Negative) mg/dL Urine Blood Negative (Negative) Urine Nitrite Negative (Negative) Ur Leukocyte Esterase Negative (Negative) Urine RBC 0-2 (0-2) /HPF Urine WBC 0-5 (0-5) /HPF Ur Squamous Epith Cells 0-2 (0-2) /HPF Urine Bacteria None Seen (None Seen) Hyaline Casts 3-5 (0-2) /LPF COVID-19 (JÚNIOR) Negative (Negative) COVID-19 Clin Com See Note Independent Historian Clinical information obtained from an independent historian. History obtained from or confirmed by: Other (GRANDDAUGHTER) External Record Review External record reviewed: Inpatient record Discharge Plan Discharge Clinical Impression: Weakness, Pancreatic cancer Patient Disposition: Home, Self-Care Instructions: Weakness (ED) Additional Instructions: FOLLOW-UP WITH YOUR PRIMARY CARE PHYSICIAN TOMORROW RETURN TO THE EMERGENCY ROOM IF YOU ARE WORSE Prescriptions: No Action tramadol 50 mg tablet 1 tab PO QID PRN (Reason: Pain) furosemide 40 mg Tablet 40 mg PO DAILY Qty: 30 0RF Protocol: Hold for SBP< HOLD for SBP < : 90 cefuroxime axetil 250 mg tablet 250 mg PO BID Qty: 10 0RF hydralazine 50 mg tablet 50 mg PO BID@0830,1430 30 Days Qty: 60 0RF hydralazine 100 mg tablet 100 mg PO BEDTIME 30 Days Qty: 30 0RF (DME) T.E.D. Knee [id number] Misc See Rx Instructions .Route Qty: 24 0RF Rx Instructions: As directed carvedilol 3.125 mg tablet 3.125 mg PO BID Protocol: Hold for SBP/HR < HOLD for SBP < : 90 HOLD for HR < : 60 Referrals: Mor Marin MD [Primary Care Provider] - 2 days
--- NOTE | 2023-02-09 15:04 | PC.NURSE ---
pt currently working with PT.
--- NOTE | 2023-02-09 15:32 | PC.NURSE ---
d/t pt's bladder scan of 423ml, pt had straight catheterization performed to obtain urine. 350ml noted in urine bag - documented in I&O section. pt tolerated well.
[2023-02-09 16:00] VITALS: BP 172/68; PULSE 68; RESP 16; O2SAT 99
--- NOTE | 2023-02-09 16:19 | PC.NURSE ---
pt medically cleared by ED provider. pt awaiting for daughter to come in and visit - will call/notify daughter that pt is ready to leave facility when able.
== END 2023-02-09 17:44 | disposition home or self-care (01) ==
PROVIDERS: Emergency Provider Emergency Medicine; PCP Internal Medicine
DX: R53.1 Weakness (principal); C25.9 Malignant neoplasm of pancreas, unspecified; I10 Essential (primary) hypertension; E11.9 Type 2 diabetes mellitus without complications; I44.7 Left bundle-branch block, unspecified; Z79.899 Other long term (current) drug therapy
CPT/HCPCS: 36415; 80053; 81001; 82248; 85025; 87635; 93005; 96360; 97161; 99284; 99285

== ENCOUNTER 2023-03-01 11:58 | Emergency (ER) | payer OTHER, SELFPAY ==
[2023-03-01] VITALS (7 sets, daily range): BP systolic 151–187; BP diastolic 64–84; PULSE 74–88; RESP 16–18; TEMP 36.3–36.8; O2SAT 98–100; BMI 22.9
--- NOTE | ~2023-03-01 | XR_ITS ---
EXAMINATION: XR CHEST CLINICAL INFORMATION: Central line placement. COMPARISON: CT chest 02/01/2023. TECHNIQUE: Frontal view of the chest was obtained. FINDINGS: The lungs are well-expanded and clear acute process. There calcified densities in right lower lobe likely granuloma. Mild haziness is seen left lung base likely small pleural effusion. This was visualized on the previous CT chest 02/01/2023. Heart size and pulmonary vascularity is normal. The right internal jugular catheter with its tip at the atrial caval junction. XR/XR chest 1V IMPRESSION: 1. No acute cardiopulmonary process seen. 2. Mild haziness left lung base likely small effusion or pleural thickening. This was noted on the previous CT chest exam. Small calcified granulomas right lower lobe. 3. Right internal jugular catheter tip is at the atrio-caval junction.
--- NOTE | 2023-03-01 12:10 | PC.NURSE ---
a&ox3, vss and up tp date pt comes in today from home d/t decreased PO intake/weakness. pt's grandaughter bedside wondering if we are able to administer IVF d/t lack of intake. pt c/o no pain or any other sx at this time. respirations even and unlabored. call aguilar paced within reach.
--- OUTSIDE RECORDS SUMMARY | 2023-03-01 12:23 | XMS_ITS | Patient Health Record ---
Author Name Unknown Organization [facility] Address [address] [place] [address] Care Team Providers Care Yard Switcher Name Role Phone Mor Marin MD Primary Care Provider UnavailArmando Patterson Jr Unavailable Quique Melara Unavailable [phone] ALLERGIES Allergen (clinical drug ingredient) Drug/Non Drug Allergy documented on EMR Reaction Allergy Type Onset Date Status Penicillin Unknown Drug Allergy Active RESULTS Component Value Reference Range Notes Prothrombin Time INR Reviewed date:11/08/2022 01:33:17 PM Interpretation: Performing Lab:[facility], [address] [place] [phone] Notes/Report: Prothrombin Time 13.3 10.0-13.1 SEC INTERNATIONAL [...] ff Reviewed date:11/09/2022 01:51:17 PM Interpretation: Performing Lab:[address] [address] Notes/Report: White Blood Count 6.0 4.8-10.8 X10*3/uL [...] 19-9 Reviewed date:11/11/2022 09:59:15 PM Interpretation: Performing Lab:[facility], [address] [place] [phone] Notes/Report: Carbohydrate Antigen 19-9 481 <34 U/mL The CA19-9 result may be increased on average 14% - 20%, relative to results previously obtained with this method due to a recent calibrator adjustment made in July 2022 by the reagent shoe maker. In the low range for this assay [...] of disease. THIS TEST WAS PERFORMED AT: [facility] [address] [place] [phone] FREDO MAYS MD FL guidance in OR Reviewed date:11/12/2022 01:28:47 PM Interpretation: Performing Lab: Notes/Report: [address] [address] Fluoroscopy Report Signed Patient: Ervin Anaya I MR#: [id number] : 1945 Acct:[id number] Age/Sex: 77 / F ADM Date: 11/06/22 Loc: .S3 357-[address]: Rakan Andrew MD Ordering Physician: Quique Melara Date of Service: 11/10/22 Procedure(s): FL guidance in OR Accession Number(s): [id number] cc: Quique Melara EXAMINATION: XR FLUOROSCOPY WITH [...] No diagnostic images obtained. Dictated By: Celestino Sloo MD Signed By: <Electronically signed by Celestino Solo MD in OV> 11/12/22 0831 DD/ 52 TD/TT: Seal Extrusion Operator: PD Complete Blood Count Auto Di ff Reviewed date:11/11/2022 09:56:38 PM Interpretation: Performing Lab:[facility], [address] [place] [address] Notes/Report: White Blood Count 5.0 4.8-10.8 X10*3/uL [...] Panel Reviewed date:11/11/2022 09:59:33 PM Interpretation: Performing Lab:[address] [address] Notes/Report: Bilirubin Total 4.0 0.0-1.0 mg/dL Bilirubin Direct 2.9 0.0-0.5 mg/dL Aspartate Amino Transferase 267 5-31 U/L Alanine Aminotransferase 353 0-31 U/L Total Protein 5.6 6.5-8.0 g/dL Albumin Level 3.0 3.5-5.0 g/dL Alkaline Phosphatase 640 39-117 U/L Basic Metabolic Panel Fastin g Reviewed date:11/11/2022 09:56:10 PM Interpretation: Performing Lab:[address] [address] Notes/Report: Sodium 139 135-145 mmol/L Potassium 3.5 3.3-5.1 mmol/L Chloride 108 96-108 mmol/L Carbon Dioxide 20 22-29 mmol/L Anion Gap 15 12-20 Blood Urea Nitrogen 29 9-16 mg/dL Creatinine 1.67 0.5-1.4 mg/dL Creatinine [facility] 26.2 Provided height and weight: 165.1 cm, 60 kg. eGFR (calculated from the MDRD study equation) and eCrCl (calculated from the Cockcroft-Gault equation) are based on different parameters and may not yield comparable results. If eCrCl result is absurd, please check patient's height/weight. Estimated Glomerular Filt Rate 30 NOTE: For -Ukrainian individuals, multiply the result by 1.210. Chronic [...] Obstructive jaundice (K83.1) Active confirmed Obstructive jaundice (70644086) Encounters Encounter Location Date Provider Diagnosis [facility] [place] [address] [place] [id number] 11/10/[address] [facility] [address] [place] [phone] 11/08/[address] [facility] [address] [place] [phone] 11/19/2022 Armando Olmedo Jr PLAN OF TREATMENT No Information Insurance Providers Payer Name Payer Address Payer Phone Subscriber Number Group Number Insured Name Patient Relationship to Insured Coverage Start Date Coverage End Date [facility] [address] [address] [place] [phone] [id number] ERVIN AGUILA Self - patient is the insured MEDICAL (GENERAL) HISTORY Medical History History ICD Code colonoscopy 04-05-2006 colonic lipoma hypertension diabetes mellitus arthritis Surgical History Surgery Date(Month/Year) gallbladder surgery
--- OUTSIDE RECORDS SUMMARY | 2023-03-01 12:24 | XMS_ITS | Patient Health Record ---
Author Name Unknown Organization Quique Yates III, MD Address [address] [place] [address] [address] [place] [address] Care Team Providers Care Photoengraving Proofer Apprentice Name Role Phone Mor Marin MD Primary Care Provider Quique Caasrez Unavailable [phone] ALLERGIES Allergen (clinical drug ingredient) Drug/Non Drug Allergy documented on EMR Reaction Allergy Type Onset Date Status Penicillin Unknown Drug Allergy Active RESULTS Component Value Reference Range Notes Complete Blood Count Auto Di ff Reviewed date:11/30/2022 08:52:08 AM Interpretation: Performing Lab:[facility], [address] [place] [phone] Notes/Report: White Blood Count 6.5 4.8-10.8 X10*3/uL [...] Panel Reviewed date:11/30/2022 08:52:08 AM Interpretation: Performing Lab:[address] [address] Notes/Report: Sodium 139 135-145 mmol/L Potassium 3.8 3.3-5.1 mmol/L Chloride 105 96-108 mmol/L Carbon Dioxide 27 22-29 mmol/L Anion Gap 11 12-20 Blood Urea Nitrogen 22 9-16 mg/dL Creatinine 1.62 0.5-1.4 mg/dL Estimated Glomerular Filt Rate 31 NOTE: For -[place] Citizen individuals, multiply the result by 1.210. Chronic [...] 19-9 Reviewed date:01/02/2023 05:37:12 AM Interpretation: Performing Lab:[address] [address] Notes/Report: Carbohydrate Antigen 19-9 525 <34 U/mL The CA19-9 result may be increased on average 14% - 20%, relative to results previously obtained with this method due to a recent calibrator adjustment made in July 2022 by the reagent job tracer. In the low range for this assay [...] of disease. THIS TEST WAS PERFORMED AT: [facility] [address] [place] [phone] FREDO MAYS MD REASON FOR REFERRAL Reason pancreatic mass ? op erable Diagnosis 1 Adenocarcinoma of pa ncreas (C25.9) Referral Organization Quique Yates III, MD Referring Provider First Name Quique Referring Provider Last Name Yates Referring Provider Speciality Internal edicine Referred Provider Specialty Surgical Onc ology General Notes Lexie Jc CMA 12/07 09:37:10 AM EDT > [facility] does not take pt insurance she will [...] EDT > Spoke to Christianne at the [facility] was told to fax all information to her at [phone] Varner review to see who needs to see her first Medical oncology or sugical oncology . All records faxed today to Babita Faust Suzanne CMA 12/27/2022 09:35:59 AM EDT > Christianne from [facility] called they do not take patient [...] rays faxed to new pt coordinator at [facility] at [phone] phone # [phone], Lexie Jc CMA 12/28/2022 01:47:30 PM EDT > Pt wants to go to [facility] oncology dept so I called [facility] and cancelled this referral Referral Priority Routine [...] CMA 12/07 01:40:53 PM EDT > Called [facility] oncology dept spoke to Nazia She stated the patient needed to be registered first with the hospital (which I did for the patient ) then she asked for the ref/demo/progress note/x-rays/pathology/labs faxd to [facility] oncology dept attn: Nazia this was done and pt grand dtr left message that the referral was done , Lexie Jc [facility] 01/03/2023 09:50:39 AM EDT > called [facility] oncology spoke to Lisa pt has appt [...] Diabetes mellitus (E11.9) Active confirmed Diabetes mellitus (48816894) Her diabetes has improved recently with her weight loss. She will continue on current medication. Problem Arthritis (M19.90) Active confirmed Arthritis (0939487) Continues to have myeloproliferative symptoms and shoulders. Hips and knees. Problem HTN (hypertension) (I10) Active confirmed Hypertension (42106428) Her blood pressure today is 130/60. Her blood pressure has been much better with a 25 pound weight loss. She may soon be able to stop her blood pressure medication. Problem Uterine prolapse (N81.4) Active confirmed Uterine prolapse (82800377) Problem Adenocarcinoma of pancreas (C25.9) Active confirmed [id number] She recently experienced painless jaundice and required [...] Date Provider Diagnosis Quique Yates III, MD [address] [place] [address] [place] [phone] 11/29/2022 Quique Yates Adenocarcinoma of pancreas C25.9 ; Diabetes mellitus E11.9 ; Arthritis M19.90 and HTN (hypertension) I10 Quique Yates III, MD [address] [place] [address] [place] [phone] 11/28/2022 Quique Yates III, MD [address] [place] [address] [place] [address] 11/29/2022 Quique Yates III, MD [address] [place] [address] [place] [address] 12/07/2022 Quique Yates III, MD [address] [place] [address] [place] [address] 12/07/2022 Quique Yates III, MD [address] [place] [address] [place] [address] 12/26/2022 Quique Yates III, MD [address] [place] [address] [place] [address] 12/26/2022 Quique Yates III, MD [address] [place] [address] [place] [address] 12/26/2022 Quique Yates III, MD [address] [place] [address] [place] [address] 12/27/2022 Quique Yates III, MD [address] [place] [address] [place] [phone] 12/27/2022 Quique Yates III, MD [address] [place] [address] [place] [address] 12/28/2022 Quique Yates III, MD [address] [place] [address] [place] [address] 02/08/2023 Quique Yates III, MD [address] [place] [address] [place] [address] 12/30/2022 Quique Yates ASSESSMENTS Encounter Date Diagnosis [...] Insured Coverage Start Date Coverage End Date [facility] [address] [address] [place], [place] [phone] [id number] RIGO CarreonERVIN Self - patient is the insured MEDICAL (GENERAL) HISTORY Medical History History ICD Code Diabetes mellitus E11.9 Arthritis M19.90 HTN (hypertension) I10 Uterine prolapse N81.4 Weight loss Penicillin allergy Carcinoma of the pancreas MARKY November 06, 2022, [facility] Nonobstructing renal calculi Surgical History Surgery Date(Month/Year) LEEP Appendectomy Hospitalization History Reason Date(Month/Year) Dehydration. On stop, nausea , vomiting, epigastric pain, pancreatic cancer 11/06/2002
--- NOTE | 2023-03-01 12:31 | PC.NURSE ---
pt incontinent of urine. this RN and walter servin changed pt over to hospital attire/fresh linen. purewick placed. 3+ pitting edema noted to the LE bilaterally. fine crackles noted upon auscultation throughout. pt resting comfortably in no apparent distress. respirations even and unlabored. call aguilar placed within reach.
--- NOTE | 2023-03-01 13:11 | ECG_ITS ---
Test Reason : WEAKNESS Blood Pressure : / mmHG Vent. Rate : 074 BPM Atrial Rate : 074 BPM P-R Int : 136 ms QRS Dur : 150 ms QT Int : 450 ms P-R-T Axes : 003 006 166 degrees QTc Int : 499 ms Normal sinus rhythm Left bundle branch block Abnormal ECG When compared with ECG of 09-FEB-2023 13:39, No significant change was found Referred By: Mai Carbajal Electronically Signed By:RICCARDO CARSON MD
--- NOTE | 2023-03-01 13:13 | ED.WEAKNESS ---
HPI - Weakness General Chief complaint: Weakness Stated complaint: NOT TAKING PO INTAKE,DEHYDRATION CONCERN PER FAMI Time Seen by Provider: 03/01/23 13:04 Source: patient and RN notes reviewed Mode of arrival: EMS Limitations: no limitations History of Present Illness HPI Narrative: The emergency room via EMS from home. Patient states that she does not know why she is here. However, according to the patient's nurse, patient was brought to the emergency room because she has had decrease in p.o. intake and increased weakness. Patient has history of pancreatic cancer. Approximately a month ago, patient was here in the hospital, patient was admitted for weakness, dehydration and UTI. Today, patient denies any URI or UTI symptoms. No abdominal pain. Denies fever chills. Related Data Home Medications Medication Instructions Recorded Confirmed tramadol 50 mg tablet 1 tab PO QID PRN Pain 11/24/21 02/01/23 carvedilol 3.125 mg tablet 3.125 mg PO BID 01/23/23 02/01/23 Previous Rx's Medication Instructions Recorded wilber.stocking,knee,reg,smal #24 ea 12/30/22 (T.E.D. Knee [facility]) hydralazine 100 mg tablet 100 mg PO BEDTIME 30 days #30 tabs 12/30/22 hydralazine 50 mg tablet 50 mg PO BID@0830,1430 30 days #60 12/30/22 tabs cefuroxime axetil 250 mg tablet 250 mg PO BID #10 tabs 02/04/23 furosemide 40 mg tablet 40 mg PO DAILY #30 tabs 02/04/23 potassium chloride 10 mEq 10 meq PO DAILY #5 tabs 02/09/23 tablet,extended release(part/cryst) Allergies Allergy/AdvReac Type Severity Reaction Status Date / Time penicillin V Allergy Unknown hives, Rash Verified 03/01/23 12:08 Penicillins [PENICILLINS] Allergy Unknown RASH Verified 03/01/23 12:08 Review of Systems Review of Systems: Constitutional : No Weight loss, No Fever, No Chills, No Night Sweats, per family, patient seems weaker and dehydrated ENT/Mouth : No Hearing loss, No Ear Pain, No Nasal Congestion, No Sinus Pain, No Hoarseness, No sore throat, No Rhinorrhea, No Swallowing Difficulty Eyes: No Eye Pain, No Swelling, No Redness, No Foreign Body, No Discharge, No Vision Changes Cardiovascular : No Chest Pain, No SOB, No Dyspnea on Exertion, No Orthopnea, No Edema, No Palpitations Respiratory : No Cough, No Sputum, No Wheezing, No Smoke Exposure, No Dyspnea Gastrointestinal : No Nausea, No Vomiting, No Diarrhea, No Constipation, No abdominal Pain, No Hematochezia, No Melena Genitourinary : no irregular bleeding, No Dysuria, No Urinary Frequency, No Hematuria, No Urinary Incontinence, No Urgency, No Flank Pain, No Urinary Flow Changes, No Hesitancy Musculoskeletal : No joint pain, No Myalgias, No Joint Swelling Skin : No Skin Lesions, No rash Neuro : No Weakness, No Numbness, No Paresthesias, No Loss of Consciousness, No Dizziness, No Headache Psych : No Anxiety/Panic, No Depression, No SI/HI/AH/VH, No Social Issues, Heme/Lymph: No Bruising, No Bleeding,No Lymphadenopathy Endocrine : No Polyuria, No Polydipsia, No Temperature Intolerance [facility] Past Medical History Medical History Acute kidney injury superimposed on chronic kidney disease Pancreatic cancer CHF exacerbation Acute kidney injury Acute UTI Nonischemic cardiomyopathy Left bundle branch block Pancreatic lesion Abnormal urine odor Uterine prolapse Arthritis HTN (hypertension) Diabetes mellitus Surgical History Hx of appendectomy History of loop electrical excision procedure (LEEP) Family History Family History Sister Breast cancer Mother Vaginal cancer Social History Social History Household Members: None Housing: Apartment Do you presently have visiting nurse or other home services: Yes Alcohol intake: never Patient Tobacco Use Status: Never used Tobacco Smoked in Last 30 Days: No Use of substances other than those prescribed or required for medical reasons: No Advance Directives: No Advance Directives Information Provided: Yes service: No Current occupational status: retired Gender identity: Female Physical Exam Vital Signs: Vital Signs: Last Vital Signs Temp 98.3 F 03/01/23 20:40 Pulse 81 03/01/23 20:40 Resp 18 03/01/23 20:40 BP 187/84 H 03/01/23 20:40 Pulse Ox 100 03/01/23 20:40 O2 Del Method Room Air 03/01/23 20:40 BMI result Body Mass Index 22.9 Medications Administered Generic Name Dose Route Start Last Admin Trade Name Frekellie PRN Reason Stop Dose Admin Sodium Chloride 1,000 mls @ 500 mls/hr 03/01/23 20:45 03/01/23 21:03 Ns IVCONT 03/01/23 22:44 500 mls/hr .Q2H ONE Administration Discontinued Medications Generic Name Dose Route Start Last Admin Trade Name Freq PRN Reason Stop Dose Admin Potassium Chloride 40 meq 03/01/23 20:43 03/01/23 21:03 Potassium Chloride Packet 20 Meq Packet PO 03/01/23 20:44 40 meq ONCE ONE Administration Potassium Chloride 40 meq 03/01/23 21:14 03/01/23 21:23 Potassium Chloride Er 20 Meq Tab.Er.Prt PO 03/01/23 21:15 40 meq ONCE ONE Administration Medical Decision Making Medical Decision Making MDM Narrative: -I was informed by the patient's nurse that multiple nurses have tried getting IV access and labs but they have been unsuccessful. -with ultrasound, I was able to get a line in the right arm. However we were unable to obtain blood. -my colleagues also attempted getting IV access and labs. However, it was unsuccessful. I discussed with the patient, her daughter who is the healthcare proxy that the best option now is getting a central line, patient can get medications, fluids if needed and obtain labs. All agreeable to get a central line placed. -patient received 500 cc of IV fluids, we were able to obtain the labs. -patient is alert and oriented x3, patient stated that she wants the central line to be removed. -patient's potassium p.o. was dissolved in applesauce, patient refuses to have anything to eat, states that she wants the pills but she will not take anything to eat -I spoke with the patient's daughter who is in the room, the patient is not aware that she has pancreatic cancer. The family is hoping to start hospice services. The patient's daughter who is in the room right now is not healthcare proxy. -I attempted getting in touch with the daughter who was actually the healthcare proxy. However, she is not picking up her phone. -patient is pretty much ready to be discharged home. However, we are just waiting to confirm with the daughter if she is willing to take her home or if they need more services. -once we speak with the patient's daughter, if she decides to take her home, we will remove the central line and discharge the patient -my interpretation of labs: patient's white blood cell count 5.5, urine is positive for leukocyte esterase, white blood cell count. Patient's potassium 3.1, repleted p.o.. Patient's creatinine at baseline -my interpretation of chest x-ray: Central line placed Differential Diagnosis Differential Diagnoses: The differential diagnosis associated with the presentation includes (Deconditioning, dehydration, hospice care) Admission/Observation Consideration of admission/observation: Escalation of care including admission/observation considered (Patient seems a bit dehydrated, has been refusing to eat, admission was considered on arrival.) Lab Data MDM Lab Attestation statement: I reviewed the patient's lab results. 03/01/23 18:43 03/01/23 18:43 Labs: Lab Results 03/01/23 03/01/23 Range/Units 18:43 20:33 WBC 5.5 (4.8-10.8) X10*3/uL RBC 2.64 L (4.20-5.50) X10*6/uL Hgb 8.5 L (12.0-16.0) g/dl Hct 26.0 L (37.0-47.0) % MCV 98.5 H (80.0-98.0) fL MCH 32.2 (27.0-33.0) pg MCHC 32.7 (31.0-35.0) g/dl RDW 15.9 (11.0-16.0) % Plt Count 102 L D (160-400) X10*3/uL MPV 10.9 (9.4-12.3) fL Immature Gran % (Auto) 0.4 (0.0-0.4) % Neut % (Auto) 81.7 H (45-73) % Lymph % (Auto) 13.7 L (20-40) % [place] % (Auto) 4.0 (2-11) % Eos % (Auto) 0.0 (0-4) % Baso % (Auto) 0.2 (0-2) % Lymph # (Auto) 0.8 L (1.2-4.9) X10*3/uL [place] # (Auto) 0.2 (0.1-1.2) X10*3/uL Eos # (Auto) 0.0 (0.0-0.4) X10*3/uL Baso # (Auto) 0.0 (0.0-0.2) X10*3/uL Abs Immat Gran (auto) 0.02 (0.00-0.03) X10*3/uL Absolute Neuts (auto) 4.5 (2.0-8.3) x10*3/uL Absolute Nucleated RBC 0.000 (0.0-0.012) X10*3/uL Nucleated RBC % (auto) 0.0 (0.0-0.2) /100WBC PT 13.1 (11.1-13.3) SEC INR 1.1 (0.9-1.1) Sodium 137 (135-145) mmol/L Potassium 3.1 L (3.3-5.1) mmol/L Chloride 110 H (96-108) mmol/L Carbon Dioxide 17 L (22-29) mmol/L Anion Gap 13 (12-20) BUN 63 H (9-16) mg/dL Creatinine 2.49 H (0.5-1.4) mg/dL Estim Creat Clear Calc 19.0 Estimated GFR 19 Random Glucose 113 (60-115) mg/dL Lactic Acid 0.9 (0.5-2.0) mmol/L Calcium 7.9 L (8.4-10.2) mg/dL Magnesium 1.6 (1.6-2.6) mg/dL Total Bilirubin 0.6 (0.0-1.0) mg/dL Direct Bilirubin 0.4 (0.0-0.5) mg/dL AST 37 H (5-31) U/L ALT 27 (0-31) U/L Alkaline Phosphatase 169 H (39-117) U/L Troponin I High Sens 186.3 H* (<3.5-17.0) ng/L B-Natriuretic Peptide 195 H (<100) pg/mL Total Protein 4.9 L (6.5-8.0) g/dL Albumin 2.4 L (3.5-5.0) g/dL Lipase < 4 L (8-78) U/L TSH 4.77 H (0.32-4.0) uIU/mL Free T4 0.75 (0.71-1.85) ng/dL Urine Color Yellow Urine Appearance Turbid Urine pH 5.5 (5.0-9.0) Ur Specific [place] 1.015 (1.005-1.025) Urine Protein 30 (1+) H (Neg-Trace) mg/dL Urine Glucose (UA) Negative (Negative) mg/dL Urine Ketones Negative (Negative) mg/dL Urine Blood Negative (Negative) Urine Nitrite Negative (Negative) Ur Leukocyte Esterase Large (3+) H (Negative) Urine RBC 0-2 (0-2) /HPF Urine WBC >50 H (0-5) /HPF Ur Squamous Epith Cells 0-2 (0-2) /HPF Urine Bacteria 4+ (None Seen) Hyaline Casts 3-5 (0-2) /LPF Independent Interpretation I performed an independent interpretation of an: EKG (My interpretation of EKG: Sinus rhythm, left bundle branch block, heart rate 74, no ST segment depression or elevation, no T-wave inversion, QTC 499) and Plain X-Ray Radiology Impression Discussion of test interpretation with radiology: I have reviewed the radiologist's reading. Radiologist Impression: 1. No acute cardiopulmonary process seen. 2. Mild haziness left lung base likely small effusion or pleural thickening. This was noted on the previous CT chest exam. Small calcified granulomas right lower lobe. 3. Right internal jugular catheter tip is at the atrio-caval junction. Independent Historian Clinical information obtained from an independent historian. History obtained from or confirmed by: Other (Daughter) Procedures Central Line Placement Right IJ: Time Out Performed: Yes Patient Placed on Monitor/Pulse Ox: Yes MD Prep: mask, gown and gloves Central Line Prep: Chlorhexidine scrub Local Anesthetic: lidocaine 1% Amount of anesthesia used (mL): 5 Ultrasound Used for Placement: Yes Central Line Lumen Inserted: triple Post Procedure: sutured in place, good blood return, all ports aspirated, flushed, capped and sterile dressing applied Post Procedure X-Ray: tip of catheter in good position and no pneumothorax seen Patient Tolerated Procedure: well and no complications Complications: none Discharge Plan Discharge Clinical Impression: Adult failure to thrive, Acute hypokalemia Patient Disposition: Home, Self-Care Instructions: Failure to Thrive in Older Adults (ED), Hypokalemia (ED) Prescriptions: No Action tramadol 50 mg tablet 1 tab PO QID PRN (Reason: Pain) furosemide 40 mg Tablet 40 mg PO DAILY Qty: 30 0RF Protocol: Hold for SBP< HOLD for SBP < : 90 cefuroxime axetil 250 mg tablet 250 mg PO BID Qty: 10 0RF hydralazine 50 mg tablet 50 mg PO BID@0830,1430 30 Days Qty: 60 0RF hydralazine 100 mg tablet 100 mg PO BEDTIME 30 Days Qty: 30 0RF (DME) T.E.D. Knee Wkkubg-Q-Wajyxuc Misc See Rx Instructions .Route Qty: 24 0RF Rx Instructions: As directed potassium chloride 10 mEq tablet,ER particles/crystals 10 meq PO DAILY Qty: 5 0RF carvedilol 3.125 mg tablet 3.125 mg PO BID Protocol: Hold for SBP/HR < HOLD for SBP < : 90 HOLD for HR < : 60
--- NOTE | 2023-03-01 13:50 | PC.NURSE ---
douglas currently bedside performing ekg/attempting to obtain labs.
--- NOTE | 2023-03-01 14:35 | PC.NURSE ---
this RN and two other tech's attempted to draw labs on pt but was unsuccessful. provider aware at this time. provider stated to call phlebotomy - [facility] servin called/notified phlebotomy. phlebotomy stated to do finger sticks but we are unable to do that at this time d/t full workup/cultures ordered.
--- NOTE | 2023-03-01 14:39 | MHC.EDTECH ---
TANNALISA roberson and another tech unable to obtain labs ordered on Pt. Dr. Carbajal aware, said to reach out to phlebotomy. T/w called them, was asked did you do a finger stick? and T/w advised them that it is a whole work up (cultures, lactic etc) and T/w was told we are very understaffed and we will try to get up there if we can. ANNALISA Roberts aware.
--- NOTE | 2023-03-01 15:52 | PC.NURSE ---
another tech attempted to obtain labs but was unsuccessful at this time. phlebotomy now bedside w/ pt and family.
--- NOTE | 2023-03-01 16:31 | PC.NURSE ---
phlebotomy unable to obtain labs. will notify ED provider.
--- NOTE | 2023-03-01 16:53 | PC.NURSE ---
vss and up to date. plan at this time if for dr. gallagher's to obtain labs/insert IV via ultrasound guidance. family and pt aware of plan of care at this time. respirations remain even and unlabored. call aguilar placed within reach.
--- NOTE | 2023-03-01 17:42 | PC.NURSE ---
20gIV placed in right AC w/ ultrasound guidance by dr. red. unable to draw labs from access site. another provider looking for another site at this time.
--- NOTE | 2023-03-01 18:48 | PC.NURSE ---
central line placed by dr. red. labs drawn and sent to lab. xray ordered to confirm placement.
[2023-03-01 18:54] LABS: MANUAL DIFF FLAG NO
[2023-03-01 18:55] LABS: Basophils Percent Auto 0.2 % (0-2); Hemoglobin 8.5 g/dl (12.0-16.0); Imm Gran Abs Auto 0.02 X10*3/uL (0.00-0.03); Imm Gran Pct Auto 0.4 % (0.0-0.4); Lymphocytes Absolute Auto 0.8 X10*3/uL (1.2-4.9); Lymphocytes Percent Auto 13.7 % (20-40); Mean Corpuscular HGB Conc 32.7 g/dl (31.0-35.0); Mean Corpuscular Hemoglobin 32.2 pg (27.0-33.0); Mean Corpuscular Volume 98.5 fL (80.0-98.0); Mean Platelet Volume 10.9 fL (9.4-12.3); Monocytes Absolute Auto 0.2 X10*3/uL (0.1-1.2); Neutrophils Absolute Auto 4.5 x10*3/uL (2.0-8.3); Neutrophils Percent Auto 81.7 % (45-73); Platelet Count 102 X10*3/uL (160-400); Red Blood Count 2.64 X10*6/uL (4.20-5.50); Red Cell Distribution Width 15.9 % (11.0-16.0); White Blood Count 5.5 X10*3/uL (4.8-10.8)
[2023-03-01 19:03] LABS: INTERNATIONAL NORM RATIO 1.1 (0.9-1.1); Prothrombin Time 13.1 SEC (11.1-13.3)
[2023-03-01 19:05] LABS: Lactic Acid 0.9 mmol/L (0.5-2.0)
[2023-03-01 19:15] LABS: B Type Natriuretic Peptide 195 pg/mL (<100)
[2023-03-01 19:28] LABS: Alanine Aminotransferase 27 U/L (0-31); Albumin Level 2.4 g/dL (3.5-5.0); Alkaline Phosphatase 169 U/L (39-117); Anion Gap 13 (12-20); Aspartate Amino Transferase 37 U/L (5-31); Bilirubin Direct 0.4 mg/dL (0.0-0.5); Bilirubin Total 0.6 mg/dL (0.0-1.0); Blood Urea Nitrogen 63 mg/dL (9-16); Calcium 7.9 mg/dL (8.4-10.2); Carbon Dioxide 17 mmol/L (22-29); Chloride 110 mmol/L (96-108); Estimated Glomerular Filt Rate 19; Glucose Random 113 mg/dL (60-115); Lipase < 4 U/L (8-78); Magnesium 1.6 mg/dL (1.6-2.6); Potassium 3.1 mmol/L (3.3-5.1); Sodium 137 mmol/L (135-145); Total Protein 4.9 g/dL (6.5-8.0)
[2023-03-01 19:31] LABS: TSH reflex Free T4 4.77 uIU/mL (0.32-4.0)
[2023-03-01 19:34] LABS: Troponin-I High Sensitivity 186.3 ng/L (<3.5-17.0)
[2023-03-01 20:13] LABS: Free T4 (Free Thyroxine) 0.75 ng/dL (0.71-1.85)
[2023-03-01 20:47] LABS: Appearance Urine Turbid; Color Urine Yellow; Glucose Urine UA Negative (Negative); Leukocyte Esterase Urine Large (3+) (Negative); Nitrite Urine Negative (Negative); PH 5.5 (5.0-9.0); Specific Gravity - Urine 1.015 (1.005-1.025); UMIC TRIGGER UACC YES; Urine Blood Negative (Negative); Urine Ketones Negative (Negative); Urine Protein 30 (1+) mg/dL (Neg-Trace)
--- NOTE | 2023-03-01 20:47 | PC.NURSE ---
pt has not urinated since arriving by ambulance. tech bladder scanned pt - 389ml in bladder - provider aware. verbal order to straight cath. pt tolerated catheterization well. 300ml of cloudy/dark yellow urine noted immediately - documented in I&O section. urine obtained and sent to lab. family bedside at this time.
[2023-03-01 21:00] LABS: Bacteria Urine 4+ (None Seen); RBC Urine 0-2 /HPF (0-2); Squamous Epithelial Cell Urine 0-2 /HPF (0-2); UACC Culture Trigger YES; WBC Urine >50 /HPF (0-5)
[2023-03-01] MEDS: Potassium Chloride Packet 20 MEQ PACKET 40 MEQ PO (21:03)
[2023-03-01] MEDS: 0.9 % Sodium Chloride 1,000 ML 500 ML IVCONT (21:03)
--- NOTE | 2023-03-01 21:16 | PC.NURSE ---
medication administered per provider order.
[2023-03-01] MEDS: Potassium Chloride ER 20 MEQ TAB.ER.PRT 40 MEQ PO (21:23)
[2023-03-02 00:11] VITALS: BP 157/89; PULSE 85; RESP 18; TEMP 36.6
== END 2023-03-02 01:06 | disposition home or self-care (01) ==
PROVIDERS: Emergency Medicine; Emergency Provider Student in an Organized Health Care Education/Training Program; PCP Internal Medicine
DX: N39.0 Urinary tract infection, site not specified (principal); B96.1 Klebsiella pneumoniae [K. pneumoniae] as the cause of diseases classified elsewhere; E87.6 Hypokalemia; R62.7 Adult failure to thrive; Z68.22 Body mass index [BMI] 22.0-22.9, adult; C25.9 Malignant neoplasm of pancreas, unspecified; E11.22 Type 2 diabetes mellitus with diabetic chronic kidney disease; I13.0 Hypertensive heart and chronic kidney disease with heart failure and stage 1 through stage 4 chronic kidney disease, or unspecified chronic kidney disease; N18.9 Chronic kidney disease, unspecified; I50.23 Acute on chronic systolic (congestive) heart failure; I44.7 Left bundle-branch block, unspecified
CPT/HCPCS: 36415; 36556; 71045; 80048; 80076; 81001; 83605; 83690; 83735; 83880; 84439; 84443; 84484; 85025; 85610; 87040; 87086; 87088; 87186; 93005; 96360; 96361; 99284; 99285